=== PATIENT | female | born 2000 | race Caucasian/White ===

== ENCOUNTER 2020-08-25 12:50 | Outpatient (REF) | payer OTHER, SELFPAY ==
[2020-08-25 13:10] LABS: COVID-19 Test Negative (Negative); IDNOW Serial# 55D5AD1C
== END 2020-08-25 12:51 | disposition home or self-care (01) ==
LOC: HO.LAB 12:50
PROVIDERS: Visit Provider Internal Medicine
DX: Z20.822 Contact with and (suspected) exposure to COVID-19 (principal)
CPT/HCPCS: 36415; 87635; C9803

== ENCOUNTER → 2021-05-19 11:06 | Outpatient (BNVA) | payer OTHER, SELFPAY | PROVIDERS: PCP Student in an Organized Health Care Education/Training Program; Visit Provider Internal Medicine | DX: S80.02XA Contusion of left knee, initial encounter (principal); S90.112A Contusion of left great toe without damage to nail, initial encounter; W18.09XA Striking against other object with subsequent fall, initial encounter; Z23 Encounter for immunization | CPT/HCPCS: 73564; 90715; 99203 ==

== ENCOUNTER 2021-12-09 10:24 | Emergency (ER) | payer OTHER, SELFPAY ==
[2021-12-09 10:28] VITALS: BP 153/74; PULSE 100; RESP 18; TEMP 36.9; O2SAT 100; BMI 61.6
--- NOTE | 2021-12-09 10:30 | ECG_ITS ---
Test Reason : htn Blood Pressure : / mmHG Vent. Rate : 098 BPM Atrial Rate : 098 BPM P-R Int : 176 ms QRS Dur : 106 ms QT Int : 372 ms P-R-T Axes : 019 012 002 degrees QTc Int : 474 ms Normal sinus rhythm Normal ECG No previous ECGs available Referred By: Generic ED Physician Electronically Signed By:
[2021-12-09 10:52] LABS: Basophils Absolute Auto 0.1 X10*3/uL (0.0-0.2); Basophils Percent Auto 0.5 % (0-2); Eosinophils Absolute Auto 0.1 X10*3/uL (0.0-0.4); Eosinophils Percent Auto 0.6 % (0-4); Hematocrit 37.6 % (37.0-47.0); Hemoglobin 12.2 g/dl (12.0-16.0); Imm Gran Abs Auto 0.04 X10*3/uL (0.00-0.03); Imm Gran Pct Auto 0.4 % (0.0-0.4); Lymphocytes Absolute Auto 1.3 X10*3/uL (1.2-4.9); MANUAL DIFF FLAG NO; Mean Corpuscular HGB Conc 32.4 g/dl (31.0-35.0); Mean Corpuscular Hemoglobin 24.2 pg (27.0-33.0); Mean Corpuscular Volume 74.6 fL (80.0-98.0); Mean Platelet Volume 9.5 fL (9.4-12.3); Monocytes Absolute Auto 0.7 X10*3/uL (0.1-1.2); Monocytes Percent Auto 6.4 % (2-11); Neutrophils Absolute Auto 8.1 x10*3/uL (2.0-8.3); Neutrophils Percent Auto 79.1 % (45-73); Platelet Count 339 X10*3/uL (160-400); Red Blood Count 5.04 X10*6/uL (4.20-5.50); Red Cell Distribution Width 14.6 % (11.0-16.0); White Blood Count 10.2 X10*3/uL (4.8-10.8)
[2021-12-09 11:10] LABS: Anion Gap 12 (12-20); Blood Urea Nitrogen 9 mg/dL (9-16); Calcium 8.5 mg/dL (8.4-10.2); Carbon Dioxide 24 mmol/L (22-29); Chloride 104 mmol/L (96-108); Creatinine Clr Calc Pharmacy 220.3; Estimated Glomerular Filt Rate > 60; Glucose Random 94 mg/dL (60-115); Sodium 136 mmol/L (135-145)
[2021-12-09 11:17] LABS: Troponin-I High Sensitivity < 3.5 ng/L (<3.5-17.0)
--- NOTE | 2021-12-09 11:20 | ED.GENADULT ---
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 She presents with intermittent elevated blood pressure and then today states that it was associated with some nausea, vomiting, dizziness and she reports sharp left-sided chest pain since last night does not associated with any sweating or shortness of breath and she denies any fevers or chills or urinary symptoms. She denies any diarrhea and denies the possibility of . She does report positive travel history to [place] in October as well as a positive family history of cardiac disease. Related Data Allergies Allergy/AdvReac Type Severity Reaction Status Date / Time No Known Allergies Allergy Verified 12/09/21 10:30 Review of Systems Review of Systems: Pertinent positives and negatives as stated in HPI 10 point review of systems is otherwise negative. PMFSH Past Medical History Source: nursing notes reviewed Social History Social History Patient Tobacco Use Status: Never used Tobacco Use of substances other than those prescribed or required for medical reasons: No Any prior treatment program specific to substance use: No Advance Directives: No Advance Directives Information Provided: No Patient : No Physical Exam ED Vital Signs: Vital Signs - 24 hr 12/09/21 10:28 12/09/21 12:09 Temperature 98.4 F 98.2 F Pulse Rate 100 88 Respiratory Rate 18 18 Blood Pressure 153/74 H 118/62 Pulse Oximetry 100 98 Oxygen Delivery Method Room Air Room Air BMI result Body Mass Index 61.6 VITAL SIGNS: Reviewed. GENERAL: Elevated BMI, Well developed, well nourished, in no acute distress. HEAD: Normocephalic/atraumatic EYES: PERRLA, EOMI EARS: Ext canals without abnormality OROPHARYNX: no oral lesions noted, posterior pharynx clear NECK: Supple, no adenopathy LUNGS: Normal breath sounds. No adventitious sounds or accessory muscle use. SpO2<100> CARDIOVASCULAR: Regular rate and rhythm without noted murmurs ABDOMEN: Soft, non-tender, non-distended with bowel sounds. MUSCULOSKELETAL: No tenderness, deformities, or effusions noted on gross inspection. EXTREMITIES: No cyanosis, clubbing or edema. SKIN: Inspection of the skin reveals no rashes NEUROLOGIC: Alert and oriented x 4. Strength and sensation to light touch were grossly intact x 4. Course Course Course Narrative: 21-year-old female with history and clinical presentation suggestive of possible acid reflux, costochondritis and lower clinical suspicion for cardiopulmonary or PE etiologies. Will also evaluate for possible UTI//thyroid. On review of all investigations are no acute findings to better explain patient's presentation. Suspect that this is acid reflux as the troponin/TSH/D-dimer do not explain patient's current presentation. She does have mild leukocyte esterase in her urine and she is encouraged to follow-up with her primary care provider/tennis desk team member as well as pursue the referral for Cardiology for improved blood pressure control. In the meantime lifestyle changes were discussed with the patient. Medical Decision Making Lab Data Result diagrams: 12/09/21 10:47 12/09/21 10:47 Labs: Lab Results 12/09/21 12/09/21 12/09/21 Range/Units 10:47 10:47 10:47 WBC 10.2 (4.8-10.8) X10*3/uL RBC 5.04 (4.20-5.50) X10*6/uL Hgb 12.2 (12.0-16.0) g/dl Hct 37.6 (37.0-47.0) % MCV 74.6 L (80.0-98.0) fL MCH 24.2 L (27.0-33.0) pg MCHC 32.4 (31.0-35.0) g/dl RDW 14.6 (11.0-16.0) % Plt Count 339 (160-400) X10*3/uL MPV 9.5 (9.4-12.3) fL Immature Gran % (Auto) 0.4 (0.0-0.4) % Neut % (Auto) 79.1 H (45-73) % Lymph % (Auto) 13.0 L (20-40) % Preston % (Auto) 6.4 (2-11) % Eos % (Auto) 0.6 (0-4) % Baso % (Auto) 0.5 (0-2) % Lymph # (Auto) 1.3 (1.2-4.9) X10*3/uL Preston # (Auto) 0.7 (0.1-1.2) X10*3/uL Eos # (Auto) 0.1 (0.0-0.4) X10*3/uL Baso # (Auto) 0.1 (0.0-0.2) X10*3/uL Abs Immat Gran (auto) 0.04 H (0.00-0.03) X10*3/uL Absolute Neuts (auto) 8.1 (2.0-8.3) x10*3/uL Absolute Nucleated RBC 0.000 (0.0-0.012) X10*3/uL Nucleated RBC % (auto) 0.0 (0.0-0.2) /100WBC D-Dimer High Sensitivty NG/ML Sodium 136 (135-145) mmol/L Potassium 4.0 (3.3-5.1) mmol/L Chloride 104 (96-108) mmol/L Carbon Dioxide 24 (22-29) mmol/L Anion Gap 12 (12-20) BUN 9 (9-16) mg/dL Creatinine 0.56 (0.5-1.4) mg/dL Estim Creat Clear Calc 220.3 Estimated GFR > 60 Random Glucose 94 (60-115) mg/dL Calcium 8.5 (8.4-10.2) mg/dL Troponin I High Sens < 3.5 (<3.5-17.0) ng/L TSH 1.46 (0.32-4.0) uIU/mL Beta HCG, Quant < 2 mIU/mL Urine Color Urine Appearance Urine pH (5.0-9.0) Ur Specific [place] (1.005-1.025) Urine Protein (Neg-Trace) mg/dL Urine Glucose (UA) (Negative) mg/dL Urine Ketones (Negative) mg/dL Urine Blood (Negative) Urine Nitrite (Negative) Ur Leukocyte Esterase (Negative) COVID-19 ([facility]ACLYN) (Negative) COVID-19 Clin Com 12/09/21 12/09/21 12/09/21 Range/Units 11:36 11:37 11:44 WBC (4.8-10.8) X10*3/uL RBC (4.20-5.50) X10*6/uL Hgb (12.0-16.0) g/dl Hct (37.0-47.0) % MCV (80.0-98.0) fL MCH (27.0-33.0) pg MCHC (31.0-35.0) g/dl RDW (11.0-16.0) % Plt Count (160-400) X10*3/uL MPV (9.4-12.3) fL Immature Gran % (Auto) (0.0-0.4) % Neut % (Auto) (45-73) % Lymph % (Auto) (20-40) % Preston % (Auto) (2-11) % Eos % (Auto) (0-4) % Baso % (Auto) (0-2) % Lymph # (Auto) (1.2-4.9) X10*3/uL Preston # (Auto) (0.1-1.2) X10*3/uL Eos # (Auto) (0.0-0.4) X10*3/uL Baso # (Auto) (0.0-0.2) X10*3/uL Abs Immat Gran (auto) (0.00-0.03) X10*3/uL Absolute Neuts (auto) (2.0-8.3) x10*3/uL Absolute Nucleated RBC (0.0-0.012) X10*3/uL Nucleated RBC % (auto) (0.0-0.2) /100WBC D-Dimer High Sensitivty 218 NG/ML Sodium (135-145) mmol/L Potassium (3.3-5.1) mmol/L Chloride (96-108) mmol/L Carbon Dioxide (22-29) mmol/L Anion Gap (12-20) BUN (9-16) mg/dL Creatinine (0.5-1.4) mg/dL Estim Creat Clear Calc Estimated GFR Random Glucose (60-115) mg/dL Calcium (8.4-10.2) mg/dL Troponin I High Sens (<3.5-17.0) ng/L TSH (0.32-4.0) uIU/mL Beta HCG, Quant mIU/mL Urine Color Yellow Urine Appearance Clear Urine pH 8.5 (5.0-9.0) Ur Specific [place] 1.015 (1.005-1.025) Urine Protein Negative (Neg-Trace) mg/dL Urine Glucose (UA) Negative (Negative) mg/dL Urine Ketones Negative (Negative) mg/dL Urine Blood Negative (Negative) Urine Nitrite Negative (Negative) Ur Leukocyte Esterase Small (1+) H (Negative) COVID-19 (JACLYN) Negative (Negative) COVID-19 Clin Com See Note ECG Data Attestation: I personally reviewed and interpreted this ECG as follows: Prior ECG tracings: not available for review Interpretation: NSR, HR-98, no STEMI, MN/QTC are within normal limits. Discharge Plan Discharge Clinical Impression: Acid reflux, Hypertension Patient Disposition: Home, Self-Care Instructions: Diet for Stomach Ulcers and Gastritis (ED), Weight Management (ED), Gastroesophageal Reflux Disease (ED), Indigestion (ED), DASH Eating Plan (ED), Hypertension (ED) Additional Instructions: 1. You must follow-up with your tennis desk team member by calling the office today and setting up an appointment for re-evaluation and discussion regarding further workup for your blood pressure and possible initiation of medications. You can start the process by managing your salt intake as well as weight. Also, recommend the use of Tums or Rolaids, in addition waiting at least 2 hours after eating in the evening may help with possible acid reflux symptoms. Do not hesitate to return to the emergency room for worsening symptoms. Referrals: Brooke Conklin MD [Primary Care Provider] - Slim Francisco MD [Physician] - (21F, elevated BMI, sharp chest pain > 12hrs, hsTrop undetectable, HTN not on meds, d-dimer neg, Lead III showing T wave inversion w/o comparison. Gave recs for lifestyle changes and instructed to f/u with her peds doc as well)
[2021-12-09 11:52] LABS: HCG Quantitative < 2 mIU/mL; Thyroid Stimulating Hormone 1.46 uIU/mL (0.32-4.0)
[2021-12-09 11:58] LABS: D Dimer High Sensitivity 218 NG/ML
[2021-12-09 12:00] LABS: Appearance Urine Clear; Color Urine Yellow; Glucose Urine UA Negative (Negative); Leukocyte Esterase Urine Small (1+) (Negative); Nitrite Urine Negative (Negative); PH 8.5 (5.0-9.0); Specific Gravity - Urine 1.015 (1.005-1.025); Urine Blood Negative (Negative); Urine Ketones Negative (Negative); Urine Protein Negative (Neg-Trace)
[2021-12-09 12:09] VITALS: BP 118/62; PULSE 88; RESP 18; TEMP 36.8; O2SAT 98
[2021-12-09 12:10] LABS: COVID-19 Test Negative (Negative); IDNOW Serial# 16C4AD1C
[2021-12-09] MEDS: Lidocaine HCl Viscous 2 % 15 ML SOLUTION 10 ML MUCOUS MEM (12:31)
[2021-12-09] MEDS: Magnesium Hydrox/Alum Hydrox 30 ML ORAL.SUSP PO (12:32)
[2021-12-09 13:14] LABS: Bacteria Urine 1+ (None Seen); Hyaline Casts Urine 0-2 /LPF (0-2); RBC Urine 0-2 /HPF (0-2); UACC Culture Trigger YES; WBC Urine 0-5 /HPF (0-5)
--- NOTE | 2021-12-09 13:21 | PC.NURSE ---
DR CHICAS SPOKE WITH PATIENT AND UPDATED HER REGARDING RESULTS AND DISPOSITION PLAN. DR CHICAS SPENT A LARGE AMOUNT OF TIME EXPLAINING CARE PLAN TO PATIENT. SHE ANSWERED MULTIPLE QUESTIONS AND OFFERED REASSURANCE TO PATIENT'S CONCERNS. PT AWAKE, ALERT AND ORIENTED X 3. SKIN WARM AND DRY. RESP UNLABORED. SPEAKING IN FULL CLEAR SENTENCES. NO S/S OF DISTRESS NOTED. NO COMPLAINTS OFFERED. PT AMBULATORY IN ER, GAIT STEADY
== END 2021-12-09 13:27 | disposition home or self-care (01) ==
PROVIDERS: Emergency Provider Student in an Organized Health Care Education/Training Program; PCP Student in an Organized Health Care Education/Training Program
DX: K21.9 Gastro-esophageal reflux disease without esophagitis (principal); I10 Essential (primary) hypertension; Z20.822 Contact with and (suspected) exposure to COVID-19; Z79.899 Other long term (current) drug therapy
CPT/HCPCS: 36415; 80048; 81001; 81003; 84443; 84484; 84702; 85025; 85379; 87086; 87635; 93005; 99283; 99284

== ENCOUNTER 2022-05-29 13:47 | Emergency (ER) | payer OTHER, SELFPAY ==
--- NOTE | 2022-05-29 14:06 | ED_ITS ---
HPI - Nausea/Vomiting/Diarrhea General Chief complaint: Abdominal Pain <Judy Fan NP - Last Filed: 05/29/22 16:35> Stated complaint: vomiting <Judy Fan NP - Last Filed: 05/29/22 16:35> Time Seen by Provider: 05/29/22 14:11 <Judy Fan NP - Last Filed: 05/29/22 16:35> Source: patient <Judy Fan NP - Last Filed: 05/29/22 16:35> Mode of arrival: ambulatory <Judy Fan NP - Last Filed: 05/29/22 16:35> Limitations: no limitations <Judy Fan NP - Last Filed: 05/29/22 16:35> History of Present Illness HPI Narrative: 21-year-old female with a history of asthma, hypertension presents with complaints of multiple episodes of vomiting, diarrhea, upper abdominal pain since 02:00. No fevers, chills, urinary symptoms. No sick contact or recent travel <Judy Fan NP - Last Filed: 05/29/22 16:35> MD elicited complaint: nausea, vomiting, diarrhea and abdominal pain <Judy Fan NP - Last Filed: 05/29/22 16:35> Pertinent past history: other (high BMI) <Gio Carey MD - Last Filed: 05/29/22 14:25> Onset (ago): hour(s) (10 h) <Gio Carey MD - Last Filed: 05/29/22 14:25> Description of vomiting: watery <Gio Carey MD - Last Filed: 05/29/22 14:25> Associated nausea: Yes <Judy Fan NP - Last Filed: 05/29/22 16:35> Location of pain: epigastric <Gio Carey MD - Last Filed: 05/29/22 14:25> Pain consistency: constant <Gio Carey MD - Last Filed: 05/29/22 14:25> Quality: cramping <Gio Carey MD - Last Filed: 05/29/22 14:25> Exacerbating factors: none <Gio Carey MD - Last Filed: 05/29/22 14:25> Relieving factors: none <Gio Carey MD - Last Filed: 05/29/22 14:25> Related Data Home medications: Previous Rx's Medication Instructions Recorded ondansetron 4 mg disintegrating 4 mg PO Q6H PRN nausea and 05/29/22 tablet vomiting #10 tabs <Judy Fan NP - Last Filed: 05/29/22 16:35> Allergies/Adverse reactions: Allergies Allergy/AdvReac Type Severity Reaction Status Date / Time No Known Allergies Allergy Verified 12/09/21 10:30 <Judy Fan NP - Last Filed: 05/29/22 16:35> Review of Systems Review of Systems: Yes all other systems are reviewed and are negative <Judy Fan NP - Last Filed: 05/29/22 16:35> Constitutional: Constitutional: Reports no additional constitutional complaints, Denies body ache(s), Denies chills, Denies fever(s), Denies headache(s) and Denies weakness <Judy Fan NP - Last Filed: 05/29/22 16:35> Eyes: Eyes: Reports no additional eye complaints and Denies change in vision <Judy Fan NP - Last Filed: 05/29/22 16:35> ENT: Reports system reviewed and no additional complaints, except as documented, Denies dizziness, Denies headache(s), Denies nasal congestion, Denies nasal discharge and Denies neck pain <Judy Fan NP - Last Filed: 05/29/22 16:35> Cardiovascular: Cardiovascular: Reports no additional cardiovascular complaints, Denies chest pain, Denies leg edema and Denies dyspnea <Judy Fan NP - Last Filed: 05/29/22 16:35> Respiratory: Respiratory: Reports no additional respiratory complaints, Denies cough and Denies dyspnea <Judy Fan NP - Last Filed: 05/29/22 16:35> Gastrointestinal: Gastrointestinal: Reports no additional gastrointestinal complaints, Reports abdominal pain, Reports diarrhea, Reports nausea and Reports vomiting <Judy Fan NP - Last Filed: 05/29/22 16:35> Genitourinary: Genitourinary: Reports no additional female genitourinary complaints and Denies urinary incontinence <Judy Fan NP - Last Filed: 05/29/22 16:35> Musculoskeletal: Musculoskeletal: Reports no additional musculoskeletal complaints, Denies back pain, Denies arthralgias, Denies joint swelling, Denies neck pain, Denies numbness and Denies tingling <Judy Fan NP - Last Filed: 05/29/22 16:35> Integumentary/Breasts: Skin/Breast: Reports system reviewed and no additional complaints, except as docu and Denies rash <Judy Fan NP - Last Filed: 05/29/22 16:35> Neurologic: Reports system reviewed and no additional complaints, except as documented, Denies Abnormal speech present, Denies dizziness, Denies headache(s), Denies numbness, Denies tingling and Denies weakness <Judy Fan NP - Last Filed: 05/29/22 16:35> FOR[facility]LY [facility], [facility] Past Medical History Attestation statement: The following information was validated with the patient. <Judy Fan NP - Last Filed: 05/29/22 16:35> Source: old records reviewed and nursing notes reviewed <Judy Fan NP - Last Filed: 05/29/22 16:35> Social History Social History: Social History Patient Tobacco Use Status: Never used Tobacco Advance Directives: No Advance Directives Information Provided: No <Judy Fan NP - Last Filed: 05/29/22 16:35> Physical Exam Vital Signs: Vital Signs: Last Vital Signs Temp 98.4 F 05/29/22 14:07 Pulse 90 05/29/22 14:07 Resp 20 05/29/22 14:07 BP 153/96 H 05/29/22 14:07 Pulse Ox 99 05/29/22 14:07 O2 Del Method 05/29/22 14:07 BMI result Body Mass Index 60.4 <Judy Fan NP - Last Filed: 05/29/22 16:35> Vital Signs: Last Vital Signs Temp 98.4 F 05/29/22 14:07 Pulse 90 05/29/22 14:07 Resp 20 05/29/22 14:07 BP 153/96 H 05/29/22 14:07 Pulse Ox 99 05/29/22 14:07 O2 Del Method 05/29/22 14:07 BMI result Body Mass Index 60.4 <Gio Carey MD - Last Filed: 05/29/22 14:25> Const: General: cooperative, healthy appearing, comfortable and no acute distress <Judy Fan NP - Last Filed: 05/29/22 16:35> Orientation/consciousness: patient oriented x3 <Judy Fan NP - Last Filed: 05/29/22 16:35> Limitations: no limitations <Judy Fan NP - Last Filed: 05/29/22 16:35> HEENT: Head: Yes normal to inspection <Judy Fan [employer] - Last Filed: 05/29/22 16:35> Ears: hearing grossly normal bilaterally <Judy Fan NP - Last Filed: 05/29/22 16:35> General nose exam: Normal external nose present <Judy Fan [employer] - Last Filed: 05/29/22 16:35> Face and sinus: Yes normal facial exam <Judy Fan [employer] - Last Filed: 05/29/22 16:35> Mouth: Normal oral and palatal mucosa present <Judy Fan [employer] - Last Filed: 05/29/22 16:35> Throat: Yes posterior oropharynx normal <Judy Fan NP - Last Filed: 05/29/22 16:35> Eyes: General: appearance normal, both eyes and all related structures <Judy Fan [employer] - Last Filed: 05/29/22 16:35> Pupils: Equal, round and reactive pupils present <Judy Fan [employer] - Last Filed: 05/29/22 16:35> Neck: Neck: Yes normal visual inspection <Judy Fan [employer] - Last Filed: 05/29/22 16:35> Chest: Chest palpation & inspection: normal inspection of the chest <Judy Fan [employer] - Last Filed: 05/29/22 16:35> Resp: Effort & Inspection: normal respiratory effort <Judy Fan [employer] - Last Filed: 05/29/22 16:35> Auscultation: clear to auscultation bilaterally <Judy Fan [employer] - Last Filed: 05/29/22 16:35> Cardio: Rate: regular rate <Judy Fan, [employer] - Last Filed: 05/29/22 16:35> Rhythm: regular rhythm <Judy Fan [employer] - Last Filed: 05/29/22 16:35> Peripheral pulses: Peripheral pulses 2+ throughout <Judy Fan [employer] - Last Filed: 05/29/22 16:35> GI: Inspection: Yes normal to inspection <Judy Fan [employer] - Last Filed: 05/29/22 16:35> Palpation (GI): Soft to palpation and nontender <Judy Fan [employer] - Last Filed: 05/29/22 16:35> Auscultation: normal bowel sounds <Judy Fan [employer] - Last Filed: 05/29/22 16:35> Back/Spine/Pelvis: Thoracic/Lumbar Spine: thoracic and lumbar spine normal to inspection <Judy Fan [employer] - Last Filed: 05/29/22 16:35> Skin: General skin exam: no rashes or lesions noted <Judy Fan [employer] - Last Filed: 05/29/22 16:35> Neuro: General: patient oriented x3, no focal motor deficits and normal sensation to monofilament <Judy Fan [employer] - Last Filed: 05/29/22 16:35> Cranial nerves: Yes Equal, round and reactive pupils present <Judy stevenson, [employer] - Last Filed: 05/29/22 16:35> Cognition (Neuro): normal cognition <Judy Fan [employer] - Last Filed: 05/29/22 16:35> Speech: No Abnormal speech present <Judy Fan NP - Last Filed: 05/29/22 16:35> Gait exam (Neuro): Normal gait present <Judy Fan NP - Last Filed: 05/29/22 16:35> Motor exam (neuro): 5/5 motor strength present throughout <Judy Fan NP - Last Filed: 05/29/22 16:35> Extrem: General: Yes normal to inspection <Judy Fan NP - Last Filed: 05/29/22 16:35> Course Course Course Narrative: This is rapid medical exam. deferred additional HPI, ROS, PE to primary provider. 21 yo female with history of HTN, asthma here with vomiting, diarrhea, upper abdominal pain since 2am. Will obtain labs, UA, COVID/flu/rsv screen. Will give 4mg SL zofran. VSS <Judy Fan NP - Last Filed: 05/29/22 16:35> Reevaluation(s) Reevaluation #1: COVID screen positive. No hypoxia or tachypnea. Lungs are clear. Patient is now tolerating p.o.. Feels better. Labs are unremarkable. Plan for discharge home with Odt Zofran. Reviewed worrisome signs and symptoms of when to return to the emergency room. Comfortable plan for discharge home <Judy Fan NP - Last Filed: 05/29/22 16:35> Medications Administered Discontinued Medications Generic Name Dose Route Start Last Admin Trade Name Freq PRN Reason Stop Dose Admin Sodium Chloride 1,000 mls @ 999 mls/hr 05/29/22 14:11 05/29/22 15:14 Ns IV 05/29/22 15:11 999 mls/hr .Q1H1M STA Administration Ondansetron HCl 4 mg 05/29/22 14:06 05/29/22 14:11 Ondansetron Odt 4 Mg Tab.Rapdis TRANSLINGU 05/29/22 14:07 4 mg ONCE ONE Administration <Judy Fan NP - Last Filed: 05/29/22 16:35> Medications Administered Discontinued Medications Generic Name Dose Route Start Last Admin Trade Name Freq PRN Reason Stop Dose Admin Sodium Chloride 1,000 mls @ 999 mls/hr 05/29/22 14:11 05/29/22 15:14 Ns IV 05/29/22 15:11 999 mls/hr .Q1H1M STA Administration Ondansetron HCl 4 mg 05/29/22 14:06 05/29/22 14:11 Ondansetron Odt 4 Mg Tab.Rapdis TRANSLINGU 05/29/22 14:07 4 mg ONCE ONE Administration <Gio Carey MD - Last Filed: 05/29/22 14:25> Medical Decision Making Medical Decision Making [facility] Narrative: 21 yo female here with upper abdominal pain, vomiting/diarrhea since 2am. No focal abdominal pain on exam. Will obtain labs, UA, ur preg, viral testing. W ill give IVF, SL zofran <Judy Fan NP - Last Filed: 05/29/22 16:35> Differential Diagnosis Differential Diagnoses: The differential diagnosis associated with the presentation includes <Judy Fan NP - Last Filed: 05/29/22 16:35> Gastroenteritis, viral syndrome Low concern for intra-abdominal pathology including appendicitis <Judy Fan NP - Last Filed: 05/29/22 16:35> Lab Data [facility] Lab Attestation statement: I reviewed the patient's lab results. <Judy Fan NP - Last Filed: 05/29/22 16:35> Result Diagrams: 05/29/22 14:50 05/29/22 14:50 <Judy Fan NP - Last Filed: 05/29/22 16:35> Labs: Lab Results 05/29/22 05/29/22 05/29/22 Range/Units 14:20 14:50 14:50 WBC 11.5 H (4.8-10.8) X10*3/uL RBC 5.66 H (4.20-5.50) X10*6/uL Hgb 13.3 (12.0-16.0) g/dl Hct 42.5 (37.0-47.0) % MCV 75.1 L (80.0-98.0) fL MCH 23.5 L (27.0-33.0) pg MCHC 31.3 (31.0-35.0) g/dl RDW 14.5 (11.0-16.0) % Plt Count 400 (160-400) X10*3/uL MPV 9.0 L (9.4-12.3) fL Immature Gran % (Auto) 0.3 (0.0-0.4) % Neut % (Auto) 73.4 H (45-73) % Lymph % (Auto) 18.9 L (20-40) % [place] % (Auto) 5.6 (2-11) % Eos % (Auto) 1.5 (0-4) % Baso % (Auto) 0.3 (0-2) % Lymph # (Auto) 2.2 (1.2-4.9) X10*3/uL [place] # (Auto) 0.7 (0.1-1.2) X10*3/uL Eos # (Auto) 0.2 (0.0-0.4) X10*3/uL Baso # (Auto) 0.0 (0.0-0.2) X10*3/uL Abs Immat Gran (auto) 0.03 (0.00-0.03) X10*3/uL Absolute Neuts (auto) 8.5 H (2.0-8.3) x10*3/uL Absolute Nucleated RBC 0.000 (0.0-0.012) X10*3/uL Nucleated RBC % (auto) 0.0 (0.0-0.2) /100WBC Sodium 140 (135-145) mmol/L Potassium 4.0 (3.3-5.1) mmol/L Chloride 107 (96-108) mmol/L Carbon Dioxide 22 (22-29) mmol/L Anion Gap 15 (12-20) BUN 10 (9-16) mg/dL Creatinine 0.63 (0.5-1.4) mg/dL Estim Creat Clear Calc 193.4 Estimated GFR > 60 Random Glucose 83 (60-115) mg/dL Calcium 9.1 D (8.4-10.2) mg/dL Total Bilirubin 0.5 (0.0-1.0) mg/dL Direct Bilirubin 0.2 (0.0-0.5) mg/dL AST 12 (5-31) U/L ALT 14 (0-31) U/L Alkaline Phosphatase 91 (39-117) U/L Total Protein 7.1 (6.5-8.0) g/dL Albumin 4.0 (3.5-5.0) g/dL Lipase (8-78) U/L Influenza Type A (PCR) NEGATIVE (Negative) Influenza Type B (PCR) NEGATIVE (Negative) RSV RNA Qual (PCR) NEGATIVE (Negative) SARS-CoV-2 RNA (RT-PCR) POSITIVE A (Negative) 05/29/22 Range/Units 14:50 WBC (4.8-10.8) X10*3/uL RBC (4.20-5.50) X10*6/uL Hgb (12.0-16.0) g/dl Hct (37.0-47.0) % MCV (80.0-98.0) fL MCH (27.0-33.0) pg MCHC (31.0-35.0) g/dl RDW (11.0-16.0) % Plt Count (160-400) X10*3/uL MPV (9.4-12.3) fL Immature Gran % (Auto) (0.0-0.4) % Neut % (Auto) (45-73) % Lymph % (Auto) (20-40) % [place] % (Auto) (2-11) % Eos % (Auto) (0-4) % Baso % (Auto) (0-2) % Lymph # (Auto) (1.2-4.9) X10*3/uL [place] # (Auto) (0.1-1.2) X10*3/uL Eos # (Auto) (0.0-0.4) X10*3/uL Baso # (Auto) (0.0-0.2) X10*3/uL Abs Immat Gran (auto) (0.00-0.03) X10*3/uL Absolute Neuts (auto) (2.0-8.3) x10*3/uL Absolute Nucleated RBC (0.0-0.012) X10*3/uL Nucleated RBC % (auto) (0.0-0.2) /100WBC Sodium (135-145) mmol/L Potassium (3.3-5.1) mmol/L Chloride (96-108) mmol/L Carbon Dioxide (22-29) mmol/L Anion Gap (12-20) BUN (9-16) mg/dL Creatinine (0.5-1.4) mg/dL Estim Creat Clear Calc Estimated GFR Random Glucose (60-115) mg/dL Calcium (8.4-10.2) mg/dL Total Bilirubin (0.0-1.0) mg/dL Direct Bilirubin (0.0-0.5) mg/dL AST (5-31) U/L ALT (0-31) U/L Alkaline Phosphatase (39-117) U/L Total Protein (6.5-8.0) g/dL Albumin (3.5-5.0) g/dL Lipase 16 (8-78) U/L Influenza Type A (PCR) (Negative) Influenza Type B (PCR) (Negative) RSV RNA Qual (PCR) (Negative) SARS-CoV-2 RNA (RT-PCR) (Negative) <Judy Fan, [employer] - Last Filed: 05/29/22 16:35> Lab Results 05/29/22 05/29/22 05/29/22 Range/Units 14:20 14:50 14:50 WBC 11.5 H (4.8-10.8) X10*3/uL RBC 5.66 H (4.20-5.50) X10*6/uL Hgb 13.3 (12.0-16.0) g/dl Hct 42.5 (37.0-47.0) % MCV 75.1 L (80.0-98.0) fL MCH 23.5 L (27.0-33.0) pg MCHC 31.3 (31.0-35.0) g/dl RDW 14.5 (11.0-16.0) % Plt Count 400 (160-400) X10*3/uL MPV 9.0 L (9.4-12.3) fL Immature Gran % (Auto) 0.3 (0.0-0.4) % Neut % (Auto) 73.4 H (45-73) % Lymph % (Auto) 18.9 L (20-40) % [place] % (Auto) 5.6 (2-11) % Eos % (Auto) 1.5 (0-4) % Baso % (Auto) 0.3 (0-2) % Lymph # (Auto) 2.2 (1.2-4.9) X10*3/uL [place] # (Auto) 0.7 (0.1-1.2) X10*3/uL Eos # (Auto) 0.2 (0.0-0.4) X10*3/uL Baso # (Auto) 0.0 (0.0-0.2) X10*3/uL Abs Immat Gran (auto) 0.03 (0.00-0.03) X10*3/uL Absolute Neuts (auto) 8.5 H (2.0-8.3) x10*3/uL Absolute Nucleated RBC 0.000 (0.0-0.012) X10*3/uL Nucleated RBC % (auto) 0.0 (0.0-0.2) /100WBC Sodium 140 (135-145) mmol/L Potassium 4.0 (3.3-5.1) mmol/L Chloride 107 (96-108) mmol/L Carbon Dioxide 22 (22-29) mmol/L Anion Gap 15 (12-20) BUN 10 (9-16) mg/dL Creatinine 0.63 (0.5-1.4) mg/dL Estim Creat Clear Calc 193.4 Estimated GFR > 60 Random Glucose 83 (60-115) mg/dL Calcium 9.1 D (8.4-10.2) mg/dL Total Bilirubin 0.5 (0.0-1.0) mg/dL Direct Bilirubin 0.2 (0.0-0.5) mg/dL AST 12 (5-31) U/L ALT 14 (0-31) U/L Alkaline Phosphatase 91 (39-117) U/L Total Protein 7.1 (6.5-8.0) g/dL Albumin 4.0 (3.5-5.0) g/dL Lipase (8-78) U/L Influenza Type A (PCR) NEGATIVE (Negative) Influenza Type B (PCR) NEGATIVE (Negative) RSV RNA Qual (PCR) NEGATIVE (Negative) SARS-CoV-2 RNA (RT-PCR) POSITIVE A (Negative) 05/29/22 Range/Units 14:50 WBC (4.8-10.8) X10*3/uL RBC (4.20-5.50) X10*6/uL Hgb (12.0-16.0) g/dl Hct (37.0-47.0) % MCV (80.0-98.0) fL MCH (27.0-33.0) pg MCHC (31.0-35.0) g/dl RDW (11.0-16.0) % Plt Count (160-400) X10*3/uL MPV (9.4-12.3) fL Immature Gran % (Auto) (0.0-0.4) % Neut % (Auto) (45-73) % Lymph % (Auto) (20-40) % [place] % (Auto) (2-11) % Eos % (Auto) (0-4) % Baso % (Auto) (0-2) % Lymph # (Auto) (1.2-4.9) X10*3/uL [place] # (Auto) (0.1-1.2) X10*3/uL Eos # (Auto) (0.0-0.4) X10*3/uL Baso # (Auto) (0.0-0.2) X10*3/uL Abs Immat Gran (auto) (0.00-0.03) X10*3/uL Absolute Neuts (auto) (2.0-8.3) x10*3/uL Absolute Nucleated RBC (0.0-0.012) X10*3/uL Nucleated RBC % (auto) (0.0-0.2) /100WBC Sodium (135-145) mmol/L Potassium (3.3-5.1) mmol/L Chloride (96-108) mmol/L Carbon Dioxide (22-29) mmol/L Anion Gap (12-20) BUN (9-16) mg/dL Creatinine (0.5-1.4) mg/dL Estim Creat Clear Calc Estimated GFR Random Glucose (60-115) mg/dL Calcium (8.4-10.2) mg/dL Total Bilirubin (0.0-1.0) mg/dL Direct Bilirubin (0.0-0.5) mg/dL AST (5-31) U/L ALT (0-31) U/L Alkaline Phosphatase (39-117) U/L Total Protein (6.5-8.0) g/dL Albumin (3.5-5.0) g/dL Lipase 16 (8-78) U/L Influenza Type A (PCR) (Negative) Influenza Type B (PCR) (Negative) RSV RNA Qual (PCR) (Negative) SARS-CoV-2 RNA (RT-PCR) (Negative) <Gio Carey MD - Last Filed: 05/29/22 14:25> Discharge Plan Discharge Clinical Impression: COVID-19 <Judy Fan NP - Last Filed: 05/29/22 16:35> Patient Disposition: Home, Self-Care <Judy Fan NP - Last Filed: 05/29/22 16:35> Instructions: COVID-19 (Coronavirus Disease 2019) (ED) <Judy Fan NP - Last Filed: 05/29/22 16:35> Additional Instructions: Per the CDC you must quarantine for 5 days then mask up for additional 5 days Alternate Motrin and Tylenol for pain or fever Increase fluids, rest Return for any chest pain, shortness of breath <Judy Fan NP - Last Filed: 05/29/22 16:35> Prescriptions: New ondansetron 4 mg tablet,disintegrating 4 mg PO Q6H PRN (Reason: nausea and vomiting) Qty: 10 0RF <Judy Fan NP - Last Filed: 05/29/22 16:35> Referrals: Angelica Heaton MD [Primary Care Provider] - 1 week <Judy Fan NP - Last Filed: 05/29/22 16:35> Stand Alone Forms: Work/School Release <Judy Fan NP - Last Filed: 05/29/22 16:35>
[2022-05-29 14:07] VITALS: BP 153/96; PULSE 90; RESP 20; TEMP 36.9; O2SAT 99; BMI 60.4
[2022-05-29] MEDS: Ondansetron ODT 4 MG TAB.RAPDIS TRANSLINGU (14:11)
[2022-05-29 14:54] LABS: MANUAL DIFF FLAG NO
[2022-05-29 14:58] LABS: Basophils Percent Auto 0.3 % (0-2); Eosinophils Absolute Auto 0.2 X10*3/uL (0.0-0.4); Eosinophils Percent Auto 1.5 % (0-4); Hematocrit 42.5 % (37.0-47.0); Hemoglobin 13.3 g/dl (12.0-16.0); Imm Gran Abs Auto 0.03 X10*3/uL (0.00-0.03); Imm Gran Pct Auto 0.3 % (0.0-0.4); Lymphocytes Absolute Auto 2.2 X10*3/uL (1.2-4.9); Lymphocytes Percent Auto 18.9 % (20-40); Mean Corpuscular HGB Conc 31.3 g/dl (31.0-35.0); Mean Corpuscular Hemoglobin 23.5 pg (27.0-33.0); Mean Corpuscular Volume 75.1 fL (80.0-98.0); Monocytes Absolute Auto 0.7 X10*3/uL (0.1-1.2); Monocytes Percent Auto 5.6 % (2-11); Neutrophils Absolute Auto 8.5 x10*3/uL (2.0-8.3); Neutrophils Percent Auto 73.4 % (45-73); Platelet Count 400 X10*3/uL (160-400); Red Blood Count 5.66 X10*6/uL (4.20-5.50); Red Cell Distribution Width 14.5 % (11.0-16.0); White Blood Count 11.5 X10*3/uL (4.8-10.8)
[2022-05-29 15:04] LABS: Influenza A PCR NEGATIVE (Negative); Influenza B PCR NEGATIVE (Negative); Resp Syncy Virus RNA Qual PCR NEGATIVE (Negative); SARS COV2 PCR INHOUSE POSITIVE (Negative)
[2022-05-29 15:07] LABS: Lipase 16 U/L (8-78)
[2022-05-29 15:13] LABS: Alanine Aminotransferase 14 U/L (0-31); Alkaline Phosphatase 91 U/L (39-117); Anion Gap 15 (12-20); Aspartate Amino Transferase 12 U/L (5-31); Bilirubin Direct 0.2 mg/dL (0.0-0.5); Bilirubin Total 0.5 mg/dL (0.0-1.0); Blood Urea Nitrogen 10 mg/dL (9-16); Calcium 9.1 mg/dL (8.4-10.2); Carbon Dioxide 22 mmol/L (22-29); Chloride 107 mmol/L (96-108); Creatinine Clr Calc Pharmacy 193.4; Estimated Glomerular Filt Rate > 60; Glucose Random 83 mg/dL (60-115); Sodium 140 mmol/L (135-145); Total Protein 7.1 g/dL (6.5-8.0)
[2022-05-29] MEDS: 0.9 % Sodium Chloride 1,000 ML 999 ML IV (15:14)
[2022-05-29 19:20] LABS: HCG Quantitative < 2 mIU/mL
== END 2022-05-29 16:51 | disposition home or self-care (01) ==
PROVIDERS: Nurse Practitioner Family; Emergency Provider Emergency Medicine; PCP Pediatrics
DX: U07.1 COVID-19 (principal); R11.2 Nausea with vomiting, unspecified; I10 Essential (primary) hypertension
CPT/HCPCS: 0241U; 36415; 80048; 80076; 83690; 84702; 85025; 99283; 99284

== ENCOUNTER 2022-06-19 18:45 | Emergency (ER) | payer OTHER, SELFPAY ==
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
[2022-06-19 19:01] VITALS: BP 137/85; PULSE 103; RESP 18; TEMP 36.8; O2SAT 97; BMI 60.4
[2022-06-19] MEDS: Cyclobenzaprine HCl 5 MG TABLET PO (20:21)
== END 2022-06-19 21:32 | disposition home or self-care (01) ==
PROVIDERS: Emergency Provider Student in an Organized Health Care Education/Training Program; PCP Pediatrics
DX: Z04.1 Encounter for examination and observation following transport accident (principal); M54.9 Dorsalgia, unspecified; R07.89 Other chest pain
CPT/HCPCS: 71046; 72040; 72070; 72100; 99283; 99284

== ENCOUNTER 2022-07-04 10:45 | Emergency (ER) | payer OTHER, SELFPAY ==
[2022-07-04 10:51] VITALS: BP 155/99; PULSE 107; RESP 20; TEMP 36.2; O2SAT 97; BMI 64.2
--- NOTE | 2022-07-04 12:42 | PC.NURSE ---
pt swabbed for covid/flu/rsv and strep a Pt resting comfortably at this time, water pitcher at bedside with crackers per pt request
[2022-07-04 12:48] LABS: IDNOW Serial# 6674DD1D; Strep A Nucleic Acid Positive (Negative)
[2022-07-04 13:23] LABS: Influenza A PCR NEGATIVE (Negative); Influenza B PCR NEGATIVE (Negative); Resp Syncy Virus RNA Qual PCR NEGATIVE (Negative); SARS COV2 PCR INHOUSE NEGATIVE (Negative)
--- NOTE | 2022-07-04 13:35 | ED_ITS ---
HPI - URI/Sore Throat General Chief Complaint: Back Pain/Injury Stated Complaint: Back pain/Neck pain/Headache Time Seen by Provider: 07/04/22 12:11 Source: patient Mode of arrival: ambulatory Limitations: no limitations History of Present Illness HPI Narrative: 21-year-old female presenting to the ER with complaints of body aches, chills, fatigue, malaise, sore throat that started on Tuesday worse today. 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 She denies any measured fevers, trouble swallowing or breathing, neck stiffness, nausea/vomiting/diarrhea, abdominal pain, rashes, recent travel or any other symptoms complaints or concerns at this time. MD elicited complaint: sore throat Onset (ago): day(s) (2) Consistency: constant Severity: mild Able to tolerate fluids by mouth: Yes Exacerbating factors: swallowing Relieving factors: nothing Context: sick contacts Associated symptoms: chills, myalgias, headache, rhinorrhea and nasal congestion Treatments prior to arrival: none Related Data Previous Rx's Medication Instructions Recorded ondansetron 4 mg disintegrating 4 mg PO Q6H PRN nausea and 05/29/22 tablet vomiting #10 tabs cyclobenzaprine 5 mg tablet 5 mg PO TID PRN muscle spasm 7 06/19/22 days #21 tabs naproxen 500 mg tablet 500 mg PO BID 7 days #14 tabs 06/19/22 amoxicillin 875 mg-potassium 1 tab PO BID 7 days #14 tabs 07/04/22 clavulanate 125 mg tablet Allergies Allergy/AdvReac Type Severity Reaction Status Date / Time apple Allergy Itching Verified 07/04/22 10:55 cantaloupe Allergy Itching Verified 07/04/22 10:55 kiwi Allergy Itching Verified 07/04/22 10:55 shellfish derived Allergy Facial Verified 07/04/22 10:55 Swelling strawberry Allergy Itching Verified 07/04/22 10:55 Review of Systems Review of Systems: Constitutional : + chills/fatigue/malaise, No Weight loss, No Night Sweats ENT/Mouth : + sore throat, No Hearing loss, No Ear Pain, No Nasal Congestion, No Sinus Pain, No Hoarseness, No Rhinorrhea, No Swallowing Difficulty Eyes: No Eye Pain, No Swelling, No Redness, No Foreign Body, No Discharge, No Vision Changes Cardiovascular : No Chest Pain, No SOB, No Dyspnea on Exertion, No Orthopnea, No Edema, No Palpitations Respiratory : No Cough, No Sputum, No Wheezing, No Smoke Exposure, No Dyspnea Gastrointestinal : No Nausea, No Vomiting, No Diarrhea, No Constipation, No abdominal Pain, No Hematochezia, No Melena Genitourinary : no irregular bleeding, No Dysuria, No Urinary Frequency, No Hem aturia, No Urinary Incontinence, No Urgency, No Flank Pain, No Urinary Flow Changes, No Hesitancy Musculoskeletal : No joint pain, + Myalgias, No Joint Swelling Skin : No Skin Lesions, No rash Neuro : No Weakness, No Numbness, No Paresthesias, No Loss of Consciousness, No Dizziness, No Headache Psych : No Anxiety/Panic, No Depression, No SI/HI/AH/VH, No Social Issues, Heme/Lymph: No Bruising, No Bleeding,No Lymphadenopathy Endocrine : No Polyuria, No Polydipsia, No Temperature Intolerance Yes all other systems are reviewed and are negative [facility] Past Medical History Attestation statement: The following information was validated with the patient. Source: old records reviewed and nursing notes reviewed Social History Social History Patient Tobacco Use Status: Never used Tobacco Advance Directives: No Advance Directives Information Provided: No Physical Exam Vital Signs: Vital Signs: Last Vital Signs Temp 97.2 F 07/04/22 10:51 Pulse 107 H 07/04/22 10:51 Resp 20 07/04/22 10:51 BP 155/99 H 07/04/22 10:51 Pulse Ox 97 07/04/22 10:51 O2 Del Method Room Air 07/04/22 10:51 BMI result Body Mass Index 64.2 Vital signs reviewed. Blood pressure normal. Pulse normal. Respiration normal. Oxygen normal. Temperature normal. Appearance: Alert. Oriented X3. No acute distress. Head: Normal external exam. Normocephalic. Atraumatic. Eyes: PERRLA. EOMI. Conjunctiva and sclera normal. Eyelids normal. ENT: EAC normal. TM's Normal. Posterior Pharynx erythematous with exudate noted. Uvula midline. Moist mucous membranes. No lesions/ulcerations or masses noted on the tongue. Normal voice. No trismus noted. No drooling noted. No muffled voice noted. Neck: Normal inspection. Neck supple. FROM. No adenopathy. Thyroid Normal. No meningeal signs. CVS: Normal heart rate and rhythm. Heart sound normal. Pulses normal throughout. No murmurs/rales/gallops. Respiratory: No respiratory distress. Painless inspiration. Breath sounds normal. No wheezes/rales/rhonchi noted. Chest nontender. No accessory muscle usage noted or decreased air movement noted. Abdomen: Soft and nontender. Back: Full range of motion noted. Nontender. Skin: Skin warm and dry. Normal skin color. Normal skin turgor. No rashes/lesions/lacerations noted. Extremities: Extremities exhibit normal range of motion and nontender. Neuro: Oriented X 3. No motor deficit. No sensory deficit. Reflexes normal. Normal steady gait. No focal neuro deficits noted. CN's II-XII intact bilaterally? Vascular: + radial pulses. Normal cap refill. No cyanosis noted to upper extremity nails Course Course Course Narrative: This patient presents with acute cough, most consistent with bacterial pharyngitis versus viral syndrome. Presentation not consistent with acute bacterial pneumonia, influenza, asthma, transient airway hyperresponsiveness. Presentation not consistent with chronic causes of cough (including GERD, asthma, postnasal discharge, medication side effect, CHF, lung cancer or mass). Patient negative for COVID/flu and positive for bacterial pharyngitis therefore at this time will DC home with antibiotics and symptomatic treatment instructions return if any new or worsening symptoms follow up with primary care provider. Patient understands agrees with this plan. Medical Decision Making Lab Data MDM Lab Attestation statement: I reviewed the patient's lab results. Labs: Lab Results 07/04/22 07/04/22 Range/Units 12:39 12:39 Influenza Type A (PCR) NEGATIVE (Negative) Influenza Type B (PCR) NEGATIVE (Negative) RSV RNA Qual (PCR) NEGATIVE (Negative) SARS-CoV-2 RNA (RT-PCR) NEGATIVE (Negative) S. pyogenes GrpA THONG Positive A (Negative) Discharge Plan Discharge Clinical Impression: Acute bacterial pharyngitis Patient Disposition: Home, Self-Care Instructions: Pharyngitis (ED) Prescriptions: New amoxicillin-pot clavulanate 875-125 mg tablet 1 tab PO BID 7 Days Qty: 14 0RF No Action ondansetron 4 mg tablet,disintegrating 4 mg PO Q6H PRN (Reason: nausea and vomiting) Qty: 10 0RF cyclobenzaprine 5 mg tablet 5 mg PO TID PRN (Reason: muscle spasm) 7 Days Qty: 21 0RF naproxen 500 mg tablet 500 mg PO BID 7 Days Qty: 14 0RF Referrals: Physician,Unknown J [Primary Care Provider] - 2 days (your pcp as needed) Stand Alone Forms: Work/School Release
== END 2022-07-04 13:51 | disposition home or self-care (01) ==
PROVIDERS: Physician Assistant Medical; Emergency Provider Emergency Medicine
DX: J02.9 Acute pharyngitis, unspecified (principal); M54.50 Low back pain, unspecified; R51.9 Headache, unspecified; M54.2 Cervicalgia; M79.10 Myalgia, unspecified site; Z20.822 Contact with and (suspected) exposure to COVID-19; Z20.828 Contact with and (suspected) exposure to other viral communicable diseases; Z79.899 Other long term (current) drug therapy
CPT/HCPCS: 0241U; 87651; 99282

== ENCOUNTER 2022-09-01 12:46 | Emergency (ER) | payer OTHER, SELFPAY ==
--- NOTE | ~2022-09-01 | XR_ITS ---
EXAMINATION: XR RIBS, RIGHT CLINICAL INFORMATION: Rib pain, status post slip. COMPARISON: Rib pain and sternal pain status post fall TECHNIQUE: 3 views of the right ribs were obtained. Chest one view. FINDINGS: Chest: The lungs are well-expanded and clear of acute process. The heart size and pulmonary vascularity is normal. No pulmonary nodule, consolidation. No pneumothorax or pleural effusion. The heart size and pulmonary vascularity is normal. Multiple views of right ribs reveal no visible fracture or bony abnormality. No visible fracture. XR/XR ribs RT min 3V w CXR1V IMPRESSION: 1. Unremarkable chest exam. 2. Unremarkable right rib exam.
--- NOTE | 2022-09-01 13:06 | ED.SOB ---
HPI - SOB/Dyspnea General Chief Complaint: Fall Stated Complaint: Diff Breathing Time Seen by Provider: 09/01/22 15:10 Source: patient Mode of arrival: ambulatory Limitations: no limitations History of Present Illness HPI Narrative: 21 yo female with hx of asthma and allergies reports yesterday she tripped and fell landing her sternum into the corner of the table since then her chest wall hurts and it hurts to take a deep breath. no other injuries. she has no fevers. she has not taken any OTC medications. MD elicited complaint: pain with inspiration and chest pain Pertinent past history: other (started after chest trauma) Onset (ago): day(s) (5) Context: other (slipped and fell into corner table while leaning on table) Timing: constant Severity: moderate Exacerbating factors: movement and other (palpation of area, deep breaths) Relieving factors: rest Known history of: asthma Associated symptoms: denies other symptoms Treatment prior to arrival: none Related Data Previous Rx's Medication Instructions Recorded ondansetron 4 mg disintegrating 4 mg PO Q6H PRN nausea and 05/29/22 tablet vomiting #10 tabs cyclobenzaprine 5 mg tablet 5 mg PO TID PRN muscle spasm 7 06/19/22 days #21 tabs naproxen 500 mg tablet 500 mg PO BID 7 days #14 tabs 06/19/22 amoxicillin 875 mg-potassium 1 tab PO BID 7 days #14 tabs 07/04/22 clavulanate 125 mg tablet cyclobenzaprine 10 mg tablet 10 mg PO TID PRN muscle spasm #14 09/01/22 tabs lidocaine 5 % topical patch 1 patch topical DAILY #30 ea 09/01/22 Allergies Allergy/AdvReac Type Severity Reaction Status Date / Time apple Allergy Itching Verified 07/04/22 10:55 cantaloupe Allergy Itching Verified 07/04/22 10:55 kiwi Allergy Itching Verified 07/04/22 10:55 shellfish derived Allergy Facial Verified 07/04/22 10:55 Swelling strawberry Allergy Itching Verified 07/04/22 10:55 Review of Systems Review of Systems: Constitutional : No Weight loss, No Fever, No Chills Cardiovascular : pos Chest Pain, no SOB, no Dyspnea on Exertion, No Orthopnea, No Edema, No Palpitations Respiratory : No Cough, No Sputum Gastrointestinal : no Nausea, No Vomiting, No Diarrhea, No abdominal Pain, No Hematochezia, No Melena Genitourinary : No Dysuria, No Urinary Frequency Musculoskeletal : No joint pain, No Myalgias, No Joint Swelling Skin : No Skin Lesions, No rash Neuro : No Weakness, No Numbness, No Dizziness, No Headache Psych : No Anxiety/Panic, No Depression All other systems reviewed and are negative [facility] Past Medical History Attestation statement: The following information was validated with the patient. Medical History Asthma Social History Social History Patient Tobacco Use Status: Never used Tobacco Physical Exam Vital Signs: Vital Signs: Last Vital Signs Temp 98.3 F 09/01/22 13:07 Pulse 82 09/01/22 13:07 Resp 16 09/01/22 13:07 BP 140/93 H 09/01/22 13:07 Pulse Ox 96 09/01/22 13:07 O2 Del Method Room Air 09/01/22 13:07 BMI result Body Mass Index 61.0 Appearance: Alert. Oriented X3. No acute distress. Eyes: Pupils equal, round and reactive to light. ENT: Pharynx normal. Neck: Normal inspection. Neck supple. CVS: Normal heart rate and rhythm. Pulses normal. Chest: ttp along sternum - no crepitus, no contusion, no eccymosis no signs of external trauma Respiratory: No respiratory distress. Breath sounds normal. Abdomen: Soft and non-tender. Skin: Skin warm and dry. Normal skin color. Normal skin turgor. Extremities: No lower extremity edema. Neuro: Oriented X 3. No motor deficit. No sensory deficit. Course Course Course Narrative: RME: 21yo F w/PMHx obesity c/o substernal and R rib pain s/p slip into table at work yesterday. admits was leaning on table and slipped forward. pain worse w/breathing and movement + stubsternal tenderness reproducing subjective complaint. No ecchymosis, or crepitus. abdomen soft/nontender Rib series ordered Full HPI, ROS and PE to be performed by primary ED provider. Medical Decision Making Medical Decision Making MDM Narrative: 21 yo female here with c/o chest wall pain after a fall. I see no external signs of trauma, clear lungs, 96% on RA. abdomen is benign. she has a normal CXR. She will be started on flexeril, NSAIDs and lidocaine patches with precautions to return. Differential Diagnosis Differential Diagnoses: The differential diagnosis associated with the presentation includes rib fracture, chest contusion, strain Independent Interpretation I performed an independent interpretation of an: Plain X-Ray Interpretation: no pneumothorax no fracture seen Radiology Impression Discussion of test interpretation with radiology: I have reviewed the radiologist's reading. Prescription Management I considered prescription management with: Other (flexeril and lidocaine patches) Discharge Plan Discharge Clinical Impression: Chest wall contusion Qualifiers: Encounter type: initial encounter Laterality: unspecified laterality Qualified Code(s): S20.219A - Contusion of unspecified front wall of thorax, initial encounter Patient Disposition: Home, Self-Care Instructions: Rib Contusion (ED) Additional Instructions: you must take 10 deep breaths while awake for the next 3 to 5 days. this will prevent pneumonia. return for worsening pain, difficulty breathing, fevers, or no improvement in 5 days. do not lift more than 10lbs in 2 weeks. take over the counter motrin and tylenol for pain. motrin is every 6 hours and tylenol is every 4 hours. Prescriptions: New cyclobenzaprine 10 mg tablet 10 mg PO TID PRN (Reason: muscle spasm) Qty: 14 0RF lidocaine 5 % adhesive patch,medicated 1 patch topical DAILY Qty: 30 0RF Rx Instructions: leave on most painful area for up to 12 hrs No Action ondansetron 4 mg tablet,disintegrating 4 mg PO Q6H PRN (Reason: nausea and vomiting) Qty: 10 0RF cyclobenzaprine 5 mg tablet 5 mg PO TID PRN (Reason: muscle spasm) 7 Days Qty: 21 0RF naproxen 500 mg tablet 500 mg PO BID 7 Days Qty: 14 0RF amoxicillin-pot clavulanate 875-125 mg tablet 1 tab PO BID 7 Days Qty: 14 0RF Stand Alone Forms: Work/School Release
[2022-09-01 13:07] VITALS: BP 140/93; PULSE 82; RESP 16; TEMP 36.8; O2SAT 96; BMI 61.0
== END 2022-09-01 15:26 | disposition home or self-care (01) ==
LOC: HO.ED 15:23
PROVIDERS: Emergency Provider Emergency Medicine
DX: S20.219A Contusion of unspecified front wall of thorax, initial encounter (principal); W22.03XA Walked into furniture, initial encounter; Y93.89 Activity, other specified; Y92.219 Unspecified school as the place of occurrence of the external cause; Y99.0 Civilian activity done for income or pay
CPT/HCPCS: 71101; 99282; 99283

== ENCOUNTER → 2022-09-02 09:46 | Outpatient (BNVA) | payer OTHER, SELFPAY | PROVIDERS: Visit Provider Physician Assistant Medical | DX: S20.219A Contusion of unspecified front wall of thorax, initial encounter (principal); W01.190A Fall on same level from slipping, tripping and stumbling with subsequent striking against furniture, initial encounter | CPT/HCPCS: 99203 ==

== ENCOUNTER 2022-10-25 09:52 | Outpatient (AMB) | payer OTHER, SELFPAY ==
--- NOTE | 2022-10-25 11:09 | AM.OFFWIN_ITS ---
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 [phone] Intake Note: pt is here for c/o sinus and allergy issues Patient Tobacco Use Status: Never used Tobacco Allergies apple Allergy (Verified 10/25/22 11:39) Itching cantaloupe Allergy (Verified 10/25/22 11:39) Itching kiwi Allergy (Verified 10/25/22 11:39) Itching shellfish derived Allergy (Verified 10/25/22 11:39) Facial Swelling strawberry Allergy (Verified 10/25/22 11:39) Itching Medication List - Last Reconciled 10/25/22 by Gerber Dyer MD albuterol sulfate 2.5 mg inhalation Q6H amlodipine 5 mg PO DAILY budesonide-formoterol 160-4.5 mcg/actuation (Symbicort) inhalation desogestrel-ethinyl estradiol 0.15-0.03 mg (Isibloom) 1 tab PO DAILY fexofenadine (Allergy Relief (fexofenadine)) 0 mg PO inhalat.spacing dev,large mask ([facility] with Large Mask) As directed lidocaine 5% 1 patch topical DAILY losartan 25 mg PO DAILY montelukast 10 mg PO DAILY naproxen 500 mg PO BID 7 days Do you need a note to return to daycare/school/sports/work: Yes 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 Patient has run out of her allergy medications 2 weeks ago. Reporting symptoms of congestion and headaches. No fevers or chills. PFSH Medical History Asthma Social History Patient Tobacco Use Status: Never used Tobacco Physical Exam Vital Signs: Last Vital Signs Temp 98.5 F 10/25/22 11:15 Pulse 89 10/25/22 11:15 BP 138/86 10/25/22 11:15 Pulse Ox 98 10/25/22 11:15 Const General: cooperative and healthy appearing Nutritional Appearance: well nourished Orientation/consciousness: patient oriented x3 Limitations: no limitations HEENT Head: Yes normal to inspection Eyes General: appearance normal, both eyes and all related structures Neck Neck: Yes normal visual inspection Chest Chest palpation & inspection: normal palpation of entire chest wall Resp Effort & Inspection: normal respiratory effort Neuro General: patient oriented x3 Assessment & Plan Assessment & Plan (1) Allergic rhinitis: Code(s): J30.9 - Allergic rhinitis, unspecified Plan: Martita and Flonase called in. Patient was advised to make a follow-up appointment with her PCP. Coding Level of Care Code New Pt Level 3 (39353) Diagnoses Allergic rhinitis J30.9
[2022-10-25 11:15] VITALS: BP 138/86; PULSE 89; TEMP 36.9; O2SAT 98
== END 2022-10-25 11:46 | disposition home or self-care (01) ==
PROVIDERS: Visit Provider Internal Medicine
DX: J30.9 Allergic rhinitis, unspecified (principal)
CPT/HCPCS: 99203

== ENCOUNTER 2023-07-21 08:07 | Outpatient (AMB) | payer OTHER, SELFPAY ==
--- NOTE | 2023-07-21 08:29 | AM.OFFWIN_ITS ---
Intake Vital Signs 07/21/23 08:34 Height 5 ft 1 in Weight 359 lb BMI 67.8 BP 146/90 H Blood Pressure Location Lt brachial Position Sitting Pulse 86 Pulse Source Pulse Oximeter Temp 98.4 F Temp Source Oral Pulse Oximetry (%) 98 Oxygen Delivery Method Room Air Intake Visit Reasons: EP Sinus/throat pain (lobby) Intake Note: pt is here for c/o sore throat since tuesday Patient Tobacco Use Status: Never used Tobacco Allergies apple Allergy (Verified 07/21/23 08:35) Itching cantaloupe Allergy (Verified 07/21/23 08:35) Itching kiwi Allergy (Verified 07/21/23 08:35) Itching shellfish derived Allergy (Verified 07/21/23 08:35) Facial Swelling strawberry Allergy (Verified 07/21/23 08:35) Itching Do you need a note to return to daycare/school/sports/work: Yes HPI HPI Comments History of Present Illness Details 22 y/o female patient who presents to [facility] in clinic with c/o Sore- throat and sinus pressure since Tuesday. [facility] Medical History (Updated 07/21/23 @ 09:18 by Cara Whitney NP) Acute rhinosinusitis Asthma Social History Patient Tobacco Use Status: Never used Tobacco Review of Systems Const All systems reviewed & are unremarkable except as noted in HPI and below Physical Exam Vital Signs: Last Vital Signs Temp 98.4 F 07/21/23 08:34 Pulse 86 07/21/23 08:34 BP 146/90 H 07/21/23 08:34 Pulse Ox 98 07/21/23 08:34 Oxygen Delivery Method Room Air 07/21/23 08:34 BMI result Body Mass Index 67.8 Const General: comfortable and no acute distress Nutritional Appearance: obese morbidly obese Orientation/consciousness: patient oriented x3 HEENT Head: Yes normocephalic Ears: external ears normal and TM abnormal bulging bilateral and with fluid behind the TM bilateral General nose exam: Abnormal mucous membranes and turbinates present boggy and erythematous Face and sinus: Yes sinus tenderness Mouth: moist mucous membranes Throat: Yes posterior oropharynx normal Resp Effort & Inspection: normal respiratory effort and able to speak in complete sentences Auscultation: clear to auscultation bilaterally, no crackles, no rales, no rhonchi and no wheezes Cardio Rate: regular rate Rhythm: regular rhythm Neuro General: patient oriented x3 Results AMB Rapid Strep AMB Rapid Strep Negative Last Edit by Perry Lanier CMA on 07/21/23 08 :56 Results Reviewed Results Reviewed: Laboratory Last Values Strep Scn Rapid Clinic Negative 07/21/23 08:56 Assessment & Plan Assessment & Plan (1) Acute rhinosinusitis: Code(s): J01.90 - Acute sinusitis, unspecified Plan: - OTC cold remedies - Pt new and need medication refills. - Take medication as directed. Orders: Orders AMB Rapid Strep Screen Today Z13.9 - Encounter for screening, unspecified SARS-CoV2/FLU/RSV Today J01.90 - Acute sinusitis, unspecified Medications: New albuterol sulfate 2.5 mg (3 mL) inhalation Q6H 90 mL 1RF J45.909 - Unspecified asthma, uncomplicated desogestrel-ethinyl estradiol 0.15-0.03 mg (Isibloom) 1 tab PO DAILY 84 tabs 1RF Z30.011 - Encounter for initial prescription of contraceptive pills montelukast 10 mg PO DAILY 90 tabs 1RF J45.909 - Unspecified asthma, uncomplicated amlodipine 5 mg PO DAILY 90 tabs 1RF I10 - Essential (primary) hypertension losartan 25 mg PO DAILY 90 tabs 1RF I10 - Essential (primary) hypertension amoxicillin 500 mg PO BID 20 caps 0RF 10 days J01.90 - Acute sinusitis, unspecified Changed From budesonide-formoterol 160-4.5 mcg/actuation (Symbicort) inhalation J45.909 - Unspecified asthma, uncomplicated To budesonide-formoterol 160-4.5 mcg/actuation (Symbicort) 2 puffs inhalation BID 10.2 grams 1RF J45.909 - Unspecified asthma, uncomplicated Refilled fexofenadine (Allergy Relief (fexofenadine)) 180 mg PO DAILY 90 tabs 1RF J30.9 - Allergic rhinitis, unspecified fluticasone propionate 50 mcg/actuation (Flonase Allergy Relief) administer into each nostril 1 spray intranasal DAILY 9.9 mL 1RF J30.9 - Allergic rhinitis, unspecified Coding Level of Care Code New Pt Level 4 (72445) Diagnoses Acute rhinosinusitis J01.90 Time Spent (min) 15
[2023-07-21 08:34] VITALS: BP 146/90; PULSE 86; TEMP 36.9; O2SAT 98; BMI 67.8
== END 2023-07-21 09:08 | disposition home or self-care (01) ==
PROVIDERS: PCP Internal Medicine; Visit Provider Nurse Practitioner Family
DX: J01.90 Acute sinusitis, unspecified (principal); J02.9 Acute pharyngitis, unspecified
CPT/HCPCS: 87880; 99204

== ENCOUNTER 2023-07-21 09:18 | Outpatient (REF) | payer OTHER, SELFPAY ==
[2023-07-21 11:40] LABS: Influenza A PCR NEGATIVE (Negative); Influenza B PCR NEGATIVE (Negative); Resp Syncy Virus RNA Qual PCR NEGATIVE (Negative); SARS COV2 PCR INHOUSE NEGATIVE (Negative)
== END 2023-07-21 09:19 | disposition home or self-care (01) ==
LOC: HO.LAB 09:18
PROVIDERS: Visit Provider Nurse Practitioner Family
DX: Z11.52 Encounter for screening for COVID-19 (principal); J01.90 Acute sinusitis, unspecified
CPT/HCPCS: 0241U

== ENCOUNTER 2023-08-11 08:06 | Outpatient (AMB) | payer OTHER, SELFPAY ==
--- NOTE | 2023-08-11 08:16 | AM.OFFWIN_ITS ---
Intake Vital Signs 08/11/23 08:32 Height 5 ft 1 in BP 130/90 H Blood Pressure Location Lt brachial Position Sitting Pulse 89 Pulse Source Pulse Oximeter Temp 97.5 F Temp Source Temporal Artery Scan Pulse Oximetry (%) 97 Oxygen Delivery Method Room Air Intake Visit Reasons: EP sinus congestion cough asthma Intake Note: pt is here today for sinus congestion cough asthma started tuesday Patient Tobacco Use Status: Never used Tobacco Allergies apple Allergy (Verified 08/11/23 08:33) Itching cantaloupe Allergy (Verified 08/11/23 08:33) Itching kiwi Allergy (Verified 08/11/23 08:33) Itching shellfish derived Allergy (Verified 08/11/23 08:33) Facial Swelling strawberry Allergy (Verified 08/11/23 08:33) Itching Do you need a note to return to daycare/school/sports/work: Yes HPI HPI Comments History of Present Illness Details 22 y/o female patient who presents to [facility] in clinic with c/o Sinus pressure/congestion, and cough since Tuesday. Pt was seen by me 07/21/23 for similar symptoms and was treated with Amoxicillin. Pt reports that symptoms went away and felt better for few days. But now has runny nose, sinus pressure, itchy nose and some wheezing at night time. Pt is Asthmatic and has Seasonal rhinitis. She is currently taking Asthma and allergy medications. REPLACED BY [facility] Medical History (Updated 07/21/23 @ 09:18 by Cara Whitney NP) Acute rhinosinusitis Asthma Social History Patient Tobacco Use Status: Never used Tobacco Review of Systems Const All systems reviewed & are unremarkable except as noted in HPI and below Physical Exam Vital Signs: Last Vital Signs Temp 97.5 F 08/11/23 08:32 Pulse 89 08/11/23 08:32 BP 130/90 H 08/11/23 08:32 Pulse Ox 97 08/11/23 08:32 Oxygen Delivery Method Room Air 08/11/23 08:32 Const General: comfortable and no acute distress Nutritional Appearance: obese Orientation/consciousness: patient oriented x3 HEENT Ears: external ears normal and TM abnormal bulging and with fluid behind the TM bilateral General nose exam: Abnormal mucous membranes and turbinates present boggy and erythematous and Nasal discharge present Face and sinus: Yes sinuses nontender Mouth: moist mucous membranes Throat: Yes posterior oropharynx normal Resp Effort & Inspection: normal respiratory effort and able to speak in complete sentences Auscultation: clear to auscultation bilaterally, no crackles, no rales, no rhonchi and no wheezes Cardio Rhythm: regular rhythm Neuro General: patient oriented x3 Assessment & Plan Assessment & Plan (1) Acute rhinosinusitis: Code(s): J01.90 - Acute sinusitis, unspecified Plan: - Continue using Asthma and allergy medications as prescribed. - Might benefit seeing ENT - Rhinitis vs Viral. no need for Abx Orders: Orders SARS-CoV2/FLU/RSV Today J01.90 - Acute sinusitis, unspecified Coding Level of Care Code Est Pt Level 3 (47628) Diagnoses Acute rhinosinusitis J01.90 Time Spent (min) 15
[2023-08-11 08:32] VITALS: BP 130/90; PULSE 89; TEMP 36.4; O2SAT 97
== END 2023-08-11 09:30 | disposition home or self-care (01) ==
PROVIDERS: PCP Internal Medicine; Visit Provider Nurse Practitioner Family
DX: J01.90 Acute sinusitis, unspecified (principal)
CPT/HCPCS: 99213

== ENCOUNTER 2023-08-11 08:52 | Outpatient (REF) | payer OTHER, SELFPAY ==
[2023-08-11 11:29] LABS: Influenza A PCR NEGATIVE (Negative); Influenza B PCR NEGATIVE (Negative); Resp Syncy Virus RNA Qual PCR NEGATIVE (Negative); SARS COV2 PCR INHOUSE NEGATIVE (Negative)
== END 2023-08-11 08:53 | disposition home or self-care (01) ==
LOC: HO.LAB 08:52
PROVIDERS: Visit Provider Nurse Practitioner Family
DX: Z11.52 Encounter for screening for COVID-19 (principal); J01.90 Acute sinusitis, unspecified
CPT/HCPCS: 0241U

== ENCOUNTER 2024-02-08 16:39 | Emergency (ER) | payer OTHER, SELFPAY ==
[2024-02-08 17:44] VITALS: BP 140/103; PULSE 101; RESP 16; TEMP 36.7; O2SAT 97; BMI 58.6
--- NOTE | 2024-02-08 17:49 | ED.GENADULT ---
HPI - General Adult General Chief complaint: Wound/Laceration Stated complaint: r finger lac Time Seen by Provider: 02/08/24 17:49 Source: patient Mode of arrival: ambulatory Limitations: no limitations History of Present Illness ED Provider: Danielito BRAY narrative: 23 yold female with pmh of rhinosinusitis, allergic rhinitits presents to the ED for right index finger laceration caused by a paper slicer. patient states complete range of motion of finger and no numbness. Patient uptodate with tetanus. Patient states no other complaints. Related Data Previous Rx's ?Medication ?Instructions ?Recorded albuterol sulfate 2.5 mg/3 mL 2.5 mg (3 mL) inhalation Q6H #90 mL 07/21/23 (0.083 %) solution for nebulization amlodipine 5 mg tablet 5 mg PO DAILY #90 tabs 07/21/23 budesonide-formoterol HFA 160 2 puff inhalation BID #10.2 grams 07/21/23 mcg-4.5 mcg/actuation aerosol inhaler (Symbicort) desogestrel 0.15 mg-ethinyl 1 tab PO DAILY #84 tabs 07/21/23 estradiol 0.03 mg tablet (Isibloom) fexofenadine 180 mg tablet 180 mg PO DAILY #90 tabs 07/21/23 (Allergy Relief (fexofenadine)) fluticasone propionate 50 1 spray intranasal DAILY #9.9 mL 07/21/23 mcg/actuation nasal spray,suspension (Flonase Allergy Relief) losartan 25 mg tablet 25 mg PO DAILY #90 tabs 07/21/23 montelukast 10 mg tablet 10 mg PO DAILY #90 tabs 07/21/23 Allergies Allergy/AdvReac Type Severity Reaction Status Date / Time apple Allergy Itching Verified 02/08/24 17:48 cantaloupe Allergy Itching Verified 02/08/24 17:48 kiwi Allergy Itching Verified 02/08/24 17:48 shellfish derived Allergy Facial Verified 02/08/24 17:48 Swelling strawberry Allergy Itching Verified 02/08/24 17:48 Review of Systems Review of Systems: right index finger laceration Yes all other systems are reviewed and are negative PMFSH Past Medical History Medical History (Updated 02/09/24 @ 00:00 by Verna Daemnico) Acute rhinosinusitis Asthma Social History Social History Patient Tobacco Use Status: Never used Tobacco Advance Directives: No Advance Directives Information Provided: No Physical Exam ED Vital Signs: Vital Signs - 24 hr 02/08/24 17:44 02/08/24 18:06 Temperature 98.1 F 98.1 F Pulse Rate 101 H 101 H Respiratory Rate 16 16 Blood Pressure 140/103 H 140/103 H Pulse Oximetry 97 97 Oxygen Delivery Method Room Air Room Air BMI result Body Mass Index 58.6 Const General: cooperative, healthy appearing, comfortable, no acute distress, well developed, alert, awake and Physically active Orientation/consciousness: patient oriented x3 HENMT Head: Yes normal to inspection, Yes No palpable skull fracture present, Yes normocephalic and Yes atraumatic Eyes General: appearance normal, both eyes and all related structures Neck Neck: Yes normal visual inspection, Yes full ROM, Yes no lymphadenopathy, Yes no meningeal signs, Yes trachea midline, Yes supple, No anterior neck swelling and No tender Chest Chest palpation & inspection: normal inspection of the chest and normal palpation of entire chest wall Resp Effort & Inspection: normal respiratory effort and able to speak in complete sentences Auscultation: clear to auscultation bilaterally Cardio Jugular venous distension: no JVD Heart sounds: S1 normal heart sound present and S2 normal heart sound present GI Inspection: Yes normal to inspection Palpation (GI): Soft to palpation, not firm, nontender, no guarding and not rigid General: Yes no CVA tenderness Back/Spine/Pelvis Back: no CVA tenderness and No back tenderness Skin General skin exam: no rashes or lesions noted, elasticity normal and turgor normal Neuro General: patient oriented x3, gait normal, tone normal, moves all extremities, Normal light touch and pain sensation, no meningeal signs, no focal motor deficits and CN's II-XI intact bilaterally Extrem General: Yes normal to inspection, Yes full ROM and Yes capillary refill normal Hand/finger images: 1. abrasions. bleeding resolved. no nailbed injury. capillary refill is intact.rest of extremity normal. motor, neuro, and vascular exam is intact. Psych Appearance: grossly normal, well kempt and not disheveled Course Course Course Narrative: RME: Done by Seda Esteves. 23 yold female presents to the ED for right index finger laceration caused by paper clip. Medical Decision Making Medical Decision Making [facility] Narrative: 23-year-old female presents to ED for right index finger laceration caused by paper clip at work. 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 Patient up-to-date with tetanus. Patient has complete range of motion of finger. On evaluation more abrasion that laceration. Bleeding resolved. Area cleaned. not suspecting fracture, tendon injury, nerve damage, cellulitits, artieral occlusion, or compartment syndrome. Patient explained worrisome sign and informed to return to the ED immediatley. Differential Diagnosis Differential Diagnoses: The differential diagnosis associated with the presentation includes (abrasions, laceration) Admission/Observation Consideration of admission/observation: Escalation of care including admission/observation considered Independent Historian Clinical information obtained from an independent historian. History obtained from or confirmed by: Other (patient) External Record Review External record reviewed: Other (prior visits) Discharge Plan Discharge Clinical Impression: Abrasion Patient Disposition: Home, Self-Care Instructions: Abrasion (ED) Additional Instructions: No indication for laceration repair. You having abrasion. Keep area clean. Return to the ED immediately for any redness, pus discharge, foul odor, bluish black discoloration, red streaks, severe pain, fever, chills, or any other concerning symptoms. Recommend follow up with PCP. Prescriptions: No Action albuterol sulfate 2.5 mg /3 mL (0.083 %) solution for nebulization 2.5 mg inhalation Q6H Qty: 90 1RF amlodipine 5 mg tablet 5 mg PO DAILY Qty: 90 1RF budesonide-formoterol [Symbicort] 160-4.5 mcg/actuation HFA aerosol inhaler 2 puff inhalation BID Qty: 10.2 1RF desogestrel-ethinyl estradiol [Isibloom] 0.15-0.03 mg tablet 1 tab PO DAILY Qty: 84 1RF fexofenadine [Allergy Relief (fexofenadine)] 180 mg tablet 180 mg PO DAILY Qty: 90 1RF fluticasone propionate [Flonase Allergy Relief] 50 mcg/actuation spray,suspension 1 spray intranasal DAILY Qty: 9.9 1RF Rx Instructions: administer into each nostril losartan 25 mg tablet 25 mg PO DAILY Qty: 90 1RF montelukast 10 mg tablet 10 mg PO DAILY Qty: 90 1RF Interventions: ED Discharge Assessment Last Done: 02/08/24 18:06 Discharge Date/Time: 02/08/24 18:06 Print Language: Sinhala
[2024-02-08 18:06] VITALS: BP 140/103; PULSE 101; RESP 16; TEMP 36.7; O2SAT 97
== END 2024-02-08 18:06 | disposition home or self-care (01) ==
PROVIDERS: Emergency Provider Emergency Medicine Emergency Medical Services
DX: S61.210A Laceration without foreign body of right index finger without damage to nail, initial encounter (principal); S60.410A Abrasion of right index finger, initial encounter; W45.8XXA Other foreign body or object entering through skin, initial encounter; Y93.9 Activity, unspecified; Y92.9 Unspecified place or not applicable; Y99.9 Unspecified external cause status
CPT/HCPCS: 99282

== ENCOUNTER 2024-07-20 04:00 | Emergency (ER) | payer OTHER, SELFPAY ==
--- NOTE | ~2024-07-20 | CT_ITS ---
EXAMINATION: CT ABDOMEN AND PELVIS WITH CONTRAST CLINICAL INFORMATION: Left upper quadrant pain, nausea and vomiting. COMPARISON: None available. TECHNIQUE: Multidetector volumetric images were obtained from the superior aspect of the liver through the pubic symphysis following administration 85 mL of Omnipaque 350 intravenous contrast. Sagittal and coronal reformatted images were obtained on the technologist's workstation. Oral contrast: No This CT examination was performed using dose optimization techniques as appropriate, variously including the following: *Automated exposure control *Adjustment of mA and/or kV according to patient size (this includes techniques or standardized protocols for targeted exams where dose is matched to indication/reason for exam; i.e. extremities or head) *Use of iterative reconstruction technique DLP: 1945 mGy/cm. FINDINGS: LUNG BASES: Heart size is normal. There are 2 mm nodules right lower lobe axial image 05/19 and 06/16. LIVER, GALLBLADDER, AND BILIARY TREE: The liver is normal in size, shape, and attenuation. No focal hepatic lesion or biliary ductal dilatation is present. The gallbladder is unremarkable with no evidence of radiopaque gallstones, gallbladder wall thickening, or obvious pericholecystic inflammatory changes. PANCREAS: Unremarkable. SPLEEN: Unremarkable. ADRENAL GLANDS: Unremarkable. KIDNEYS AND URETERS: The kidneys are normal in size, shape, and attenuation. No hydronephrosis, hydroureter, or calculi seen. No perinephric stranding. BLADDER: Unremarkable. GASTROINTESTINAL TRACT: There is scattered stool and gas seen in the right colon. The small bowel loops are nondistended. No free air or free fluid seen. ABDOMINAL WALL: A small umbilical hernia containing fat is noted. LYMPH NODES: Normal. VASCULAR: Unremarkable. PELVIC VISCERA: The uterus is anteverted and appears unremarkable. OSSEOUS STRUCTURES: No aggressive lytic or sclerotic process seen. CT/CT abdomen pelvis w IV con IMPRESSION: Small umbilical hernia containing fat. Otherwise no acute intra-abdominal process seen Fleischner guidelines were followed. Electronically signed by: Yonis Huang MD 07/20/2024 10:47 AM EDT
[2024-07-20 04:02] VITALS: BP 175/103; PULSE 78; RESP 18; TEMP 36.4; O2SAT 98; BMI 64.2
--- OUTSIDE RECORDS SUMMARY | 2024-07-20 07:18 | XMS_ITS | Encounter Summary ---
Author Organization [facility] Address [address] [place] [address] Phone Care Team Providers Care Automatic Edger Name Role Phone Angelica Heaton MD Primary Care Provider [phone] Encounter Details Date Type Department Care Team (Late st Contact Info) Description 07/12/2016 Documentation [facility] Family Medicine [address] [place] [address] Family Medicine, Physician [address] [place] [address] Social History Tobacco Use Types Packs/Day Years Used Date Smoking Tobacco: Never Assessed Comments Unknown Sex and Gender Information Value Date Recorded Sex Assigned at Not on file Legal Sex Female 5:20 PM EDT Gender Identity Not on file Sexual Orientation Straight 12/08/2021 11 :59 AM EDT documented as of this encounter Plan of Treatment Not on file documented as of this encounter Visit Diagnoses Not on filedocumented in this encounter Care Teams Automatic Edger Relationship Specialty Start Date End Date Angelica Heaton MD [address] [place] [address] PCP - General Pediatrics 11/16/18 07/22/22 documented as of this encounter
--- OUTSIDE RECORDS SUMMARY | 2024-07-20 07:18 | XMS_ITS | Encounter Summary ---
Author Organization [facility] Address [address] [place] [address] Phone Care Team Providers Care Seafood Processor Name Role Phone Angelica Heaton MD Primary Care Provider [phone] Reason for Visit * Reason Comments Med Refill Encounter Details Date Type Department Care Team ([facility] Contact Info) Description 05/02/2022 Refill [facility] [address] [place] [address] Angelica Heaton MD [address] [place] [address] Menorrhagia with regular cycle Social History Tobacco Use Types Packs/Day Years Used Date Smoking Tobacco: Never Smokeless Tobacco: Never Comments:Never smoker Alcohol Use Standard Drinks/Week Comments No 0 (1 standard drink = 0.6 oz pur e alcohol) Hunger/Food Answer Date Recorded In the last 12 months, did y ou or your family ever eat less than you felt you should because there wasn't enough money for food? No 07/15/2020 Stable Housing Answer Date Recorded Are you worried that in the next 2 months you may not have stable housing? No 07/15/2020 Transportation Concerns Answer Date Rec orded In the last 12 months, have you or your family ever had to go without healthcare because you didn't have a way to get there? No 07/15/2020 Hazards in Home Answer Date Recorded Think about the place you li ve. Do you have problems with any of the following? Pests (mice or roaches), mold, no/not working smoke detectors, water leaks, no window guards. No 2020 Financing Utilities Answer Date Recorde d In the last 12 months, has t he electric, gas, oil, or water company threatened to shut off your services in your home? No 07/15/2020 Safety at Home Answer Date Recorded Are you or your family worried about feeling saf e in your home? No 07/15/2020 Outside Support Answer Date Recorded Do you feel that you need mo re support from other people or programs to help you care for yourself or your family? No 07/15/2020 Understanding Health Concerns Answer Da te Recorded Do you need help understandi ng your or your child's healthcare needs (diagnosis, medications, plan, etc.)? No 07/15/2020 Financing Health Concerns Answer Date R ecorded In the last 12 months, was t here a time when your child needed to see a doctor or get medications or supplies but could not because of cost? No 07/15/2020 Missing School or Work Answer Date Lew rded Did you or your child miss s chool or work because of a health problem that could have been avoided? No 07/15/2020 Comments No Sex and Gender Information Value Date Recorded Sex Assigned at Not on file Legal Sex Female 5:20 PM EDT Gender Identity Not on file Sexual Orientation Straight 12/08/2021 11 :59 AM EDT documented as of this encounter Miscellaneous Notes * Telephone Encounter - Angelica Heaton MD - 05/03/2022 7:31 AM EST 05/03/2022 (age 21yr): Renea last well visit was actually 11/2021. Please contact and and let her know it is time for her to start seeing a provider for adults. I have called in her OCPs with 5 RF. She should get her next Rx from an OBGYN or a new primary care provider. I see that she did see cardiology in February and I encourage her to take her medications as prescribed and to follow up with them. She should be followed by cardiology, pulmonology, allergy, and should be working on getting a new psychiatrist. * Telephone Encounter - Nelida Fleming LPN - 05/02/2022 10:15 AM EST Refill request for Isibloom. Last PE 05/29/21/MEGAN documented in this encounter Plan of Treatment Not on file documented as of this encounter Visit Diagnoses Diagnosis Menorrhagia with regular cycle documented in this encounter Care Teams Seafood Processor Relationship Specialty Start Date End Date Angelica Heaton MD [address] [place] [address] PCP - General Pediatrics 11/16/18 07/22/22 documented as of this encounter
--- OUTSIDE RECORDS SUMMARY | 2024-07-20 07:18 | XMS_ITS | Encounter Summary ---
Author Organization [facility] Address [address] [place] [address] Phone Care Team Providers Care Hydrator Operator Name Role Phone Angelica Heaton MD Primary Care Provider [phone] Reason for Visit * Reason Comments Med Refill Encounter Details Date Type Department Care Team ([facility] Contact Info) Description 01/17/2018 Refill [facility] [address] [place] [address] Brooke Conklin MD [address] [place] [address] Menorrhagia with irregular cycle (Primary Dx) Social History Tobacco Use Types Packs/Day Years Used Date Smoking Tobacco: Never Smokeless Tobacco: Never Comments:Never smoker Alcohol Use Standard Drinks/Week Comments No 0 (1 standard drink = 0.6 oz pur e alcohol) Comments Unknown Sex and Gender Information Value Date Recorded Sex Assigned at Not on file Legal Sex Female 5:20 PM EDT Gender Identity Not on file Sexual Orientation Straight 12/08/2021 11 :59 AM EDT documented as of this encounter Miscellaneous Notes * Telephone Encounter - Nelida Fleming LPN - 01/18/2018 8:24 AM EDT Refill request for OCP's Last PE 10/14/17/MEGAN documented in this encounter Plan of Treatment Not on file documented as of this encounter Visit Diagnoses Diagnosis Menorrhagia with irregular cycle- Primary documented in this encounter Care Teams Hydrator Operator Relationship Specialty Start Date End Date Angelica Heaton MD [address] [place] [address] PCP - General Pediatrics 11/16/18 07/22/22 documented as of this encounter
--- OUTSIDE RECORDS SUMMARY | 2024-07-20 07:18 | XMS_ITS | Encounter Summary ---
Author Organization [facility] Address [address] [place] [address] Phone Care Team Providers Care Tire Stripper Name Role Phone Angelica Heaton MD Primary Care Provider [phone] Encounter Details Date Type Department Care Team ([facility] Contact Info) Description 11/25/2016 Conversion Encounter [facility] [address] [place] [address] Social History Tobacco Use Types Packs/Day Years Used Date Smoking Tobacco: Never Comments:Never smoker Comments Unknown Sex and Gender Information Value Date Recorded Sex Assigned at Not on file Legal Sex Female 5:20 PM EDT Gender Identity Not on file Sexual Orientation Straight 12/08/2021 11 :59 AM EDT documented as of this encounter Plan of Treatment Not on file documented as of this encounter Visit Diagnoses Not on filedocumented in this encounter Care Teams Tire Stripper Relationship Specialty Start Date End Date Angelica Heaton MD [address] [place] [address] PCP - General Pediatrics 11/16/18 07/22/22 documented as of this encounter
--- OUTSIDE RECORDS SUMMARY | 2024-07-20 07:18 | XMS_ITS | Encounter Summary ---
Author Organization [facility] Address [address] [place], [place] [id number] Phone Care Team Providers Care Curtain Worker Name Role Phone Angelica Heaton MD Primary Care Provider Reason for Visit * Reason Onset Date Comments Med Refill 02/15/2020 Encounter Details Date Type Department Care Team ([facility] st Contact Info) Description 02/15/2020 Refill [facility] [address] [place] [address] Angelica Heaton MD [address] [place] [address] Seasonal allergic rhinitis, unspecified trigger; Moderate persistent asthma without complication Social History Tobacco Use Types Packs/Day Years Used Date Smoking Tobacco: Never Smokeless Tobacco: Never Comments:Never smoker Alcohol Use Standard Drinks/Week Comments No 0 (1 standard drink = 0.6 oz pur e alcohol) Hunger/Food Answer Date Recorded No 01/05/2020 Stable Housing Answer Date Recorded No 01/05/2020 Transportation Concerns Answer Date Rec orded No 01/05/2020 Hazards in Home Answer Date Recorded No 12/15/2018 Financing Utilities Answer Date Recorde d No 12/15/2018 Safety at Home Answer Date Recorded No 12/15/2018 Outside Support Answer Date Recorded No 12/15/2018 Understanding Health Concerns Answer Da te Recorded No 12/15/2018 Financing Health Concerns Answer Date R ecorded No 12/15/2018 Missing School or Work Answer Date Lew rded No 12/15/2018 Comments No Sex and Gender Information Value Date Recorded Sex Assigned at Not on file Legal Sex Female 5:20 PM EDT Gender Identity Not on file Sexual Orientation Straight 12/08/2021 11 :59 AM EDT documented as of this encounter Plan of Treatment Not on file documented as of this encounter Visit Diagnoses Diagnosis Seasonal allergic rhinitis, unspecified trigger Moderate persistent asthma without complication documented in this encounter Care Teams Curtain Worker Relationship Specialty Start Date End Date Angelica Heaton MD [address] [place] [address] PCP - General Pediatrics 11/16/18 07/22/22 documented as of this encounter
--- OUTSIDE RECORDS SUMMARY | 2024-07-20 07:18 | XMS_ITS | Encounter Summary ---
Author Organization [facility] Address [address] [place] [address] Phone Care Team Providers Care Automatic Machines Supervisor Name Role Phone Angelica Heaton MD Primary Care Provider [phone] Reason for Visit * Reason Comments Med Refill Encounter Details Date Type Department Care Team ([facility] Contact Info) Description 11/22/2021 Refill [facility] [address] [place] [address] Angelica Heaton MD [address] [place] [address] Menorrhagia with regular cycle Social History Tobacco [...] encounter Miscellaneous Notes * Telephone Encounter - Josselin Brunson LPN - 11/23/2021 10:56 AM EDT Pharm requesting refill OCP. Pt last PE 07/24/20. Is scheduled on 12/08 for PE. EH documented in this encounter Plan of Treatment Not on file documented as of this encounter Visit Diagnoses Diagnosis Menorrhagia with regular cycle documented in this encounter Care Teams Automatic Machines Supervisor Relationship Specialty Start Date End Date Angelica Heaton MD [address] [place] [address] PCP - General Pediatrics 11/16/18 07/22/22 documented as of this encounter
--- OUTSIDE RECORDS SUMMARY | 2024-07-20 07:18 | XMS_ITS | Encounter Summary ---
Author Organization [facility] Address [address] [place], [place] [phone] Phone Care Team Providers Care Stenographer Secretary Name Role Phone Angeilca Heaton MD Primary Care Provider [phone] Reason for Visit * Reason Onset Date Comments Med Refill 11/16/2019 Encounter Details Date Type Department Care Team ([facility] st Contact Info) Description 11/16/2019 Refill [facility] [address] [place] [address] Angelica Heaton MD [address] [place] [address] Moderate persistent asthma without complication; Seasonal allergic rhinitis, unspecified trigger Social History Tobacco Use Types Packs/Day Years Used Date Smoking Tobacco: Never Smokeless Tobacco: Never Comments:Never smoker Alcohol Use Standard Drinks/Week Comments No 0 (1 standard drink = 0.6 oz pur e alcohol) Hunger/Food Answer Date Recorded No 12/15/2018 Stable Housing Answer Date Recorded No 04/12/2019 Transportation Concerns Answer Date Rec orded No 12/15/2018 Hazards in Home Answer Date Recorded No [...] Telephone Encounter - Nelida Fleming LPN - 11/16/2019 2:48 PM EDT Refill request for Fluticasone, Proair , too soon for Proair and other 2 has refills remaining/JODand fexofenidine refused documented in this encounter Plan of Treatment Not on file documented as of this encounter Visit Diagnoses Diagnosis Moderate persistent asthma without complication Seasonal allergic rhinitis, unspecified trigger documented in this encounter Care Teams Stenographer Secretary Relationship Specialty Start Date End Date Angelica Heaton MD [address] [place] [address] PCP - General Pediatrics 11/16/18 07/22/22 documented as of this encounter
--- OUTSIDE RECORDS SUMMARY | 2024-07-20 07:18 | XMS_ITS | Encounter Summary ---
Author Organization [facility] Address [address] [place] [address] Phone Care Team Providers Care Campus Monitor Name Role Phone Angelica Heaton MD Primary Care Provider [phone] Reason for Visit * Reason Comments Med Refill Encounter Details Date Type Department Care Team ([facility] Contact Info) Description 07/25/2021 Refill [facility] [address] [place] [address] Angelica Heaton MD [address] [place] [address] Menorrhagia with regular cycle (Primary Dx) Social History Tobacco Use [...] Telephone Encounter - Angelica Heaton MD - 07/27/2021 6:48 AM EDT 07/27/2021 (age 20yr): .Renea has hypertension and headaches. I wonder if a different progesteroneonly option would be a better choice for Renea. I will refill x 1 month and discuss this with herat her next well visit. Since she is 20, this will be her last well visit at [facility]. * Telephone Encounter - Josselin Brunson LPN - 07/26/2021 12:56 PM EDT Pharm requesting refill OCP. EH documented in this encounter Plan of Treatment Not on file documented as of this encounter Visit Diagnoses Diagnosis Menorrhagia with regular cycle- Primary documented in this encounter Care Teams Campus Monitor Relationship Specialty Start Date End Date Angelica Heaton MD [address] [place] [address] PCP - General Pediatrics 11/16/18 07/22/22 documented as of this encounter
--- OUTSIDE RECORDS SUMMARY | 2024-07-20 07:18 | XMS_ITS | Encounter Summary ---
Author Organization [facility] Address [address] [place] [address] Phone Care Team Providers Care Manager Sap Name Role Phone Angelica Heaton MD Primary Care Provider [phone] Encounter Details Date Type Department Care Team (Late st Contact Info) Description 09/04/2009 Documentation [facility] Family Medicine [address] [place] [address] Family Medicine, Physician [address] [place] [address] Social History Tobacco Use Types Packs/Day Years [...] on filedocumented in this encounter Care Teams Manager Sap Relationship Specialty Start Date End Date Angelica Heaton MD [address] [place] [address] PCP - General Pediatrics 11/16/18 07/22/22 documented as of this encounter
--- OUTSIDE RECORDS SUMMARY | 2024-07-20 07:18 | XMS_ITS | Encounter Summary ---
Author Organization [facility] Address [address] [place], [place] [address] Phone Care Team Providers Care Director Of Home Economics Name Role Phone Angelica Heaton MD Primary Care Provider [phone] Reason for Visit * Reason Onset Date Comments Med Refill 05/09/2020 Encounter Details Date Type Department Care Team ([facility] Contact Info) Description 05/09/2020 Refill [facility] [address] [place] [address] Angelica Heaton MD [address] [place] [address] Seasonal allergic rhinitis, unspecified trigger; Menorrhagia with regular cycle Social History Tobacco Use Types Packs/Day Years Used Date Smoking Tobacco: Never Smokeless Tobacco: Never Comments:Never smoker Alcohol Use Standard Drinks/Week Comments No 0 (1 standard drink = 0.6 oz pur e alcohol) Hunger/Food Answer Date Recorded No 04/18/2020 Stable Housing Answer Date Recorded No 04/18/2020 Transportation Concerns Answer Date Rec orded No 04/18/2020 Hazards in Home Answer Date Recorded No 04/18/2020 Financing Utilities Answer Date Recorde d No 04/18/2020 Safety at Home Answer Date Recorded No 04/18/2020 Outside Support Answer Date Recorded No 04/18/2020 Understanding Health Concerns Answer Da te Recorded No 04/18/2020 Financing Health Concerns Answer Date R ecorded No 04/18/2020 Missing School or Work Answer Date Lew rded No 04/18/2020 Comments No Sex and Gender Information Value Date Recorded Sex Assigned at Not on file Legal Sex Female 5:20 PM EDT Gender Identity Not on file Sexual Orientation Straight 12/08/2021 11 :59 AM EDT documented as of this encounter Miscellaneous Notes * Telephone Encounter - Sharri Boyle MA - 05/10/2020 9:48 AM EST Portal refill request for BC and Fexofenadine Pt does have a well visit scheduled in June- last refill noted no refills without being seen. PCP is out. Will send to weekend provider as it is BC and can not wait until Tuesday. Will let pt know to check the pharmacy for the Fexofenadine as there should be refills. documented in this encounter Plan of Treatment Not on file documented as of this encounter Visit Diagnoses Diagnosis Seasonal allergic rhinitis, unspecified trigger Menorrhagia with regular cycle documented in this encounter Care Teams Director Of Home Economics Relationship Specialty Start Date End Date Angelica Heaton MD [address] [place] [address] PCP - General Pediatrics 11/16/18 07/22/22 documented as of this encounter
--- OUTSIDE RECORDS SUMMARY | 2024-07-20 07:18 | XMS_ITS | Clinical Summary ---
Author Organization [facility] Address [address] [place] [id number] Phone Care Team Providers Care Supervisor [employer] Name Role Phone Unavailable Primary Care Provider Unavailabl e Allergies Active Allergy Reactions Criticality Noted Date Comments Clam Shell 04/06/2017 Environmental 04/06/2017 Cat,dog, hamster Food 04/06/2017 [place], tomato,cantelope,apples, seafood Shellfish-Derived Products 7 Medications Spacer/Aero-Hold ing Chambers (Valved Holding Chamber) deviceIndication s:Moderate persistent asthma without complication Use as directed with inhalers 1 Device 1 Active hydrocortisone 2.5 % creamIndications :Dermatitis Apply topically 2 (two) times a day as needed for rash. 20 g 2 1 Active Additional Information Patient not taking.Reported on 02/02/2022 EPINEPHrine (EpiPen 2-Derek) 0.3 MG/0.3ML injection syringeIndicatio ns:Food allergy Inject 0.3 mL (0.3 mg total) into the muscle Once PRN for anaphylaxis for up to 1 dose. Can repeat in 15 min x 1 if needed, call 911 and/or go to ED If used. 2 Syringe 1 Active Additional Information Patient not taking.Reported on 04/10/2021 escitalopram 10 MG tablet TAKE 1/2 TABLET BY MOUTH FOR 1 WEEK THEN. INCREASE TO 1 FULL TABLET 1 Active ibuprofen 600 MG tabletIndication s:Pharyngitis, unspecified etiology TAKE 1 TABLET(600 MG) BY MOUTH EVERY 6 HOURS NEEDED FOR MILD PAIN OR FEVER OR HEADACHE OR PAIN 30 tablet 2 Active Additional Information Patient not taking.Reported on 02/02/2022 Allergy Relief 180 MG tabletIndication s:Seasonal allergic rhinitis, unspecified trigger TAKE 1 TABLET(180 MG) BY MOUTH DAILY 30 tablet 11 2 Active fluticasone HFA 220 MCG/ACT inhalerIndicatio ns:Mild intermittent asthma with acute exacerbation 1 puff every 3-4 hours after every albuterol treatment with the first sign of Viral URI or allergy induced asthma flares Rinse mouth with water after use, do not swallow. 1 Units 2 Active Additional Information Patient not taking.Reported on 02/02/2022 albuterol HFA (ProAir HFA) 108 (90 Base) MCG/ACT inhalerIndicatio ns:Mild intermittent asthma with acute exacerbation Inhale 2 puffs every 4 (four) hours as needed for wheezing. 1 Units 2 Active albuterol (2.5 MG/3ML) 0.083% nebulizer solutionIndicati ons:Mild intermittent asthma with acute exacerbation Take 3 mL (2.5 mg total) by nebulization every 4 (four) hours as needed for wheezing or shortness of breath (chest tightness or dry cough). 3 mL 2 Active traZODone 50 MG tablet TAKE 1 TABLET BY MOUTH DAILY AT BEDTIME NEEDED FOR SLEEP 2 Active montelukast (Singulair) 10 MG tabletIndication s:Moderate persistent asthma without complication Take 1 tablet (10 mg total) by mouth nightly. 30 tablet 11 2 Active desogestrel-ethi nyl estradiol (Isibloom) 0.15-30 MG-MCG per tabletIndication s:Menorrhagia with regular cycle Take 1 tablet by mouth once daily. 28 tablet 5 3 Active Active Problems Problem Noted Date Diagnosed Date Prediabetes 12/09/2021 Overview (02/02/2022): 12/09/2021 (age 21yr): Insulin elevated at 35, hgb a1c 5.7. Renea is working with a fire code inspector and is considering bariatric surgery. Continue to follow. Needs Adult MD. 02/02/2022 (age 21yr): Is continuing to work with fire code inspector. Assessment & Plan (02/02/2022 10:33 AM EDT): 02/02/2022 (age 21yr): Is continuing to work with fire code inspector. Lab test positive for detection of COVID-19 viru s 04/12/2021 Assessment & Plan (04/12/2021 11:37 AM EST): Pt positive for covid - testing done at 'Stop the spread . Other family members positive as well Pt with multiple significant risk factors Referred to [facility] - form for referral filled out and nurse faxed over. Pt aware and agrees to watch for calls and to get infusion if offered To follow up with us for any ongoing concerns, worsening symptoms. Chronic tension-type headache, intractable 10/28 Overview (12/08/2021): 12/08/2021 (age 21yr): Headaches have improved, on no medications. ---As of 10/29/2020 (age 20yr): Ongoing headaches since 09/2020 (about 1 month). She reports mild headache all day, every day. Feels fine only for a few hours 2 time per week. More severe headaches come and go. Feels like squeezing and pounding, she feels pressure in her ears, dizziness and loss of balance. Severe headache with dizziness usually lasts 5 minutes.. + phonophobia with episodes. +photophobia Nothing seems to help the headaches - ibuprofen, Excedrin, tylenol, increasing hydration. Sleep seems to help a little, but headache returns after she wakes up. MRI normal,still need optho scheduled. Started on Riboflavin 400 mg qd and magnesium 400 mg qd. Prefer to avoid other medications due to polypharmacy (already on meds for BP and psych meds). Encouraged to get eye exam. Referred to Dr. Curry for hypnotherapy. Referred for CPAP as BLAYNE newly diagnosed and could be contributing. History: 10/21/2020: MRI ordered, referred for optho exam 10/27/2020: MRI normal 10/29/2020 (age 20yr): still need optho scheduled. Started on Riboflavin 400 mg qd and magnesium 400 mg qd. Prefer to avoid other medications due to polypharmacy (already on meds for BP and psych meds). Encouraged to get eye exam. Referred to Dr. Curry for hypnotherapy. Referred for CPAP as BLAYNE newly diagnosed and could be contributing. Assessment & Plan (12/08/2021 1:09 PM EDT): 12/08/2021 (age 21yr): Headaches have improved, on no medications. Assessment & Plan (10/29/2020 6:10 AM EDT): 10/29/2020 (age 20yr): Ongoing headaches since 09/2020 (about 1 month). She reports mild headache all day, every day. Feels fine only for a few hours 2 time per week. More severe headaches come and go. Feels like squeezing and pounding, she feels pressure in her ears, dizziness and loss of balance. Severe headache with dizziness usually lasts 5 minutes.. + phonophobia with episodes. +photophobia Nothing seems to help the headaches - ibuprofen, Excedrin, tylenol, increasing hydration. Sleep seems to help a little, but headache returns after she wakes up. MRI normal,still need optho scheduled. Started on Riboflavin 400 mg qd and magnesium 400 mg qd. Prefer to avoid other medications due to polypharmacy (already on meds for BP and psych meds). Encouraged to get eye exam. Referred to Dr. Curry for hypnotherapy. Referred for CPAP as BLAYNE newly diagnosed and could be contributing. Follow up with me 3-4 weeks. Obstructive sleep apnea 10/21/2020 Essential hypertension 09/14/2018 Overview (05/03/2022): 12/08/2021 (age 21yr): BP high, ran out of meds 04/2020 and has not had refills. Diagnosed by cardiology 07/2018. Last visit with Dr. Hutchinson was 12/18/2019. Was on losartan 50 mg and amlodipine 5mg. (switched from hydrochlorothiazide to amlodipine on 12/18/2019). [facility] involved. Urgent cardiology visit scheduled for 03/[address] Hickey at [facility] cardio [facility]. Ran out of OCPS 4 days ago. - I contacted Dr. uHtchinson who felt that OCP were still reasonable in [place]. I will continue to prescribe as long as she see the cardiology in March. - Follow up with adult cardiology - Last Specialist Visit: [facility] cardiology 02/12/2022, started on amlodipine and losartan. OCP refilled with [address] [facility] to contact Renea to help her transition to adult medicine. 01/25/2022 Chart Review: [facility] - 03/22/2021 158/87 [facility] ED - 12/08/2021 162/92 in the office - 12/09/2021 153/74,then 118/62 at [facility] - 01/05/2022: BP-150/104 at [facility], sent to ED. No note in chart 02/02/2022 (age 21yr): 138/84 in the office Detailed History and Chronology of care: 12/08/2021 (age 21yr): BP high today, ran out of meds 04/2020 and has not had refills. Diagnosed by cardiology 07/2018. Last visit with Dr. Hutchinson was 12/18/2019. Was on losartan 50 mg and amlodipine 5mg. (switched from hydrochlorothiazide to amlodipine on 12/18/2019). [facility] involved as of 11/03/2021 Follow up with adult cardiology. 12/09/2021 (age 21yr): Sent to ED with elevated HR and chest pain. 12/29/2021 (age 21yr): Urgent cardiology visit scheduled for 03/17/[address] Hickey at [facility] Adult cardio [facility]. Assessment & Plan (12/08/2021 1:06 PM EDT): 12/08/2021 (age 21yr): BP high today, ran out of meds 04/2020 and has not had refills. Diagnosed by cardiology 07/2018. Last visit with Dr. Hutchinson was 12/18/2019. Now on losartan 50 mg and amlodipine 5mg. (switched from hydrochlorothiazide to amlodipine on 12/18/2019). [facility] involved as of 11/03/[address] [facility], Pt will call Dr. Hutchinson to see if he can follow up with her. Otherwise refer to adult cardiology at [facility]. Now, Joheliz state she would like to follow up with adult cardiology. - electronic referral to adult cardiology. Assessment & Plan (10/29/2020 6:03 AM EDT): 10/29/2020 (age 20yr): BP elevated at 140/87 today. Will recheck at follow up visit in November. Assessment & Plan (08/03/2020 10:03 PM EDT): I spoke with Dr. Hutchinson via cortext again today (07/24/2020) and he reports that pt has UTD Rx for medication since fall 2020 - I was able to confirm with the pharmacy that this was the case and they were to have the two Rx from Dr. Hutchinson ready for pt to berry picker machine operator from the pharmacy (amlodipine 5mg and losartan 50mg). Stressed with pt the need to be on these medications for better BP management and how very important this was for overall health and risk for having untreated high blood pressure. Dr. Hutchinson' office to follow up with pt as well. Assessment & Plan (07/23/2020 11:32 PM EDT): I followed up with Dr. Hutchinson re: pt today and he plans to reach out to pt/family to coordinate getting her back on her medications/refills and office follow up. Stressed importance of staying on medication for symptom management. Assessment & Plan (12/15/2018 12:30 PM EDT): Has apointmet with Dr. Hutchinson next week. On combined med losartan/hydrochlorthiazide as of 11/30/18. Also on OCP -I confirmed with Dr. Hutchinson this is OK on 12/15/18. Complex care coordination 05/08/2018 Overview (07/23/2020): Referred to [facility] for assistance with making multiple specialty appointments. Reintroduced to Davide Angeles our rn palliative care today for supports with prioritizing booking specialist visits as well as working on transition to adult medicine given complex adult care needs. Assessment & Plan (02/02/2022 10:41 AM EDT): 02/02/2022 (age 21yr): Mother concerned that Renea is having a hard to keeping track of her appointments and medical issues. [facility] involved to assist. Assessment & Plan (08/03/2020 9:58 PM EDT): Continue to work with our care coordinators for support as needed. Assessment & Plan (07/23/2020 11:31 PM EDT): Transitional care offered - pt will return next week for a full PE and then to transition to adult medicine. Assessment & Plan (05/08/2018 2:52 PM EST): Assistance given for pulmonology follow up appointment and to coordinate care for psychiatry. Bipolar 1 disorder 03/08/2018 Overview (02/02/2022): 12/08/2021 (age 21yr): 12/08/2021 (age 21yr): psychiatrist just left, on escilatopram and trazadone. No meds for bipolar reported by pt. Has not had a therapist for 1 year. [facility] to assist in finding new provider. 02/02/2022 (age 21yr): still doesn't have a provider. [facility] involved to assist. Also needs to move to adult medicine. Detailed History and Chronology of care: Dx [address] Virgil Jang MD via Tele[facility] from [facility] - He recommends a lithium trial. Then followed by Dr. Wilson (interim) - Mother is willing to travel to [place] for regular in person psychiatric evaluations and supports. Will refer to psych at [facility]. [facility] will not accept the patient and advised that she be evaluated by a psychiatrist in [place] ([facility]) 07/2020: visit with Dr. Newman at [facility] as a new consult/evaluation, previously seen by Dr. Wilson and struggled to get in elsewhere, so were happy to have this evaluation - he is writing for medication for pt. Still seeing Mckenzie Turner for therapy (custodial, for years) Assessment & Plan (02/02/2022 10:32 AM EDT): 02/02/2022 (age 21yr): still doesn't have a provider. [facility] involved to assist. Also needs to move to adult medicine. Assessment & Plan (12/08/2021 1:07 PM EDT): 12/08/2021 (age 21yr): 12/08/2021 (age 21yr): psychiatrist just left, on escilatopram and trazadone. No meds for bipolar reported by pt. Has not had a therapist for 1 year. [facility] to assist in finding new provider. Assessment & Plan (08/03/2020 9:57 PM EDT): Has ongoing psych providers, continue in care. Assessment & Plan (07/23/2020 11:51 PM EDT): Has new psychiatrist and long-standing therapist, continue in their care and follow therapy and medication plan for supports. Transition primary care to adult provider after last PE here in 1 week. Assessment & Plan (12/15/2018 9:38 AM EDT): Seeing Dr. Wilson at [facility]. Gets meds through him. On Quetieapine (and adderall). D/C'd lexapro several month ago. Assessment & Plan (05/08/2018 2:53 PM EST): [facility] will not accept the patient and advised that she be evaluated by a psychiatrist in [place] ( [facility]) Heavy periods 12/21/2017 Overview (05/03/2022): 02/02/2022 (age 21yr): Was on isibloom, ran out of last pack 4 days ago. Has HTN and needs cardiology follow up and medication. Started OCPS 12/2017 for Heavy and painful menses. as followed by Dr Hutchinson for HTN, but no longer is. I confirmed again today with Dr. Hutchinson that Renea may take OCPs. Sabinojackie also needs to see a UNDER CUTTER. - start isibloom with next menses - I can continue to prescribe as long as Renea keeps her cardiology appointment in March. - Renea needs to transition to an adult provider before she is due for her next well visit. - Last Specialist Visit: [facility] cardiology 02/12/2022, started on amlodipine and losartan. OCP refilled with [address] [facility] to contact Renea to help her transition to adult medicine. Detailed History and Chronology of care: 07/2020: pt taking the same OCPs with better menses management - refilled at 07/2020, discussed transition to adult provider/UNDER CUTTER provider for ongoing care. 07/27/2021 (age 20yr): Will HTN and headaches, I wonder if progesterone only BC would be safer for Renea. OCP refilled for the Next month, will discuss this at well visit in August. Will suggest UNDER CUTTER for BC care. 08/02/2021 (age 20yr): Started OCPS 12/2017 for Heavy and painful menses Started on Apri. Good result for pain conctrol. Followed by Dr Hutchinson for HTN, on 07/15/[address] Htuchinson that OCPs are not contra indicated in Renea 12/08/2021 (age 21yr): Still on isibloom, no refills until she has an appointment at least scheduled with cardiology. Not on meds for HTN. Renea also needs to see a UNDER CUTTER. 12/29/2021 (age 21yr): Urgent cardiology visit scheduled for 03/17/2022. BP was 118/62 in ED on 12/09/2021. Assessment & Plan (02/02/2022 10:38 AM EDT): 02/02/2022 (age 21yr): Was on isibloom, ran out of last pack 4 days ago. Has HTN and needs cardiology follow up and medication. Started OCPS 12/2017 for Heavy and painful menses. as followed by Dr Hutchinson for HTN, but no longer is. I confirmed again today with Dr. Hutchinson that Renea may take OCPs. Renae also needs to see a UNDER CUTTER. - start isibloom with next menses - I can continue to prescribe as long as Renea keeps her cardiology appointment in March. - Renea needs to transition to an adult provider before she is due for her next well visit. Assessment & Plan (12/08/2021 1:11 PM EDT): 12/08/2021 (age 21yr): Still on isibloom, no refills until she has an appointment at least scheduled with cardiology. Started OCPS 12/2017 for Heavy and painful menses Started on Apri. Good result for pain conctrol. Was followed by Dr Hutchinson for HTN, but no longer is. I had confirmed with Dr. Hutchinson that OCPs are not contra indicated in Renea 07/2018, but I would like her to have a current restaurant host/hostess to confirm this. Renea also needs to see a UNDER CUTTER. Assessment & Plan (08/03/2020 9:57 PM EDT): OCPs refilled at - work on transitioning to adult PCP and UNDER CUTTER provider if needed - information had previously been given to make these appts/transition Assessment & Plan (12/15/2018 12:31 PM EDT): Will Refill OCPs. I confirmed with Dr. Hutchinson this is OK on 12/15/18. (HTN) Obstructive sleep apnea 05/17/2017 Overview (06/26/2022): 12/08/2021 (age 21yr): Pt reports she was using CPAP but that she stopped it because her sleep was improving on her. Reports she was discharged from sleep medicine. BLAYNE Identified on sleep study 10/06/2020 at [facility]. . - Last Specialist Visit: : [facility] notes reviewed. Appt with sleep medicine. 'BLAYNE, at least mild: Due to financial reasons, the patient will decline CPAP use at this time. Alternative management strategies were discussed. Weight loss is encouraged, as this can lead to decrease severity of BLAYNE. Furthermore, activities such as exercise and change in diet can also improve her sleep quality, and help with control of her hypertension. The [employer] company was contacted, they confirmed a bill >$100 for CPAP supplies, while CPAP machine is covered by insurance, supplies (mask, hose, etc) is not. Discontinue CPAP as per patient's request. Follow up PRN 06/23/2022 S puldougie Loera: Obestiry negatively impacting her health in many ways. Plan: Start symbicort, referred to for pulmonary rehab to do asth;theodore teaching, home polysomnogram, PFTs History: Was on clonidine for sleep, but noted was on seroquel at [facility] 10/201707/17/2020: Pt has had sleep study completed previously that was normal (2011) and now mom and pt are still questioning snoring and sleep concerns - will refer for sleep study and referral to ENT for further evaluation. Would hope that managing weight would also help with this. 10/06/2020: BLAYNE Identified on sleep study at [facility] 10/29/2020 (age 20yr): . Referred to sleep medicine at [facility] for CPAP. Renea is having headaches that may be exacerbated by poor sleep. : [facility] notes reviewed. Appt with sleep medicine. 'BLAYNE, at least mild: Due to financial reasons, the patient will decline CPAP use at this time. Alternative management strategies were discussed. Weight loss is encouraged, as this can lead to decrease severity of BLAYNE. Furthermore, activities such as exercise and change in diet can also improve her sleep quality, and help with control of her hypertension. The [employer] company was contacted, they confirmed a bill >$100 for CPAP supplies, while CPAP machine is covered by insurance, supplies (mask, hose, etc) is not. Discontinue CPAP as per patient's request. Follow up PRN. Assessment & Plan (12/08/2021 1:07 PM EDT): 12/08/2021 (age 21yr): Pt reports she was using CPAP but that she stopped it because her sleep was improving on her. Reports she was discharged from sleep medicine. BLAYNE Identified on sleep study 10/06/2020 at [facility]. Assessment & Plan (10/29/2020 6:12 AM EDT): 10/29/2020 (age 20yr): BLAYNE Identified on sleep study 10/06/2020 at [facility]. Referred to sleep medicine at [facility] for CPAP. Renea is having headaches that may be exacerbated by poor sleep. Can also consider ENT referral. Assessment & Plan (10/23/2020 8:27 AM EDT): 10/23/2020 (age 20yr): phone call to pt to discuss referral to sleep medicine for CPAP after positive sleep study on 10/06/2020. Renea is unsure if she wants a referral to sleep medicine. Can also consider ENT referral. Of note, she has been recently having headaches and I would wonder if her headaches would improve if she got better sleep. Assessment & Plan (08/03/2020 9:53 PM EDT): Previously referred for sleep study/ENT evaluation re: this at last PE. Assessment & Plan (07/23/2020 11:43 PM EDT): Sleep study referral made and refer to ENT for evaluation after sleep study completed. Assessment & Plan (12/15/2018 9:39 AM EDT): Sleeping well now Food allergy 08/19/2016 Overview (02/05/2022): 12/08/2021 (age 21yr): Allergic to tomatoes, seafood, canteloupe, strawberries; has Epi-Pens. Never made follow up appt. 02/05/2022 (age 21yr): Referral to allergy closed after several attempts to contact family Detailed History and Chronology of care: 07/2020: 19 year old, Still with these allergies, mom would like to see stem teacher for further testing and plans to schedule her own appointment. Already has UTD epipen (12/2019) 11/03/2021 (age 21yr): Per [facility], referral re requested. Referral placed and pt to make her own appt. Assessment & Plan (08/03/2020 9:52 PM EDT): Pt already has UTD epipen, aware of when to use this, and stem teacher at [facility] requested for follow up, information was previously given, pt/mom to book. Assessment & Plan (07/23/2020 11:41 PM EDT): Referral to stem teacher and pt/family to book appointment with adult stem teacher for further evaluation and follow up. Epipen is already UTD from 12/2019 visit so did not refill today. Assessment & Plan (12/15/2018 10:33 AM EDT): Needs to go back to stem teacher. Assessment & Plan (01/02/2018 12:29 PM EDT): School med auth formed filled out. Seasonal allergic rhinitis 08/05/2016 Overview (12/08/2021): 12/08/2021 (age 21yr): Uses On martita 180 daily and singulair 10 mg as needed. Will be seeing stem teacher. . Detailed History and Chronology of care: 07/20/2019 No current symptoms, will refill martita today ahead of allergy season. 07/2020: refill on singulair requested and has used martita in the past, requesting refills. Referred to stem teacher for allergies and snoring 10/30/2020 (age 20yr): did not follow through on allergy referral. Assessment & Plan (12/08/2021 11:56 AM EDT): 12/08/2021 (age 21yr): Uses On martita 180 daily and singulair 10 mg as needed. Will be seeing stem teacher. . Assessment & Plan (08/03/2020 9:51 PM EDT): Refilled singulair and martita at last visit. Daily use for allergy sx for best sx relief reviewed. Assessment & Plan (07/23/2020 11:40 PM EDT): Medications refilled as noted above (martita and Singulair) as he has used these in the past with good sx control. Assessment & Plan (11/15/2019 3:52 PM EDT): Not taking Martita. Doesn't know anything about this. Off montelukast because she ran out. Will refill montelukast. Discussed nasal steroid but she declines this. Assessment & Plan (07/20/2019 2:46 PM EDT): 07/20/2019 No current symptoms, will refill martita today ahead of allergy season. Assessment & Plan (12/15/2018 9:39 AM EDT): Still on singulair and martita. Doing well. Moderate persistent asthma without complication 07/29/2016 Overview (06/26/2022): 12/08/2021 (age 21yr): Not on any controllers as of last wcv 10/2017 and doing well. :Followed in the past by Pulm at [facility]. Last visit 01/2018. Seems to be overdue for 4 month follow up, in the past has requested med refills and referral to pulm. Has appt with adult pulm 01/2022. (missed appt ) - Last Specialist Visit: 06/23/[address] [facility] [address] Loera: Obestiry negatively impacting her health in many ways. Plan: Start symbicort, referred to for pulmonary rehab to do asth;ma teaching, home polysomnogram, PFTs Detailed History and Chronology of care: Was on singulair 10 mg and QVAR or flovent 110. Had bad asthma with GERD as young child, followed by [facility].( mother mentions that there might have been some aspiration). Seemed to resolve as she hit puberty she was off all control meds. Had exacerbation in 07/2016 and back on Qvar. History of poor compliance. 01/04/2018 ACT score 7 02/06/2018: saw Pulm at [facility], recommend flovent 110 2 P BID and f/u 4 months. 04/2018 ACT score 8 12/2018: Doing well, has all meds. 07/20/2019 act score 22, no current meds. She will plan to refill flovent 220 and restart ahead of allergy season and with covid 19 pandemic underway. Assessment & Plan (12/08/2021 1:05 PM EDT): 12/08/2021 (age 21yr): Not on any controllers as of last wcv 10/2017 and doing well. :Followed in the past by Pulm at [facility]. Last visit 01/2018. Seems to be overdue for 4 month follow up, in the past has requested med refills and referral to pulm. Has appt with adult pulm 01/2022. (missed appt ) Assessment & Plan (08/03/2020 9:38 PM EDT): Plans to return to [facility] as already planned, family has information and will call to schedule. Assessment & Plan (07/23/2020 11:39 PM EDT): Refilled medications (singulair and albuterol) but did not refill flovent as she has been off this and there is no reported issue with breathing, we discussed more worrisome s/sx to watch for which pt does not report having in months, and reviewed asthma sx to watch for - will complete ACT at in 1 week. Rule of 2s reviewed. Assessment & Plan (07/20/2019 2:45 PM EDT): 07/20/2019 act score 22, no current meds. Last flovent use was in May. She will plan to refill flovent 220 and restart ahead of allergy season and with covid 19 pandemic underway. Assessment & Plan (12/15/2018 10:31 AM EDT): Has all meds now. Plans to go back for follow up. Advised her to call today.Currently doing well on Singulair 10 mg and albuterol prn. Started play soccer. Assessment & Plan (05/08/2018 1:42 PM EST): Follow up for an acute asthma exacerbation. Feeling somewhat better. Still has shortness of breath. Overall poor control of asthma though there is some suspicion that dyspnea is related to underlying anxiety. Lung exam with crackles today, suggestive of atypical pneumonia. Followed by Pulm at [facility]. Has follow up in May 2108. Assessment & Plan (01/06/2018 12:48 PM EDT): Patient in no obvious distress during this encounter and lung exam clear. Has subjective chest tightness. S/P treatment with 7 days of steroids. Low suspicion for pneumonia based on currently exam (including vitals). Patient has Pulm evaluation at [facility] next month. 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 Advised to follow up for worsening symptoms. Assessment & Plan (01/02/2018 12:41 PM EDT): Current exacerbation- only slightly improved per patient. Reassuring O2sat and exam (good aeration without wheezing). Will do two more days of prednisone and f/u for re-check in 2 days. Continue albuterol 4-6 puffs with spacer every 4 hours. Mom requesting referral to pulm at [facility] (mom says she was seen there when she was young, though I only see notes from [facility] pulm), so I will put referral in now. Mom wants us to make the appt for her. Class 3 severe obesity due t o excess calories with serious comorbidity in adult 03/25/2011 Overview (12/09/2021): 12/08/2021 (age 21yr): Working with fire code inspector to lose weight ahead of bariatric surgery. Working with Dr. Gandara. 12/09/2021 (age 21yr): Hyperinsulinemia note, Hgb A1C 5.7 unchanged since last year. Cholesterol normal. Detailed History and Chronology of care: Went to [facility] in 2008 but no success. Sleep study in 2008 was normal. 02/05/2021:Visit with general surgery (Dr Gandara), planning for bariatric surgery (sleeve)) Assessment & Plan (12/08/2021 11:55 AM EDT): 12/08/2021 (age 21yr): Working with fire code inspector to lose weight ahead of bariatric surgery. Working with Dr. Gandara. Assessment & Plan (12/15/2018 9:50 AM EDT): BMI 52 but weight down 5 lbs since last year. Starting to play soccer! Assessment & Plan (01/02/2018 12:34 PM EDT): Discussed how her weight is negatively affecting her health and mom said she is going to the weight management clinic. I encouraged daily exercise during this visit. GERD (gastroesophageal reflux disease) 0 Overview (05/19/2017): Has been on prilosec in the past and has been followed by Dr Rene in the Past Was on Prevacid and even had hospital bed as young child. Off meds as of 2011. Seen occ for GERD and uses omeprazole Assessment & Plan (12/15/2018 9:39 AM EDT): Doing well now. Not on prilosec. Assessment & Plan (05/17/2017 12:44 PM EST): You have a history of similar abdominal pain in the past and your mom remembers being told you had a twisted intestine when you were seen in the ER last June. You were prescribed prilosec for a month and your abd pain got better. I did reviewed the ER note and the follow up visit here with you. Take frequent small amounts of fluids and follow up in 2-[address] Bateman. To ER sooner if your symptoms are worsening. Anxiety 06/24/2009 Overview (02/02/2022): 12/08/2021 (age 21yr): psychiatrist just left, on escilatopram and trazadone. Has not had a therapist for 1 year. [facility] to assist in finding new provider. 02/02/2022 (age 21yr): still doesn't have a provider. [facility] involved to assist. Also needs to move to adult medicine. Detailed History and Chronology of care: 2016. Partial hosp 02/[address] [facility] 02/2018 Telepsych evaluation completed- dx with Bipolar 1 Disorder 12/15/2018: Seeing Dr. Wilson at [facility]. Gets meds through him. On Quetieapine (and adderall). D/C'd lexapro several month ago. Seeing Mckenzie Turner (therapist) for years. 07/2020: Continues with ongoing therapist (Mckenzie Turner) - has been seeing her for about 10 years, had a followup recently due to insurance issues and the soonest available was 07/2020 to recheck. Seen 07/[address] Newman at [facility] as a new consult/evaluation, Currently taking quetiapine and has hydroxyzine Assessment & Plan (02/02/2022 10:32 AM EDT): 02/02/2022 (age 21yr): still doesn't have a provider. [facility] involved to assist. Also needs to move to adult medicine. Assessment & Plan (12/08/2021 1:07 PM EDT): 12/08/2021 (age 21yr): psychiatrist just left, on escilatopram and trazadone. Has not had a therapist for 1 year. [facility] to assist in finding new provider Assessment & Plan (08/03/2020 9:50 PM EDT): Continue in therapy and work with med prescribers to get reestablished as transitions to adult provider Assessment & Plan (12/15/2018 10:31 AM EDT): Seeing Dr. Wilson at [facility]. Gets meds through him. On Quetieapine (and adderall). D/C'd lexapro several month ago. Doing well. Assessment & Plan (03/08/2018 3:59 PM EST): Advised to continue on this treatment regimen until in-person consult/follow up with psychiatrist at [facility]. Assessment & Plan (01/29/2018 4:40 PM EDT): Lexapro does not seem like it's helping according to mother and patient. Followed by Dr. Wilson at [facility] (interim), since previous psych provider no longer available. They would like to get a second opinion. Moods continue to be labile. She has auditory hallucinations 1x per week a least, most recently had thoughts of self harm last week. She has a lot of somatic complaints. Will refer to telepsych for second opinion - evaluation and treatment recommendations. Assessment & Plan (05/17/2017 12:45 PM EST): You are followed by Dr Montoya and are on Lexapro. You have been feeling very anxious about a class that you are taking with a teacher you do not like. You and your mother wonder if your pain is in part from anxiety. Attention deficit hyperactiv ity disorder (ADHD), combined type 04/16/2005 Overview (02/02/2022): 12/08/2021 (age 21yr): psychiatrist just left, no longer on ADHD meds. ADHD symptoms are bothering her. Has not had a therapist for 1 year. [facility] to assist in finding new provider. 02/02/2022 (age 21yr): still doesn't have a provider. [facility] involved to assist. Also needs to move to adult medicine. Detailed History and Chronology of care: 12/15/2018: At [facility]. On Adderall xr [address] Wilson at [facility]. Gets meds through him. 07/2020: visit with Dr. Newman at [facility] as a new consult/evaluation, previously seen by Dr. Wilson and struggled to get in elsewhere, so were happy to have this evaluation - he is writing for medication for pt. Still seeing Mckenzie Turner for therapy (bed bug exterminator, for years) Assessment & Plan (02/02/2022 10:31 AM EDT): 02/02/2022 (age 21yr): still doesn't have a provider. [facility] involved to assist. Also needs to move to adult medicine. Assessment & Plan (12/08/2021 1:06 PM EDT): 12/08/2021 (age 21yr): psychiatrist just left, no longer on ADHD meds. ADHD symptoms are bothering her. Has not had a therapist for 1 year. [facility] to assist in finding new provider. Assessment & Plan (12/15/2018 10:33 AM EDT): Classes just started. Seeing Dr. Wilson at [facility]. Gets meds through him. On adderall xr 10 mg. Immunizations Immunization Administration Dates Next Due COVID-19 Moderna, monovalent , 12+ years 08/20/2020,07/23/2020 COVID-19 Pfizer, caridad-sucros e, 12+ years 12/08/2021 DTaP 5 11/23/2004, 2,04/17/2001,01/27,2000 H1N1 02/11/2009 HPV Vaccine 9 Valent 07/10/2015 HPV, Quadrivalent 12/06/2013,04/14/2012 Hep A, ped/adol 07/10/2015,12/06/2013 Hep B, ped/adol 06/28/2001,2000,2000 Hib (PRP-T) 03/16/2002, 2,04/17/2001,01/27,2000 IPV 11/23/2004, 2,01/27/2001,11/25 Influenza Split 04/14/2012,03/25/2011,02/17/2010 Influenza, injectable, quadrivalent 02/14/2014 Influenza, injectable, quadr ivalent, preservative free 12/08/2021,03/17/2021,12/15/2018,04/06 Influenza, injectable, trivalent 008,12/27/2006,02/24/2006,02/25,02/05/2003 MMR 11/23/2004,10/06/2001 Meningococcal B Trumenba 06/19/2019,12/15/2018 Meningococcal Conj (Menactra) MCV4P 10/14/2017,0 04/14/2012 PPD Test 07/13/2021,04/06/2017 Pneumococcal Conjugate 03/29/2001,01/27/2001, Tdap 05/19/2021,04/14/2012 Varicella 04/14/2012,12/08/2001 Family History Medical History Relation Name Comments ADD / ADHD Father caleb Asthma Father caleb Migraines Father caleb Obesity Father caleb Diabetes Maternal Grandfather Heart disease (Premature) Maternal Grandfather Diabetes Maternal Grandmother Stroke Maternal Grandmother Stroke Maternal Great-Grandmother Asthma Mother ne anand Alcoholism Paternal Grandfather Heart disease (Premature) Paternal Grandmother Hyperlipidemia Paternal Grandmother No Known Problems Sister 1 jenelismar No Known Problems Sister 2 delfino Relation Name Status Comments Father caleb Alive Father: ADD/ADH D, Obesity, Asthma, Migraines, Alive and well Maternal Grandfather Materna l grandfather: HEART PROBLEMS, Diabetes mellitus Maternal Grandmother Materna l grandmother: Diabetes mellitus Maternal Great-Grandmother Mother ne anand Alive Mother: Asthm a, Obesity, Migraines Other grandmother: Wiley dden /[place] under 55 Paternal Grandfather Paterna l grandfather: E[employer] Paternal Grandmother Paterna l grandmother: HEART PROBLEMS, Hyperlipidemia Sister 1 jenelismar Alive Sister: Alive a nd well Sister 2 jenrodneyis Alive Social History Tobacco Use Types Packs/Day Years [...] Orientation Straight 12/08/2021 11 :59 AM EDT Last Filed Vital Signs Vital Sign Reading Time Taken Comments Blood Pressure 138/84 02/02/2022 8:42 AM EDT Pulse 90 02/02/2022 8:42 AM EDT Temperature 36.6 ??C (97.9 ??F) 02/02/2022 8:42 AM ED T Respiratory Rate 24 04/26/2018 1:53 PM EST Oxygen Saturation 98% 10/07/2021 3:40 PM EDT Inhaled Oxygen Concentration - - Weight 152 kg (334 lb 12.8 oz) 02/02/2022 8:42 A M EDT Height 154.6 cm (5' 0.87 ) 12/08/2021 11:14 AM E DT Body Mass Index 63.54 12/08/2021 11:14 AM EDT Plan of Treatment Health Maintenance Due Date Last Done Comments Influenza Vaccines (#1) 2023 12/09/19, 03/17/2021, 12/15/2018, Additional history exists COVID-19 Vaccine ( season) 2023 12/08/2021, 08/20/2020, 07/23/2020 DTaP,Tdap,and Td Vaccines (8 - Td or Tdap) 05/19/2031 05/19/2021, 04/14/2012, 11/23/2004, Additional history exists Pneumococcal Vaccine Aged Out 03/29/2001, 01/27/2001, 2000 No longer eligible based on patient's age to complete this topic Hepatitis B Vaccines Completed 06/28/2001, 2000, 2000 HIB Vaccines Completed 03/16/2002, 12/11, 04/17/2001, Additional history exists IPV Vaccines Completed 11/23/2004, 10/2001, 01/27/2001, Additional history exists MMR Vaccines Completed 11/23/2004, 10/06/2001 Varicella Vaccines Completed 04/14/2012, 12/08/2001 HPV Vaccines Completed 07/10/2015, 11/10, 04/14/2012 Hepatitis A Vaccines Completed 07/10/2015, 12/07/19 14 Meningococcal Vaccine Completed 10/14/2017, 013 Men B Vaccine Completed 06/19/2019, 12/15/2018 Procedures * Due to [place] [employer] law, this organization might not be sharing sensitive test results. Procedure Name Priority Date/Time Associated Diagnosis Comments CHLAMYDIA AND GONORRHEA, AMPLIFIED Routine 12/08/2021 12:15 PM EDT Screening for chlamydial disease from Last 3 Months or Most Recently Relevant to Health Maintenance Results * Due to [place] [employer] law, this organization might not be sharing sensitive test results. * Chlamydia and Gonorrhoea, Amplified (12/08/2021 12:15 PM EDT) Chlamydia Trachomatis, DNA Probe NEGATIVE (NEG) [facility] Comment: No Chlamydia Trachomatis RNA detected in this patient's sample ? (REFERENCE RANGE/NORMAL VALUE: NOT DETECTED) ? Note: This test uses electrophysiology nurse practitioner- mediated amplification method to detect rRNA from C. Trachomatis URINE GC AMP PROBE NEGATIVE (NEG) [facility] Comment: No Neisseria Gonorrhoeae RNA detected in this patient's sample ? (REFERENCE RANGE/NORMAL VALUE: NOT DETECTED) ? NOTE: This test uses electrophysiology nurse practitioner-mediated amplification method to detect rRNA from N.Gonorrhoeae. A negative result does not preclude infection. In the case of a negative urine result, testing of an endocervical(female) or urethral (male) specimen is recommended if there is high clinical suspicion of infection. Due to very high sensitivity of Nucleic Acid Amplification Test, false positive results may occur. Therefore, specimen handling is extremely important. In patients in whom the disease is unlikely, additional sample for testing should be considered after an initial positive result. The performance characteristics of this test have not been evaluated in children. The Aptima Combo2 assay is not intended for the evaluation of suspected sexual abuse or for other medico-legal indications. The ordering provider should assess if the patient had consensual sex without risk of sexual abuse. Consult the [facility] if needed. Contact phone number . Therapeutic failure or success cannot be determined with the Aptima Combo2 assay since nucleic acid may persist following appropriate antimicrobial therapy. The Centers for Disease Control and Prevention (CDC) recommends confirmatory retesting using culture or a different nucleic acid amplification test when positive results occur, if indicated. Testing performed or reported by [facility], a Service of [facility], [facility] [place] [address] Dylan Pratt MD, [employer] [facility]# [id number] Urine (Urine) 12/08/2021 12: 15 PM EDT 12/09/2021 1:10 AM EDT Angelica Heaton MD LAB MICROBIOLOGY - GENERAL OR DERABLES Final Result [facility] from Last 3 Months or Most Recently Relevant to Health Maintenance
--- OUTSIDE RECORDS SUMMARY | 2024-07-20 07:18 | XMS_ITS | Encounter Summary ---
Author Organization [facility] Address [address] [place] [phone] Phone Care Team Providers Care [employer] Name Role Phone Angelica Heaton MD Primary Care Provider [phone] Reason for Visit * Reason Comments Med Refill Encounter Details Date Type Department Care Team ([facility] Contact Info) Description 01/29/2022 Refill [facility] [address] [place] [address] Angelica Heaton MD [address] [place] [address] Menorrhagia with regular cycle Social History Tobacco [...] Telephone Encounter - Angelica Heaton MD - 02/02/2022 10:42 AM EDT 02/02/2022 (age 21yr): I will prescribe within today's encounter * Telephone Encounter - Casey Dietrich LPN - 02/01/2022 3:12 PM EDT [facility] is requesting a refill on control. Last PE was 12/08/21 Pt has an apt tomorrowwith Dr Heaton. documented in this encounter Plan of Treatment Not on file documented as of this encounter Visit Diagnoses Diagnosis Menorrhagia with regular cycle documented in this encounter Care Teams [employer] Relationship Specialty Start Date End Date Angelica Heaton MD [address] [place] [id number] PCP - General Pediatrics 11/16/18 07/22/22 documented as of this encounter
--- OUTSIDE RECORDS SUMMARY | 2024-07-20 07:18 | XMS_ITS | Clinical Summary ---
Author Organization [facility] [address] it Address [address] [place] [address] Care Team Providers Care [employer] Name Role Phone Unavailable Primary Care Provider Unavailabl e Social History Tobacco Use Types Packs/Day Years Used Date Smoking Tobacco: Never Assessed Comments Unknown Sex and Gender Information Value Date Recorded Sex Assigned at Not on file Legal Sex Female 5:00 AM EST Gender Identity Not on file Sexual Orientation Not on file Last Filed Vital Signs Vital Sign Reading Time Taken Comments Blood Pressure - - Pulse - - Temperature - - Respiratory Rate - - Oxygen Saturation - - Inhaled Oxygen Concentration - - Weight 148 kg (326 lb) 10/28/2021 9:54 AM EDT Height - - Body Mass Index - - Plan of Treatment Health Maintenance Due Date Last Done Comments Gonorrhea/Chlamydia Screening 2000 HPV Vaccines (1 - 3-dose series) 09/24/2015 Meningococcal B Vaccine (1 o f 2 - Standard) 2016 DTaP,Tdap,and Td Vaccines (1 - Tdap) 09/24/2019 Hepatitis B Vaccines (1 of 3 - 19+ 3-dose series) 09/24/2019 Cervical Cancer Screening: P ap Smear 2021 Depression Screening 03/14/2022 HIV Screening 03/14/2022 Hepatitis C Screening 03/14/2022 Social Influencers of Health Screening 03/14/2022 COVID-19 Vaccine ( - 2023-2 5 season) 2023 Influenza Vaccine (Season Ended) 2024 HIB Vaccines Aged Out No longer eligi ble based on patient's age to complete this topic Hepatitis A Vaccines Aged Out No long er eligible based on patient's age to complete this topic IPV Vaccines Aged Out No longer eligi ble based on patient's age to complete this topic MMR Vaccines Aged Out No longer eligi ble based on patient's age to complete this topic Meningococcal ACWY Vaccine Aged Out N o longer eligible based on patient's age to complete this topic Pneumococcal Vaccine: Pediat rics (0 to 5 Years) and At-Risk Patients (6 to 64 Years) Aged Out No longer eligible b ased on patient's age to complete this topic RSV Immunization Patients Un akilah 20 months Aged Out No longer eligible b ased on patient's age to complete this topic Varicella Vaccines Aged Out No longer eligible based on patient's age to complete this topic
[2024-07-20 07:33] LABS: MANUAL DIFF FLAG NO
[2024-07-20 07:37] LABS: Basophils Percent Auto 0.3 % (0-2); Eosinophils Percent Auto 0.4 % (0-4); Hematocrit 38.3 % (37.0-47.0); Hemoglobin 12.2 g/dl (12.0-16.0); Imm Gran Abs Auto 0.05 X10*3/uL (0.00-0.03); Imm Gran Pct Auto 0.5 % (0.0-0.4); Lymphocytes Absolute Auto 1.9 X10*3/uL (1.2-4.9); Lymphocytes Percent Auto 18.5 % (20-40); Mean Corpuscular HGB Conc 31.9 g/dl (31.0-35.0); Mean Corpuscular Hemoglobin 24.4 pg (27.0-33.0); Mean Corpuscular Volume 76.4 fL (80.0-98.0); Mean Platelet Volume 9.5 fL (9.4-12.3); Monocytes Absolute Auto 0.6 X10*3/uL (0.1-1.2); Monocytes Percent Auto 5.5 % (2-11); Neutrophils Absolute Auto 7.6 x10*3/uL (2.0-8.3); Neutrophils Percent Auto 74.8 % (45-73); Platelet Count 330 X10*3/uL (160-400); Red Blood Count 5.01 X10*6/uL (4.20-5.50); Red Cell Distribution Width 15.3 % (11.0-16.0); White Blood Count 10.2 X10*3/uL (4.8-10.8)
[2024-07-20 07:39] VITALS: BP 170/111; PULSE 84; RESP 20; TEMP 36.4; O2SAT 97
--- NOTE | 2024-07-20 07:41 | PC.NURSE ---
pt is alert and oriented, skin approprate for ethnicity, respirations even and unlabored, pt reports upper abd pain n/v/d that started about 2 hours ago, pt vomited x4, bowel sounds in all 4 quadrants, abd soft but slightly tender in the mid upper/epigastric area, pt's bp is high pt has hx of HTN reports being off her meds for the last 6 months, used to take Amlodipine and Lossartan, pt had no PCP waiting for an gary in September
[2024-07-20 07:54] LABS: Alanine Aminotransferase 19 U/L (0-31); Albumin Level 3.9 g/dL (3.5-5.0); Alkaline Phosphatase 80 U/L (39-117); Anion Gap 10 (12-20); Aspartate Amino Transferase 15 U/L (5-31); Bilirubin Total 0.3 mg/dL (0.0-1.0); Blood Urea Nitrogen 13 mg/dL (9-16); Calcium 9.2 mg/dL (8.4-10.2); Carbon Dioxide 25 mmol/L (22-29); Chloride 109 mmol/L (96-108); Creatinine Clr Calc Pharmacy 231.1; Estimated Glomerular Filt Rate > 60; Glucose Random 112 mg/dL (60-115); Potassium 4.3 mmol/L (3.3-5.1); Sodium 140 mmol/L (135-145); Total Protein 6.7 g/dL (6.5-8.0)
[2024-07-20 08:15] VITALS: BP 173/110; PULSE 77; RESP 18; TEMP 37; O2SAT 100
--- NOTE | 2024-07-20 09:00 | ED.ABDPAIN ---
HPI - Abdominal Pain General Chief Complaint: Nausea/Vomiting/Diarrhea Stated Complaint: n/v/d, abd pain Time Seen by Provider: 07/20/24 08:04 Source: patient, RN notes reviewed and old records reviewed Mode of arrival: ambulatory History of Present Illness ED Provider: Aline Dc PA-C HPI narrative: 23 year old female with PMHx asthma, HTN, anxiety, depression presenting to ED today c/o diffuse/LUQ abdominal pain with associated N/V/D since 0130 this morning. Reports inability to tolerate PO. Denies HERNANDEZ, fever, CP, SOB, hematuria, blood in stool, sick contacts, previous abd surgeries. Reports difficulty finding PCP so has been out of hypertensive meds x 6mmos+ and anxiety/depression meds x 2y+, however does have upcoming appointment in September 2024. MD elicited complaint: abdominal pain Related Data Previous Rx's ?Medication ?Instructions ?Recorded albuterol sulfate 2.5 mg/3 mL 2.5 mg (3 mL) inhalation Q6H #90 mL 07/21/23 (0.083 %) solution for nebulization amlodipine 5 mg tablet 5 mg PO DAILY #90 tabs 07/21/23 budesonide-formoterol HFA 160 2 puff inhalation BID #10.2 grams 07/21/23 mcg-4.5 mcg/actuation aerosol inhaler (Symbicort) desogestrel 0.15 mg-ethinyl 1 tab PO DAILY #84 tabs 07/21/23 estradiol 0.03 mg tablet (Isibloom) fexofenadine 180 mg tablet 180 mg PO DAILY #90 tabs 07/21/23 (Allergy Relief (fexofenadine)) fluticasone propionate 50 1 spray intranasal DAILY #9.9 mL 07/21/23 mcg/actuation nasal spray,suspension (Flonase Allergy Relief) losartan 25 mg tablet 25 mg PO DAILY #90 tabs 07/21/23 montelukast 10 mg tablet 10 mg PO DAILY #90 tabs 07/21/23 aluminum-mag hydroxide-simethicone 5 ml PO 5XD PRN dyspepsia #30 mL 07/20/24 200 mg-200 mg-20 mg/5 mL oral susp (Maalox Advanced) amlodipine 5 mg tablet 5 mg PO DAILY 3 months #90 tabs 07/20/24 famotidine 20 mg tablet (Pepcid) 20 mg PO DAILY #14 tabs 07/20/24 losartan 25 mg tablet 25 mg PO DAILY 3 months #90 tabs 07/20/24 Allergies Allergy/AdvReac Type Severity Reaction Status Date / Time apple Allergy Itching Verified 07/20/24 04:03 cantaloupe Allergy Itching Verified 07/20/24 04:03 kiwi Allergy Itching Verified 07/20/24 04:03 shellfish derived Allergy Facial Verified 07/20/24 04:03 Swelling strawberry Allergy Itching Verified 07/20/24 04:03 Review of Systems Review of Systems Yes all other systems are reviewed and are negative Constitutional: Reports as per [facility] Past Medical History Attestation statement: The following information was validated with the patient. Source: old records reviewed Medical History Acute rhinosinusitis Asthma Social History Social History Patient Tobacco Use Status: Never used Tobacco Physical Exam ED Vital Signs: Vital Signs - 24 hr 07/20/24 04:02 07/20/24 07:39 07/20/24 08:15 Temperature 97.5 F 97.6 F 98.6 F Pulse Rate 78 84 77 Respiratory Rate 18 20 18 Blood Pressure 175/103 H 170/111 H 173/110 H Pulse Oximetry 98 97 100 Oxygen Delivery Method Room Air Room Air Room Air 07/20/24 10:18 07/20/24 11:47 07/20/24 12:02 Temperature 98.7 F 0 F L Pulse Rate 78 74 74 Respiratory Rate 18 18 18 Blood Pressure 188/108 H 140/78 H 140/78 H Pulse Oximetry 96 95 95 Oxygen Delivery Method Room Air Room Air Room Air BMI result Body Mass Index 64.2 Const General: cooperative, healthy appearing and no acute distress Orientation/consciousness: patient oriented x3 Limitations: no limitations HENMT Head: Yes normal to inspection and Yes atraumatic Ears: hearing grossly normal bilaterally General nose exam: Normal external nose present Face and sinus: Yes normal facial exam Eyes General: appearance normal, both eyes and all related structures EOM: EOMs intact bilaterally Neck Neck: Yes normal visual inspection and Yes no meningeal signs Resp Effort & Inspection: normal respiratory effort, able to speak in complete sentences and no respiratory distress GI Inspection: No abdominal wall ecchymosis and Yes obesity Palpation (GI): Soft to palpation, Tenderness to palpation present (GI) in the LUQ; with no rebound tenderness, no guarding and not rigid General: Yes no CVA tenderness Back/Spine/Pelvis Back: no CVA tenderness Skin Other: + hyperpigmentation rash noted on L back/flank. No lesions, non-tender. No crusting/oozing/erythema Lesions: no lesions Rashes: rashes noted Wounds: no wounds Neuro General: patient oriented x3, tone normal and no meningeal signs Cranial nerves: Yes CN's II-XII intact bilaterally Gait exam (Neuro): Normal gait present Extrem General: Yes normal to inspection Course Course Course Narrative: -950-- no leukocytosis. Labs otherwise reassuring - hCG = 4 >> patient denies possibility of , states has not had sexual encounter for over 2 years. Suspect level slightly elevated secondary to obesity. this was discussed with patient, she will sign for CT consent. Discussed she needs repeat /serial labs to monitor hCG -UA negative CT abdomen pelvis w IV con IMPRESSION: Small umbilical hernia containing fat. Otherwise no acute intra-abdominal process seen Fleischner guidelines were followed > patient tolerating p.o. in the ED without difficulty. Recommended close GI/PCP follow-up. Results discussed with patient including worrisome signs and symptoms and strict return precautions, and when to return to the emergency department. They verbalized understanding and feel safe for discharge at this time. [id number]--patient called the ED as her insurance will not cover BP medication refills unless they are prescribed for 3 months. Prescriptions changed to 3 month supply Medical Decision Making Medical Decision Making MDM Narrative: 23 year old female with PMHx asthma, HTN, anxiety, depression presenting to ED today c/o diffuse/LUQ abdominal pain with associated N/V/D since 0130 this morning. on exam hypertensive, NAD, nontoxic appearing, abdomen is soft with LUQ tenderness, no rebound or guarding, no CVAT. Concern for PUD vs gastritis vs pancreatitis vs Gastroenteritis vs ? renal stone vs diverticulitis. Lower suspicion for acute cholecystitis/ lithiasis, appendicitis or ovarian pathology Plan: Labs, UA, CT AP, IVF, symptomatic treatment, re-evaluate Please refer to course for remaining clinical decision making, interpretation of labs/imaging results, and discussions with consultants and/or family members. Differential Diagnosis Differential Diagnoses: The differential diagnosis associated with the presentation includes As above Admission/Observation Consideration of admission/observation: Escalation of care including admission/observation considered Lab Data MDM Lab Attestation statement: I reviewed the patient's lab results. 07/20/24 07:28 07/20/24 07:28 Labs: Lab Results 07/20/24 07/20/24 Range/Units 07:28 09:10 WBC 10.2 (4.8-10.8) X10*3/uL RBC 5.01 (4.20-5.50) X10*6/uL Hgb 12.2 (12.0-16.0) g/dl Hct 38.3 (37.0-47.0) % MCV 76.4 L (80.0-98.0) fL MCH 24.4 L (27.0-33.0) pg MCHC 31.9 (31.0-35.0) g/dl RDW 15.3 (11.0-16.0) % Plt Count 330 (160-400) X10*3/uL MPV 9.5 (9.4-12.3) fL Immature Gran % (Auto) 0.5 H (0.0-0.4) % Neut % (Auto) 74.8 H (45-73) % Lymph % (Auto) 18.5 L (20-40) % [place] % (Auto) 5.5 (2-11) % Eos % (Auto) 0.4 (0-4) % Baso % (Auto) 0.3 (0-2) % Lymph # (Auto) 1.9 (1.2-4.9) X10*3/uL [place] # (Auto) 0.6 (0.1-1.2) X10*3/uL Eos # (Auto) 0.0 (0.0-0.4) X10*3/uL Baso # (Auto) 0.0 (0.0-0.2) X10*3/uL Abs Immat Gran (auto) 0.05 H (0.00-0.03) X10*3/uL Absolute Neuts (auto) 7.6 (2.0-8.3) x10*3/uL Absolute Nucleated RBC 0.000 (0.0-0.012) X10*3/uL Nucleated RBC % (auto) 0.0 (0.0-0.2) /100WBC Sodium 140 (135-145) mmol/L Potassium 4.3 (3.3-5.1) mmol/L Chloride 109 H (96-108) mmol/L Carbon Dioxide 25 (22-29) mmol/L Anion Gap 10 L (12-20) BUN 13 (9-16) mg/dL Creatinine 0.54 (0.5-1.4) mg/dL Estim Creat Clear Calc 231.1 Estimated GFR > 60 Random Glucose 112 (60-115) mg/dL Calcium 9.2 (8.4-10.2) mg/dL Magnesium 1.8 (1.6-2.6) mg/dL Total Bilirubin 0.3 (0.0-1.0) mg/dL AST 15 (5-31) U/L ALT 19 (0-31) U/L Alkaline Phosphatase 80 (39-117) U/L Total Protein 6.7 (6.5-8.0) g/dL Albumin 3.9 (3.5-5.0) g/dL Lipase 15 (8-78) U/L Beta HCG, Quant 4 mIU/mL Urine Color Yellow Urine Appearance Clear Urine pH 8.0 (5.0-9.0) Ur Specific Lee 1.025 (1.005-1.025) Urine Protein Negative (Neg-Trace) mg/dL Urine Glucose (UA) Negative (Negative) mg/dL Urine Ketones Negative (Negative) mg/dL Urine Blood Negative (Negative) Urine Nitrite Negative (Negative) Ur Leukocyte Esterase Negative (Negative) Influenza Type A (PCR) NEGATIVE (Negative) Influenza Type B (PCR) NEGATIVE (Negative) RSV RNA Qual (PCR) NEGATIVE (Negative) SARS-CoV-2 RNA (RT-PCR) NEGATIVE (Negative) Independent Interpretation I performed an independent interpretation of an: CT Scan Radiology Impression Discussion of test interpretation with radiology: I have reviewed the radiologist's reading. External Record Review External record reviewed: Inpatient record, Office record, Outpatient record, Prior outpatient labs, Prior outpatient radiology, Primary care record and Outside ED record Tests considered The following testing was considered but not selected: As above Prescription Management I considered prescription management with: Pain Medication Chronic Conditions Patient?s care impacted by: Other Social Determinants Patient?s care significantly limited by Social Determinants of Health including: Other Social Determinant of Health Medications Administered Discontinued Medications Generic Name Dose Route Start Last Admin Trade Name Brennen PRN Reason Stop Dose Admin Amlodipine Besylate 5 mg 07/20/24 09:07 07/20/24 09:46 Amlodipine Besylate 5 Mg Tablet PO 07/20/24 09:08 5 mg ONCE ONE Administration Protocol Famotidine 20 mg 07/20/24 08:56 07/20/24 09:46 Famotidine/Pf 20 Mg/2 Ml Vial IVPUSH 07/20/24 08:57 20 mg ONCE ONE Administration Sodium Chloride 1,000 mls @ 999 mls/hr 07/20/24 09:00 07/20/24 09:45 Ns IV 07/20/24 10:00 999 mls/hr .Q1H1M AUTUMN Administration Iohexol 100 ml 07/20/24 10:37 07/20/24 10:37 Iohexol 350 Mg/Ml 100 Ml Infus..Btl IV 07/20/24 10:38 100 ml ONCE ONE Administration Ketorolac Tromethamine 15 mg 07/20/24 08:55 07/20/24 09:45 Ketorolac Tromethamine 15 Mg/Ml Vial IVPUSH 07/20/24 08:56 15 mg ONCE ONE Administration Losartan Potassium 25 mg 07/20/24 09:07 07/20/24 09:46 Losartan Potassium 25 Mg Tablet PO 07/20/24 09:08 25 mg ONCE ONE Administration Protocol Ondansetron HCl 4 mg 07/20/24 08:56 07/20/24 09:45 Ondansetron Hcl 4 Mg/2 Ml Vial IVPUSH 07/20/24 08:57 4 mg ONCE ONE Administration Discharge Plan Discharge Clinical Impression: Gastroenteritis, Abdominal pain, Hypertension, Elevated serum hCG Patient Disposition: Home, Self-Care Instructions: Gastroenteritis (DC), Abdominal Pain (ED), Hypertension (ED) Additional Instructions: your blood work, urine, and CAT scan are reassuring your HCG was slightly elevated to a level of 4, this needs to be monitored and repeated by your PCP or OBGYN You need to follow-up with gastroenterology for further workup Pepcid and Maalox will help with abdominal discomfort It is important that you take your blood pressure medications, we sent a 30 day prescription to the pharmacy of the medications you are supposed to be taking. Monitor your blood pressure closely at home If you develop constant worsening symptoms, persistent nausea / vomiting /pain, headaches or chest pain return to the ED Prescriptions: New alum-mag hydroxide-simeth [Maalox Advanced] 200-200-20 mg/5 mL suspension 5 ml PO 5XD PRN (Reason: dyspepsia) Qty: 30 0RF Rx Instructions: administer between meals and at bedtime famotidine [Pepcid] 20 mg tablet 20 mg PO DAILY Qty: 14 0RF amlodipine 5 mg tablet 5 mg PO DAILY 90 Days Qty: 90 0RF losartan 25 mg tablet 25 mg PO DAILY 90 Days Qty: 90 0RF No Action albuterol sulfate 2.5 mg /3 mL (0.083 %) solution for nebulization 2.5 mg inhalation Q6H Qty: 90 1RF amlodipine 5 mg tablet 5 mg PO DAILY Qty: 90 1RF budesonide-formoterol [Symbicort] 160-4.5 mcg/actuation HFA aerosol inhaler 2 puff inhalation BID Qty: 10.2 1RF desogestrel-ethinyl estradiol [Isibloom] 0.15-0.03 mg tablet 1 tab PO DAILY Qty: 84 1RF fexofenadine [Allergy Relief (fexofenadine)] 180 mg tablet 180 mg PO DAILY Qty: 90 1RF fluticasone propionate [Flonase Allergy Relief] 50 mcg/actuation spray,suspension 1 spray intranasal DAILY Qty: 9.9 1RF Rx Instructions: administer into each nostril losartan 25 mg tablet 25 mg PO DAILY Qty: 90 1RF montelukast 10 mg tablet 10 mg PO DAILY Qty: 90 1RF [place]: [facility] [place] [facility] [place] - [place] [facility] [place] [facility] [place] [facility] [place] [facility] [place]] - 3 days Physician,None [Primary Care Provider] - Stand Alone Forms: Work/School Release Interventions: ED Discharge Assessment Last Done: 07/20/24 12:02 Discharge Date/Time: 07/20/24 12:03 Print Language: Ecuadorean
[2024-07-20 09:18] LABS: Appearance Urine Clear; Color Urine Yellow; Glucose Urine UA Negative (Negative); Leukocyte Esterase Urine Negative (Negative); Nitrite Urine Negative (Negative); Specific Gravity - Urine 1.025 (1.005-1.025); Urine Blood Negative (Negative); Urine Ketones Negative (Negative); Urine Protein Negative (Neg-Trace)
[2024-07-20 09:23] LABS: HCG Quantitative 4 mIU/mL; Lipase 15 U/L (8-78); Magnesium 1.8 mg/dL (1.6-2.6)
[2024-07-20] MEDS: 0.9 % Sodium Chloride 1,000 ML 999 ML IV (09:45)
[2024-07-20] MEDS: ondansetron HCL 4 MG/2 ML VIAL IVPUSH (09:45)
[2024-07-20] MEDS: Ketorolac Tromethamine 15 MG/ML VIAL IVPUSH (09:45)
[2024-07-20] MEDS: Famotidine/PF 20 MG/2 ML VIAL IVPUSH (09:46)
[2024-07-20] MEDS: Losartan Potassium 25 MG TABLET PO (09:46)
[2024-07-20] MEDS: amLODIPine Besylate 5 MG TABLET PO (09:46)
[2024-07-20 09:56] LABS: Influenza A PCR NEGATIVE (Negative); Influenza B PCR NEGATIVE (Negative); Resp Syncy Virus RNA Qual PCR NEGATIVE (Negative); SARS COV2 PCR INHOUSE NEGATIVE (Negative)
[2024-07-20 10:18] VITALS: BP 188/108; PULSE 78; RESP 18; TEMP 37.1; O2SAT 96
[2024-07-20] MEDS: iohexoL 350 MG/ML 100 ML INFUS..BTL IV (10:37)
--- NOTE | 2024-07-20 11:00 | PC.NURSE ---
pt reports that her nausea is improved and tolerating liquids but states that her pain comes back when eating crackers and drinking water
[2024-07-20 11:47] VITALS: BP 140/78; PULSE 74; RESP 18; O2SAT 95
[2024-07-20 12:02] VITALS: BP 140/78; PULSE 74; RESP 18; TEMP -17.7; TEMP 0; O2SAT 95
== END 2024-07-20 12:03 | disposition home or self-care (01) ==
PROVIDERS: Physician Assistant; Emergency Provider Emergency Medicine Emergency Medical Services
DX: K52.9 Noninfective gastroenteritis and colitis, unspecified (principal); R11.2 Nausea with vomiting, unspecified; R10.12 Left upper quadrant pain; R10.2 Pelvic and perineal pain; Z03.818 Encounter for observation for suspected exposure to other biological agents ruled out; Z79.899 Other long term (current) drug therapy
CPT/HCPCS: 0241U; 74177; 80053; 81003; 83690; 83735; 84702; 85025; 96374; 96375; 99285; J1885; J2405; Q9967

== ENCOUNTER → 2024-07-20 08:55 | Outpatient (BNV) | payer OTHER, SELFPAY | PROVIDERS: Emergency Provider Emergency Medicine Emergency Medical Services; Visit Provider Radiology Diagnostic Radiology | DX: K42.9 Umbilical hernia without obstruction or gangrene (principal) | CPT/HCPCS: 74177 ==

== ENCOUNTER 2024-08-15 10:02 | Outpatient (AMB) | payer OTHER, SELFPAY ==
--- NOTE | 2024-08-15 10:35 | A.OFFPC_ITS ---
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 Intake Note: Pt is here today as a New Patient to [facility] care/ requesting a GI and psych referral Allergies apple Allergy (Verified 08/15/24 11:16) Itching cantaloupe Allergy (Verified 08/15/24 11:16) Itching kiwi Allergy (Verified 08/15/24 11:16) Itching shellfish derived Allergy (Verified 08/15/24 11:16) Facial Swelling strawberry Allergy (Verified 08/15/24 11:16) Itching Medication List - Last Reconciled 08/15/24 by Cheryl Hutchison MD albuterol sulfate 2.5 mg (3 mL) inhalation Q6H alum-mag hydroxide-simeth 200-200-20 mg/5 mL (Maalox Advanced) 5 mL PO 5XD PRN amlodipine 5 mg PO DAILY 3 months famotidine (Pepcid) 20 mg PO DAILY fexofenadine (Allergy Relief (fexofenadine)) 180 mg PO DAILY fluticasone propionate 50 mcg/actuation (Flonase Allergy Relief) 1 spray intranasal DAILY losartan 25 mg PO DAILY 3 months montelukast 10 mg PO DAILY Tobacco use date assessed: 08/15/24 Dental Screening Dental Screen Date: 08/15/24 Did you have a dental visit in the last 12 months?: No Did you have a dental problem in the last 6 months where you did not have access to dental care?: No Was dental information given to patient?: No 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 - As a child, has had severe acid reflux which required management with a nasogastric tube. - After apparent improvement in adolesce nce, severe reflux-like symptoms have reoccurred, notably in the evenings, affecting food tolerance. - An emergency visit in July resulted i n basic imaging and antiacid medication prescription, specifically famotidine (Pepcid). - Recently, she acknowledged a small umb ilical hernia and constipation through imaging, with her heartburn exacerbated by specific foods. - She has not engaged with structured ga stroenterological care or started omeprazole for symptom management, which may provide better relief than current medications. -she also has been frequent episodes of depressed mood, accompanied by anhedonia. -Patient also requesting help with weigh t loss. Has tried several diet plans, weight watchers, adherence to healthy eating habits and getting regular exercise, but none of them has been helping her lose weight. [facility] Medical History (Updated 08/15/24 @ 11:24 by Cheryl Hutchison MD) Essential hypertension Depression with anxiety Morbid obesity Heartburn Acute rhinosinusitis Asthma Surgical History No pertinent past surgical history Family History Father Substance use disorder Paternal Grandmother Mental health disorder Paternal Aunt Mental health disorder Maternal Grandmother Mental health disorder Mother Mental health disorder Sister Mental health disorder Social History Housing: House Patient Tobacco Use Status: Former Tobacco user e-Cigarette/Vaping Use: Never Used service: No Current occupational status: employed Cognitive needs: No Hearing needs: No Vision needs: Yes Questionnaire PHQ-9 Over the last 2 weeks, how often have you been bothered by any of the following problems? 1. Little interest or pleasure in doing things: nearly every day 2. Feeling down, depressed, or hopeless: more than half the days 3. Trouble falling or staying asleep, or sleeping too much: nearly every day 4. Feeling tired or having little energy: nearly every day 5. Poor appetite or overeating: more than half the days 6. Feeling bad about yourself - or that you are a failure or have let yourself or your family down: more than half the days 7. Trouble concentrating on things, such as reading the newspaper or watching television: nearly every day 8. Moving or speaking so slowly that other people could have noticed. Or the opposite - being so fidgety or restless that you have been moving around a lot more than usual: not at all 9. Thoughts that you would be better off or of hurting yourself in some way: more than half the days Total score: 20 Depression Screening Interpretation: Positive (Started on escitalopram clinical mg daily) Depression Screening Done: Yes 46996 - PHQ-9 Billing: Yes Source: Developed by Drs. Bart Bravo, Ya Momin, Natanael Verduzco and colleagues, with an educational cristi from [employer]. Thrive Questionnaire Date Thrive assessed: 08/15/24 I am a: Patient What is your living situation today?: I have a steady place to live Within the past 12 months, did the food you bought not last and you didn't have the money to get more?: Sometimes True Within the past 12 months, did you worry whether your food would run out before you got money to buy more?: Sometimes True Do you have trouble paying for medicines?: No Do you have trouble getting transportation to medical appointments?: No Do you have trouble paying your heating and electricity bill?: No Do you have trouble taking care of your child, family member or friend?: No Do you have trouble with day-to-day activities such as bathing, preparing meals, shopping, managing finances, etc.?: No Are you currently unemployed and looking for a job?: No Are you interested in more education?: Yes THRIVE Score: 2 KATHIE-7 AMB Questionnaire KATHIE-7 Date KATHIE - 7 assessed: 08/15/24 Feeling nervous, anxious, or on edge: 3 = Nearly every day Not being able to stop or control worryin = More than half the days Worrying too much about different things: 2 = More than half the days Trouble relaxin = Several days Being so restless that it is hard to sit still: 1 = Several days Becoming easily annoyed or irritable: 2 = More than half the days Feeling afraid as if something awful might happen: 2 = More than half the days Total KATHIE-7 score (0-4 normal; 5-9 mild; 10-14 moderate; 15-21 severe): 13 Source: Developed by Drs. Bart Bravo, Ya Momin, Natanael Verduzco and colleagues, with an educational cristi from [employer]. KATHIE-7 Assessment Billing KATHIE-7 Assessment Tool: KATHIE-7 Assessment 17164 Review of Systems Const Denies fatigue, Denies fever(s), Denies headache(s) and Denies weakness Eyes Denies change in vision, Denies eye discharge and Denies itchy eyes ENT Denies dizziness, Denies headache(s), Denies nasal congestion, Denies nasal discharge and Denies sore throat Card Denies chest pain, Denies lightheadedness, Denies palpitations and Denies dyspnea Resp Denies chest congestion, Denies cough, Denies dyspnea and Denies wheezing GI Denies abdominal pain, Denies change in bowel habits and Denies heartburn Denies hematuria, Denies urinary frequency, Denies dysuria and Denies urinary urgency Musc Reports stiffness Skin/Breast Denies breast pain, Denies breast mass, Denies lesions and Denies rash Neuro Denies dizziness, Denies headache(s) and Denies weakness Psych Reports as per HPI Endo Denies fatigue, Denies polydipsia, Denies polyuria and Denies palpitations Willian/Lymph Denies easy bruising Aller/Immun Denies itchy eyes, Denies seasonal rhinorrhea and Denies wheezing Physical exam (Primary Care) Vital Signs: Last Vital Signs Temp 97.7 F 08/15/24 10:43 Pulse 93 08/15/24 10:43 Resp 16 08/15/24 10:43 BP 122/88 08/15/24 10:43 Pulse Ox 98 08/15/24 10:43 Oxygen Delivery Method Room Air 08/15/24 10:43 BMI result Body Mass Index 70.7 Tobacco/Smoking Status: Tobacco use Status Tobacco use date assessed 08/15/24 08/15/24 10:38 Patient Tobacco Use Status Former Tobacco user 08/15/24 10:49 e-Cigarette/Vaping Use Never Used 08/15/24 10:49 PHQ-9: PHQ-9 Score PHQ-9: Total score 20 08/15/24 11:20 Depression Screening Interpretation: Positive (Started on escitalopram clinical mg daily) Thrive Assessment: Date of Thrive Assessment Date Thrive assessed 08/15/24 08/15/24 11:20 Const General: no acute distress and alert Nutritional Appearance: obese morbidly obese Orientation/consciousness: patient oriented x3 HENMT Ears: external ears normal General nose exam: Normal external nose present Mouth: Normal oral and palatal mucosa present, oropharynx normal and moist mucous membranes Eyes General: appearance normal, both eyes and all related structures Neck Neck: Yes full ROM, Yes no lymphadenopathy and Yes supple Resp Effort & Inspection: normal respiratory effort and able to speak in complete sentences Auscultation: clear to auscultation bilaterally Cardio Rate: regular rate Rhythm: regular rhythm Heart sounds: S1 normal heart sound present and S2 normal heart sound present GI Inspection: Yes obesity Palpation (GI): Soft to palpation, nontender and no masses Auscultation: normal bowel sounds Back/Spine/Pelvis Back: No back tenderness Skin General skin exam: no rashes or lesions noted Neuro General: patient oriented x3, gait normal, tone normal, moves all extremities, Normal light touch and pain sensation and no focal motor deficits Cranial nerves: Yes CN's II-XII intact bilaterally Cognition (Neuro): normal cognition Extrem General: Yes full ROM, Yes no joint enlargement, Yes no clubbing, cyanosis or edema and Yes no calf tenderness Psych Appearance: grossly normal and well kempt Mental Status: mental status grossly normal Speech and movement: Normal speech and movement present Affect: normal affect Attitude: cooperative Thought process: Normal thought process present Thought content: Normal thought content present Coding Level of Care Code New Pt Level 4 (86339) Diagnoses Heartburn R12 Depression with anxiety F41.8 Morbid obesity E66.01 Essential hypertension I10 Additional Codes PHQ-9 - 13651 - PHQ-9 Billing: Yes ([id number]) KATHIE-7 Assessment Billing - KATHIE-7 Assessment Tool: KATHIE-7 Assessment 79299 ([id number]) Assessment & Plan Assessment & Plan (1) Heartburn: Code(s): R12 - Heartburn Category: Medical Plan: Ordered an upper GI series, referred to GI Clinic for further evaluation management, empirically started on omeprazole 40 mg take 1 tablet at bedtime. Avoidance of foods that may trigger heartburn avoid overeating at night, eat a light meal at night, do not lie down right away after eating (2) Depression with anxiety: Code(s): F41.8 - Other specified anxiety disorders Category: Medical Plan: Started on escitalopram 20 mg taken once a day. Referred to Tonia , a mental health coordinator, for help with getting in person counseling. She has had a therapist in the past at [facility] in [place] but it abruptly stopped. (3) Morbid obesity: Code(s): E66.01 - Morbid (severe) obesity due to excess calories Category: Medical Plan: Referred to medical weight management for help with weight loss, referred to nurse dietitian for dietary guidance (4) Essential hypertension: Code(s): I10 - Essential (primary) hypertension Category: Medical Plan: Blood pressure better controlled on losartan 25 comes taken once a day reinforced importance of following a low-salt diet and getting regular exercise. Orders: Orders [place] upper GI series 08/15/24 R12 - Heartburn Referrals Gastroenterology Referral R12 - Heartburn Medical Weight Management Referral E66.01 - Morbid (severe) obesity due to excess calories Medications: New escitalopram oxalate 20 mg PO DAILY 30 tabs 4RF F41.8 - Other specified anxiety disorders omeprazole 40 mg PO BEDTIME 30 caps 4RF 1 month R12 - Heartburn
[2024-08-15 10:43] VITALS: BP 122/88; PULSE 93; RESP 16; TEMP 36.5; O2SAT 98; BMI 70.7
--- OUTSIDE RECORDS SUMMARY | 2024-08-15 11:11 | XMS_ITS | Encounter Summary ---
Author Organization [facility] Address [address] [place] [phone] Phone Care Team Providers Care Training Manager Name Role Phone Angelica Heaton MD Primary Care Provider [phone] Reason for Visit * Reason Comments Med Refill Encounter Details Date Type Department Care Team ([facility] Contact Info) Description 01/29/2022 Refill [facility] [address] [place] [address] Angelica Heaton MD [address] [place] [address] Menorrhagia with regular cycle Social History Tobacco [...] cycle documented in this encounter Care Teams Training Manager Relationship Specialty Start Date End Date Angelica Heaton MD [address] [place] [address] PCP - General Pediatrics 11/16/18 07/22/22 documented as of this encounter
--- OUTSIDE RECORDS SUMMARY | 2024-08-15 11:11 | XMS_ITS | Encounter Summary ---
Author Organization [facility] Address [address] [place], [place] [id number] Phone Care Team Providers Care Events Associate Name Role Phone Angelica Heaton MD Primary Care Provider [phone] Reason for Visit * Reason Onset Date Comments Med Refill 05/09/2020 Encounter Details Date Type Department Care Team ([facility] Contact Info) Description 05/09/2020 Refill [facility] [place] [address] [place] [address] Angelica Heaton MD [address] [place] [address] Seasonal allergic rhinitis, unspecified trigger; Menorrhagia with [...] cycle documented in this encounter Care Teams Events Associate Relationship Specialty Start Date End Date Angelica Heaton MD [address] [place] [id number] PCP - General Pediatrics 11/16/18 07/22/22 documented as of this encounter
--- OUTSIDE RECORDS SUMMARY | 2024-08-15 11:11 | XMS_ITS | Encounter Summary ---
Author Organization [facility] Address [address] [place], [place] [phone] Phone Care Team Providers Care Shutdown Planner Name Role Phone Angelica Heaton MD Primary Care Provider [phone] Reason for Visit * Reason Onset Date Comments Med Refill 02/15/2020 Encounter Details Date Type Department Care Team ([facility] st Contact Info) Description 02/15/2020 Refill [facility] [place] [address] [place] [address] Angelica Heaton MD [address] [place] [address] Seasonal allergic rhinitis, unspecified trigger; Moderate persistent [...] complication documented in this encounter Care Teams Shutdown Planner Relationship Specialty Start Date End Date Angelica Heaton MD [address] [place] [id number] PCP - General Pediatrics 11/16/18 07/22/22 documented as of this encounter
--- OUTSIDE RECORDS SUMMARY | 2024-08-15 11:11 | XMS_ITS | Encounter Summary ---
Author Organization [facility] Address [address] [place] [address] Phone Care Team Providers Care Manager Garage Name Role Phone Angelica Heaton MD Primary Care Provider [phone] Reason for Visit * Reason Comments Med Refill Encounter Details Date Type Department Care Team ([facility] Contact Info) Description 01/17/2018 Refill [facility] [place] [address] [place] [address] Brooke Conklin MD [address] [place] [address] Menorrhagia with irregular cycle (Primary Dx) Social [...] Primary documented in this encounter Care Teams Manager Garage Relationship Specialty Start Date End Date Angelica Heaton MD [address] [place] [address] PCP - General Pediatrics 11/16/18 07/22/22 documented as of this encounter
--- OUTSIDE RECORDS SUMMARY | 2024-08-15 11:11 | XMS_ITS | Clinical Summary ---
Author Organization [facility] it Address [address] [place] [address] Care Team Providers Care Auto Radio Mechanic Name Role Phone Unavailable Primary Care Provider [...]
--- OUTSIDE RECORDS SUMMARY | 2024-08-15 11:11 | XMS_ITS | Encounter Summary ---
Author Organization [facility] Address [address] [place] [address] Phone Care Team Providers Care County Bailiff Name Role Phone Angelica Heaton MD Primary Care Provider [phone] Reason for Visit * Reason Comments Med Refill Encounter Details Date Type Department Care Team ([facility] Contact Info) Description 11/22/2021 Refill [facility] [address] [place] [address] Angelica Heaton MD [address] [place] [address] Menorrhagia with regular cycle Social History Tobacco [...] cycle documented in this encounter Care Teams County Bailiff Relationship Specialty Start Date End Date Angelica Heaton MD [address] [place] [address] PCP - General Pediatrics 11/16/18 07/22/22 documented as of this encounter
--- OUTSIDE RECORDS SUMMARY | 2024-08-15 11:11 | XMS_ITS | Encounter Summary ---
Author Organization [facility] Address [address] [place] [address] Phone Care Team Providers Care Collections Technician Name Role Phone Angelica Heaton MD Primary Care Provider [phone] Encounter Details Date Type Department Care Team (Late st Contact Info) Description 07/12/2016 Documentation [facility] [facility] [address] [place] [address] Family Medicine, Physician [address] [place] [address] Social History Tobacco Use Types Packs/Day Years [...] on filedocumented in this encounter Care Teams Collections Technician Relationship Specialty Start Date End Date Angelica Heaton MD [address] [place] [address] PCP - General Pediatrics 11/16/18 07/22/22 documented as of this encounter
--- OUTSIDE RECORDS SUMMARY | 2024-08-15 11:11 | XMS_ITS | Encounter Summary ---
Author Organization [facility] Address [address] [place] [phone] Phone Care Team Providers Care Clinical Education Academic Coordinator Name Role Phone Angelica Heaton MD Primary Care Provider [phone] Encounter Details Date Type Department Care Team (Late st Contact Info) Description 09/04/2009 Documentation [facility] [place] Family Medicine [address] [place] [address] Family Medicine, Physician [address] [place] [address] Social History Tobacco Use Types Packs/Day Years [...] on filedocumented in this encounter Care Teams Clinical Education Academic Coordinator Relationship Specialty Start Date End Date Angelica Heaton MD [address] [place] [address] PCP - General Pediatrics 11/16/18 07/22/22 documented as of this encounter
--- OUTSIDE RECORDS SUMMARY | 2024-08-15 11:11 | XMS_ITS | Encounter Summary ---
Author Organization [facility] Address [address] [place], [place] [phone] Phone Care Team Providers Care Specification Consultant Name Role Phone Angelica Heaton MD Primary Care Provider [phone] Reason for Visit * Reason Onset Date Comments Med Refill 11/16/2019 Encounter Details Date Type Department Care Team ([facility] st Contact Info) Description 11/16/2019 Refill [facility] [place] [address] [place] [address] Angelica Heaton MD [address] [place] [address] Moderate persistent asthma without complication; Seasonal allergic [...] trigger documented in this encounter Care Teams Specification Consultant Relationship Specialty Start Date End Date Angelica Heaton MD [address] [place] [address] PCP - General Pediatrics 11/16/18 07/22/22 documented as of this encounter
--- OUTSIDE RECORDS SUMMARY | 2024-08-15 11:11 | XMS_ITS | Encounter Summary ---
Author Organization [facility] Address [address] [place] [address] Phone Care Team Providers Care Overhead Crane Inspector Name Role Phone Angelica Heaton MD Primary Care Provider [phone] Encounter Details Date Type Department Care Team ([facility] Contact Info) Description 11/25/2016 Conversion Encounter [facility] [address] [place] [address] Social History Tobacco Use Types Packs/Day Years [...] on filedocumented in this encounter Care Teams Overhead Crane Inspector Relationship Specialty Start Date End Date Angelica Heaton MD [address] [place] [address] PCP - General Pediatrics 11/16/18 07/22/22 documented as of this encounter
--- OUTSIDE RECORDS SUMMARY | 2024-08-15 11:11 | XMS_ITS | Encounter Summary ---
Author Organization [facility] Address [address] [place] [phone] Phone Care Team Providers Care Vessel Ordinary Seaman Name Role Phone Angelica Heaton MD Primary Care Provider [phone] Reason for Visit * Reason Comments Med Refill Encounter Details Date Type Department Care Team ([facility] Contact Info) Description 07/25/2021 Refill [facility] [address] [place] [address] Angelica Heaton MD [address] [place] [address] Menorrhagia with regular cycle (Primary Dx) Social [...] will be her last well visit at [facility]. * Telephone Encounter - Josselin Brunson LPN - 07/26/2021 12:56 PM EDT Pharm requesting refill OCP. EH documented in this encounter Plan of Treatment Not on file documented as of this encounter Visit Diagnoses Diagnosis Menorrhagia with regular cycle- Primary documented in this encounter Care Teams Vessel Ordinary Seaman Relationship Specialty Start Date End Date Angelica Heaton MD [address] [place] [address] PCP - General Pediatrics 11/16/18 07/22/22 documented as of this encounter
--- OUTSIDE RECORDS SUMMARY | 2024-08-15 11:11 | XMS_ITS | Clinical Summary ---
Author Organization [facility] Address [address] [place] [address] Phone Care Team Providers Care Warp Knitting Machine Operator Name Role Phone Unavailable Primary Care Provider Unavailabl e Allergies Active Allergy Reactions Criticality Noted Date Comments Clam Shell 04/06/2017 Environmental 04/06/2017 Cat,dog, hamster Food 04/06/2017 Early, tomato,cantelope,apples, seafood Shellfish-Derived Products 7 Medications Spacer/Aero-Hold [...] a1c 5.7. Renea is working with a surgical endoscopist and is considering bariatric surgery. Continue to follow. Needs Adult MD. 02/02/2022 (age 21yr): Is continuing to work with surgical endoscopist. Assessment & Plan (02/02/2022 10:33 AM EDT): 02/02/2022 (age 21yr): Is continuing to work with surgical endoscopist. Lab test positive for detection of COVID-19 viru s 04/12/2021 Assessment & Plan (04/12/2021 11:37 AM EST): Pt positive for covid - testing done at 'Stop the spread . Other family members positive as well Pt with multiple significant risk factors Referred to [place] infusion site - form for referral filled [...] (switched from hydrochlorothiazide to amlodipine on 12/18/2019). [facility] involved. Urgent cardiology visit scheduled for 03/[address] Hickey at [facility] cardio [facility]. Ran out of OCPS 4 days ago. - I contacted Dr. Hutchinson who felt that OCP were still reasonable in [place]. I will continue to prescribe as long as she see the cardiology in March. - Follow up with adult cardiology - Last Specialist Visit: [facility] cardiology 02/12/2022, started on amlodipine and losartan. OCP refilled with 3 RF and message to [facility] to contact Renea to help her transition to adult medicine. 01/25/2022 Chart Review: [facility] - 03/22/2021 158/87 Wing ED - 12/08/2021 162/92 in the office - 12/09/2021 153/74,then 118/62 at [facility] ED - 01/05/2022: BP-150/104 at [facility], sent to ED. No note [...] (switched from hydrochlorothiazide to amlodipine on 12/18/2019). [facility] involved as of 11/03/2021 Follow up with adult cardiology. 12/09/2021 (age 21yr): Sent to ED with elevated HR and chest pain. 12/29/2021 (age 21yr): Urgent cardiology visit scheduled for 03/17/[address] Hickey at [facility] Adult cardio [facility]. Assessment & Plan (12/08/2021 1:06 PM EDT): 12/08/2021 (age 21yr): BP high today, ran out of meds 04/2020 and has not had refills. Diagnosed by cardiology 07/2018. Last visit with Dr. Hutchinson was 12/18/2019. Now on losartan 50 mg and amlodipine 5mg. (switched from hydrochlorothiazide to amlodipine on 12/18/2019). [facility] involved as of 11/03/2021 Per [facility], Pt will call Dr. Hutchinson to see if he can follow up with her. Otherwise refer to adult cardiology at [facility]. Now, Joheliz state she would like [...] from Dr. Hutchinson ready for pt to last picker from the pharmacy (amlodipine 5mg and losartan [...] specialty appointments. Reintroduced to Davide Angeles our home care and home health aides teacher today for supports with prioritizing booking specialist visits as well as working on transition to adult medicine given complex adult care needs. Assessment & Plan (02/02/2022 10:41 AM EDT): 02/02/2022 (age 21yr): Mother concerned that Renea is having a hard to keeping track of her appointments and medical issues. [facility] involved to assist. Assessment & Plan (08/03/2020 [...] not had a therapist for 1 year. [facility] to assist in finding new provider. 02/02/2022 (age 21yr): still doesn't have a provider. [facility] involved to assist. Also needs to move to adult medicine. Detailed History and Chronology of care: Dx [address] Virgil Jang MD via Telepsych from [facility] - He recommends a lithium trial. Then followed by Dr. Wilson (interim) - Mother is willing to travel to [place] for regular in person psychiatric evaluations and supports. Will refer to psych at [facility]. [facility] will not accept the patient and advised that she be evaluated by a psychiatrist in [place] ([facility]) 07/2020: visit with Dr. Newman at [facility] as a new consult/evaluation, previously seen by Dr. Wilson and struggled to get in elsewhere, so were happy to have this evaluation - he is writing for medication for pt. Still seeing Mckenzie Turner for therapy (assisted, for years) Assessment & Plan (02/02/2022 10:32 AM EDT): 02/02/2022 (age 21yr): still doesn't have a provider. [facility] involved to assist. Also needs to move to adult medicine. Assessment & Plan (12/08/2021 1:07 PM EDT): 12/08/2021 (age 21yr): 12/08/2021 (age 21yr): psychiatrist just left, on escilatopram and trazadone. No meds for bipolar reported by pt. Has not had a therapist for 1 year. [facility] to assist in finding new provider. Assessment [...] 9:38 AM EDT): Seeing Dr. Wilson at [facility]. Gets meds through him. On Quetieapine (and adderall). D/C'd lexapro several month ago. Assessment & Plan (05/08/2018 2:53 PM EST): [facility] will not accept the patient and advised that she be evaluated by a psychiatrist in [place] ( [facility]) Heavy periods 12/21/2017 Overview (05/03/2022): 02/02/2022 (age [...] OCPs. Sabinojackie also needs to see a PBX WIRE CHIEF. - start isibloom with next menses - I can continue to prescribe as long as Renea keeps her cardiology appointment in March. - Renea needs to transition to an adult provider before she is due for her next well visit. - Last Specialist Visit: [facility] cardiology 02/12/2022, started on amlodipine and losartan. OCP refilled with 3 RF and message to [facility] to contact Renea to help her transition to adult medicine. Detailed History and Chronology of care: 07/2020: pt taking the same OCPs with better menses management - refilled at 07/2020, discussed transition to adult provider/PBX WIRE CHIEF provider for ongoing care. 07/27/2021 (age 20yr): Will HTN and headaches, I wonder if progesterone only BC would be safer for Renea. OCP refilled for the Next month, will discuss this at well visit in August. Will suggest PBX WIRE CHIEF for BC care. 08/02/2021 (age 20yr): Started OCPS 12/2017 for Heavy and painful menses Started on Apri. Good result for pain conctrol. Followed by Dr Hutchinson for HTN, on 07/15/[address] Hutchinson that OCPs are not contra indicated in Renea 12/08/2021 (age 21yr): Still on isibloom, no refills until she has an appointment at least scheduled with cardiology. Not on meds for HTN. Renea also needs to see a PBX WIRE CHIEF. 12/29/2021 (age 21yr): Urgent cardiology visit scheduled [...] Dr. Hutchinson that Renea may take OCPs. Renea also needs to see a PBX WIRE CHIEF. - start isibloom with next menses - [...] would like her to have a current metal cut off saw tender to confirm this. Renea also needs to see a PBX WIRE CHIEF. Assessment & Plan (08/03/2020 9:57 PM EDT): OCPs refilled at - work on transitioning to adult PCP and PBX WIRE CHIEF provider if needed - information had previously [...] BLAYNE Identified on sleep study 10/06/2020 at [facility]. . - Last Specialist Visit: : [...] help with control of her hypertension. The [employer] company was contacted, they confirmed a bill [...] 10/06/2020: BLAYNE Identified on sleep study at [facility] 10/29/2020 (age 20yr): . Referred to sleep medicine at [facility] for CPAP. Renea is having headaches that [...] help with control of her hypertension. The [employer] company was contacted, they confirmed a bill [...] BLAYNE Identified on sleep study 10/06/2020 at [facility]. Assessment & Plan (10/29/2020 6:12 AM EDT): 10/29/2020 (age 20yr): BLAYNE Identified on sleep study 10/06/2020 at [facility]. Referred to sleep medicine at [facility] for CPAP. Renea is having headaches that [...] these allergies, mom would like to see cnc mechanic for further testing and plans to schedule her own appointment. Already has UTD epipen (12/2019) 11/03/2021 (age 21yr): Per [facility], referral re requested. Referral placed and pt to make her own appt. Assessment & Plan (08/03/2020 9:52 PM EDT): Pt already has UTD epipen, aware of when to use this, and cnc mechanic at [facility] requested for follow up, information was previously given, pt/mom to book. Assessment & Plan (07/23/2020 11:41 PM EDT): Referral to cnc mechanic and pt/family to book appointment with adult cnc mechanic for further evaluation and follow up. Epipen is already UTD from 12/2019 visit so did not refill today. Assessment & Plan (12/15/2018 10:33 AM EDT): Needs to go back to cnc mechanic. Assessment & Plan (01/02/2018 12:29 PM EDT): School med auth formed filled out. Seasonal allergic rhinitis 08/05/2016 Overview (12/08/2021): 12/08/2021 (age 21yr): Uses On martita 180 daily and singulair 10 mg as needed. Will be seeing cnc mechanic. . Detailed History and Chronology of care: 07/20/2019 No current symptoms, will refill martita today ahead of allergy season. 07/2020: refill on singulair requested and has used martita in the past, requesting refills. Referred to cnc mechanic for allergies and snoring 10/30/2020 (age 20yr): did not follow through on allergy referral. Assessment & Plan (12/08/2021 11:56 AM EDT): 12/08/2021 (age 21yr): Uses On martita 180 daily and singulair 10 mg as needed. Will be seeing cnc mechanic. . Assessment & Plan (08/03/2020 9:51 PM [...] :Followed in the past by Pulm at [facility]. Last visit 01/2018. Seems to be overdue for 4 month follow up, in the past has requested med refills and referral to pulm. Has appt with adult pulm 01/2022. (missed appt ) - Last Specialist Visit: 06/23/2022 [facility] pulm Dr. Loera: Obestiry negatively impacting her health in many ways. Plan: Start symbicort, referred to for pulmonary rehab to do asth;ma teaching, home polysomnogram, PFTs Detailed History and Chronology of care: Was on singulair 10 mg and QVAR or flovent 110. Had bad asthma with GERD as young child, followed by [facility].( mother mentions that there might have been some aspiration). Seemed to resolve as she hit puberty she was off all control meds. Had exacerbation in 07/2016 and back on Qvar. History of poor compliance. 01/04/2018 ACT score 7 02/06/2018: saw Pulm at [facility], recommend flovent 110 2 P BID and [...] :Followed in the past by Pulm at [facility]. Last visit 01/2018. Seems to be overdue for 4 month follow up, in the past has requested med refills and referral to pulm. Has appt with adult pulm 01/2022. (missed appt ) Assessment & Plan (08/03/2020 9:38 PM EDT): Plans to return to [place] [facility] as already planned, family has information [...] of atypical pneumonia. Followed by Pulm at [facility]. Has follow up in May 2108. Assessment & Plan (01/06/2018 12:48 PM EDT): Patient in no obvious distress during this encounter and lung exam clear. Has subjective chest tightness. S/P treatment with 7 days of steroids. Low suspicion for pneumonia based on currently exam (including vitals). Patient has Pulm evaluation at [facility] next month. Note given for patient to [...] hours. Mom requesting referral to pulm at [facility] (mom says she was seen there when she was young, though I only see notes from [facility] pulm), so I will put referral in now. Mom wants us to make the appt for her. Class 3 severe obesity due t o excess calories with serious comorbidity in adult 03/25/2011 Overview (12/09/2021): 12/08/2021 (age 21yr): Working with surgical endoscopist to lose weight ahead of bariatric surgery. [...] AM EDT): 12/08/2021 (age 21yr): Working with surgical endoscopist to lose weight ahead of bariatric surgery. [...] not had a therapist for 1 year. [facility] to assist in finding new provider. 02/02/2022 (age 21yr): still doesn't have a provider. [facility] involved to assist. Also needs to move to adult medicine. Detailed History and Chronology of care: 2016. Partial hosp 02/2017 Inpatient hospitalization at [facility] 02/2018 Telepsych evaluation completed- dx with Bipolar 1 Disorder 12/15/2018: Seeing Dr. Wilson at [facility]. Gets meds through him. On Quetieapine (and adderall). D/C'd lexapro several month ago. Seeing Mckenzie Turner (therapist) for years. 07/2020: Continues with ongoing therapist (Mckenzie Turner) - has been seeing her for about 10 years, had a followup recently due to insurance issues and the soonest available was 07/2020 to recheck. Seen 07/[address] Newman at [facility] as a new consult/evaluation, Currently taking quetiapine and has hydroxyzine Assessment & Plan (02/02/2022 10:32 AM EDT): 02/02/2022 (age 21yr): still doesn't have a provider. [facility] involved to assist. Also needs to move to adult medicine. Assessment & Plan (12/08/2021 1:07 PM EDT): 12/08/2021 (age 21yr): psychiatrist just left, on escilatopram and trazadone. Has not had a therapist for 1 year. [facility] to assist in finding new provider Assessment & Plan (08/03/2020 9:50 PM EDT): Continue in therapy and work with med prescribers to get reestablished as transitions to adult provider Assessment & Plan (12/15/2018 10:31 AM EDT): Seeing Dr. Wilson at [facility]. Gets meds through him. On Quetieapine (and adderall). D/C'd lexapro several month ago. Doing well. Assessment & Plan (03/08/2018 3:59 PM EST): Advised to continue on this treatment regimen until in-person consult/follow up with psychiatrist at [facility]. Assessment & Plan (01/29/2018 4:40 PM EDT): Lexapro does not seem like it's helping according to mother and patient. Followed by Dr. Wilson at [facility] (interim), since previous psych provider no [...] not had a therapist for 1 year. [facility] to assist in finding new provider. 02/02/2022 (age 21yr): still doesn't have a provider. [facility] involved to assist. Also needs to move to adult medicine. Detailed History and Chronology of care: 12/15/2018: At [facility]. On Adderall xr [address] Wilson at [facility]. Gets meds through him. 07/2020: visit with Dr. Newman at [facility] as a new consult/evaluation, previously seen by Dr. Wilson and struggled to get in elsewhere, so were happy to have this evaluation - he is writing for medication for pt. Still seeing Mckenzie Turner for therapy (assisted, for years) Assessment & Plan (02/02/2022 10:31 AM EDT): 02/02/2022 (age 21yr): still doesn't have a provider. [facility] involved to assist. Also needs to move to adult medicine. Assessment & Plan (12/08/2021 1:06 PM EDT): 12/08/2021 (age 21yr): psychiatrist just left, no longer on ADHD meds. ADHD symptoms are bothering her. Has not had a therapist for 1 year. [facility] to assist in finding new provider. Assessment & Plan (12/15/2018 10:33 AM EDT): Classes just started. Seeing Dr. Wilson at [facility]. Gets meds through him. On adderall [...] a, Obesity, Migraines Other grandmother: Wiley dden /[place] under 55 Paternal Grandfather Paterna l grandfather: [...] Completed 06/19/2019, 12/15/2018 Procedures * Due to [place] [employer] law, this organization might not be sharing sensitive test results. Procedure Name Priority Date/Time Associated Diagnosis Comments CHLAMYDIA AND GONORRHEA, AMPLIFIED Routine 12/08/2021 12:15 PM EDT Screening for chlamydial disease from Last 3 Months or Most Recently Relevant to Health Maintenance Results * Due to [place] [employer] law, this organization might not be sharing sensitive test results. * Chlamydia and Gonorrhoea, Amplified (12/08/2021 12:15 PM EDT) Chlamydia Trachomatis, DNA Probe NEGATIVE (NEG) [facility] Comment: No Chlamydia Trachomatis RNA detected in this patient's sample ? (REFERENCE RANGE/NORMAL VALUE: NOT DETECTED) ? Note: This test uses retirement actuary- mediated amplification method to detect rRNA from C. Trachomatis URINE GC AMP PROBE NEGATIVE (NEG) [facility] Comment: No Neisseria Gonorrhoeae RNA detected in this patient's sample ? (REFERENCE RANGE/NORMAL VALUE: NOT DETECTED) ? NOTE: This test uses retirement actuary-mediated amplification method to detect rRNA from N.Gonorrhoeae. [...] without risk of sexual abuse. Consult the [facility] if needed. Contact phone number . Therapeutic failure or success cannot be determined with the Aptima Combo2 assay since nucleic acid may persist following appropriate antimicrobial therapy. The Centers for Disease Control and Prevention (CDC) recommends confirmatory retesting using culture or a different nucleic acid amplification test when positive results occur, if indicated. Testing performed or reported by [facility], a Service of [facility], [facility] [place] [address] Dylan Pratt MD, Multicut Line Operator [facility]# [id number] Urine (Urine) 12/08/2021 12: 15 PM EDT 12/09/2021 1:10 AM EDT Angelica Heaton MD LAB MICROBIOLOGY - GENERAL OR DERABLES Final Result [facility] from Last 3 Months or Most Recently Relevant to Health Maintenance
--- OUTSIDE RECORDS SUMMARY | 2024-08-15 11:11 | XMS_ITS | Encounter Summary ---
Author Organization [facility] Address [address] [place], [place] [id number] Phone Care Team Providers Care Video Engineer Name Role Phone Angelica Heaton MD Primary Care Provider [phone] Reason for Visit * Reason Onset Date Comments Med Refill 09/27/2019 Encounter Details Date Type Department Care Team ([facility] st Contact Info) Description 09/27/2019 Refill [facility] [address] [place] [address] Angelica Heaton MD [address] [place] [address] Moderate persistent asthma without complication; Seasonal allergic [...] trigger documented in this encounter Care Teams Video Engineer Relationship Specialty Start Date End Date Angelica Heaton MD [address] [place] [id number] PCP - General Pediatrics 11/16/18 07/22/22 documented as of this encounter
--- OUTSIDE RECORDS SUMMARY | 2024-08-15 11:11 | XMS_ITS | Encounter Summary ---
Author Organization [facility] Address [address] [place] [phone] Phone Care Team Providers Care Scrap Handler Name Role Phone Angelica Heaton MD Primary Care Provider [phone] Reason for Visit * Reason Comments Med Refill Encounter Details Date Type Department Care Team ([facility] Contact Info) Description 05/02/2022 Refill [facility] [address] [place] [address] Angelica Heaton MD [address] [place] [address] Menorrhagia with regular cycle Social History Tobacco [...] cycle documented in this encounter Care Teams Scrap Handler Relationship Specialty Start Date End Date Angelica Heaton MD [address] [place] [phone] PCP - General Pediatrics 11/16/18 07/22/22 documented as of this encounter
== END 2024-08-15 11:24 | disposition home or self-care (01) ==
LOC: HO.HMCC 10:02
PROVIDERS: Visit Provider Internal Medicine
DX: R12 Heartburn (principal); E66.01 Morbid (severe) obesity due to excess calories; Z68.45 Body mass index [BMI] 70 or greater, adult; F41.8 Other specified anxiety disorders; I10 Essential (primary) hypertension

== ENCOUNTER → 2024-08-15 10:02 | Outpatient (BNVA) | payer OTHER, SELFPAY | PROVIDERS: Visit Provider Internal Medicine | DX: R12 Heartburn (principal); F41.8 Other specified anxiety disorders; E66.01 Morbid (severe) obesity due to excess calories; Z68.45 Body mass index [BMI] 70 or greater, adult; I10 Essential (primary) hypertension | CPT/HCPCS: 96127; 99202 ==

== ENCOUNTER 2024-10-05 08:29 | Outpatient (AMB) | payer OTHER, SELFPAY ==
--- OUTSIDE RECORDS SUMMARY | 2024-10-05 08:38 | XMS_ITS | Encounter Summary ---
Author Organization [facility] Address [address] [place], [place] [phone] Phone Care Team Providers Care Nurse Reviewer Name Role Phone Angelica Heaton MD Primary Care Provider [phone] Reason for Visit * Reason Onset Date Comments Med Refill 09/27/2019 Encounter Details Date Type Department Care Team ([facility] st Contact Info) Description 09/27/2019 Refill [facility] [place] [address] [place] [address] Angelica Heaton MD [address] [place] [address] Moderate persistent asthma without complication; Seasonal allergic [...] trigger documented in this encounter Care Teams Nurse Reviewer Relationship Specialty Start Date End Date Angelica Heaton MD [address] [place] [phone] PCP - General Pediatrics 11/16/18 07/22/22 documented as of this encounter
--- NOTE | 2024-10-05 13:15 | MHC.OFFVISWM ---
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 [facility] BMI 70.7 Allergies apple Allergy (Verified 10/05/24 13:15) Itching cantaloupe Allergy (Verified 10/05/24 13:15) Itching kiwi Allergy (Verified 10/05/24 13:15) Itching shellfish derived Allergy (Verified 10/05/24 13:15) Facial Swelling strawberry Allergy (Verified 10/05/24 13:15) Itching Medication List - Last Reconciled 10/05/24 by Dimitrios Pulido MD albuterol sulfate 2.5 mg (3 mL) inhalation Q6H alum-mag hydroxide-simeth 200-200-20 mg/5 mL (Maalox Advanced) 5 mL PO 5XD PRN amlodipine 5 mg PO DAILY 3 months escitalopram oxalate 20 mg PO DAILY famotidine (Pepcid) 20 mg PO DAILY fexofenadine (Allergy Relief (fexofenadine)) 180 mg PO DAILY fluticasone propionate 50 mcg/actuation (Flonase Allergy Relief) 1 spray intranasal DAILY losartan 25 mg PO DAILY 3 months omeprazole 40 mg PO BEDTIME 1 month HPI 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 [facility] BMI 70.7: Details: Start time: 1pm, End time: 1.45pm ?I spent 40 minutes speaking with the patient on the phone plus an additional 5 minutes reviewing and updating records for a total of 45 minutes HPI Comments Details: Previous weight loss efforts: self diet and exercise Wakes up: 9am, Sleeps: 12am Breakfast: skips Lunch: 12pm-1pm (chicken and rice) Dinner: 8pm-9pm (chicken, rice and beans) Snacks: 10am (yogurt, candy), 3-4pm (chips), 11pm (candy) Exercise: has home treadmill Beverages: Coffee: occasionally, tea: rarely, soda: regular Sprite (daily), juice: frequently, ETOH: none PFSH Medical History (Updated 10/05/24 @ 13:20 by Dimitrios Pulido MD) Sleep apnea Essential hypertension Depression with anxiety Morbid obesity Heartburn Acute rhinosinusitis Asthma Surgical History No pertinent past surgical history Family History Father Substance use disorder Paternal Grandmother Mental health disorder Paternal Aunt Mental health disorder Maternal Grandmother Mental health disorder Mother Mental health disorder Sister Mental health disorder Social History Housing: House Patient Tobacco Use Status: Former Tobacco user e-Cigarette/Vaping Use: Never Used service: No Current occupational status: employed Cognitive needs: No Hearing needs: No Vision needs: Yes Telehealth Telehealth Telehealth Platform: Telephone Location of provider rendering services: practice address Location of patient: address on file Patient Identification confirmed using: Name, : Yes Telehealth method: voice only Patient verbally consented to treatment: Yes Patient verbally consented to billing insurance company: Yes Patient informed of any privacy concerns related to visit: Yes Minutes spent on Phone/Video with Pt.: 45 Assessment & Plan Assessment & Plan (1) Morbid obesity: Code(s): E66.01 - Morbid (severe) obesity due to excess calories Category: Medical Plan: 1.? Plan for lap sleeve gastrectomy. If diaphragmatic or ventral hernias are present at time of surgery, these will be repaired laparoscopically as well. I emphasized the importance of close follow-up, adherence to instructions and good communication. The surgery does not replace the need to change your lifestlyle which is the cause of the obesity problem. The surgery provides the motivation to try again to change your lifestyle, it reduces the appetite and make the transition to a better lifestyle easier and doubles the amount of weight you would lose compared to doing the lifestyle change without the surgery. You will need to be on a liquid diet with protein shakes for 2 weeks before surgery to maximize weight loss and boost your nutritional status to recover better from surgery and also for the first two weeks after surgery to let the stomach heal before we introduce other foods. After the first 2 weeks we will introduce protein bars and soft foods like scrambled eggs, cottage cheese and yogurt and after the 6th week will introduce meat, fish and cooked vegetables in small amounts. Over time you should be able to eat everything in small amounts. Side effects like nausea, vomiting, heartburn or abdominal pain are not common in the practice unless you are not following in the practice. This operation requires lifetime commitment to following in our practice and communication with me. You will much less weight and experience side effects if you don?t communicate or not following in the practice. Complications are rare and in our practice is about 1/10 of the national average. However, you can develop bleeding that may require transfusion (hasn?t happened for year in the practice), you may from complications (we did not have any deaths in the practice) and infections. Infections are usually a result of breakdown in communication or not understanding or following directions correctly. They are difficult to treat, they can happen during the first 6 weeks, they may require to be in the hospital for weeks or even months, not being able to eat by mouth and you may have drains and surgeries to try and correct the issue. Other risks and complications include possible conversion to an open procedure, leaks, small bowel obstruction, blood clots, cardiac, or pulmonary complications, as detention complications such as ulcers, insufficient weight loss and vitamin deficiencies. 2. You will receive a link of our software gary to generate an individualized nutritional and exercise plan specific for you. Please send me a screenshot of the plans you will generate Meal to include lean meat (beef, fish, pork, turkey, chicken), or belarusian yogurt, or egg whites, or beans with a salad with olive oil and fruits (berries, pears, apples, kiwi). Avoid salt, breads, potatoes, rice, pasta, desserts. ?3. If you choose shakes, each shake would be drunk slowly, like coffee in a period of 2 hours. ?4. If you choose bars, cut each bar in 4 pieces and eat each piece in 30min ?to make each bar last 2 hours. ?5. I emphasized the importance of measuring accurately the food portion and measure it when serving the food in plate ?6. The meal portions include a specific number of forks of meat and salad. You always eat the meat portion but you can replace up to half of salad/vegetables portion with rice, potatoes or pasta, or a fruit ?if you like. The less you do it the better weight loss will be. ?7. One full-size fork is what it can be scooped on the fork without falling aside and not what can be bit with the fork. Use regular forks like those you find in a typical restaurant. ?8.? Please buy the body composition scale we discussed and send me weight measurements as soon as possible and then once a week. Always include your diet and exercise plan. 9. The best choice would be to purchase a stationary bike, elliptical or treadmill at home that can track calories. Let me know if you do so I can give you an exercise plan. 9. The best exercise choice would be to use your treadmill at home that can track calories. You can create and exercise plan with the [employer] gary. ?10.?It is important of avoiding and for at least 18 months postoperatively and has been discussed at the infosession. ?11. Goal is to lose at least 1.5-2lbs per week ?12. Goal to lose at least 10% of your weight before surgery, which is about 44lbs. Ultimate weight goal: 330lbs before surgery 13. Please follow the diet plan exactly without any change. If you don't like something about the plan or you feel hungry you need to communicate with me so I can help you revise the plan. You should not change the plan yourself. 14. To be scheduled for EGD to assess the stomach?s anatomy. The possibility of biopsies was discussed. Patient needs to avoid use of NSAIDs and aspirin for 1 week prior to EGD. You must be on liquids only the day before your endoscopy. Risks of perforation and bleeding was discussed with the patient. This will be an outpatient procedure with IV sedation.
[2024-10-05 13:25] VITALS: BMI 70.7
== END 2024-10-05 13:45 | disposition home or self-care (01) ==
LOC: HO.HBS 08:29
PROVIDERS: Visit Provider Surgery
DX: E66.01 Morbid (severe) obesity due to excess calories (principal)
CPT/HCPCS: 99204

== ENCOUNTER 2024-11-06 10:21 | Outpatient (AMB) | payer OTHER, SELFPAY ==
--- NOTE | 2024-11-06 10:36 | MHC.PC.OV ---
Vital Signs 11/06/24 10:37 Height 5 ft 1 in Weight 376 lb 8 oz BMI 71.1 BP 140/80 H Blood Pressure Location Lt brachial Position Sitting Pulse 92 Pulse Source Pulse Oximeter Pulse Oximetry (%) 97 Intake Visit Reasons: follow up asthma, high BP, meds Allergies apple Allergy (Verified 11/13/24 01:08) Itching cantaloupe Allergy (Verified 11/13/24 01:08) Itching kiwi Allergy (Verified 11/13/24 01:08) Itching shellfish derived Allergy (Verified 11/13/24 01:08) Facial Swelling strawberry Allergy (Verified 11/13/24 01:08) Itching Medication List - Last Reconciled 11/06/24 by Cheryl Hutchison MD albuterol sulfate 2.5 mg (3 mL) inhalation Q6H alum-mag hydroxide-simeth 200-200-20 mg/5 mL (Maalox Advanced) 5 mL PO 5XD PRN amlodipine 5 mg PO DAILY 3 months escitalopram oxalate 20 mg PO DAILY famotidine (Pepcid) 20 mg PO DAILY fexofenadine (Allergy Relief (fexofenadine)) 180 mg PO DAILY fluticasone propionate 50 mcg/actuation (Flonase Allergy Relief) 1 spray intranasal DAILY losartan 25 mg PO DAILY 3 months omeprazole 40 mg PO BEDTIME 1 month Tobacco use date assessed: 08/15/24 Dental Screening Dental Screen Date: 08/15/24 HPI follow up asthma, high BP, meds HPI Details - The patient is a 24-year-old female morbid obesity and hypertension, here today for follow-up. - Obesity: The patient has been advised to lose 10% of her body weight before undergoing knee surgery, with a current weight of 376 pounds, down from 380 pounds in early October. - Hypertension: The patient is currently on amlodipine and losartan for blood pressure management, with a recent adjustment to increase losartan to 50 mg daily due to persistently elevated blood pressure. Denies any headache, no chest pain or lightheadedness or shortness of breath. - Anxiety: The patient experiences anxiety, which sometimes leads to insomnia and panic attacks, and is currently managed with escitalopram. - Sleep Apnea: The patient suspects sleep apnea may contribute to her insomnia, and she has a history of using trazodone and Seroquel for sleep disturbances. - ADHD: Diagnosed with ADHD in childhood, the patient was previously on Adderall but discontinued due to hypertension-related headaches. She is considering reevaluation for ADHD management. - Asthma: The patient's asthma is currently controlled with albuterol, and she does not require Symbicort at this time. - GERD: The patient has been using [id number] famotidine for GERD [facility] Medical History (Updated 11/06/24 @ 11:30 by Cheryl Hutchison MD) Mild intermittent asthma Impaired concentration Sleep apnea Essential hypertension Depression with anxiety Morbid obesity Heartburn Asthma Surgical History No pertinent past surgical history Family History Father Substance use disorder Paternal Grandmother Mental health disorder Paternal Aunt Mental health disorder Maternal Grandmother Mental health disorder Mother Mental health disorder Sister Mental health disorder Social History Housing: House Patient Tobacco Use Status: Former Tobacco user e-Cigarette/Vaping Use: Never Used service: No Current occupational status: employed Cognitive needs: No Hearing needs: No Vision needs: Yes Questionnaire PHQ-9 Over the last 2 weeks, how often have you been bothered by any of the following problems? 1. Little interest or pleasure in doing things: several days 2. Feeling down, depressed, or hopeless: several days 3. Trouble falling or staying asleep, or sleeping too much: more than half the days 4. Feeling tired or having little energy: several days 5. Poor appetite or overeating: more than half the days 6. Feeling bad about yourself - or that you are a failure or have let yourself or your family down: several days 7. Trouble concentrating on things, such as reading the newspaper or watching television: several days 8. Moving or speaking so slowly that other people could have noticed. Or the opposite - being so fidgety or restless that you have been moving around a lot more than usual: not at all 9. Thoughts that you would be better off or of hurting yourself in some way: several days Total score: 10 Depression Screening Interpretation: Positive (Currently on escitalopram, requesting to see a therapist and eventually a psychiatrist) Depression Screening Done: Yes [id number] - PHQ-9 Billing: Yes Source: Developed by Drs. Bart Bravo, Ya Momin, Natanael Verduzco and colleagues, with an educational cristi from [employer]. Thrive Questionnaire Date Thrive assessed: 11/06/24 I am a: Patient What is your living situation today?: I have a place to live, but I am worried about losing it in the future Within the past 12 months, did the food you bought not last and you didn't have the money to get more?: Often true Within the past 12 months, did you worry whether your food would run out before you got money to buy more?: Often true Do you have trouble paying for medicines?: No Do you have trouble getting transportation to medical appointments?: No Do you have trouble paying your heating and electricity bill?: Yes Do you have trouble taking care of your child, family member or friend?: No Do you have trouble with day-to-day activities such as bathing, preparing meals, shopping, managing finances, etc.?: Yes Are you currently unemployed and looking for a job?: No Are you interested in more education?: Yes Please select the resources that you would like help with: Housing/Custodial, Food, Utilities and Education Currently or been in a relationship where the following occur: No concerns reported THRIVE Score: 4 AUDIT C Alcohol Use Questionnaire (AUDIT-C) 1. How often do you have a drink containing alcohol?: Monthly or less 2. How many drinks containing alcohol do you have on a typical day when you are drinking?: 1 or 2 3. How often do you have six or more drinks on one occasion?: Never Total Score: 1 Score Reviewed/Action Taken: Yes KATHIE-7 AMB Questionnaire KATHIE-7 Date KATHIE - 7 assessed: 11/06/24 Feeling nervous, anxious, or on edge: 1 = Several days Not being able to stop or control worryin = Several days Worrying too much about different things: 1 = Several days Trouble relaxin = Several days Being so restless that it is hard to sit still: 1 = Several days Becoming easily annoyed or irritable: 1 = Several days Feeling afraid as if something awful might happen: 1 = Several days Total KATHIE-7 score (0-4 normal; 5-9 mild; 10-14 moderate; 15-21 severe): 7 Source: Developed by Drs. Bart Bravo, Ya Momin, Natanael Verduzco and colleagues, with an educational cristi from [employer]. KATHIE-7 Assessment Billing KATHIE-7 Assessment Tool: KATHIE-7 Assessment 12211 ACT Questionnaire In the past 4 weeks, how much of the time did your asthma keep you from getting as much done at work, school or at home?: None of the time During the past 4 weeks, how often have you had shortness of breath?: Not at all During the past 4 weeks, how often did your asthma symptoms wake you up at night or earlier than usual in the morning?: Not at all During the past 4 weeks, how often have you had to use your rescue inhaler or nebulizer medication?: Once a week or less How would you rate your asthma control during the past 4 weeks?: Well controlled ACT Interpretation: Negative Score: 23 Review of Systems Const Denies fatigue, Denies fever(s), Denies headache(s) and Denies weakness Eyes Denies change in vision ENT Denies dizziness, Denies headache(s) and Denies nasal congestion Card Denies chest pain, Denies lightheadedness, Denies palpitations and Denies dyspnea Resp Denies chest congestion, Denies cough, Denies dyspnea and Denies wheezing GI Denies abdominal pain and Denies change in bowel habits Denies hematuria, Denies urinary frequency, Denies dysuria and Denies urinary urgency Musc Reports stiffness Neuro Denies dizziness, Denies headache(s) and Denies weakness Psych Reports as per HPI Endo Denies fatigue, Denies polydipsia, Denies polyuria and Denies palpitations Willian/Lymph Denies easy bruising Aller/Immun Denies seasonal rhinorrhea and Denies wheezing Physical exam (Primary Care) Vital Signs: Last Vital Signs Pulse 92 11/06/24 10:37 BP 140/80 H 11/06/24 10:37 Pulse Ox 97 11/06/24 10:37 BMI result Body Mass Index 71.1 Tobacco/Smoking Status: Tobacco use Status Tobacco use date assessed 08/15/24 11/06/24 10:42 Patient Tobacco Use Status Former Tobacco user 11/06/24 10:42 e-Cigarette/Vaping Use Never Used 11/06/24 10:42 PHQ-9: PHQ-9 Score PHQ-9: Total score 10 11/06/24 11:08 Depression Screening Interpretation: Positive (Currently on escitalopram, requesting to see a therapist and eventually a psychiatrist) Thrive Assessment: Date of Thrive Assessment Date Thrive assessed 11/06/24 11/06/24 10:42 Currently or been in a relationship where the following occur: No concerns reported Const General: no acute distress and alert Nutritional Appearance: obese morbidly obese Orientation/consciousness: patient oriented x3 HENMT Ears: external ears normal General nose exam: Normal external nose present Mouth: Normal oral and palatal mucosa present, oropharynx normal and moist mucous membranes Eyes General: appearance normal, both eyes and all related structures Neck Neck: Yes full ROM, Yes no lymphadenopathy and Yes supple Resp Effort & Inspection: normal respiratory effort and able to speak in complete sentences Auscultation: clear to auscultation bilaterally Cardio Rate: regular rate Rhythm: regular rhythm Heart sounds: S1 normal heart sound present and S2 normal heart sound present GI Inspection: Yes obesity Palpation (GI): Soft to palpation, nontender and no masses Auscultation: normal bowel sounds Back/Spine/Pelvis Back: No back tenderness Skin General skin exam: no rashes or lesions noted Neuro General: patient oriented x3, gait normal, tone normal, moves all extremities, Normal light touch and pain sensation and no focal motor deficits Cranial nerves: Yes CN's II-XII intact bilaterally Cognition (Neuro): normal cognition Extrem General: Yes full ROM, Yes no joint enlargement, Yes no clubbing, cyanosis or edema and Yes no calf tenderness Psych Appearance: grossly normal and well kempt Mental Status: mental status grossly normal Speech and movement: Normal speech and movement present Affect: normal affect Attitude: cooperative Coding Level of Care Code Est Pt Level 4 (28965) Diagnoses Impaired concentration R41.840 Allergic rhinitis J30.9 Heartburn R12 Morbid obesity E66.01 Depression with anxiety F41.8 Essential hypertension I10 Mild intermittent asthma J45.20 Additional Codes Asthma Control Questionnaire - ACT Interpretation: Negative ([id number]) KATHIE-7 Assessment Billing - KATHIE-7 Assessment Tool: KATHIE-7 Assessment 68376 ([id number]) PHQ-9 - 24242 - PHQ-9 Billing: Yes ([id number]) Assessment & Plan Assessment & Plan (1) Impaired concentration: Code(s): R41.840 - Attention and concentration deficit Category: Medical (2) Allergic rhinitis: Code(s): J30.9 - Allergic rhinitis, unspecified Category: Medical (3) Heartburn: Code(s): R12 - Heartburn Category: Medical (4) Morbid obesity: Code(s): E66.01 - Morbid (severe) obesity due to excess calories Category: Medical (5) Depression with anxiety: Code(s): F41.8 - Other specified anxiety disorders Category: Medical (6) Essential hypertension: Code(s): I10 - Essential (primary) hypertension Category: Medical (7) Mild intermittent asthma: Code(s): J45.20 - Mild intermittent asthma, uncomplicated Category: Medical Plan The patient will continue with weight management efforts, aiming to lose 10% of her body weight to qualify for surgery. Her antihypertensive regimen has been adjusted to increase losartan to 50 mg daily, and she will monitor her blood pressure closely. For anxiety and insomnia, the patient will continue escitalopram and use trazodone as needed for sleep disturbances. A reevaluation for ADHD is planned, considering her history and current symptoms. Asthma management will continue with albuterol as needed, and GERD will be managed with prescription-strength famotidine to mitigate long-term risks. Follow-up appointments will be scheduled to monitor progress and adjust treatment as necessary. Patient was informed and verbally consented to the use of an ambient scribe for clinic note documentation during this visit. Orders: Orders Basic Metabolic Panel Fasting 11/10/24 E66.01 - Morbid (severe) obesity due to excess calories, F41.8 - Other specified anxiety disorders, I10 - Essential (primary) hypertension, J30.9 - Allergic rhinitis, unspecified, J45.20 - Mild intermittent asthma, uncomplicated, R12 - Heartburn, R41.840 - Attention and concentration deficit Lipid Panel 11/10/24 E66.01 - Morbid (severe) obesity due to excess calories, F41.8 - Other specified anxiety disorders, I10 - Essential (primary) hypertension, J30.9 - Allergic rhinitis, unspecified, J45.20 - Mild intermittent asthma, uncomplicated, R12 - Heartburn, R41.840 - Attention and concentration deficit Complete Blood Count Auto Diff 11/10/24 E66.01 - Morbid (severe) obesity due to excess calories, F41.8 - Other specified anxiety disorders, I10 - Essential (primary) hypertension, J30.9 - Allergic rhinitis, unspecified, J45.20 - Mild intermittent asthma, uncomplicated, R12 - Heartburn, R41.840 - Attention and concentration deficit Vitamin D 25-OH Total 11/10/24 E66.01 - Morbid (severe) obesity due to excess calories, F41.8 - Other specified anxiety disorders, I10 - Essential (primary) hypertension, J30.9 - Allergic rhinitis, unspecified, J45.20 - Mild intermittent asthma, uncomplicated, R12 - Heartburn, R41.840 - Attention and concentration deficit Alanine Aminotransferase 11/10/24 E66.01 - Morbid (severe) obesity due to excess calories, F41.8 - Other specified anxiety disorders, I10 - Essential (primary) hypertension, J30.9 - Allergic rhinitis, unspecified, J45.20 - Mild intermittent asthma, uncomplicated, R12 - Heartburn, R41.840 - Attention and concentration deficit Aspartate Amino Transferase 11/10/24 E66.01 - Morbid (severe) obesity due to excess calories, F41.8 - Other specified anxiety disorders, I10 - Essential (primary) hypertension, J30.9 - Allergic rhinitis, unspecified, J45.20 - Mild intermittent asthma, uncomplicated, R12 - Heartburn, R41.840 - Attention and concentration deficit Referrals Psychiatry Referral R41.840 - Attention and concentration deficit Medications: New trazodone 50 mg PO BEDTIME PRN 30 tabs 0RF sleep Changed From famotidine 20 mg PO DAILY 14 tabs 0RF To famotidine 40 mg PO DAILY 30 tabs 1RF From losartan 25 mg PO DAILY 3 months 90 tabs 0RF To losartan 50 mg PO DAILY 90 tabs 0RF 3 months Refilled fexofenadine (Allergy Relief (fexofenadine)) 180 mg PO DAILY 90 tabs 1RF J30.9 - Allergic rhinitis, unspecified escitalopram oxalate 20 mg PO DAILY 30 tabs 5RF F41.8 - Other specified anxiety disorders Discontinued omeprazole Discontinued Reason: Doctor's Order 40 mg PO BEDTIME 1 month 30 caps 4RF R12 - Heartburn
[2024-11-06 10:37] VITALS: BP 140/80; PULSE 92; O2SAT 97; BMI 71.1
--- OUTSIDE RECORDS SUMMARY | 2024-11-06 11:15 | XMS_ITS | Clinical Summary ---
Author Organization [facility] it Address [address] [place] [address] Care Team Providers Care Preforming Machine Operator Name Role Phone Unavailable Primary [...] HPV Vaccines (1 - 3-dose series) 09/24/2015 DTaP,Tdap,and Td Vaccines (1 - Tdap) 09/24/2019 Hepatitis B Vaccines (1 of 3 - 19+ 3-dose series) 09/24/2019 Cervical Cancer Screening: P ap Smear 2021 HIV Screening 03/14/2022 Hepatitis C Screening 03/14/2022 Social Influencers of Health Screening 03/14/2022 COVID-19 Vaccine ( - 2023-2 5 season) 2023 Depression Screening 04/11/2024 Influenza Vaccine (#1) 2024 HIB Vaccines Aged Out No longer [...] patient's age to complete this topic Meningococcal B Vaccine Aged Out No l onger eligible based on patient's age to complete this topic Pneumococcal Vaccine: Pediat rics (0 to 5 Years) and At-Risk Patients (6 to 49 Years) Aged Out No longer eligible b ased on patient's age to complete this topic RSV Immunization Patients Un akilah 20 months Aged Out No longer eligible b ased on patient's age to complete this topic Varicella Vaccines Aged Out No longer eligible based on patient's age to complete this topic
== END 2024-11-06 12:17 | disposition home or self-care (01) ==
LOC: HO.HMCC 10:22
PROVIDERS: PCP Internal Medicine; Visit Provider Internal Medicine
DX: R41.840 Attention and concentration deficit (principal); R12 Heartburn; E66.01 Morbid (severe) obesity due to excess calories; Z68.45 Body mass index [BMI] 70 or greater, adult; J30.9 Allergic rhinitis, unspecified; F41.8 Other specified anxiety disorders; I10 Essential (primary) hypertension; J45.20 Mild intermittent asthma, uncomplicated

== ENCOUNTER → 2024-11-06 10:21 | Outpatient (BNVA) | payer OTHER, SELFPAY | PROVIDERS: PCP Internal Medicine; Visit Provider Internal Medicine | DX: I10 Essential (primary) hypertension (principal); E66.01 Morbid (severe) obesity due to excess calories; Z68.45 Body mass index [BMI] 70 or greater, adult; R41.840 Attention and concentration deficit; J30.9 Allergic rhinitis, unspecified; R12 Heartburn; F41.8 Other specified anxiety disorders; J45.20 Mild intermittent asthma, uncomplicated; K21.9 Gastro-esophageal reflux disease without esophagitis | CPT/HCPCS: 96127; 96160; 99212 ==

== ENCOUNTER 2024-11-10 11:09 | Outpatient (REF) | payer OTHER, SELFPAY ==
[2024-11-10 14:12] LABS: MANUAL DIFF FLAG NO
[2024-11-10 14:19] LABS: Hematocrit 38.5 % (37.0-47.0); Hemoglobin 12.3 g/dl (12.0-16.0); Imm Gran Abs Auto 0.02 X10*3/uL (0.00-0.03); Imm Gran Pct Auto 0.2 % (0.0-0.4); Lymphocytes Absolute Auto 3.1 X10*3/uL (1.2-4.9); Mean Corpuscular HGB Conc 31.9 g/dl (31.0-35.0); Mean Corpuscular Hemoglobin 24.9 pg (27.0-33.0); Mean Corpuscular Volume 78.1 fL (80.0-98.0); NRBC Abs Auto 0.000 X10*3/uL (0.0-0.012); NRBC Pct Auto 0.0 /100WBC (0.0-0.2); Platelet Count 353 X10*3/uL (160-400); Red Blood Count 4.93 X10*6/uL (4.20-5.50); White Blood Count 8.4 X10*3/uL (4.8-10.8)
[2024-11-10 15:36] LABS: Alanine Aminotransferase 19 U/L (0-31); Anion Gap 9 (12-20); Aspartate Amino Transferase 20 U/L (5-31); Blood Urea Nitrogen 11 mg/dL (9-16); Calcium 8.9 mg/dL (8.4-10.2); Carbon Dioxide 27 mmol/L (22-29); Chloride 108 mmol/L (96-108); Cholesterol 144 mg/dL (<200); Estimated Glomerular Filt Rate > 60; HDL Cholesterol 47 mg/dL (>40); Potassium 4.4 mmol/L (3.3-5.1); Sodium 140 mmol/L (135-145); Triglycerides 83 mg/dL (<150)
== END 2024-11-10 11:10 | disposition home or self-care (01) ==
LOC: HO.HMGCLDS 11:09
PROVIDERS: PCP Internal Medicine; Visit Provider Internal Medicine
DX: E66.01 Morbid (severe) obesity due to excess calories (principal); J45.20 Mild intermittent asthma, uncomplicated; I10 Essential (primary) hypertension; J30.9 Allergic rhinitis, unspecified; R12 Heartburn; R41.840 Attention and concentration deficit; F41.8 Other specified anxiety disorders
CPT/HCPCS: 36415; 80048; 80061; 82306; 84450; 84460; 85025

== ENCOUNTER 2024-11-12 10:24 | Outpatient (AMB) | payer OTHER, SELFPAY ==
[2024-11-12 10:42] VITALS: BP 110/80; PULSE 80; RESP 16; TEMP 36.7; O2SAT 96; BMI 72.2
--- NOTE | 2024-11-12 10:42 | MHC.PC.OV ---
Vital Signs 11/12/24 10:42 Height 5 ft 1 in Weight 382 lb BMI 72.2 BP 110/80 Blood Pressure Location Lt brachial Position Sitting Respiration 16 Pulse 80 Pulse Source Pulse Oximeter Temp 98.1 F Temp Source Oral Pulse Oximetry (%) 96 Oxygen Delivery Method Room Air Intake Visit Reasons: Annual PE Intake Note: Pt is here today for her PE: Is last menstrual period known: Yes Last menstrual period: 10/17/24 Allergies apple Allergy (Verified 11/13/24 01:08) Itching cantaloupe Allergy (Verified 11/13/24 01:08) Itching kiwi Allergy (Verified 11/13/24 01:08) Itching shellfish derived Allergy (Verified 11/13/24 01:08) Facial Swelling strawberry Allergy (Verified 11/13/24 01:08) Itching Medication List - Last Reconciled 11/18/24 by Cheryl Hutchison MD alum-mag hydroxide-simeth 200-200-20 mg/5 mL (Maalox Advanced) 5 mL PO 5XD PRN amlodipine 5 mg PO DAILY 3 months cholecalciferol (vitamin D3) 1,250 mcg PO QWEEK 3 months clotrimazole-betamethasone 1-0.05 % 1 appl topical BID PRN 7 days escitalopram oxalate 20 mg PO DAILY famotidine 40 mg PO DAILY fexofenadine (Allergy Relief (fexofenadine)) 180 mg PO DAILY fluticasone propionate 50 mcg/actuation (Flonase Allergy Relief) 1 spray intranasal DAILY losartan 50 mg PO DAILY 3 months trazodone 50 mg PO BEDTIME PRN Tobacco use date assessed: 11/12/24 Dental Screening Dental Screen Date: 11/12/24 Did you have a dental visit in the last 12 months?: No Did you have a dental problem in the last 6 months where you did not have access to dental care?: No Was dental information given to patient?: Patient declined HPI Annual PE HPI Details - The patient is a 24-year-old female presenting today for her physical exam and follow-up of hypertension, vitamin D deficiency, and addressing social determinants such as food insecurity and housing instability. - Vitamin D deficiency has been persistent, with the patient not currently on supplements. A high-dose vitamin D regimen was recommended, followed by maintenance with [id number] vitamin D3. - Hypertension is currently managed with losartan and amlodipine, with blood pressure readings being stable, currently on losartan 50 mg daily and amlodipine 5 mg daily. - The patient reports obesity, with a current weight of 382 pounds. She is considering bariatric surgery and has been advised on dietary modifications, though financial constraints impact her ability to follow the diet plan. - The patient experiences food insecurity and housing instability, living intermittently with family members due to lack of stable housing. She has applied for federal assistance but has not received a response. 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 - Family: The patient lives with her mother and occasionally stays with her sisters or aunt due to housing constraints. - The patient has a history of depression with anxiety, currently on Lexapro , previously on Zoloft. She is awaiting a return call from a mental health provider for further management. -has history of mild intermittent asthma currently without symptoms, not using any inhaler -has seasonal allergies, uses biggest on nasal spray and fexofenadine as needed [facility] Medical History (Updated 11/18/24 @ 13:05 by Cheryl Hutchison MD) Mild intermittent asthma Impaired concentration Sleep apnea Essential hypertension Depression with anxiety Morbid obesity Heartburn Asthma Surgical History No pertinent past surgical history Family History Father Substance use disorder Paternal Grandmother Mental health disorder Paternal Aunt Mental health disorder Maternal Grandmother Mental health disorder Mother Mental health disorder Sister Mental health disorder Social History Housing: House Patient Tobacco Use Status: Former Tobacco user e-Cigarette/Vaping Use: Never Used service: No Current occupational status: employed Cognitive needs: No Hearing needs: No Vision needs: Yes Female Reproductive History Menstrual Date of last menstrual period: 10/17/24 Questionnaire PHQ-9 Over the last 2 weeks, how often have you been bothered by any of the following problems? Depression Screening Interpretation: Positive (Currently on escitalopram, requesting to see a therapist and eventually a psychiatrist) Depression Screening Done: Yes Source: Developed by Drs. Bart L. Ya Bravo Kurt Kroenke and colleagues, with an educational cristi from [employer]. Thrive Questionnaire Date Thrive assessed: 11/03/24 I am a: Patient What is your living situation today?: I have a place to live, but I am worried about losing it in the future Within the past 12 months, did the food you bought not last and you didn't have the money to get more?: Often true Within the past 12 months, did you worry whether your food would run out before you got money to buy more?: Often true Do you have trouble paying for medicines?: No Do you have trouble getting transportation to medical appointments?: No Do you have trouble paying your heating and electricity bill?: Yes Do you have trouble taking care of your child, family member or friend?: No Do you have trouble with day-to-day activities such as bathing, preparing meals, shopping, managing finances, etc.?: Yes Are you currently unemployed and looking for a job?: No Are you interested in more education?: Yes Currently or been in a relationship where the following occur: No concerns reported THRIVE Score: 4 KATHIE-7 AMB Questionnaire KATHIE-7 Date KATHIE - 7 assessed: 11/06/24 Source: Developed by Drs. Bart Bravo, Natanael Vasquez and colleagues, with an educational cristi from [employer]. ACT Questionnaire In the past 4 weeks, how much of the time did your asthma keep you from getting as much done at work, school or at home?: None of the time During the past 4 weeks, how often have you had shortness of breath?: Not at all During the past 4 weeks, how often did your asthma symptoms wake you up at night or earlier than usual in the morning?: Not at all During the past 4 weeks, how often have you had to use your rescue inhaler or nebulizer medication?: Not at all How would you rate your asthma control during the past 4 weeks?: Completely controlled ACT Interpretation: Negative Score: 25 Review of Systems Const Denies fatigue, Denies fever(s), Denies headache(s), Denies weakness and Denies weight loss Eyes Denies change in vision ENT Denies dizziness, Denies headache(s) and Denies nasal congestion Card Denies chest pain, Denies lightheadedness, Denies palpitations and Denies dyspnea Resp Denies chest congestion, Denies cough, Denies dyspnea and Denies wheezing GI Denies abdominal pain and Denies change in bowel habits Denies hematuria, Denies urinary frequency, Denies dysuria and Denies urinary urgency Musc Reports stiffness Skin/Breast Denies breast pain, Denies breast mass and Reports rash (Recurrent pruritic rash under breast and lower abdominal fold) Neuro Denies dizziness, Denies headache(s) and Denies weakness Psych Reports as per HPI Endo Denies fatigue, Denies polydipsia, Denies polyuria and Denies palpitations Willian/Lymph Reports no additional complaints Aller/Immun Reports as per HPI and Denies wheezing Physical exam (Primary Care) Vital Signs: Last Vital Signs Temp 98.1 F 11/12/24 10:42 Pulse 80 11/12/24 10:42 Resp 16 11/12/24 10:42 BP 110/80 11/12/24 10:42 Pulse Ox 96 11/12/24 10:42 Oxygen Delivery Method Room Air 11/12/24 10:42 BMI result Body Mass Index 72.2 Tobacco/Smoking Status: Tobacco use Status Tobacco use date assessed 11/12/24 11/12/24 10:44 Patient Tobacco Use Status Former Tobacco user 11/12/24 10:44 e-Cigarette/Vaping Use Never Used 11/12/24 10:44 Depression Screening Interpretation: Positive (Currently on escitalopram, requesting to see a therapist and eventually a psychiatrist) Thrive Assessment: Date of Thrive Assessment Date Thrive assessed 11/03/24 11/12/24 10:44 Currently or been in a relationship where the following occur: No concerns reported Advance Care Planning discussion: Completed/Scanned Date of discussion: 11/12/24 Who was present: Patient Forms completed: Health Care Proxy Time spent: 16-45 minutes Actual minutes spent: 2 Const General: no acute distress and alert Nutritional Appearance: obese morbidly obese Orientation/consciousness: patient oriented x3 HENMT Ears: external ears normal General nose exam: Normal external nose present Mouth: Normal oral and palatal mucosa present, oropharynx normal and moist mucous membranes Eyes General: appearance normal, both eyes and all related structures Neck Neck: Yes full ROM, Yes no lymphadenopathy and Yes supple Chest Breast/axilla inspection: normal inspection of the breasts Breast/axilla palpation: normal palpation of the breasts Resp Effort & Inspection: normal respiratory effort and able to speak in complete sentences Auscultation: clear to auscultation bilaterally Cardio Rate: regular rate Rhythm: regular rhythm Heart sounds: S1 normal heart sound present and S2 normal heart sound present GI Inspection: Yes obesity Palpation (GI): Soft to palpation, nontender and no masses Auscultation: normal bowel sounds General: Yes deferred (Patient declined) Back/Spine/Pelvis Back: No back tenderness Skin Other: Mild erythematous rash under bilateral and lower abdominal pannus Neuro General: patient oriented x3, gait normal, tone normal, moves all extremities, Normal light touch and pain sensation and no focal motor deficits Cranial nerves: Yes CN's II-XII intact bilaterally Cognition (Neuro): normal cognition Extrem General: Yes full ROM, Yes no joint enlargement, Yes no clubbing, cyanosis or edema and Yes no calf tenderness Psych Appearance: grossly normal and well kempt Mental Status: mental status grossly normal Speech and movement: Normal speech and movement present Affect: normal affect Results Reviewed Results Reviewed: Name: Renea Underwood Age/Sex: 24/F : 2000 Unit#: [id number] Attend Dr: Cheryl Hutchison MD Re11/10/24 Status: DEP REF Location: [facility] Disch: SPEC : [id number] JACINTO: 11/10/24 STATUS: COMP REQ : [id number] RECD: 11/10/[address]: Cheryl Hutchison MD COMP: 11/10/24 ENTERED: 11/10/24 [facility] DR: ORDERED: CBC Auto Diff Test Result Flag Reference WBC 8.4 4.8-10.8 X10*3/uL RBC 4.93 4.20-5.50 X10*6/uL HGB 12.3 12.0-16.0 g/dl HCT 38.5 37.0-47.0 % MCV 78.1 L 80.0-98.0 fL MCH 24.9 L 27.0-33.0 pg MCHC 31.9 31.0-35.0 g/dl RDW 15.1 11.0-16.0 % PLT 353 160-400 X10*3/uL MPV 10.0 9.4-12.3 fL Neut Pct Auto 53.8 45-73 % ImGran Pct Auto 0.2 0.0-0.4 % Lymp Pct Auto 37.0 20-40 % Sargent Pct Auto 6.3 2-11 % Eos Pct Auto 2.1 0-4 % Baso Pct Auto 0.6 0-2 % NRBC Pct Auto 0.0 0.0-0.2 /100WBC ANC Neut Abs # 4.5 2.0-8.3 x10*3/uL ImGran Abs Auto 0.02 0.00-0.03 X10*3/uL Lymph Abs Auto 3.1 1.2-4.9 X10*3/uL Sargent Abs Auto 0.5 0.1-1.2 X10*3/uL Eos Abs Auto 0.2 0.0-0.4 X10*3/uL Baso Abs Auto 0.1 0.0-0.2 X10*3/uL NRBC Abs Auto 0.000 0.0-0.012 X10*3/uL Name: Renea Underwood Age/Sex: 24/F : 2000 Unit#: [id number] Attend Dr: Cheryl Hutchison MD Re11/10/24 Status: DEP REF Location: [facility] Disch: SPEC : [id number] JACINTO: 11/10/24-2 STATUS: COMP REQ : [id number] RECD: 11/10/24-[address]: Cheryl Hutchison MD COMP: 11/10/24-1554 ENTERED: 11/10/24-1119 [facility] [address]: ORDERED: Met Prof Fast, AST, ALT, Lipid Panel, Vitamin D 25-OH Test Result Flag Reference Sodium 140 135-145 mmol/L Potassium 4.4 3.3-5.1 mmol/L CL 108 96-108 mmol/L CO2 27 22-29 mmol/L Gap 9 L 12-20 BUN 11 9-16 mg/dL Creat 0.57 0.5-1.4 mg/dL eGFR > 60 Chronic Kidney Disease: Estimated GFR < 60 mL/min/1.73m2 Severe Kidney Disease: Estimated GFR < 15 mL/min/1.73m2 FBS 95 60-99 mg/dL CA 8.9 8.4-10.2 mg/dL AST (GOT) 20 5-31 U/L ALT (GPT) 19 0-31 U/L Triglyceride 83 <150 mg/dL Desirable Triglyceride: less than 150 mg/dL Borderline High Triglyceride 150-199 mg/dL High Triglyceride: 200-499 mg/dL Very High Triglyceride: greater than or equal to 5OO mg/dL Cholesterol 144 <200 mg/dL Desirable Cholesterol: less than 200 mg/dL Borderline High Cholesterol: 200-239 mg/dL High Cholesterol: greater than 239 mg/dL LDL Calculated 81 <100 mg/dL Desirable LDL: less than 100 mg/dL Near Optimal/Above Optimal LDL: 110-129 mg/dL Borderline High LDL: 130-159 mg/dL High LDL: 160-189 mg/dL Very High LDL: greater than or equal to 190 mg/dL HDL 47 >40 mg/dL Desirable HDL: greater than 40 mg/dL Note: This HDL assay may give artificially low results in patients with liver disease. Vitamin D 25-OH 15.2 L >30 ng/mL Health Based Reference Values* < 20 ng/mL Deficient 20-30 ng/mL Insufficient > 30 ng/mL Sufficient Coding Level of Care Code Est Pt Prev Care 18-39y(22384) Diagnoses Annual visit for general adult medical examination with abnormal findings Z00. Essential hypertension I10 Depression with anxiety F41.8 Morbid obesity E66.01 Allergic rhinitis J30.9 Heartburn R12 Sleep apnea G47.30 Mild intermittent asthma J45.20 Advance directive declined by patient Z78.9 Additional Codes Asthma Control Questionnaire - ACT Interpretation: Negative ([id number]) Vital Signs *Quality* - Advance Care Planning discussion: Completed/Scanned ([id number]) Vital Signs *Quality* - Time spent: 16-45 minutes ([id number]) Assessment & Plan Assessment & Plan (1) Annual visit for general adult medical examination with abnormal findings: Code(s): Z00.01 - Encounter for general adult medical examination with abnormal findings (2) Essential hypertension: Code(s): I10 - Essential (primary) hypertension Category: Medical (3) Depression with anxiety: Code(s): F41.8 - Other specified anxiety disorders Category: Medical (4) Morbid obesity: Code(s): E66.01 - Morbid (severe) obesity due to excess calories Category: Medical (5) Allergic rhinitis: Code(s): J30.9 - Allergic rhinitis, unspecified Category: Medical (6) Heartburn: Code(s): R12 - Heartburn Category: Medical (7) Sleep apnea: Code(s): G47.30 - Sleep apnea, unspecified Category: Medical (8) Mild intermittent asthma: Code(s): J45.20 - Mild intermittent asthma, uncomplicated Category: Medical (9) Advance directive declined by patient: Code(s): Z78.9 - Other specified health status Plan The patient will begin a high-dose vitamin D regimen for three months, followed by maintenance with [id number] vitamin D3 to address the deficiency. Blood pressure management will continue with the current regimen of losartan and amlodipine, ensuring regular monitoring to maintain control. The patient is advised to consider bariatric surgery as a long-term solution for obesity, with dietary modifications recommended to support weight loss efforts. Due to financial constraints, assistance from [facility] will be sought to address food insecurity and housing instability.T Continued on escitalopram and trazodone bedtime, encouraged to follow up with mental health services for ongoing management of depression and anxiety. Prescription sent for tramadol-betamethasone cream 1-0.05% to apply topically to affected area twice a day for no more than 10 days at a time. Keep these areas clean and dry at all times. Up-to-date with her Tdap vaccination, reminded to get yearly flu shots Currently on famotidine 40 mg daily for heartburn symptoms, and reminded that she has a scheduled for an upper GI series later this month takes fluticasone nasal spray and Martita as needed for seasonal allergic symptoms. Recommended getting dental cleaning every 6 months and eye exams every 2 years. Declines getting cervical cancer screening pelvic exam at present time Patient was informed and verbally consented to the use of an ambient scribe for clinic note documentation during this visit. Medications: New cholecalciferol (vitamin D3) 1,250 mcg PO QWEEK 13 caps 0RF 3 months clotrimazole-betamethasone 1-0.05 % 1 appl topical BID PRN 15 grams 0RF Intertrigo 7 days
--- OUTSIDE RECORDS SUMMARY | 2024-11-12 11:06 | XMS_ITS | Clinical Summary ---
Author Organization [facility] it Address [address] [place] [address] Care Team Providers Care Metal Spraying Machine Operator Name Role Phone Unavailable Primary [...]
--- OUTSIDE RECORDS SUMMARY | 2024-11-12 11:06 | XMS_ITS | Encounter Summary ---
Author Organization [facility] Address [address] [place], [place] [id number] Phone Care Team Providers Care [employer] Department Head Name Role Phone Angelica Heaton MD Primary Care Provider [phone] Reason for Visit * Reason Onset Date Comments Med Refill 09/27/2019 Encounter Details Date Type Department Care Team ([facility] st Contact Info) Description 09/27/2019 Refill [facility] [address] [place] [address] Angelica Heaton MD [address] [place] [address] Moderate persistent asthma without complication; Seasonal allergic [...] trigger documented in this encounter Care Teams [employer] Department Head Relationship Specialty Start Date End Date Angelica Heaton MD [address] [place] [id number] PCP - General Pediatrics 11/16/18 07/22/22 documented as of this encounter
== END 2024-11-12 11:47 | disposition home or self-care (01) ==
LOC: HO.HMCC 10:25
PROVIDERS: Visit Provider Internal Medicine
DX: Z00.01 Encounter for general adult medical examination with abnormal findings (principal); I10 Essential (primary) hypertension; F41.8 Other specified anxiety disorders; E66.01 Morbid (severe) obesity due to excess calories; J30.9 Allergic rhinitis, unspecified; R12 Heartburn; G47.30 Sleep apnea, unspecified; J45.20 Mild intermittent asthma, uncomplicated; Z78.9 Other specified health status; Z68.45 Body mass index [BMI] 70 or greater, adult

== ENCOUNTER → 2024-11-12 10:24 | Outpatient (BNVA) | payer OTHER, SELFPAY | PROVIDERS: Visit Provider Internal Medicine | DX: Z00.01 Encounter for general adult medical examination with abnormal findings (principal); I10 Essential (primary) hypertension; E55.9 Vitamin D deficiency, unspecified; E66.9 Obesity, unspecified; F41.8 Other specified anxiety disorders; J30.9 Allergic rhinitis, unspecified; R12 Heartburn; G47.30 Sleep apnea, unspecified; J45.20 Mild intermittent asthma, uncomplicated; Z78.9 Other specified health status; Z59.41 Food insecurity; Z59.819 Housing instability, housed unspecified; Z68.45 Body mass index [BMI] 70 or greater, adult | CPT/HCPCS: 96160; 99395; 99497 ==

== ENCOUNTER 2025-01-04 13:29 | Outpatient (AMB) | payer OTHER, SELFPAY ==
--- NOTE | 2025-01-04 13:31 | MHC.OFFVIS ---
Vital Signs 01/04/25 13:45 Height 5 ft 1 in Weight 380 lb BMI 71.8 BP 118/58 L Blood Pressure Location Lt brachial Position Sitting Pulse 83 Pulse Oximetry (%) 96 Oxygen Delivery Method Room Air Intake Visit Reasons: Heartburn Intake Note: Renea presents in the office as a new patient for heartburn. Patient cc: abdominal pain with bloating, heartburn come and go, and swallowing diffisculties. Denies anyother GI issue for today Packaging Sales Consultant Required: No Accompanied by: Self / Same As Patient Allergies apple Allergy (Verified 01/04/25 13:43) Itching cantaloupe Allergy (Verified 01/04/25 13:43) Itching kiwi Allergy (Verified 01/04/25 13:43) Itching shellfish derived Allergy (Verified 01/04/25 13:43) Facial Swelling strawberry Allergy (Verified 01/04/25 13:43) Itching Medication List - Last Reconciled 01/04/25 by Lea Galeano CNP alum-mag hydroxide-simeth 200-200-20 mg/5 mL (Maalox Advanced) 5 mL PO 5XD PRN amlodipine 5 mg PO DAILY 3 months cholecalciferol (vitamin D3) 1,250 mcg PO QWEEK 3 months clotrimazole-betamethasone 1-0.05 % 1 appl topical BID PRN 7 days escitalopram oxalate 20 mg PO DAILY famotidine 40 mg PO DAILY fexofenadine (Allergy Relief (fexofenadine)) 180 mg PO DAILY fluticasone propionate 50 mcg/actuation (Flonase Allergy Relief) 1 spray intranasal DAILY PRN losartan 50 mg PO DAILY 3 months omeprazole 20 mg PO DAILY trazodone 50 mg PO BEDTIME PRN HPI HPI Heartburn: Details: Patient is a 27-year-old female with PMH of anxiety, depression, asthma, hypertension. Referred by PCP for further evaluation of GERD Patient reports longstanding reflux symptoms, initially noted in childhood when symptoms were severe enough to require reports of pulmonary lavage. Symptoms resolved during adolescence but recurred approximately one year ago. Currently reports burning pain in the esophageal and upper epigastric regions, often sharp enough to cause significant distress and interfere with sleep. Pain episodes can last up to an hour but are sometimes helped by famotidine, which patient has been taking daily for the past month with partial relief. Also endorses heartburn after eating, most notably following ingestion of tomato-based foods and red sauces, as well as episodic regurgitation and dysphagia with both solids and liquids. Bowel habits are regular with daily stools, without evidence of incomplete evacuation or rectal bleeding. Reports sensation of postprandial nausea on occasion. Also has a small umbilical hernia found incidentally on prior imaging. PMH notable for asthma (no recent flares, not on inhaler currently), hypertension, and depressive symptoms. Medications include anti-hypertensives, vitamin supplementation, and psychiatric meds. Lifestyle modifications and diet triggers have not yet been optimized. Patient enrolled in weight management program but lost insurance coverage over summer; intends to resume. Social factors may influence patient?s ability to access ongoing care. Patient denies: fever/chills, n/v, appetite changes, unintentional wt loss, ab pain or melena/hematochezia. Social hx: -ETOH use, 1-2x/year -marijuana gummies HS, denies other recreational drug use -non-smoker - family hx as below -denies personal hx of CA -tolerated anesthesia in the past without difficulty. [facility] Medical History (Updated 01/04/25 @ 14:52 by Lea Galeano CNP) Umbilical hernia Dysphagia Mild intermittent asthma Impaired concentration Sleep apnea Essential hypertension Depression with anxiety Morbid obesity Heartburn Asthma Surgical History No pertinent past surgical history Family History Father Substance use disorder Paternal Grandmother Mental health disorder Paternal Aunt Mental health disorder Maternal Grandmother Mental health disorder Mother Mental health disorder Sister Mental health disorder Social History Housing: House Patient Tobacco Use Status: Former Tobacco user e-Cigarette/Vaping Use: Never Used service: No Current occupational status: employed Cognitive needs: No Hearing needs: No Vision needs: Yes Review of Systems Const Reports as per HPI ENT Reports as per HPI Card Reports as per HPI Resp Reports as per HPI GI Reports as per HPI Reports as per HPI Physical Exam Vital Signs: Last Vital Signs Pulse 83 01/04/25 13:45 BP 118/58 L 01/04/25 13:45 Pulse Ox 96 01/04/25 13:45 Oxygen Delivery Method Room Air 01/04/25 13:45 BMI result Body Mass Index 71.8 Const General: healthy appearing, no acute distress and well developed Nutritional Appearance: obese Orientation/consciousness: patient oriented x3 HEENT Head: Yes normal to inspection, Yes normocephalic and Yes atraumatic Face and sinus: Yes normal facial exam Eyes General: appearance normal, both eyes and all related structures Neck Neck: Yes normal visual inspection Resp Effort & Inspection: normal respiratory effort, able to speak in complete sentences, no tracheal deviation and symmetric chest movement Cardio Jugular venous distension: no JVD GI Inspection: Yes normal to inspection, No distended and Yes obesity Palpation (GI): Soft to palpation, not firm, nontender and No hepatosplenomegaly present Auscultation: normal bowel sounds Neuro General: patient oriented x3 Gait exam (Neuro): Normal gait present Psych Appearance: grossly normal Mental Status: mental status grossly normal Speech and movement: Normal speech and movement present Affect: normal affect Attitude: cooperative Thought process: Normal thought process present Thought content: Normal thought content present Insight: Good insight present (Psych) Judgement: Good judgement present (Psych) Results Reviewed Results Reviewed: Date of Service: 07/20/24 Procedure(s): CT abdomen pelvis w IV con Accession Number(s): [id number] cc: Physician,None ; Aline Dc~ Report Number: [id number]: Total DLP = 1945.00 mGy-cm EXAMINATION: CT ABDOMEN AND PELVIS WITH CONTRAST CLINICAL INFORMATION: Left upper quadrant pain, nausea and vomiting. COMPARISON: None available. TECHNIQUE: Multidetector volumetric images were obtained from the superior aspect of the liver through the pubic symphysis following administration 85 mL of Omnipaque 350 intravenous contrast. Sagittal and coronal reformatted images were obtained on the technologist's workstation. Oral contrast: No This CT examination was performed using dose optimization techniques as appropriate, variously including the following: *Automated exposure control *Adjustment of mA and/or kV according to patient size (this includes techniques or standardized protocols for targeted exams where dose is matched to indication/reason for exam; i.e. extremities or head) *Use of iterative reconstruction technique DLP: 1945 mGy/cm. FINDINGS: LUNG BASES: Heart size is normal. There are 2 mm nodules right lower lobe axial image 05/19 and 06/16. LIVER, GALLBLADDER, AND BILIARY TREE: The liver is normal in size, shape, and attenuation. No focal hepatic lesion or biliary ductal dilatation is present. The gallbladder is unremarkable with no evidence of radiopaque gallstones, gallbladder wall thickening, or obvious pericholecystic inflammatory changes. PANCREAS: Unremarkable. SPLEEN: Unremarkable. ADRENAL GLANDS: Unremarkable. KIDNEYS AND URETERS: The kidneys are normal in size, shape, and attenuation. No hydronephrosis, hydroureter, or calculi seen. No perinephric stranding. BLADDER: Unremarkable. GASTROINTESTINAL TRACT: There is scattered stool and gas seen in the right colon. The small bowel loops are nondistended. No free air or free fluid seen. ABDOMINAL WALL: A small umbilical hernia containing fat is noted. LYMPH NODES: Normal. VASCULAR: Unremarkable. PELVIC VISCERA: The uterus is anteverted and appears unremarkable. OSSEOUS STRUCTURES: No aggressive lytic or sclerotic process seen. CT/CT abdomen pelvis w IV con IMPRESSION: Small umbilical hernia containing fat. Otherwise no acute intra-abdominal process seen Fleischner guidelines were followed. Assessment & Plan Assessment & Plan (1) Heartburn: Code(s): R12 - Heartburn Category: Medical Plan: Chronic and recurrent reflux symptoms, burning epigastric pain, postprandial exacerbation, known triggers, dysphagia, and regurgitation. Partial response to H2 li, Additional Testing: Upper GI series with barium swallow( existing order updated) to assess for structural abnormalities; to include assessment for stricture, hernia, and swallowing function. Medication Management: -Initiate omeprazole as daily PPI, to be taken before first meal, 30 min prior to food/drink except water. - continue famotidine Lifestyle Recommendations: Avoid established dietary triggers (tomato-based products, spicy/fried/fatty foods); eat smaller meals, avoid overeating, maintain upright posture postprandially. Promote weight loss?resume weight management program. Intermittent fasting info provided. Follow-Up: Schedule follow-up after completion of imaging to review results and assess response to PPI. Reinstate weight management program appointment. (2) Morbid obesity: Code(s): E66.01 - Morbid (severe) obesity due to excess calories Category: Medical Plan: BMI 71.8. Discussed in context of GERD management and weight management program; obesity is a known risk factor for refractory GERD. Additional Testing: None at this time; monitor weight and BMI at follow-up. Medication Management: None specific for obesity at this visit. Lifestyle Recommendations: Resume weight management program. Emphasize dietary modification, portion control, avoidance of high-calorie trigger foods, and consider intermittent fasting as discussed. Encourage regular physical activity as tolerated. Follow-Up: Coordinate with weight management program for re-enrollment; monitor progress at GI follow-up. (3) Umbilical hernia: Code(s): K42.9 - Umbilical hernia without obstruction or gangrene Category: Medical Qualifiers: Obstruction and gangrene presence: without obstruction or gangrene Qualified Code(s): K42.9 - Umbilical hernia without obstruction or gangrene Plan: Incidental finding on CT; no signs of obstruction, no localized symptoms. Additional Testing: None required at this time; monitor for symptoms. Medication Management: None Lifestyle Recommendations: Observe for change in size, pain, or new GI symptoms. Avoid heavy lifting as precaution. Follow-Up: Monitor in conjunction with routine visits. Plan Follow-up in 3 months or sooner as needed Time: I spent a total of 30 minutes on the date of encounter which includes: Preparing to see the patient (reviewed previous documentation, test results and medical history) Performing a medically appropriate exam and/or evaluation Ordering medications, tests, and procedures Documenting clinical information in the health record Orders: Orders [place] upper GI w air w Ba Swallow Today Lea Galeano CNP E66.01 - Morbid (severe) obesity due to excess calories, R12 - Heartburn, R13.10 - Dysphagia, unspecified Medications: New omeprazole Take one tablet daily. Best taken on an empty, 30 minutes before eating. 20 mg PO DAILY 90 caps 1RF Lea Galeano CNP Changed From fluticasone propionate 50 mcg/actuation (Flonase Allergy Relief) administer into each nostril 1 spray intranasal DAILY 9.9 mL 1RF J30.9 - Allergic rhinitis, unspecified To fluticasone propionate 50 mcg/actuation (Flonase Allergy Relief) administer into each nostril 1 spray intranasal DAILY PRN J30.9 - Allergic rhinitis, unspecified Cara Whitney NP Coding Level of Care Code New Pt New Pt Level 3 (15343) Patient Type New Diagnoses Heartburn R12 Morbid obesity E66.01 Umbilical hernia without obstruction and without gangrene K42.9 Obstruction and gangrene presence: without obstruction or gangrene
[2025-01-04 13:45] VITALS: BP 118/58; PULSE 83; O2SAT 96; BMI 71.8
--- OUTSIDE RECORDS SUMMARY | 2025-01-04 14:48 | XMS_ITS | Encounter Summary ---
Author Organization [facility] Address [address] [place], [place] [address] Phone Care Team Providers Care Nursing Associate Name Role Phone Angelica Heaton MD Primary Care Provider [phone] Reason for Visit * Reason Onset Date Comments Med Refill 11/16/2019 Encounter Details Date Type Department Care Team ([facility] st Contact Info) Description 11/16/2019 Refill [facility] [place] [address] [place] [address] Angelica Heaton MD [address] [place] [address] Moderate persistent asthma without complication; Seasonal allergic [...] trigger documented in this encounter Care Teams Nursing Associate Relationship Specialty Start Date End Date Angelica Heaton MD [address] [place] [address] PCP - General Pediatrics 11/16/18 07/22/22 documented as of this encounter
--- OUTSIDE RECORDS SUMMARY | 2025-01-04 14:48 | XMS_ITS | Encounter Summary ---
Author Organization [facility] Address [address] [place], [place] [phone] Phone Care Team Providers Care Manager Of Loss Prevention Operations Name Role Phone Angelica Heaton MD Primary Care Provider [phone] Reason for Visit * Reason Onset Date Comments Med Refill 09/27/2019 Encounter Details Date Type Department Care Team ([facility] st Contact Info) Description 09/27/2019 Refill [facility] [place] [address] [place] [address] Angelica Heaton MD [address] [place] [address] Moderate persistent asthma without complication; Seasonal allergic [...] trigger documented in this encounter Care Teams Manager Of Loss Prevention Operations Relationship Specialty Start Date End Date Angelica Heaton MD [address] [place] [address] PCP - General Pediatrics 11/16/18 07/22/22 documented as of this encounter
--- OUTSIDE RECORDS SUMMARY | 2025-01-04 14:49 | XMS_ITS | Clinical Summary ---
Author Organization [facility] it Address [address] [place] [address] Care Team Providers Care Paper Cutter Name Role Phone Unavailable Primary Care Provider [...] 03/14/2022 Social Influencers of Health Screening 03/14/2022 Depression Screening 04/11/2024 COVID-19 Vaccine ( - 2023-2 5 season) 2024 Influenza Vaccine (#1) 2024 HIB Vaccines Aged [...]
--- OUTSIDE RECORDS SUMMARY | 2025-01-04 14:49 | XMS_ITS | Encounter Summary ---
Author Organization [facility] Address [address] [place], [place] [phone] Phone Care Team Providers Care Video Editing Internship Name Role Phone Angelica Heaton MD Primary Care Provider [phone] Reason for Visit * Reason Onset Date Comments Med Refill 02/15/2020 Encounter Details Date Type Department Care Team ([facility] st Contact Info) Description 02/15/2020 Refill [facility] [place] [address] [place] [address] Angelica Heaton MD [address] [place] [address] Seasonal allergic rhinitis, unspecified trigger; Moderate persistent [...] complication documented in this encounter Care Teams Video Editing Internship Relationship Specialty Start Date End Date Angelica Heaton MD [address] [place] [address] PCP - General Pediatrics 11/16/18 07/22/22 documented as of this encounter
--- OUTSIDE RECORDS SUMMARY | 2025-01-04 14:49 | XMS_ITS | Encounter Summary ---
Author Organization [facility] Address [address] [place] [address] Phone Care Team Providers Care Wheel And Caster Repairer Name Role Phone Angelica Heaton MD Primary Care Provider [phone] Reason for Visit * Reason Comments Med Refill Encounter Details Date Type Department Care Team ([facility] Contact Info) Description 05/02/2022 Refill [facility] [address] [place] [address] Angelica Heaton MD [address] [place] [address] Menorrhagia with regular cycle Social History Tobacco [...] cycle documented in this encounter Care Teams Wheel And Caster Repairer Relationship Specialty Start Date End Date Angelica Heaton MD [address] [place] [address] PCP - General Pediatrics 11/16/18 07/22/22 documented as of this encounter
--- OUTSIDE RECORDS SUMMARY | 2025-01-04 14:49 | XMS_ITS | Encounter Summary ---
Author Organization [facility] Address [address] [place] [address] Phone Care Team Providers Care Flat Grinder Operator Name Role Phone Angelica Heaton MD Primary Care Provider [phone] Reason for Visit * Reason Comments Med Refill Encounter Details Date Type Department Care Team ([facility] Contact Info) Description 01/29/2022 Refill [facility] [address] [place] [address] Angelica Heaton MD [address] [place] [address] Menorrhagia with regular cycle Social History Tobacco [...] cycle documented in this encounter Care Teams Flat Grinder Operator Relationship Specialty Start Date End Date Angelica Heaton MD [address] [place] [address] PCP - General Pediatrics 11/16/18 07/22/22 documented as of this encounter
--- OUTSIDE RECORDS SUMMARY | 2025-01-04 14:49 | XMS_ITS | Encounter Summary ---
Author Organization [facility] Address [address] [place] [address] Phone Care Team Providers Care Oral Health Therapist Name Role Phone Angelica Heaton MD Primary Care Provider [phone] Reason for Visit * Reason Comments Med Refill Encounter Details Date Type Department Care Team ([facility] Contact Info) Description 07/25/2021 Refill [facility] [address] [place] [address] Angelica Heaton MD [address] [place] [address] Menorrhagia with regular cycle (Primary Dx) Social [...] will be her last well visit at [facility]. * Telephone Encounter - Josselin Brunson LPN - 07/26/2021 12:56 PM EDT Pharm requesting refill OCP. EH documented in this encounter Plan of Treatment Not on file documented as of this encounter Visit Diagnoses Diagnosis Menorrhagia with regular cycle- Primary documented in this encounter Care Teams Oral Health Therapist Relationship Specialty Start Date End Date Angelica Heaton MD [address] [place] [address] PCP - General Pediatrics 11/16/18 07/22/22 documented as of this encounter
--- OUTSIDE RECORDS SUMMARY | 2025-01-04 14:49 | XMS_ITS | Encounter Summary ---
Author Organization [facility] Address [address] [place] [address] Phone Care Team Providers Care Hand Shaker Name Role Phone Angelica Heaton MD Primary Care Provider [phone] Reason for Visit * Reason Comments Med Refill Encounter Details Date Type Department Care Team ([facility] Contact Info) Description 11/22/2021 Refill [facility] [address] [place] [address] Angelica Heaton MD [address] [place] [address] Menorrhagia with regular cycle Social History Tobacco [...] cycle documented in this encounter Care Teams Hand Shaker Relationship Specialty Start Date End Date Angelica Heaton MD [address] [place] [address] PCP - General Pediatrics 11/16/18 07/22/22 documented as of this encounter
--- OUTSIDE RECORDS SUMMARY | 2025-01-04 14:49 | XMS_ITS | Encounter Summary ---
Author Organization [facility] Address [address] [place] [address] Phone Care Team Providers Care Collection Coordinator Name Role Phone Angelica Heaton MD Primary Care Provider [phone] Reason for Visit * Reason Comments Med Refill Encounter Details Date Type Department Care Team ([facility] Contact Info) Description 01/17/2018 Refill [facility] [place] [address] [place] [address] Brooke Conklin MD [address] [place] [address] Menorrhagia with irregular cycle (Primary Dx) Social [...] Primary documented in this encounter Care Teams Collection Coordinator Relationship Specialty Start Date End Date Angelica Heaton MD [address] [place] [address] PCP - General Pediatrics 11/16/18 07/22/22 documented as of this encounter
--- OUTSIDE RECORDS SUMMARY | 2025-01-04 14:49 | XMS_ITS | Encounter Summary ---
Author Organization [facility] Address [address] [place] [address] Phone Care Team Providers Care Architectural Engineer Name Role Phone Angelica Heaton MD Primary Care Provider [phone] Encounter Details Date Type Department Care Team ([facility] st Contact Info) Description 07/12/2016 Documentation [facility] [place] Family Medicine [address] [place] [address] Family Medicine, Physician [address] [place] [address] Social History Tobacco Use Types Packs/Day Years [...] on filedocumented in this encounter Care Teams Architectural Engineer Relationship Specialty Start Date End Date Angelica Heaton MD [address] [place] [address] PCP - General Pediatrics 11/16/18 07/22/22 documented as of this encounter
--- OUTSIDE RECORDS SUMMARY | 2025-01-04 14:49 | XMS_ITS | Encounter Summary ---
Author Organization [facility] Address [address] [place], [place] [phone] Phone Care Team Providers Care Manager Wireless Name Role Phone Angelica Heaton MD Primary Care Provider [phone] Reason for Visit * Reason Onset Date Comments Med Refill 05/09/2020 Encounter Details Date Type Department Care Team ([facility] Contact Info) Description 05/09/2020 Refill [facility] [place] [address] [place] [address] Angelica Heaton MD [address] [place] [address] Seasonal allergic rhinitis, unspecified trigger; Menorrhagia with [...] cycle documented in this encounter Care Teams Manager Wireless Relationship Specialty Start Date End Date Angelica Heaton MD [address] [place] [phone] PCP - General Pediatrics 11/16/18 07/22/22 documented as of this encounter
--- OUTSIDE RECORDS SUMMARY | 2025-01-04 14:49 | XMS_ITS | Clinical Summary ---
Author Organization [facility] Address [address] [place] [id number] Phone Care Team Providers Care Supervisor Assembling Name Role Phone Unavailable Primary Care Provider Unavailabl e Allergies Active Allergy Reactions Criticality Noted Date Comments Clam Shell 04/06/2017 Environmental 04/06/2017 Cat,dog, hamster Food 04/06/2017 Golden, tomato,cantelope,apples, seafood Shellfish-Derived Products 7 Medications Spacer/Aero-Hold [...] a1c 5.7. Renea is working with a gallery host and is considering bariatric surgery. Continue to follow. Needs Adult MD. 02/02/2022 (age 21yr): Is continuing to work with gallery host. Assessment & Plan (02/02/2022 10:33 AM EDT): 02/02/2022 (age 21yr): Is continuing to work with gallery host. Lab test positive for detection of COVID-19 viru s 04/12/2021 Assessment & Plan (04/12/2021 11:37 AM EST): Pt positive for covid - testing done at 'Stop the spread . Other family members positive as well Pt with multiple significant risk factors Referred to [facility] - form for referral filled [...] (switched from hydrochlorothiazide to amlodipine on 12/18/2019). [facility] involved. Urgent cardiology visit scheduled for 03/[address] Hickey at [facility] cardio [facility]. Ran out of OCPS 4 days ago. - I contacted Dr. Hutchinson who felt that OCP were still reasonable in [place]. I will continue to prescribe as long as she see the cardiology in March. - Follow up with adult cardiology - Last Specialist Visit: [facility] cardiology 02/12/2022, started on amlodipine and losartan. OCP refilled with 3 RF and message to [facility] to contact Renea to help her transition to adult medicine. 01/25/2022 Chart Review: [facility] - 03/22/2021 158/87 Wing ED - 12/08/2021 162/92 in the office - 12/09/2021 153/74,then 118/62 at [facility] ED - 01/05/2022: BP-150/104 at [facility], sent to ED. No note in chart 02/02/2022 (age 21yr): 138/84 in the office Detailed History and Chronology of care: 12/08/2021 (age 21yr): BP high today, ran out of meds 04/2020 and has not had refills. Diagnosed by cardiology 07/2018. Last visit with Dr. Hutchinson was 12/18/2019. Was on losartan 50 mg and amlodipine 5mg. (switched from hydrochlorothiazide to amlodipine on 12/18/2019). [facility] involved as of 11/03/2021 Follow up with adult cardiology. 12/09/2021 (age 21yr): Sent to ED with elevated HR and chest pain. 12/29/2021 (age 21yr): Urgent cardiology visit scheduled for 03/17/[address] Hickey at [facility] Adult cardio [facility]. Assessment & Plan (12/08/2021 1:06 PM EDT): 12/08/2021 (age 21yr): BP high today, ran out of meds 04/2020 and has not had refills. Diagnosed by cardiology 07/2018. Last visit with Dr. Hutchinson was 12/18/2019. Now on losartan 50 mg and amlodipine 5mg. (switched from hydrochlorothiazide to amlodipine on 12/18/2019). [facility] involved as of 11/03/2021 Per [facility], Pt will call Dr. Hutchinson to see if he can follow up with her. Otherwise refer to adult cardiology at [facility]. Now, Joheliz state she would like [...] from Dr. Hutchinson ready for pt to draft roller picker from the pharmacy (amlodipine 5mg and [...] specialty appointments. Reintroduced to Davide Angeles our animal caretaker supervisor today for supports with prioritizing booking specialist visits as well as working on transition to adult medicine given complex adult care needs. Assessment & Plan (02/02/2022 10:41 AM EDT): 02/02/2022 (age 21yr): Mother concerned that Renea is having a hard to keeping track of her appointments and medical issues. [facility] involved to assist. Assessment & Plan (08/03/2020 [...] not had a therapist for 1 year. [facility] to assist in finding new provider. 02/02/2022 (age 21yr): still doesn't have a provider. [facility] involved to assist. Also needs to move to adult medicine. Detailed History and Chronology of care: Dx [address] Virgil Jang MD via Telepsych from [facility] - He recommends a lithium trial. Then followed by Dr. Wilson (interim) - Mother is willing to travel to [place] for regular in person psychiatric evaluations and supports. Will refer to psych at [facility]. [facility] will not accept the patient and advised that she be evaluated by a psychiatrist in [place] ([facility]) 07/2020: visit with Dr. Newman at [facility] as a new consult/evaluation, previously seen by Dr. Wilson and struggled to get in elsewhere, so were happy to have this evaluation - he is writing for medication for pt. Still seeing Mckenzie Turner for therapy (half-way, for years) Assessment & Plan (02/02/2022 10:32 AM EDT): 02/02/2022 (age 21yr): still doesn't have a provider. [facility] involved to assist. Also needs to move to adult medicine. Assessment & Plan (12/08/2021 1:07 PM EDT): 12/08/2021 (age 21yr): 12/08/2021 (age 21yr): psychiatrist just left, on escilatopram and trazadone. No meds for bipolar reported by pt. Has not had a therapist for 1 year. [facility] to assist in finding new provider. Assessment [...] 9:38 AM EDT): Seeing Dr. Wilson at [facility]. Gets meds through him. On Quetieapine (and adderall). D/C'd lexapro several month ago. Assessment & Plan (05/08/2018 2:53 PM EST): [facility] will not accept the patient and advised that she be evaluated by a psychiatrist in [place] ( [facility]) Heavy periods 12/21/2017 Overview (05/03/2022): 02/02/2022 [...] OCPs. Sabinojackie also needs to see a SALES OUTFITTER. - start isibloom with next menses - I can continue to prescribe as long as Renea keeps her cardiology appointment in March. - Renea needs to transition to an adult provider before she is due for her next well visit. - Last Specialist Visit: [facility] cardiology 02/12/2022, started on amlodipine and losartan. OCP refilled with 3 RF and message to [facility] to contact Renea to help her transition to adult medicine. Detailed History and Chronology of care: 07/2020: pt taking the same OCPs with better menses management - refilled at 07/2020, discussed transition to adult provider/SALES OUTFITTER provider for ongoing care. 07/27/2021 (age 20yr): Will HTN and headaches, I wonder if progesterone only BC would be safer for Renea. OCP refilled for the Next month, will discuss this at well visit in August. Will suggest SALES OUTFITTER for BC care. 08/02/2021 (age 20yr): Started [...] HTN. Renea also needs to see a SALES OUTFITTER. 12/29/2021 (age 21yr): Urgent cardiology visit scheduled [...] OCPs. Renea also needs to see a SALES OUTFITTER. - start isibloom with next menses - [...] would like her to have a current button station worker to confirm this. Renea also needs to see a SALES OUTFITTER. Assessment & Plan (08/03/2020 9:57 PM EDT): OCPs refilled at - work on transitioning to adult PCP and SALES OUTFITTER provider if needed - information had previously [...] BLAYNE Identified on sleep study 10/06/2020 at [facility]. . - Last Specialist Visit: : [...] help with control of her hypertension. [employer] was contacted, they confirmed a bill [...] 10/06/2020: BLAYNE Identified on sleep study at [facility] 10/29/2020 (age 20yr): . Referred to sleep medicine at [facility] for CPAP. Renea is having headaches [...] help with control of her hypertension. [employer] was contacted, they confirmed a bill [...] BLAYNE Identified on sleep study 10/06/2020 at [facility]. Assessment & Plan (10/29/2020 6:12 AM EDT): 10/29/2020 (age 20yr): BLAYNE Identified on sleep study 10/06/2020 at [facility]. Referred to sleep medicine at [facility] for CPAP. Renea is having headaches [...] these allergies, mom would like to see stable cleaner for further testing and plans to schedule her own appointment. Already has UTD epipen (12/2019) 11/03/2021 (age 21yr): Per [facility], referral re requested. Referral placed and pt to make her own appt. Assessment & Plan (08/03/2020 9:52 PM EDT): Pt already has UTD epipen, aware of when to use this, and stable cleaner at [facility] requested for follow up, information was previously given, pt/mom to book. Assessment & Plan (07/23/2020 11:41 PM EDT): Referral to stable cleaner and pt/family to book appointment with adult stable cleaner for further evaluation and follow up. Epipen is already UTD from 12/2019 visit so did not refill today. Assessment & Plan (12/15/2018 10:33 AM EDT): Needs to go back to stable cleaner. Assessment & Plan (01/02/2018 12:29 PM EDT): School med auth formed filled out. Seasonal allergic rhinitis 08/05/2016 Overview (12/08/2021): 12/08/2021 (age 21yr): Uses On martita 180 daily and singulair 10 mg as needed. Will be seeing stable cleaner. . Detailed History and Chronology of care: 07/20/2019 No current symptoms, will refill martita today ahead of allergy season. 07/2020: refill on singulair requested and has used martita in the past, requesting refills. Referred to stable cleaner for allergies and snoring 10/30/2020 (age 20yr): did not follow through on allergy referral. Assessment & Plan (12/08/2021 11:56 AM EDT): 12/08/2021 (age 21yr): Uses On martita 180 daily and singulair 10 mg as needed. Will be seeing stable cleaner. . Assessment & Plan (08/03/2020 9:51 PM [...] :Followed in the past by Pulm at [facility]. Last visit 01/2018. Seems to be overdue for 4 month follow up, in the past has requested med refills and referral to pulm. Has appt with adult pulm 01/2022. (missed appt ) - Last Specialist Visit: 06/23/2022 [facility] pulm Dr. Loera: Obestiry negatively impacting her health in many ways. Plan: Start symbicort, referred to for pulmonary rehab to do asth;ma teaching, home polysomnogram, PFTs Detailed History and Chronology of care: Was on singulair 10 mg and QVAR or flovent 110. Had bad asthma with GERD as young child, followed by [facility].( mother mentions that there might have been some aspiration). Seemed to resolve as she hit puberty she was off all control meds. Had exacerbation in 07/2016 and back on Qvar. History of poor compliance. 01/04/2018 ACT score 7 02/06/2018: saw Pulm at [facility], recommend flovent 110 2 P BID and [...] :Followed in the past by Pulm at [facility]. Last visit 01/2018. Seems to be overdue for 4 month follow up, in the past has requested med refills and referral to pulm. Has appt with adult pulm 01/2022. (missed appt ) Assessment & Plan (08/03/2020 9:38 PM EDT): Plans to return to [place] [facility] as already planned, family has information [...] of atypical pneumonia. Followed by Pulm at [facility]. Has follow up in May 2108. Assessment & Plan (01/06/2018 12:48 PM EDT): Patient in no obvious distress during this encounter and lung exam clear. Has subjective chest tightness. S/P treatment with 7 days of steroids. Low suspicion for pneumonia based on currently exam (including vitals). Patient has Pulm evaluation at [facility] next month. Note given for patient to [...] hours. Mom requesting referral to pulm at [facility] (mom says she was seen there when she was young, though I only see notes from [facility] pulm), so I will put referral in now. Mom wants us to make the appt for her. Class 3 severe obesity due t o excess calories with serious comorbidity in adult 03/25/2011 Overview (12/09/2021): 12/08/2021 (age 21yr): Working with gallery host to lose weight ahead of bariatric surgery. Working with Dr. aGndara. 12/09/2021 (age 21yr): Hyperinsulinemia note, Hgb A1C 5.7 unchanged since last year. Cholesterol normal. Detailed History and Chronology of care: Went to [facility] in 2008 but no success. Sleep study in 2008 was normal. 02/05/2021:Visit with general surgery (Dr Gandara), planning for bariatric surgery (sleeve)) Assessment & Plan (12/08/2021 11:55 AM EDT): 12/08/2021 (age 21yr): Working with gallery host to lose weight ahead of bariatric surgery. [...] not had a therapist for 1 year. [facility] to assist in finding new provider. 02/02/2022 (age 21yr): still doesn't have a provider. [facility] involved to assist. Also needs to move to adult medicine. Detailed History and Chronology of care: 2016. Partial hosp 02/2017 Inpatient hospitalization at [facility] 02/2018 Telepsych evaluation completed- dx with Bipolar 1 Disorder 12/15/2018: Seeing Dr. Wilson at [facility]. Gets meds through him. On Quetieapine (and adderall). D/C'd lexapro several month ago. Seeing Mckenzie Turner (therapist) for years. 07/2020: Continues with ongoing therapist (Mckenzie Turner) - has been seeing her for about 10 years, had a followup recently due to insurance issues and the soonest available was 07/2020 to recheck. Seen 07/[address] Newman at [facility] as a new consult/evaluation, Currently taking quetiapine and has hydroxyzine Assessment & Plan (02/02/2022 10:32 AM EDT): 02/02/2022 (age 21yr): still doesn't have a provider. [facility] involved to assist. Also needs to move to adult medicine. Assessment & Plan (12/08/2021 1:07 PM EDT): 12/08/2021 (age 21yr): psychiatrist just left, on escilatopram and trazadone. Has not had a therapist for 1 year. [facility] to assist in finding new provider Assessment & Plan (08/03/2020 9:50 PM EDT): Continue in therapy and work with med prescribers to get reestablished as transitions to adult provider Assessment & Plan (12/15/2018 10:31 AM EDT): Seeing Dr. Wilson at [facility]. Gets meds through him. On Quetieapine (and adderall). D/C'd lexapro several month ago. Doing well. Assessment & Plan (03/08/2018 3:59 PM EST): Advised to continue on this treatment regimen until in-person consult/follow up with psychiatrist at [facility]. Assessment & Plan (01/29/2018 4:40 PM EDT): Lexapro does not seem like it's helping according to mother and patient. Followed by Dr. Wilson at [facility] (interim), since previous psych provider no longer [...] not had a therapist for 1 year. [facility] to assist in finding new provider. 02/02/2022 (age 21yr): still doesn't have a provider. [facility] involved to assist. Also needs to move to adult medicine. Detailed History and Chronology of care: 12/15/2018: At [facility]. On Adderall xr [address] Wilson at [facility]. Gets meds through him. 07/2020: visit with Dr. Newman at [facility] as a new consult/evaluation, previously seen by Dr. Wilson and struggled to get in elsewhere, so were happy to have this evaluation - he is writing for medication for pt. 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 [facility] involved to assist. Also needs to move to adult medicine. Assessment & Plan (12/08/2021 1:06 PM EDT): 12/08/2021 (age 21yr): psychiatrist just left, no longer on ADHD meds. ADHD symptoms are bothering her. Has not had a therapist for 1 year. [facility] to assist in finding new provider. Assessment & Plan (12/15/2018 10:33 AM EDT): Classes just started. Seeing Dr. Wilson at [facility]. Gets meds through him. On adderall [...] a, Obesity, Migraines Other grandmother: Wiley dden /[place] under 55 Paternal Grandfather Paterna l grandfather: [...] 90 02/02/2022 8:42 AM EDT Temperature 36.6 C (97.9 F) 02/02/2022 8:42 AM EDT Respiratory Rate 24 04/26/2018 1:53 PM EST Oxygen Saturation 98% 10/07/2021 3:40 PM EDT Inhaled Oxygen Concentration - - Weight 152 kg (334 lb 12.8 oz) 02/02/2022 8:42 A M EDT Height 154.6 cm (5' 0.87 ) 12/08/2021 11:14 AM E DT Body Mass Index 63.54 12/08/2021 11:14 AM EDT Plan of Treatment Health Maintenance Due Date Last Done Comments Influenza Vaccines (#1) 2024 12/09/19, 03/17/2021, 12/15/2018, Additional history exists COVID-19 Vaccine ( season) 2024 12/08/2021, 08/20/2020, 07/23/2020 DTaP,Tdap,and Td Vaccines (8 [...] Completed 06/19/2019, 12/15/2018 Procedures * Due to [place] law, this organization might not be sharing sensitive test results. Procedure Name Priority Date/Time Associated Diagnosis Comments CHLAMYDIA AND GONORRHEA, AMPLIFIED Routine 12/08/2021 12:15 PM EDT Screening for chlamydial disease from Last 3 Months or Most Recently Relevant to Health Maintenance Results * Due to [place] law, this organization might not be sharing sensitive test results. * Chlamydia and Gonorrhoea, Amplified (12/08/2021 12:15 PM EDT) Chlamydia Trachomatis, DNA Probe NEGATIVE (NEG) [facility] Comment: No Chlamydia Trachomatis RNA detected in this patient's sample (REFERENCE RANGE/NORMAL VALUE: NOT DETECTED) Note: This test uses plate printer- mediated amplification method to detect rRNA from C. Trachomatis URINE GC AMP PROBE NEGATIVE (NEG) [facility] Comment: No Neisseria Gonorrhoeae RNA detected in this patient's sample (REFERENCE RANGE/NORMAL VALUE: NOT DETECTED) NOTE: This test uses plate printer-mediated amplification method to detect rRNA from N.Gonorrhoeae. [...] without risk of sexual abuse. Consult the [facility] if needed. Contact phone number . Therapeutic failure or success cannot be determined with the Aptima Combo2 assay since nucleic acid may persist following appropriate antimicrobial therapy. The Centers for Disease Control and Prevention (CDC) recommends confirmatory retesting using culture or a different nucleic acid amplification test when positive results occur, if indicated. Testing performed or reported by [facility], a Service of [facility], [address] [place] [address] Dylan Pratt MD, Armature Inspector [facility]# [id number] Urine (Urine) 12/08/2021 12: 15 PM EDT 12/09/2021 1:10 AM EDT Angelica Heaton MD LAB MICROBIOLOGY - GENERAL OR DERABLES Final Result [facility] from Last 3 Months or Most Recently Relevant to Health Maintenance
--- OUTSIDE RECORDS SUMMARY | 2025-01-04 14:49 | XMS_ITS | Encounter Summary ---
Author Organization [facility] Address [address] [place] [phone] Phone Care Team Providers Care Bank Courier Name Role Phone Angelica Heaton MD Primary Care Provider [phone] Encounter Details Date Type Department Care Team (Late st Contact Info) Description 09/04/2009 Documentation [facility] [address] [place] [address] Family Medicine, Physician [address] [place] [address] Social History Tobacco Use Types Packs/Day Years [...] on filedocumented in this encounter Care Teams Bank Courier Relationship Specialty Start Date End Date Angelica Heaton MD [address] [place] [address] PCP - General Pediatrics 11/16/18 07/22/22 documented as of this encounter
--- OUTSIDE RECORDS SUMMARY | 2025-01-04 14:49 | XMS_ITS | Encounter Summary ---
Author Organization [facility] Address [address] [place] [address] Phone Care Team Providers Care Passenger Car Cleaning Supervisor Name Role Phone Angelica Heaton MD Primary Care Provider [phone] Encounter Details Date Type Department Care Team ([facility] Contact Info) Description 11/25/2016 Conversion Encounter [facility] [address] [place] [address] Social History Tobacco Use Types Packs/Day Years [...] on filedocumented in this encounter Care Teams Passenger Car Cleaning Supervisor Relationship Specialty Start Date End Date Angelica Heaton MD [address] [place] [address] PCP - General Pediatrics 11/16/18 07/22/22 documented as of this encounter
== END 2025-01-04 14:22 | disposition home or self-care (01) ==
LOC: HO.HGI 13:30
PROVIDERS: Visit Provider Nurse Practitioner Family
DX: R12 Heartburn (principal); E66.01 Morbid (severe) obesity due to excess calories; K42.9 Umbilical hernia without obstruction or gangrene
CPT/HCPCS: 99203

== ENCOUNTER → 2025-01-04 13:29 | Outpatient (BNVA) | payer OTHER, SELFPAY | PROVIDERS: Visit Provider Nurse Practitioner Family | DX: K42.9 Umbilical hernia without obstruction or gangrene (principal); R12 Heartburn; E66.01 Morbid (severe) obesity due to excess calories; Z68.45 Body mass index [BMI] 70 or greater, adult | CPT/HCPCS: 99202 ==

== ENCOUNTER 2025-01-24 11:07 | Emergency (ER) | payer MEDICAID, SELFPAY ==
--- NOTE | ~2025-01-24 | US_ITS ---
EXAMINATION: US ABDOMEN LIMITED CLINICAL INFORMATION: Right upper quadrant pain. COMPARISON: Previous CT of the abdomen and pelvis most recently July 2024 TECHNIQUE: Real-time imaging of the gallbladder FINDINGS: GALLBLADDER: Normal size gallbladder. Multiple gallstones. No gallbladder wall thickening or edema. No pericholecystic fluid. The generation engineering technologist does not describe that the patient is tender over the gallbladder. COMMON BILE DUCT: Normal in caliber measuring 0.5 cm in diameter. No common bile duct stone appreciated. FREE FLUID: None. US/US abdomen limited IMPRESSION: Multiple gallstones. Gallbladder otherwise normal. No ultrasound evidence of cholecystitis. Electronically signed by: Nena Ortiz MD 01/24/2025 04:10 PM EDT
--- NOTE | 2025-01-24 11:10 | ED_ITS ---
HPI - General Adult General Chief complaint: Nausea/Vomiting/Diarrhea Stated complaint: abd pain, vomiting, diarrhea Time Seen by Provider: 01/24/25 13:56 History of Present Illness ED Provider: Angel Reyes MD HPI narrative: 24-year-old female with upper abdominal pain nausea and occasional intermittent vomiting. No fever described. Occasional similar episodes. No GI bleeding. History of hypertension she is overweight. Related Data Home Medications ?Medication ?Instructions ?Recorded ?Confirmed fluticasone propionate 50 1 spray intranasal DAILY PRN 01/04/25 01/04/25 mcg/actuation nasal spray,suspension (Flonase Allergy Relief) Previous Rx's ?Medication ?Instructions ?Recorded aluminum-mag hydroxide-simethicone 5 ml PO 5XD PRN dys pepsia #30 mL 07/20/24 200 mg-200 mg-20 mg/5 mL oral susp (Maalox Advanced) escitalopram oxalate 20 mg tablet 20 mg PO DAILY #30 t abs 11/06/24 fexofenadine 180 mg tablet 180 mg PO DAILY #90 tabs (Allergy Relief (fexofenadine)) losartan 50 mg tablet 50 mg PO DAILY 3 months #90 tabs 11/06/24 cholecalciferol (vitamin D3) 1,250 1,250 mcg PO QWEEK 3 months #13 11/12/24 mcg (50,000 unit) capsule caps clotrimazole-betamethasone 1 1 appl topical BID PRN In tertrigo 11/12/24 %-0.05 % topical cream 7 days #15 grams famotidine 40 mg tablet 40 mg PO DAILY #90 tabs 08/03 amlodipine 5 mg tablet 5 mg PO DAILY 3 months #90 t abs 11/13/24 omeprazole 20 mg capsule,delayed 20 mg PO DAILY #90 ca ps 01/04/25 release trazodone 50 mg tablet 50 mg PO BEDTIME PRN sleep # 30 tabs 01/11/25 ondansetron HCl 4 mg tablet 4 mg PO Q8H PRN nausea and 01/24/25 vomiting #7 tabs Allergies Allergy/AdvReac Type Severity Reaction Status Date / Time apple Allergy Itching Verified 01/25/25 09:29 cantaloupe Allergy Itching Verified 01/25/25 09:29 kiwi Allergy Itching Verified 01/25/25 09:29 shellfish derived Allergy Facial Verified 01/25/25 09:29 Swelling strawberry Allergy Itching Verified 01/25/25 09:29 [facility] Past Medical History Medical History Umbilical hernia Dysphagia Mild intermittent asthma Impaired concentration Sleep apnea Essential hypertension Depression with anxiety Morbid obesity Heartburn Asthma Surgical History No pertinent past surgical history Family History Family History Father Substance use disorder Paternal Grandmother Mental health disorder Paternal Aunt Mental health disorder Maternal Grandmother Mental health disorder Mother Mental health disorder Sister Mental health disorder Social History Social History Housing: House Patient Tobacco Use Status: Former Tobacco user Smoked in Last 30 Days: No e-Cigarette/Vaping Use: Never Used Use of substances other than those prescribed or required for medical reasons: Yes Substance Use Type: Marijuana Advance Directives: No Advance Directives Information Provided: Yes service: No Current occupational status: employed Cognitive needs: No Hearing needs: No Vision needs: Yes Physical Exam ED Exam Exam: EXAM: Gen: Alert, awake, well appearing, well hydrated. Overweight. Not distressed Head: Atraumatic Eyes: Anicteric, Normal conjunctiva. ENT: Moist mucosa, no pallor. ? Neck: Supple. Skin: ?No observable rash or bruising on exposed or examined skin Respiratory: Breathing comfortably, No distress.Clear to auscultation bilaterally, symmetric chest expansion, No wheeze, rales, ronchi. Cardiovascular: Regular rate and rhythm. No murmurs or rub. Well perfused periphery, warm extremities. No edema. ? Abdominal: Moderate upper abdominal tenderness worse in the right upper quadrant. Negative Perez's sign. Soft, no objective distension. No palpable masses or obvious organomegaly. ?No guarding, no rebound tenderness or other peritoneal findings. : No flank tenderness. Neuro: Alert. Gross movement of all extremities intact. ? Psych: Calm. Cooperative. MSK: No grossly visible deformity. Vital signs: See flowsheet Vital Signs: Vital Signs - 24 hr 01/24/25 11:31 01/24/25 14:34 01/24/25 16:49 Temperature 97.5 F 98.4 F Pulse Rate 81 80 87 Respiratory Rate 16 20 Blood Pressure 142/87 H 150/89 H 157/90 H Pulse Oximetry 97 96 96 Oxygen Delivery Method Room Air Room Air Room Air 01/24/25 17:00 Temperature 0 F L Pulse Rate 87 Respiratory Rate 20 Blood Pressure 157/90 H Pulse Oximetry 96 Oxygen Delivery Method Room Air BMI result Body Mass Index 69.3 Course Course Course Narrative: RME: 24-year-old female presents to ED for abdominal pain, vomiting, diarrhea after eating [employer]. no urinary symptoms. Labs ordered Medications Administered Discontinued Medications Generic Name Dose Route Start Last Admin Trade Name Freq PRN Reason Stop Dose Admin Lactated Ringer's 1,000 mls @ 999 mls/hr 01/24/25 14:15 01/24/25 16:21 Lr IV 01/24/25 15:15 Infused .Q1H1M AUTUMN Infusion Ondansetron HCl 4 mg 01/24/25 14:09 01/24/25 14:42 Ondansetron Hcl 4 Mg/2 Ml Vial IVPUSH 01/24/25 14:10 4 mg ONCE ONE Administration Medical Decision Making Medical Decision Making MDM Narrative: Medical Decision Makin-year-old female morbidly obese with upper abdominal discomfort and vomiting. Ultrasound shows multiple gallstones but no dilated CBD or signs of acute cholecystitis. White count 16. Not septic or toxic looking. No rigidity of the abdomen. Case discussed with general surgeon recommends outpatient follow up Preliminary Favored Differential Diagnosis: Symptomatic cholelithiasis, gastritis, PUD, electrolyte derangement, dehydration, food-borne illness, gastroenteritis among additional considered etiologies Testing Interpreted Independently: ?See below for details Radiology or Lab testing Results Reviewed: ?See below for details Consults: ?See below for details Independent Historians/External Chart Reviews: ?See below for details Social Determinants of Health Impacting MDM/Planning: ?See below for details Lab Data MDM Lab Attestation statement: I reviewed the patient's lab results. 01/24/25 12:11 01/24/25 12:11 Labs: Lab Results 01/24/25 Range/Units 12:11 WBC 16.0 H (4.8-10.8) X10*3/uL RBC 5.44 (4.20-5.50) X10*6/uL Hgb 13.3 (12.0-16.0) g/dl Hct 42.2 (37.0-47.0) % MCV 77.6 L (80.0-98.0) fL MCH 24.4 L (27.0-33.0) pg MCHC 31.5 (31.0-35.0) g/dl RDW 14.6 (11.0-16.0) % Plt Count 346 (160-400) X10*3/uL MPV 9.6 (9.4-12.3) fL Immature Gran % (Auto) 0.4 (0.0-0.4) % Neut % (Auto) 82.9 H (45-73) % Lymph % (Auto) 9.5 L (20-40) % [place] % (Auto) 6.5 (2-11) % Eos % (Auto) 0.4 (0-4) % Baso % (Auto) 0.3 (0-2) % Lymph # (Auto) 1.5 (1.2-4.9) X10*3/uL [place] # (Auto) 1.0 (0.1-1.2) X10*3/uL Eos # (Auto) 0.1 (0.0-0.4) X10*3/uL Baso # (Auto) 0.1 (0.0-0.2) X10*3/uL Abs Immat Gran (auto) 0.07 H (0.00-0.03) X10*3/uL Absolute Neuts (auto) 13.2 H (2.0-8.3) x10*3/uL Absolute Nucleated RBC 0.000 (0.0-0.012) X10*3/uL Nucleated RBC % (auto) 0.0 (0.0-0.2) /100WBC Sodium 140 (135-145) mmol/L Potassium 4.6 (3.3-5.1) mmol/L Chloride 109 H (96-108) mmol/L Carbon Dioxide 26 (22-29) mmol/L Anion Gap 10 L (12-20) BUN 11 (9-16) mg/dL Creatinine 0.59 (0.5-1.4) mg/dL Estim Creat Clear Calc 221.0 Estimated GFR > 60 Random Glucose 106 (60-115) mg/dL Calcium 9.5 D (8.4-10.2) mg/dL Total Bilirubin 0.3 (0.0-1.0) mg/dL AST 18 (5-31) U/L ALT 22 (0-31) U/L Alkaline Phosphatase 76 (39-117) U/L Total Protein 7.2 (6.5-8.0) g/dL Albumin 4.5 (3.5-5.0) g/dL Lipase 15 (8-78) U/L Beta HCG, Quant < 2 mIU/mL COVID-19 (JACLYN) Negative (Negative) COVID-19 Clin Com See Note Influenza Type A (THONG) Negative (Negative) Influenza Type B (THONG) Negative (Negative) Influenza A & B Note See Note Discharge Plan Discharge Clinical Impression: Cholelithiasis Patient Disposition: Home, Self-Care Instructions: Gallstones (ED), Laparoscopic Cholecystectomy (DC) Additional Instructions: In the emergency department today you were found to have multiple gallstones but no signs of acute infection or inflammation of your gallbladder. There was also no signs of gallbladder obstructing the rest of the structures of the liver or gallbladder. This is reassuring for now. You did have a elevated white blood cell count but no fever the elevated white blood cell count your blood work may be due to vomiting. We discussed the case with our surgeon who would like you to call the outpatient surgical office for close follow up with them. If you develop severe or worsening pain, high fevers shaking chills sweats at night inability to tolerate any food or drink return back to the emergency department We have prescribed nausea medicine but we also recommend you take ibuprofen 600 mg 3 times a day as needed for pain not to exceed 1 week of this. Tylenol can also be taken as needed or in a staggered dosing pattern. We also recommend getting [id number] omeprazole an antacid medication and starting to take this daily Prescriptions: New ondansetron HCl 4 mg tablet 4 mg PO Q8H PRN (Reason: nausea and vomiting) Qty: 7 0RF No Action famotidine 40 mg tablet 40 mg PO DAILY Qty: 90 1RF amlodipine 5 mg tablet 5 mg PO DAILY 90 Days Qty: 90 0RF trazodone 50 mg tablet 50 mg PO BEDTIME PRN (Reason: sleep) Qty: 30 0RF alum-mag hydroxide-simeth [Maalox Advanced] 200-200-20 mg/5 mL suspension 5 ml PO 5XD PRN (Reason: dyspepsia) Qty: 30 0RF Rx Instructions: administer between meals and at bedtime cholecalciferol (vitamin D3) 1,250 mcg (50,000 unit) capsule 1,250 mcg PO QWEEK 90 Days Qty: 13 0RF clotrimazole-betamethasone 1-0.05 % cream 1 appl topical BID PRN (Reason: Intertrigo) 7 Days Qty: 15 0RF losartan 50 mg tablet 50 mg PO DAILY 90 Days Qty: 90 0RF fexofenadine [Allergy Relief (fexofenadine)] 180 mg tablet 180 mg PO DAILY Qty: 90 1RF escitalopram oxalate 20 mg tablet 20 mg PO DAILY Qty: 30 5RF fluticasone propionate [Flonase Allergy Relief] 50 mcg/actuation spray,suspension 1 spray intranasal DAILY PRN Rx Instructions: administer into each nostril omeprazole 20 mg capsule,delayed release(DR/EC) 20 mg PO DAILY Qty: 90 1RF Rx Instructions: Take one tablet daily. Best taken on an empty, 30 minutes before eating. Interventions: ED Discharge Assessment Last Done: 01/24/25 17:00 Discharge Date/Time: 01/24/25 17:00 Print Language: Greenlandic
[2025-01-24 11:31] VITALS: BP 142/87; PULSE 81; RESP 16; TEMP 36.4; O2SAT 97; BMI 69.3
[2025-01-24 12:16] LABS: MANUAL DIFF FLAG NO
[2025-01-24 12:17] LABS: Hematocrit 42.2 % (37.0-47.0); Hemoglobin 13.3 g/dl (12.0-16.0); Imm Gran Abs Auto 0.07 X10*3/uL (0.00-0.03); Imm Gran Pct Auto 0.4 % (0.0-0.4); Lymphocytes Absolute Auto 1.5 X10*3/uL (1.2-4.9); Mean Corpuscular HGB Conc 31.5 g/dl (31.0-35.0); Mean Corpuscular Hemoglobin 24.4 pg (27.0-33.0); Mean Corpuscular Volume 77.6 fL (80.0-98.0); NRBC Abs Auto 0.000 X10*3/uL (0.0-0.012); NRBC Pct Auto 0.0 /100WBC (0.0-0.2); Platelet Count 346 X10*3/uL (160-400); Red Blood Count 5.44 X10*6/uL (4.20-5.50); White Blood Count 16.0 X10*3/uL (4.8-10.8)
[2025-01-24 12:33] LABS: IDNOW Serial# 55D5AD1C; Influenza B2 Negative (Negative)
[2025-01-24 12:34] LABS: COVID-19 Test Negative (Negative); IDNOW Serial# 58CA691E
[2025-01-24 12:41] LABS: Alanine Aminotransferase 22 U/L (0-31); Albumin Level 4.5 g/dL (3.5-5.0); Alkaline Phosphatase 76 U/L (39-117); Anion Gap 10 (12-20); Aspartate Amino Transferase 18 U/L (5-31); Blood Urea Nitrogen 11 mg/dL (9-16); Calcium 9.5 mg/dL (8.4-10.2); Carbon Dioxide 26 mmol/L (22-29); Chloride 109 mmol/L (96-108); Creatinine Clr Calc Pharmacy 221.0; Estimated Glomerular Filt Rate > 60; Lipase 15 U/L (8-78); Potassium 4.6 mmol/L (3.3-5.1); Sodium 140 mmol/L (135-145); Total Protein 7.2 g/dL (6.5-8.0)
[2025-01-24 14:34] VITALS: BP 150/89; PULSE 80; TEMP 36.9; O2SAT 96
[2025-01-24] MEDS: Lactated Ringers 1,000 ML 999 ML IV (14:35)
--- OUTSIDE RECORDS SUMMARY | 2025-01-24 15:26 | XMS_ITS | Clinical Summary ---
Author Organization [facility] it Address [address] [place] [address] Care Team Providers Care Computed Tomography Scanner Operator Name Role Phone Unavailable Primary Care [...] 5 season) 2024 Influenza Vaccine (#1) 2024 RSV Immunization Adult Patie nts (1 - 1-dose 75+ series) 09/24/2075 HIB Vaccines Aged Out No longer eligi [...]
[2025-01-24 16:49] VITALS: BP 157/90; PULSE 87; RESP 20; O2SAT 96
[2025-01-24 17:00] VITALS: BP 157/90; PULSE 87; RESP 20; TEMP -17.7; TEMP 0; O2SAT 96
== END 2025-01-24 17:00 | disposition home or self-care (01) ==
PROVIDERS: Physician Assistant; Emergency Provider Emergency Medicine; PCP Internal Medicine
DX: K80.20 Calculus of gallbladder without cholecystitis without obstruction (principal); I10 Essential (primary) hypertension; E66.01 Morbid (severe) obesity due to excess calories; Z68.44 Body mass index [BMI] 60.0-69.9, adult; Z79.899 Other long term (current) drug therapy; Z87.19 Personal history of other diseases of the digestive system
CPT/HCPCS: 36415; 76705; 80053; 83690; 84702; 85025; 87502; 87635; 96361; 96374; 99284; J2405; J7120

== ENCOUNTER → 2025-01-24 15:22 | Outpatient (BNV) | payer MEDICAID, SELFPAY | PROVIDERS: Emergency Provider Emergency Medicine; PCP Internal Medicine; Visit Provider Radiology Diagnostic Radiology | DX: K80.20 Calculus of gallbladder without cholecystitis without obstruction (principal) | CPT/HCPCS: 76705 ==

== ENCOUNTER 2025-01-25 09:22 | Inpatient (IN) | payer MEDICAID, SELFPAY ==
--- NOTE | ~2025-01-25 | US_ITS ---
EXAMINATION: US ABDOMEN LIMITED CLINICAL INFORMATION: Right upper quadrant abdominal pain.. COMPARISON: January 24, 2025. TECHNIQUE: Real-time ultrasound of the gallbladder using grayscale and color Doppler technique. FINDINGS: Multiple layering intraluminal hyperechoic lesions with posterior shadowing in the gallbladder. No pericholecystic fluid collection or gallbladder wall thickening. Common bile duct measures 5 mm. Positive sonographic Perez's sign elicited by the technologist. US/US abdomen limited IMPRESSION: Cholelithiasis without gross choledocholithiasis. Electronically signed by: Ric Downing MD 01/25/2025 11:29 AM EDT
[2025-01-25 09:26] VITALS: BP 134/62; PULSE 88; RESP 18; TEMP 36.7; O2SAT 98; BMI 69.2
[2025-01-25 10:13] LABS: MANUAL DIFF FLAG NO
[2025-01-25 10:19] LABS: Hematocrit 37.9 % (37.0-47.0); Hemoglobin 12.0 g/dl (12.0-16.0); Imm Gran Abs Auto 0.02 X10*3/uL (0.00-0.03); Imm Gran Pct Auto 0.2 % (0.0-0.4); Lymphocytes Absolute Auto 2.6 X10*3/uL (1.2-4.9); Mean Corpuscular HGB Conc 31.7 g/dl (31.0-35.0); Mean Corpuscular Hemoglobin 24.8 pg (27.0-33.0); Mean Corpuscular Volume 78.3 fL (80.0-98.0); NRBC Abs Auto 0.000 X10*3/uL (0.0-0.012); NRBC Pct Auto 0.0 /100WBC (0.0-0.2); Platelet Count 338 X10*3/uL (160-400); Red Blood Count 4.84 X10*6/uL (4.20-5.50); White Blood Count 8.7 X10*3/uL (4.8-10.8)
--- NOTE | 2025-01-25 10:21 | ED_ITS ---
HPI - Abdominal Pain General Chief Complaint: Abdominal Pain Stated Complaint: gallstones, Tylenol/ ibuprofen not helping Time Seen by Provider: 01/25/25 09:39 Source: patient and old records reviewed Mode of arrival: ambulatory Limitations: no limitations History of Present Illness ED Provider: JOHN BRAY narrative: 24 yo female with PMH of obesity and was just seen yesterday with biliary colic. She was sent home and ate chicken nuggets for dinner she now has worsening nausea and RUQ pain. She has no fevers. She notes she cannot eat this AM and has pain despite taking motrin at 8am. She wasn't aware she had to eat a low fat diet. MD elicited complaint: abdominal pain Pertinent past history: other (biliary colic) Onset (ago): day(s) (1) Pain Consistency: constant Location: RUQ Severity: severe Quality: stabbing Radiation: R flank Migration to: no migration Exacerbating factors: eating Relieving factors: nothing Context: history of similar episodes Associated symptoms: nausea Treatments prior to arrival: NSAIDs Related Data Home Medications ?Medication ?Instructions ?Recorded ?Confirmed fluticasone propionate 50 1 spray intranasal DAILY PRN 01/04/25 01/25/25 mcg/actuation nasal Allergy Symptoms spray,suspension (Flonase Allergy Relief) cholecalciferol (vitamin D3) 1,250 1,250 mcg PO TH 01/25/25 mcg (50,000 unit) capsule omeprazole 20 mg capsule,delayed 20 mg PO DAILY PRN Ac id Reflux 01/25/25 01/25/25 release Previous Rx's ?Medication ?Instructions ?Recorded escitalopram oxalate 20 mg tablet 20 mg PO DAILY #30 t abs 11/06/24 fexofenadine 180 mg tablet 180 mg PO DAILY #90 tabs (Allergy Relief (fexofenadine)) losartan 50 mg tablet 50 mg PO DAILY 3 months #90 tabs 11/06/24 famotidine 40 mg tablet 40 mg PO DAILY #90 tabs 08/03 amlodipine 5 mg tablet 5 mg PO DAILY 3 months #90 t abs 11/13/24 trazodone 50 mg tablet 50 mg PO BEDTIME PRN sleep # 30 tabs 01/11/25 Allergies Allergy/AdvReac Type Severity Reaction Status Date / Time apple Allergy Itching Verified 01/25/25 09:29 cantaloupe Allergy Itching Verified 01/25/25 09:29 kiwi Allergy Itching Verified 01/25/25 09:29 shellfish derived Allergy Facial Verified 01/25/25 09:29 Swelling strawberry Allergy Itching Verified 01/25/25 09:29 Review of Systems Review of Systems Constitutional : No Weight loss, No Fever, No Chills ENT/Mouth : No sore throat, No Rhinorrhea Eyes: No Swelling, No Redness Cardiovascular : No Chest Pain, No SOB, NoEdema Respiratory : No Cough, No Sputum, No Wheezing Gastrointestinal : Positive Nausea, Positive Vomiting, no Diarrhea, positive abdominal Pain, No Hematochezia, No Melena Genitourinary : No Dysuria, No Urinary Frequency, No Hematuria, No Urgency Musculoskeletal : No joint pain, No Myalgias, No Joint Swelling Skin : No Skin Lesions, No rash All other systems reviewed and are negative. Yes all other systems are reviewed and are negative PMFSH Past Medical History Attestation statement: The following information was validated with the patient. Source: old records reviewed Medical History Umbilical hernia Dysphagia Mild intermittent asthma Impaired concentration Sleep apnea Essential hypertension Depression with anxiety Morbid obesity Heartburn Asthma Surgical History No pertinent past surgical history Family History Family History Father Substance use disorder Paternal Grandmother Mental health disorder Paternal Aunt Mental health disorder Maternal Grandmother Mental health disorder Mother Mental health disorder Sister Mental health disorder Social History Social History Housing: House Patient Tobacco Use Status: Former Tobacco user Smoked in Last 30 Days: No e-Cigarette/Vaping Use: Never Used Use of substances other than those prescribed or required for medical reasons: Yes Substance Use Type: Marijuana Advance Directives: No Advance Directives Information Provided: Yes service: No Current occupational status: employed Cognitive needs: No Hearing needs: No Vision needs: Yes Physical Exam ED Vital Signs: Vital Signs - 24 hr 01/25/25 09:26 01/25/25 13:26 Temperature 98.1 F Pulse Rate 88 83 Respiratory Rate 18 18 Blood Pressure 134/62 154/85 H Pulse Oximetry 98 96 Oxygen Delivery Method Room Air Room Air BMI result Body Mass Index 69.2 Appearance: Alert. Oriented X3. No acute distress. Eyes: Pupils equal, round and reactive to light. ENT: Pharynx normal. Neck: Normal inspection. Neck supple. CVS: Normal heart rate and rhythm. Pulses normal. Respiratory: No respiratory distress. Breath sounds normal. Abdomen: Soft and moderate RUQ pain + sánchez's sign Skin: Skin warm and dry. Normal skin color. Normal skin turgor. Extremities: No lower extremity edema. Neuro: Oriented X 3. No motor deficit. No sensory deficit. CN2-12 intact Medical Decision Making Medical Decision Making [facility] Narrative: 24 yo female with PMH of obesity just seen here for biliary colic went home and had chicken nuggets now with worsening pain at this time will need basic labs, US to eval for GB inflammation, IV morphine for pain Differential Diagnosis Differential Diagnoses: The differential diagnosis associated with the presentation includes biliary colic, abdominal pain Admission/Observation Consideration of admission/observation: Escalation of care including admission/observation considered will repeat pain medications and if not better will refer to surgery will admit for further management Consult Healthcare Provider Management of the patient was discussed with: Associate Professor Of Archaeology Dr. Villatoro aware of patient in ED - will admit Lab Data [facility] Lab Attestation statement: I reviewed the patient's lab results. 01/25/25 10:09 01/25/25 10:09 Labs: Lab Results 01/25/25 01/25/25 Range/Units 10:09 12:42 WBC 8.7 (4.8-10.8) X10*3/uL RBC 4.84 (4.20-5.50) X10*6/uL Hgb 12.0 (12.0-16.0) g/dl Hct 37.9 (37.0-47.0) % MCV 78.3 L (80.0-98.0) fL MCH 24.8 L (27.0-33.0) pg MCHC 31.7 (31.0-35.0) g/dl RDW 14.9 (11.0-16.0) % Plt Count 338 (160-400) X10*3/uL MPV 9.6 (9.4-12.3) fL Immature Gran % (Auto) 0.2 (0.0-0.4) % Neut % (Auto) 61.6 (45-73) % Lymph % (Auto) 29.5 (20-40) % [place] % (Auto) 7.0 (2-11) % Eos % (Auto) 1.4 (0-4) % Baso % (Auto) 0.3 (0-2) % Lymph # (Auto) 2.6 (1.2-4.9) X10*3/uL [place] # (Auto) 0.6 (0.1-1.2) X10*3/uL Eos # (Auto) 0.1 (0.0-0.4) X10*3/uL Baso # (Auto) 0.0 (0.0-0.2) X10*3/uL Abs Immat Gran (auto) 0.02 (0.00-0.03) X10*3/uL Absolute Neuts (auto) 5.4 (2.0-8.3) x10*3/uL Absolute Nucleated RBC 0.000 (0.0-0.012) X10*3/uL Nucleated RBC % (auto) 0.0 (0.0-0.2) /100WBC Sodium 140 (135-145) mmol/L Potassium 4.1 (3.3-5.1) mmol/L Chloride 110 H (96-108) mmol/L Carbon Dioxide 23 (22-29) mmol/L Anion Gap 11 L (12-20) BUN 13 (9-16) mg/dL Creatinine 0.58 (0.5-1.4) mg/dL Estim Creat Clear Calc 224.7 Estimated GFR > 60 Random Glucose 92 (60-115) mg/dL Calcium 8.7 D (8.4-10.2) mg/dL Magnesium 1.9 (1.6-2.6) mg/dL Total Bilirubin 0.3 (0.0-1.0) mg/dL Direct Bilirubin 0.1 (0.0-0.5) mg/dL AST 15 (5-31) U/L ALT 18 (0-31) U/L Alkaline Phosphatase 71 (39-117) U/L Total Protein 6.6 (6.5-8.0) g/dL Albumin 4.1 (3.5-5.0) g/dL Lipase 15 (8-78) U/L Urine Color Yellow Urine Appearance Cloudy Urine pH 5.5 (5.0-9.0) Ur Specific [place] 1.020 (1.005-1.025) Urine Protein Negative (Neg-Trace) mg/dL Urine Glucose (UA) Negative (Negative) mg/dL Urine Ketones Negative (Negative) mg/dL Urine Blood Negative (Negative) Urine Nitrite Negative (Negative) Ur Leukocyte Esterase Small (1+) H (Negative) Urine RBC 0-2 (0-2) /HPF Urine WBC 11-20 H (0-5) /HPF Ur Squamous Epith Cells 11-20 (0-2) /HPF Urine Bacteria 1+ (None Seen) Hyaline Casts 0-2 (0-2) /LPF Urine Test NEGATIVE (NEGATIVE) Independent Interpretation I performed an independent interpretation of an: Ultrasound (biliary colic) Radiology Impression Discussion of test interpretation with radiology: I have reviewed the radiologist's reading. External Record Review External record reviewed: Outpatient record Prescription Management I considered prescription management with: Pain Medication and Other Medications Administered Discontinued Medications Generic Name Dose Route Start Last Admin Trade Name Freq PRN Reason Stop Dose Admin Lactated Ringer's 1,000 mls @ 999 mls/hr 01/25/25 13:25 01/25/25 13:42 Lr IV 01/25/25 14:25 999 mls/hr .Q1H1M ONE Administration Ketorolac Tromethamine 15 mg 01/25/25 13:13 01/25/25 13:24 Ketorolac Tromethamine 15 Mg/Ml Vial IVPUSH 01/25/25 13:14 15 mg ONCE ONE Administration Morphine Sulfate 4 mg 01/25/25 10:12 01/25/25 10:28 Morphine Sulfate 4 Mg/Ml Cartridge IVPUSH 01/25/25 10:13 4 mg ONCE ONE Administration Protocol Morphine Sulfate 4 mg 01/25/25 13:13 01/25/25 13:24 Morphine Sulfate 4 Mg/Ml Cartridge IVPUSH 01/25/25 13:14 4 mg ONCE ONE Administration Protocol Ondansetron HCl 4 mg 01/25/25 10:12 01/25/25 10:27 Ondansetron Hcl 4 Mg/2 Ml Vial IVPUSH 01/25/25 10:13 4 mg ONCE ONE Administration Discharge Plan Discharge Clinical Impression: Biliary colic, Abdominal pain Patient Disposition: Admitted As Inpatient
[2025-01-25 11:16] LABS: Alanine Aminotransferase 18 U/L (0-31); Albumin Level 4.1 g/dL (3.5-5.0); Alkaline Phosphatase 71 U/L (39-117); Anion Gap 11 (12-20); Aspartate Amino Transferase 15 U/L (5-31); Blood Urea Nitrogen 13 mg/dL (9-16); Calcium 8.7 mg/dL (8.4-10.2); Carbon Dioxide 23 mmol/L (22-29); Chloride 110 mmol/L (96-108); Creatinine Clr Calc Pharmacy 224.7; Estimated Glomerular Filt Rate > 60; Lipase 15 U/L (8-78); Magnesium 1.9 mg/dL (1.6-2.6); Potassium 4.1 mmol/L (3.3-5.1); Sodium 140 mmol/L (135-145); Total Protein 6.6 g/dL (6.5-8.0)
--- OUTSIDE RECORDS SUMMARY | 2025-01-25 12:36 | XMS_ITS | Encounter Summary ---
Author Organization [facility] Address [address] [place], [place] [id number] Phone Care Team Providers Care Insulation Board Head Saw Operator Name Role Phone Angelica Heaton MD Primary Care Provider [phone] Reason for Visit * Reason Onset Date Comments Med Refill 02/15/2020 Encounter Details Date Type Department Care Team ([facility] st Contact Info) Description 02/15/2020 Refill [facility] [address] [place] [address] Angelica Heaton MD [address] [place] [address] Seasonal allergic rhinitis, unspecified trigger; Moderate persistent [...] complication documented in this encounter Care Teams Insulation Board Head Saw Operator Relationship Specialty Start Date End Date Angelica Heaton MD [address] [place] [id number] PCP - General Pediatrics 11/16/18 07/22/22 documented as of this encounter
--- OUTSIDE RECORDS SUMMARY | 2025-01-25 12:36 | XMS_ITS | Encounter Summary ---
Author Organization [facility] Address [address] [place], [place] [phone] Phone Care Team Providers Care Remanufacturing Technician Name Role Phone Angelica Heaton MD Primary Care Provider [phone] Reason for Visit * Reason Onset Date Comments Med Refill 11/16/2019 Encounter Details Date Type Department Care Team ([facility] st Contact Info) Description 11/16/2019 Refill [facility] [place] [address] [place] [address] Angelica Heaton MD [address] [place] [address] Moderate persistent asthma without complication; Seasonal allergic [...] trigger documented in this encounter Care Teams Remanufacturing Technician Relationship Specialty Start Date End Date Angelica Heaton MD [address] [place] [id number] PCP - General Pediatrics 11/16/18 07/22/22 documented as of this encounter
--- OUTSIDE RECORDS SUMMARY | 2025-01-25 12:36 | XMS_ITS | Encounter Summary ---
Author Organization [facility] Address [address] [place], [place] [phone] Phone Care Team Providers Care Audio/Visual Manager Name Role Phone Angelica Heaton MD Primary Care Provider [phone] Reason for Visit * Reason Onset Date Comments Med Refill 05/09/2020 Encounter Details Date Type Department Care Team ([facility] Contact Info) Description 05/09/2020 Refill [facility] [place] [address] [place] [address] Angelica Heaton MD [address] [place] [address] Seasonal allergic rhinitis, unspecified trigger; Menorrhagia with [...] cycle documented in this encounter Care Teams Audio/Visual Manager Relationship Specialty Start Date End Date Angelica Heaton MD [address] [place] [id number] PCP - General Pediatrics 11/16/18 07/22/22 documented as of this encounter
--- OUTSIDE RECORDS SUMMARY | 2025-01-25 12:36 | XMS_ITS | Encounter Summary ---
Author Organization [facility] Address [address] [place] [address] Phone Care Team Providers Care Thread Marker Name Role Phone Angelica Heaton MD Primary Care Provider [phone] Reason for Visit * Reason Comments Med Refill Encounter Details Date Type Department Care Team ([facility] Contact Info) Description 01/29/2022 Refill [facility] [address] [place] [address] Angelica Heaton MD [address] [place] [address] Menorrhagia with regular cycle Social History Tobacco [...] cycle documented in this encounter Care Teams Thread Marker Relationship Specialty Start Date End Date Angelica Heaton MD [address] [place] [address] PCP - General Pediatrics 11/16/18 07/22/22 documented as of this encounter
--- OUTSIDE RECORDS SUMMARY | 2025-01-25 12:36 | XMS_ITS | Clinical Summary ---
Author Organization [facility] Address [address] [place] [address] Phone Care Team Providers Care Fiberglass Quality Technician Name Role Phone Unavailable Primary Care Provider Unavailabl e Allergies Active Allergy Reactions Criticality Noted Date Comments Clam Shell 04/06/2017 Environmental 04/06/2017 Cat,dog, hamster Food 04/06/2017 [place], tomato,cantelope,apples , seafood Shellfish Protein-Containing Drug Products 04/06/2017 Medications Spacer/Aero-Hold ing Chambers (Valved Holding Chamber) [...] a1c 5.7. Renea is working with a aviation maintenance instructor and is considering bariatric surgery. Continue to follow. Needs Adult MD. 02/02/2022 (age 21yr): Is continuing to work with aviation maintenance instructor. Assessment & Plan (02/02/2022 10:33 AM EDT): 02/02/2022 (age 21yr): Is continuing to work with aviation maintenance instructor. Lab test positive for detection of COVID-19 viru s 04/12/2021 Assessment & Plan (04/12/2021 11:37 AM EST): Pt positive for covid - testing done at 'Stop the spread . Other family members positive as well Pt with multiple significant risk factors Referred to [facility] infusion site - form for referral filled [...] (switched from hydrochlorothiazide to amlodipine on 12/18/2019). [facility] involved. Urgent cardiology visit scheduled for 03/[address] Hickey at [facility] cardio [facility]. Ran out of OCPS 4 days ago. - I contacted Dr. Hutchinson who felt that OCP were still reasonable in [place]. I will continue to prescribe as long as she see the cardiology in March. - Follow up with adult cardiology - Last Specialist Visit: [facility] cardiology 02/12/2022, started on amlodipine and losartan. OCP refilled with 3 RF and message to [facility] to contact Renea to help her transition to adult medicine. 01/25/2022 Chart Review: [facility] - 03/22/2021 158/87 Wing ED - 12/08/2021 162/92 in the office - 12/09/2021 153/74,then 118/62 at [facility] ED - 01/05/2022: BP-150/104 at [facility], sent to ED. No note in chart 02/02/2022 (age 21yr): 138/84 in the office Detailed History and Chronology of care: 12/08/2021 (age 21yr): BP high today, ran out of meds 04/2020 and has not had refills. Diagnosed by cardiology 07/2018. Last visit with Dr. Hutchinson was 12/18/2019. Was on losartan 50 mg and amlodipine 5mg. (switched from hydrochlorothiazide to amlodipine on 12/18/2019). [facility] involved as of 11/03/2021 Follow up with adult cardiology. 12/09/2021 (age 21yr): Sent to ED with elevated HR and chest pain. 12/29/2021 (age 21yr): Urgent cardiology visit scheduled for 03/17/[address] Hickey at [facility] Adult cardio [facility]. Assessment & Plan (12/08/2021 1:06 PM EDT): 12/08/2021 (age 21yr): BP high today, ran out of meds 04/2020 and has not had refills. Diagnosed by cardiology 07/2018. Last visit with Dr. Hutchinson was 12/18/2019. Now on losartan 50 mg and amlodipine 5mg. (switched from hydrochlorothiazide to amlodipine on 12/18/2019). [facility] involved as of 11/03/2021 Per [facility], Pt will call Dr. Hutchinson to see if he can follow up with her. Otherwise refer to adult cardiology at [facility]. Now, Renea state she would like to follow up [...] Hutchinson ready for pt to berry picker from the pharmacy (amlodipine 5mg and [...] specialty appointments. Reintroduced to Davide Angeles our foster care worker today for supports with prioritizing booking specialist visits as well as working on transition to adult medicine given complex adult care needs. Assessment & Plan (02/02/2022 10:41 AM EDT): 02/02/2022 (age 21yr): Mother concerned that Renea is having a hard to keeping track of her appointments and medical issues. [facility] involved to assist. Assessment & Plan (08/03/2020 [...] not had a therapist for 1 year. [facility] to assist in finding new provider. 02/02/2022 (age 21yr): still doesn't have a provider. [facility] involved to assist. Also needs to move to adult medicine. Detailed History and Chronology of care: Dx [address] Virgil Jang MD via Telepsych from [facility] - He recommends a lithium trial. Then followed by Dr. Wilson (interim) - Mother is willing to travel to [place] for regular in person psychiatric evaluations and supports. Will refer to psych at [facility]. [facility] will not accept the patient and advised that she be evaluated by a psychiatrist in [place] ([facility]) 07/2020: visit with Dr. Newman at [facility] as a new consult/evaluation, previously seen by Dr. Wilson and struggled to get in elsewhere, so were happy to have this evaluation - he is writing for medication for pt. Still seeing Mckenzie Turner for therapy (group home, for years) Assessment & Plan (02/02/2022 10:32 AM EDT): 02/02/2022 (age 21yr): still doesn't have a provider. [facility] involved to assist. Also needs to move to adult medicine. Assessment & Plan (12/08/2021 1:07 PM EDT): 12/08/2021 (age 21yr): 12/08/2021 (age 21yr): psychiatrist just left, on escilatopram and trazadone. No meds for bipolar reported by pt. Has not had a therapist for 1 year. [facility] to assist in finding new provider. [...] 9:38 AM EDT): Seeing Dr. Wilson at [facility]. Gets meds through him. On Quetieapine (and adderall). D/C'd lexapro several month ago. Assessment & Plan (05/08/2018 2:53 PM EST): [facility] will not accept the patient and advised that she be evaluated by a psychiatrist in [place] ( [facility]) Heavy periods 12/21/2017 Overview (05/03/2022): [...] OCPs. Renea also needs to see a SENIOR SOFTWARE TEST ENGINEER. - start isibloom with next menses - I can continue to prescribe as long as Renea keeps her cardiology appointment in March. - Renea needs to transition to an adult provider before she is due for her next well visit. - Last Specialist Visit: [facility] cardiology 02/12/2022, started on amlodipine and losartan. OCP refilled with 3 RF and message to [facility] to contact Renea to help her transition to adult medicine. Detailed History and Chronology of care: 07/2020: pt taking the same OCPs with better menses management - refilled at [facility] 07/2020, discussed transition to adult provider/SENIOR SOFTWARE TEST ENGINEER provider for ongoing care. 07/27/2021 (age 20yr): Will HTN and headaches, I wonder if progesterone only BC would be safer for Renea. OCP refilled for the Next month, will discuss this at well visit in August. Will suggest SENIOR SOFTWARE TEST ENGINEER for BC care. 08/02/2021 (age 20yr): Started [...] HTN. Renea also needs to see a SENIOR SOFTWARE TEST ENGINEER. 12/29/2021 (age 21yr): Urgent cardiology visit scheduled [...] OCPs. Renea also needs to see a SENIOR SOFTWARE TEST ENGINEER. - start isibloom with next menses - [...] would like her to have a current glass bulb silverer to confirm this. Renea also needs to see a SENIOR SOFTWARE TEST ENGINEER. Assessment & Plan (08/03/2020 9:57 PM EDT): OCPs refilled at - work on transitioning to adult PCP and SENIOR SOFTWARE TEST ENGINEER provider if needed - information had previously [...] BLAYNE Identified on sleep study 10/06/2020 at [facility]. . - Last Specialist Visit: : [...] help with control of her hypertension. The [employer] company was contacted, they confirmed a bill [...] 10/06/2020: BLAYNE Identified on sleep study at [facility] 10/29/2020 (age 20yr): . Referred to sleep medicine at [facility] for CPAP. Renea is having headaches that [...] help with control of her hypertension. The [employer] company was contacted, they confirmed a bill [...] BLAYNE Identified on sleep study 10/06/2020 at [facility]. Assessment & Plan (10/29/2020 6:12 AM EDT): 10/29/2020 (age 20yr): BLAYNE Identified on sleep study 10/06/2020 at [facility]. Referred to sleep medicine at [facility] for CPAP. Renea is having headaches that [...] these allergies, mom would like to see sand and gravel plant operator for further testing and plans to schedule her own appointment. Already has UTD epipen (12/2019) 11/03/2021 (age 21yr): Per [facility], referral re requested. Referral placed and pt to make her own appt. Assessment & Plan (08/03/2020 9:52 PM EDT): Pt already has UTD epipen, aware of when to use this, and sand and gravel plant operator at [facility] requested for follow up, information was previously given, pt/mom to book. Assessment & Plan (07/23/2020 11:41 PM EDT): Referral to sand and gravel plant operator and pt/family to book appointment with adult sand and gravel plant operator for further evaluation and follow up. Epipen is already UTD from 12/2019 visit so did not refill today. Assessment & Plan (12/15/2018 10:33 AM EDT): Needs to go back to sand and gravel plant operator. Assessment & Plan (01/02/2018 12:29 PM EDT): School med auth formed filled out. Seasonal allergic rhinitis 08/05/2016 Overview (12/08/2021): 12/08/2021 (age 21yr): Uses On martita 180 daily and singulair 10 mg as needed. Will be seeing sand and gravel plant operator. . Detailed History and Chronology of care: 07/20/2019 No current symptoms, will refill martita today ahead of allergy season. 07/2020: refill on singulair requested and has used martita in the past, requesting refills. Referred to sand and gravel plant operator for allergies and snoring 10/30/2020 (age 20yr): did not follow through on allergy referral. Assessment & Plan (12/08/2021 11:56 AM EDT): 12/08/2021 (age 21yr): Uses On martita 180 daily and singulair 10 mg as needed. Will be seeing sand and gravel plant operator. . Assessment & Plan (08/03/2020 9:51 PM [...] :Followed in the past by Pulm at [facility]. Last visit 01/2018. Seems to be overdue for 4 month follow up, in the past has requested med refills and referral to pulm. Has appt with adult pulm 01/2022. (missed appt ) - Last Specialist Visit: 06/23/2022 [facility] pulm Dr. Loera: Obestiry negatively impacting her health in many ways. Plan: Start symbicort, referred to for pulmonary rehab to do asth;ma teaching, home polysomnogram, PFTs Detailed History and Chronology of care: Was on singulair 10 mg and QVAR or flovent 110. Had bad asthma with GERD as young child, followed by [facility].( mother mentions that there might have been some aspiration). Seemed to resolve as she hit puberty she was off all control meds. Had exacerbation in 07/2016 and back on Qvar. History of poor compliance. 01/04/2018 ACT score 7 02/06/2018: saw Pulm at [facility], recommend flovent 110 2 P BID [...] :Followed in the past by Pulm at [facility]. Last visit 01/2018. Seems to be overdue for 4 month follow up, in the past has requested med refills and referral to pulm. Has appt with adult pulm 01/2022. (missed appt ) Assessment & Plan (08/03/2020 9:38 PM EDT): Plans to return to [place] [facility] as already planned, family has information [...] of atypical pneumonia. Followed by Pulm at [facility]. Has follow up in May 2108. Assessment & Plan (01/06/2018 12:48 PM EDT): Patient in no obvious distress during this encounter and lung exam clear. Has subjective chest tightness. S/P treatment with 7 days of steroids. Low suspicion for pneumonia based on currently exam (including vitals). Patient has Pulm evaluation at [facility] next month. Note given for patient [...] hours. Mom requesting referral to pulm at [facility] (mom says she was seen there when she was young, though I only see notes from [facility] pulm), so I will put referral in now. Mom wants us to make the appt for her. Class 3 severe obesity due t o excess calories with serious comorbidity in adult 03/25/2011 Overview (12/09/2021): 12/08/2021 (age 21yr): Working with aviation maintenance instructor to lose weight ahead of bariatric surgery. Working with Dr. Gandara. 12/09/2021 (age 21yr): Hyperinsulinemia note, Hgb A1C 5.7 unchanged since last year. Cholesterol normal. Detailed History and Chronology of care: Went to [facility] in 2008 but no success. Sleep study in 2008 was normal. 02/05/2021:Visit with general surgery (Dr Gandara), planning for bariatric surgery (sleeve)) Assessment & Plan (12/08/2021 11:55 AM EDT): 12/08/2021 (age 21yr): Working with aviation maintenance instructor to lose weight ahead of bariatric surgery. [...] not had a therapist for 1 year. [facility] to assist in finding new provider. 02/02/2022 (age 21yr): still doesn't have a provider. [facility] involved to assist. Also needs to move to adult medicine. Detailed History and Chronology of care: 2016. Partial hosp 02/2017 Inpatient hospitalization at [facility] 02/2018 Telepsych evaluation completed- dx with Bipolar 1 Disorder 12/15/2018: Seeing Dr. Wilson at [facility]. Gets meds through him. On Quetieapine (and adderall). D/C'd lexapro several month ago. Seeing Mckenzie Turner (therapist) for years. 07/2020: Continues with ongoing therapist (Mckenzie Turner) - has been seeing her for about 10 years, had a followup recently due to insurance issues and the soonest available was 07/2020 to recheck. Seen 07/[address] Newman at [facility] as a new consult/evaluation, Currently taking quetiapine and has hydroxyzine Assessment & Plan (02/02/2022 10:32 AM EDT): 02/02/2022 (age 21yr): still doesn't have a provider. [facility] involved to assist. Also needs to move to adult medicine. Assessment & Plan (12/08/2021 1:07 PM EDT): 12/08/2021 (age 21yr): psychiatrist just left, on escilatopram and trazadone. Has not had a therapist for 1 year. [facility] to assist in finding new provider Assessment & Plan (08/03/2020 9:50 PM EDT): Continue in therapy and work with med prescribers to get reestablished as transitions to adult provider Assessment & Plan (12/15/2018 10:31 AM EDT): Seeing Dr. Wilson at [facility]. Gets meds through him. On Quetieapine (and adderall). D/C'd lexapro several month ago. Doing well. Assessment & Plan (03/08/2018 3:59 PM EST): Advised to continue on this treatment regimen until in-person consult/follow up with psychiatrist at [facility]. Assessment & Plan (01/29/2018 4:40 PM EDT): Lexapro does not seem like it's helping according to mother and patient. Followed by Dr. Wilson at [facility] (interim), since previous psych provider no longer [...] not had a therapist for 1 year. [facility] to assist in finding new provider. 02/02/2022 (age 21yr): still doesn't have a provider. [facility] involved to assist. Also needs to move to adult medicine. Detailed History and Chronology of care: 12/15/2018: At [facility]. On Adderall xr [address] Wilson at [facility]. Gets meds through him. 07/2020: visit with Dr. Newman at [facility] as a new consult/evaluation, previously seen by Dr. Wilson and struggled to get in elsewhere, so were happy to have this evaluation - he is writing for medication for pt. Still seeing Mckenzie Turner for therapy (group home, for years) Assessment & Plan (02/02/2022 10:31 AM EDT): 02/02/2022 (age 21yr): still doesn't have a provider. [facility] involved to assist. Also needs to move to adult medicine. Assessment & Plan (12/08/2021 1:06 PM EDT): 12/08/2021 (age 21yr): psychiatrist just left, no longer on ADHD meds. ADHD symptoms are bothering her. Has not had a therapist for 1 year. [facility] to assist in finding new provider. Assessment & Plan (12/15/2018 10:33 AM EDT): Classes just started. Seeing Dr. Wilson at [facility]. Gets meds through him. On adderall [...] 1 jenelismar No Known Problems Sister 2 abenais Relation Name Status Comments Father caleb Alive Father: ADD/ADH D, Obesity, Asthma, Migraines, Alive and well Maternal Grandfather Materna l grandfather: HEART PROBLEMS, Diabetes mellitus Maternal Grandmother Materna l grandmother: Diabetes mellitus Maternal Great-Grandmother Mother ne anand Alive Mother: Asthm a, Obesity, Migraines Other grandmother: Wiley dden /ME under 55 Paternal Grandfather Paterna l grandfather: E.T.O.H. Paternal Grandmother Paterna l grandmother: HEART PROBLEMS, Hyperlipidemia Sister 1 jenelismar Alive Sister: Alive a nd well Sister 2 jenlilian Alive Social History Tobacco Use Types Packs/Day [...] Completed 06/19/2019, 12/15/2018 Procedures * Due to [place] [employer] law, this organization might not be sharing sensitive test results. Procedure Name Priority Date/Time Associated Diagnosis Comments CHLAMYDIA AND GONORRHEA, AMPLIFIED Routine 12/08/2021 12:15 PM EDT Screening for chlamydial disease from Last 3 Months or Most Recently Relevant to Health Maintenance Results * Due to [place] [employer] law, this organization might not be sharing sensitive test results. * Chlamydia and Gonorrhoea, Amplified (12/08/2021 12:15 PM EDT) Chlamydia Trachomatis, DNA Probe NEGATIVE (NEG) [facility] Comment: No Chlamydia Trachomatis RNA detected in this patient's sample (REFERENCE RANGE/NORMAL VALUE: NOT DETECTED) Note: This test uses applications specialist- mediated amplification method to detect rRNA from C. Trachomatis URINE GC AMP PROBE NEGATIVE (NEG) [facility] Comment: No Neisseria Gonorrhoeae RNA detected in this patient's sample (REFERENCE RANGE/NORMAL VALUE: NOT DETECTED) NOTE: This test uses applications specialist-mediated amplification method to detect rRNA from N.Gonorrhoeae. [...] without risk of sexual abuse. Consult the [facility] if needed. Contact phone number . Therapeutic failure or success cannot be determined with the Aptima Combo2 assay since nucleic acid may persist following appropriate antimicrobial therapy. The Centers for Disease Control and Prevention (CDC) recommends confirmatory retesting using culture or a different nucleic acid amplification test when positive results occur, if indicated. Testing performed or reported by [facility], a Service of [facility], [address] [place] [address] Dylan Pratt MD, Drop Hammer Set Up Operator [facility]# [id number] Urine (Urine) 12/08/2021 12: 15 PM EDT 12/09/2021 1:10 AM EDT Angelica Heaton MD LAB MICROBIOLOGY - GENERAL OR DERABLES Final Result [facility] from Last 3 Months or Most Recently Relevant to Health Maintenance
--- OUTSIDE RECORDS SUMMARY | 2025-01-25 12:36 | XMS_ITS | Encounter Summary ---
Author Organization [facility] Address [address] [place] [address] Phone Care Team Providers Care Guide Dog Trainer Name Role Phone Angelica Heaton MD Primary Care Provider [phone] Reason for Visit * Reason Comments Med Refill Encounter Details Date Type Department Care Team ([facility] Contact Info) Description 05/02/2022 Refill [facility] [address] [place] [address] Angelica Heatno MD [address] [place] [address] Menorrhagia with regular cycle Social History Tobacco [...] cycle documented in this encounter Care Teams Guide Dog Trainer Relationship Specialty Start Date End Date Angelica Heaton MD [address] [place] [address] PCP - General Pediatrics 11/16/18 07/22/22 documented as of this encounter
--- OUTSIDE RECORDS SUMMARY | 2025-01-25 12:36 | XMS_ITS | Encounter Summary ---
Author Organization [facility] Address [address] [place], [place] [id number] Phone Care Team Providers Care Lining Presser Name Role Phone Angelica Heaton MD Primary Care Provider [phone] Reason for Visit * Reason Onset Date Comments Med Refill 09/27/2019 Encounter Details Date Type Department Care Team ([facility] st Contact Info) Description 09/27/2019 Refill [facility] [address] [place] [address] Angelica Heaton MD [address] [place] [address] Moderate persistent asthma without complication; Seasonal allergic [...] trigger documented in this encounter Care Teams Lining Presser Relationship Specialty Start Date End Date Angelica Heaton MD [address] [place] [address] PCP - General Pediatrics 11/16/18 07/22/22 documented as of this encounter
--- OUTSIDE RECORDS SUMMARY | 2025-01-25 12:36 | XMS_ITS | Encounter Summary ---
Author Organization [facility] Address [address] [place] [address] Phone Care Team Providers Care Sugar Cane Planting Equipment Operator Name Role Phone Angelica Heaton MD Primary Care Provider [phone] Encounter Details Date Type Department Care Team ([facility] Contact Info) Description 11/25/2016 Conversion Encounter [facility] [address] [place] [address] Social History Tobacco Use Types Packs/Day Years [...] on filedocumented in this encounter Care Teams Sugar Cane Planting Equipment Operator Relationship Specialty Start Date End Date Angelica Heaton MD [address] [place] [address] PCP - General Pediatrics 11/16/18 07/22/22 documented as of this encounter
--- OUTSIDE RECORDS SUMMARY | 2025-01-25 12:36 | XMS_ITS | Encounter Summary ---
Author Organization [facility] Address [address] [place] [address] Phone Care Team Providers Care Cloth Hand Name Role Phone Angelica Heaton MD Primary Care Provider [phone] Encounter Details Date Type Department Care Team (Late st Contact Info) Description 09/04/2009 Documentation [facility] Family Medicine [address] [place] [address] Family Medicine, Physician [address] [place] [address] Social History Tobacco Use Types Packs/Day Years [...] on filedocumented in this encounter Care Teams Cloth Hand Relationship Specialty Start Date End Date Angelica Heaton MD [address] [place] [address] PCP - General Pediatrics 11/16/18 07/22/22 documented as of this encounter
--- OUTSIDE RECORDS SUMMARY | 2025-01-25 12:36 | XMS_ITS | Clinical Summary ---
Author Organization [facility] it Address [address] [place] [address] Care Team Providers Care Disposal Worker Name Role Phone Unavailable Primary Care Provider [...]
--- OUTSIDE RECORDS SUMMARY | 2025-01-25 12:37 | XMS_ITS | Encounter Summary ---
Author Organization [facility] Address [address] [place] [id number] Phone Care Team Providers Care Quality Manager Name Role Phone Angelica Heaton MD Primary Care Provider [phone] Reason for Visit * Reason Comments Med Refill Encounter Details Date Type Department Care Team ([facility] Contact Info) Description 11/22/2021 Refill [facility] [address] [place] [address] Angelica Heaton MD [address] [place] [address] Menorrhagia with regular cycle Social History Tobacco [...] cycle documented in this encounter Care Teams Quality Manager Relationship Specialty Start Date End Date Angelica Heaton MD [address] [place] [id number] PCP - General Pediatrics 11/16/18 07/22/22 documented as of this encounter
--- OUTSIDE RECORDS SUMMARY | 2025-01-25 12:37 | XMS_ITS | Encounter Summary ---
Author Organization [facility] Address [address] [place] [phone] Phone Care Team Providers Care Director Safety Name Role Phone Angelica Heaton MD Primary Care Provider [phone] Reason for Visit * Reason Comments Med Refill Encounter Details Date Type Department Care Team ([facility] Contact Info) Description 07/25/2021 Refill [facility] [address] [place] [address] Angelica Heaton MD [address] [place] [address] Menorrhagia with regular cycle (Primary Dx) Social [...] will be her last well visit at [facility]. * Telephone Encounter - Josselin Brunson LPN - 07/26/2021 12:56 PM EDT Pharm requesting refill OCP. EH documented in this encounter Plan of Treatment Not on file documented as of this encounter Visit Diagnoses Diagnosis Menorrhagia with regular cycle- Primary documented in this encounter Care Teams Director Safety Relationship Specialty Start Date End Date Angelica Heaton MD [address] [place] [phone] PCP - General Pediatrics 11/16/18 07/22/22 documented as of this encounter
--- OUTSIDE RECORDS SUMMARY | 2025-01-25 12:37 | XMS_ITS | Encounter Summary ---
Author Organization [facility] Address [address] [place] [phone] Phone Care Team Providers Care Supervisor Compounding And Finishing Name Role Phone Angelica Heaton MD Primary Care Provider [phone] Encounter Details Date Type Department Care Team (Late st Contact Info) Description 07/12/2016 Documentation [facility] Family Medicine [address] [place] [address] Family Medicine, Physician [address] [place] [address] Social History Tobacco Use Types Packs/Day Years [...] on filedocumented in this encounter Care Teams Supervisor Compounding And Finishing Relationship Specialty Start Date End Date Angelica Heaton MD [address] [place] [address] PCP - General Pediatrics 11/16/18 07/22/22 documented as of this encounter
--- OUTSIDE RECORDS SUMMARY | 2025-01-25 12:37 | XMS_ITS | Encounter Summary ---
Author Organization [facility] Address [address] [place] [phone] Phone Care Team Providers Care Outbound Sales Representative Name Role Phone Angelica Heaton MD Primary Care Provider [phone] Reason for Visit * Reason Comments Med Refill Encounter Details Date Type Department Care Team ([facility] Contact Info) Description 01/17/2018 Refill [facility] [address] [place] [address] Brooke Conklin MD [address] [place] [address] Menorrhagia with irregular cycle (Primary Dx) Social [...] Primary documented in this encounter Care Teams Outbound Sales Representative Relationship Specialty Start Date End Date Angelica Heaton MD [address] [place] [address] PCP - General Pediatrics 11/16/18 07/22/22 documented as of this encounter
[2025-01-25 12:53] LABS: Appearance Urine Cloudy; Glucose Urine UA Negative (Negative); PH 5.5 (5.0-9.0); Specific Gravity - Urine 1.020 (1.005-1.025); UMIC TRIGGER UACC YES
[2025-01-25 13:00] LABS: UACC Culture Trigger YES
[2025-01-25 13:08] LABS: UPreg QC Valid YES
[2025-01-25 13:26] VITALS: BP 154/85; PULSE 83; RESP 18; O2SAT 96
[2025-01-25] MEDS: Lactated Ringers 1,000 ML 999 ML IV (13:42)
--- NOTE | 2025-01-25 14:35 | PHA.MEDREC ---
Addendum entered by Abhilash Roca RPh 01/25/25 14:49: MED REC REVIEWED BY [facility] Original Note: Pharmacy Consult ? Medication Reconciliation Pharmacy has completed the medication reconciliation. Patient was able to name all of her medications. Patient states she is no longer taking Maalox, and Ondansetron 4 mg. Patient confirmed Vitamin D3 50,000 units every , last dose was yesterday.
--- NOTE | 2025-01-25 14:53 | P.HPGS_ITS ---
History of Present Illness History of Present Illness Date of Service: 01/25/25 <Dakota Riggs PA-C - Last Filed: 01/25/25 15:11> 01/25/25 <Peter Villatoro MD - Last Filed: 01/25/25 16:51> Chief complaint: Biliary colic <Dakota Riggs PA-C - Last Filed: 01/25/25 15:11> Narrative: Renea Underwood is a 24 year old female with a history of hypertension, anxiety and depression, asthma, sleep apnea, morbid obesity and gallstones presenting to the emergency department with a 2 day history of right upper quadrant pain. Patient was seen in the emergency department yesterday, was found to have gallstones, biliary colic. She was treated conservatively and recommended to follow up as an outpatient. She states that when she got home she began having increased pain in the right upper quadrant with associated nausea and vomiting. He has also had multiple episodes of diarrhea. Reports subjective fever and chills at home, no confirmed fever. She has been unable to eat at home. Workup in the ED included abdominal ultrasound showing multiple gallstones in the gallbladder, no wall thickening or pericholecystic fluid. Common bile duct was normal in caliber. On 01/24 she did have a white count of 16, today there was no white count. Liver enzymes and bilirubin within normal limits. Current medications include amlodipine, Lexapro, famotidine, losartan. She denies any surgical history. Denies smoking, reports infrequent alcohol use. Admits to occasional marijuana edible use. Denies any other drug use. <Dakota Riggs PA-C - Last Filed: 01/25/25 15:11> Review of Systems Review of Systems: Yes all other systems are reviewed and are negative <Dakota Riggs PA-C - Last Filed: 01/25/25 15:11> [facility] Past Medical History Medical History: Medical History Umbilical hernia Dysphagia Mild intermittent asthma Impaired concentration Sleep apnea Essential hypertension Depression with anxiety Morbid obesity Heartburn Asthma <Dakota Riggs PA-C - Last Filed: 01/25/25 15:11> Family History Family History: Family History Father Substance use disorder Paternal Grandmother Mental health disorder Paternal Aunt Mental health disorder Maternal Grandmother Mental health disorder Mother Mental health disorder Sister Mental health disorder <Dakota Riggs PA-C - Last Filed: 01/25/25 15:11> Surgical History Surgical History: Surgical History No pertinent past surgical history <Dakota Riggs PA-C - Last Filed: 01/25/25 15:11> Social History Social History: Social History Housing: House Patient Tobacco Use Status: Former Tobacco user Smoked in Last 30 Days: No e-Cigarette/Vaping Use: Never Used Use of substances other than those prescribed or required for medical reasons: Yes Substance Use Type: Marijuana Advance Directives: No Advance Directives Information Provided: Yes service: No Current occupational status: employed Cognitive needs: No Hearing needs: No Vision needs: Yes <Dakota Riggs PA-C - Last Filed: 01/25/25 15:11> Meds Allergies/Adverse reactions: Allergies Allergy/AdvReac Type Severity Reaction Status Date / Time apple Allergy Itching Verified 01/25/25 09:29 cantaloupe Allergy Itching Verified 01/25/25 09:29 kiwi Allergy Itching Verified 01/25/25 09:29 shellfish derived Allergy Facial Verified 01/25/25 09:29 Swelling strawberry Allergy Itching Verified 01/25/25 09:29 <Dakota Riggs PA-C - Last Filed: 01/25/25 15:11> Home medications: Home Medications ?Medication ?Instructions ?Recorded ?Confirmed ?Last Taken ?Type fluticasone propionate 50 1 spray intranasal DAILY PRN 01/04/25 01/25/25 01/24/25 History mcg/actuation nasal Allergy Symptoms spray,suspension (Flonase Allergy Relief) cholecalciferol (vitamin D3) 1,250 1,250 mcg PO TH 01/25/25 01/24/25 History mcg (50,000 unit) capsule omeprazole 20 mg capsule,delayed 20 mg PO DAILY PRN Ac id Reflux 01/25/25 01/25/25 01/24/25 History release <HANNAH Eller Last Filed: 01/25/25 15:11> Physical Exam Vital Signs: Vital Signs: Last Vital Signs Temp 98.1 F 01/25/25 09:26 Pulse 83 01/25/25 13:26 Resp 18 01/25/25 13:26 BP 154/85 H 01/25/25 13:26 Pulse Ox 96 01/25/25 13:26 O2 Del Method Room Air 01/25/25 13:26 BMI result Body Mass Index 69.2 <Dakota Riggs PA-C - Last Filed: 01/25/25 15:11> Const: General: comfortable and no acute distress <Dakota Riggs PA-C Manju Last Filed: 01/25/25 15:11> Nutritional Appearance: obese <Dakota Riggs PA-C - Last Filed: 01/25/25 15:11> Orientation/consciousness: patient oriented x3 <Dakota Riggs PA-C - Last Filed: 01/25/25 15:11> Resp: Effort & Inspection: normal respiratory effort and able to speak in complete sentences <Dakota Riggs PA-C - Last Filed: 01/25/25 15:11> GI: Inspection: No distended <Dakota Riggs PA-C - Last Filed: 01/25/25 15:11> Palpation (GI): Soft to palpation and Tenderness to palpation present (GI) in the RUQ and Perez's sign positive <Dakota Riggs PA-C - Last Filed: 01/25/25 15:11> Neuro: General: patient oriented x3 <Dakota Riggs PA-C Manju Last Filed: 01/25/25 15:11> Results Results Labs: Short CBC 01/25/25 Range/Units 10:09 WBC 8.7 (4.8-10.8) X10*3/uL Hgb 12.0 (12.0-16.0) g/dl Hct 37.9 (37.0-47.0) % Plt Count 338 (160-400) X10*3/uL BMP 01/25/25 10:09 Sodium 140 Potassium 4.1 Chloride 110 H Carbon Dioxide 23 BUN 13 Creatinine 0.58 Calcium 8.7 D Liver Function 01/25/25 Range/Units 10:09 Total Bilirubin 0.3 (0.0-1.0) mg/dL Direct Bilirubin 0.1 (0.0-0.5) mg/dL AST 15 (5-31) U/L ALT 18 (0-31) U/L Alkaline Phosphatase 71 (39-117) U/L Albumin 4.1 (3.5-5.0) g/dL Urine 01/25/25 Range/Units 12:42 Urine Color Yellow Urine Appearance Cloudy Urine pH 5.5 (5.0-9.0) Ur Specific [place] 1.020 (1.005-1.025) Urine Protein Negative (Neg-Trace) mg/dL Urine Glucose (UA) Negative (Negative) mg/dL Urine Test NEGATIVE (NEGATIVE) <Dakota Riggs PA-C - Last Filed: 01/25/25 15:11> Assessment and Plan (1) Biliary colic: Status: Acute <Dakota Rigsg PA-C - Last Filed: 01/25/25 15:11> 24 year old female with a history of hypertension, anxiety and depression, asthma, sleep apnea, morbid obesity and gallstones presenting to the emergency department with a 2 day history of right upper quadrant pain. Patient was seen in the emergency department yesterday, was found to have gallstones, biliary colic. She was treated conservatively and recommended to follow up as an outpatient. She states that when she got home she began having increased pain in the right upper quadrant with associated nausea and vomiting. Abdominal ultrasound showing multiple gallstones, no wall thickening or pericholecystic fluid, CBD normal in caliber. She has no leukocytosis, no elevated liver enzymes or bilirubin. To note she did have a white count of 16 yesterday when evaluated for biliary colic. On exam, patient is very tender in the right upper quadrant, positive Perez sign. Otherwise abdomen is soft. Given that patient is experiencing worsening pain, patient was given the option for discharge and follow up as outpatient versus laparoscopic cholecystectomy possible open. We discussed risks and benefits, alternatives including bleeding, infection, damage to surrounding organs. Patient elected to proceed with surgical intervention, she will be added on for the OR scheduled tomorrow morning. To note she has a small umbilical hernia seen on abdominal CT on 07/20/2024, I was unable to appreciate this on exam today We will admit to our service. She will be made NPO. NPO IV fluids Antiemetics as needed IV Zosyn Lap andre possible open tomorrow morning Hospitalist consult for medical management while inpatient <Dakota Riggs PA-C - Last Filed: 01/25/25 15:11> 24 year old female with a history of hypertension, anxiety and depression, asthma, sleep apnea, morbid obesity and gallstones presenting to the emergency department with a 2 day history of right upper quadrant pain. Patient was seen in the emergency department yesterday, was found to have gallstones, biliary colic. She was treated conservatively and recommended to follow up as an outpatient. She states that when she got home she began having increased pain in the right upper quadrant with associated nausea and vomiting. Abdominal ultrasound showing multiple gallstones, no wall thickening or pericholecystic fluid, CBD normal in caliber. She has no leukocytosis, no elevated liver enzymes or bilirubin. To note she did have a white count of 16 yesterday when evaluated for biliary colic. On exam, patient is very tender in the right upper quadrant, positive Perez sign. Otherwise abdomen is soft. Given that patient is experiencing worsening pain, patient was given the option for discharge and follow up as outpatient versus laparoscopic cholecystectomy possible open. We discussed risks and benefits, alternatives including bleeding, infection, damage to surrounding organs. Patient elected to proceed with surgical intervention, she will be added on for the OR scheduled tomorrow morning. To note she has a small umbilical hernia seen on abdominal CT on 07/20/2024, I was unable to appreciate this on exam today We will admit to our service. She will be made NPO. NPO IV fluids Antiemetics as needed IV Zosyn Lap andre possible open tomorrow morning Hospitalist consult for medical management while inpatient Patient seen and examined independently. Patient with recurrent epigastric and right upper quadrant abdominal pain with a previous workup confirming gallstones within the gallbladder. Patient's labs are otherwise normal. On examination she is tender in the right upper quadrant with a positive Perez sign. I agree with the above assessment and plan. I reviewed the procedure, risks, and alternatives in detail and she consents to a laparoscopic or possible open cholecystectomy. She has been added onto the operative schedule for tomorrow morning. <Peter Villatoro MD - Last Filed: 01/25/25 16:51> Quality Stroke Does the patient have a stroke diagnosis?: No <Dakota Riggs PA-C - Last Filed: 01/25/25 15:11> VTE Prior VTE?: No <Dakota Riggs PA-C - Last Filed: 01/25/25 15:11> VTE Risk Level:: Surgical - moderate <Dakota Riggs PA-C - Last Filed: 01/25/25 15:11> VTE Device Contraindication: N/A - Device Ordered <Dakota Riggs PA-C - Last Filed: 01/25/25 15:11> VTE Drug Contraindication: Treatment Not Indicated <Dakota Riggs PA-C - Last Filed: 01/25/25 15:11> Procedures Date of Service Date of Service: 01/25/25 <Dakota Riggs PA-C - Last Filed: 01/25/25 15:11> 01/25/25 <Peter Villatoro MD - Last Filed: 01/25/25 16:51>
--- NOTE | 2025-01-25 15:19 | P.CONHOSP_ITS ---
History of Present Illness Data of Consult Service Date: 01/25/25 Requesting physician: Dakota Riggs Primary Care Provider: Cheryl Hutchison MD [facility] Reason for consult: medical management This is a 24 year old female with HTN, morbid obesity, depression who returns to the ED with abdominal pain. Patient was evaluated in the emergency department on January 24 and was diagnosed with gallstones. She was discharged home with plan for outpatient follow-up with General surgery. She returns to the emergency department today with right upper quadrant abdominal pain. Repeat imaging essentially unchanged showing cholelithiasis without choledocholithiasis. Positive sonographic Perez's sign was noted. LFTs within normal limits. Patient was evaluated by General surgery and admitted to the Surgical Services plan for laparoscopic cholecystectomy in the morning. Review of Systems 2 Review of Systems: Yes all other systems are reviewed and are negative Constitutional: Constitutional: Denies chills and Denies fever(s) Cardiovascular: Cardiovascular: Denies chest pain and Denies palpitations Gastrointestinal: Gastrointestinal: Reports abdominal pain Endocrine: Endocrine: Denies palpitations [facility] Medical History Umbilical hernia Dysphagia Mild intermittent asthma Impaired concentration Sleep apnea Essential hypertension Depression with anxiety Morbid obesity Heartburn Asthma Family History Father Substance use disorder Paternal Grandmother Mental health disorder Paternal Aunt Mental health disorder Maternal Grandmother Mental health disorder Mother Mental health disorder Sister Mental health disorder Surgical History No pertinent past surgical history Social History Housing: House Patient Tobacco Use Status: Former Tobacco user Smoked in Last 30 Days: No e-Cigarette/Vaping Use: Never Used Use of substances other than those prescribed or required for medical reasons: Yes Substance Use Type: Marijuana Advance Directives: No Advance Directives Information Provided: Yes service: No Current occupational status: employed Cognitive needs: No Hearing needs: No Vision needs: Yes Meds Allergies Allergy/AdvReac Type Severity Reaction Status Date / Time apple Allergy Itching Verified 01/25/25 09:29 cantaloupe Allergy Itching Verified 01/25/25 09:29 kiwi Allergy Itching Verified 01/25/25 09:29 shellfish derived Allergy Facial Verified 01/25/25 09:29 Swelling strawberry Allergy Itching Verified 01/25/25 09:29 Active Medications: Current Medications Acetaminophen (Acetaminophen 325 Mg Tablet) 650 mg PO Q6H PRN PRN Reason: Pain, Mild 1-3,fever,headache Calcium Carbonate (Calcium Carbonate 750 Mg Tab.Chew) 750 mg PO Q4H PRN PRN Reason: Heartburn Lactated Ringer's (Lr) 1,000 mls @ 100 mls/hr IVCONT .Q10H AUTUMN Piperacillin Sod/Tazobactam (Sod 3.375 gm/ Sodium Chloride) 50 mls @ 100 mls/hr IV Q6H AUTUMN Magnesium Hydroxide (Milk Of Magnesia 30 Ml Oral.Susp) 30 ml PO DAILY PRN PRN Reason: Constipation Melatonin (Melatonin 3 Mg Tablet) 6 mg PO BEDTIME PRN PRN Reason: Insomnia Ondansetron HCl (Ondansetron Hcl 4 Mg/2 Ml Vial) 4 mg IVPUSH Q8H PRN PRN Reason: Nausea and Vomiting Oxycodone HCl (Oxycodone Hcl Immed Release 5 Mg Tablet) 5 mg PO Q6H PRN PRN Reason: Pain, Severe (Pain Scale 7-10) Sodium Chloride (0.9 % Sodium Chloride Flush 3 Ml Syringe) [address] [facility] Home Medications ?Medication ?Instructions ?Recorded ?Confirmed ?Last Taken ?Type fluticasone propionate 50 1 spray intranasal DAILY PRN 01/04/25 01/25/25 01/24/25 History mcg/actuation nasal Allergy Symptoms spray,suspension (Flonase Allergy Relief) cholecalciferol (vitamin D3) 1,250 1,250 mcg PO TH 01/25/25 01/24/25 History mcg (50,000 unit) capsule omeprazole 20 mg capsule,delayed 20 mg PO DAILY PRN Ac id Reflux 01/25/25 01/25/25 01/24/25 History release Physical Exam 2 Vital Signs and Narrative: Vital Signs: Last Vital Signs Temp 98.1 F 01/25/25 09:26 Pulse 83 01/25/25 13:26 Resp 18 01/25/25 13:26 BP 154/85 H 01/25/25 13:26 Pulse Ox 96 01/25/25 13:26 O2 Del Method Room Air 01/25/25 13:26 BMI result Body Mass Index 69.2 Const: General: cooperative, comfortable, no acute distress, alert and awake Nutritional Appearance: obese Orientation/consciousness: patient oriented x3 Resp: Effort & Inspection: normal respiratory effort, able to speak in complete sentences, no respiratory distress and no use of accessory muscles A uscultation: clear to auscultation bilaterally Cardio: Rate: regular rate GI: Other: RUQ TTP, no guarding no rigidity Inspection: No distended Palpation (GI): Soft to palpation Neuro: General: patient oriented x3, moves all extremities and CN's II-XI intact bilaterally Results Labs 01/25/25 10:09 01/25/25 10:09 Labs: Laboratory Results - last 24 hr 01/25/25 01/25/25 10:09 12:42 MCV 78.3 L MCH 24.8 L MCHC 31.7 RDW 14.9 Plt Count 338 MPV 9.6 Immature Gran % (Auto) 0.2 Neut % (Auto) 61.6 Lymph % (Auto) 29.5 [place] % (Auto) 7.0 Eos % (Auto) 1.4 Baso % (Auto) 0.3 Lymph # (Auto) 2.6 [place] # (Auto) 0.6 Eos # (Auto) 0.1 Baso # (Auto) 0.0 Abs Immat Gran (auto) 0.02 Absolute Neuts (auto) 5.4 Absolute Nucleated RBC 0.000 Nucleated RBC % (auto) 0.0 Anion Gap 11 L Estim Creat Clear Calc 224.7 Estimated GFR > 60 Random Glucose 92 Calcium 8.7 D Magnesium 1.9 Total Bilirubin 0.3 Direct Bilirubin 0.1 AST 15 ALT 18 Alkaline Phosphatase 71 Total Protein 6.6 Albumin 4.1 Lipase 15 Urine Color Yellow Urine Appearance Cloudy Urine pH 5.5 Ur Specific [place] 1.020 Urine Protein Negative Urine Glucose (UA) Negative Urine Ketones Negative Urine Blood Negative Urine Nitrite Negative Ur Leukocyte Esterase Small (1+) H Urine RBC 0-2 Urine WBC 11-20 H Ur Squamous Epith Cells 11-20 Urine Bacteria 1+ Hyaline Casts 0-2 Urine Test NEGATIVE Imaging Radiologist's Impressions: Impressions Abdomen Ultrasound 01/25/25 10:56 IMPRESSION: Cholelithiasis without gross choledocholithiasis. Electronically signed by: Ric Downing MD 01/25/2025 11:29 AM EDT RP Assessment and Plan (1) Morbid obesity: Status: Acute (2) Essential hypertension: Status: Acute Plan This is a 24 year old female with history of morbid obesity, depression, hypertension who presented with abdominal pain found to have cholelithiasis/biliary colic admitted to the surgical service Abdominal pain Due to cholelithiasis/biliary colic Management as per surgical team, plan for cholecystectomy in a.m. HTN continue baseline meds, losartan, amlodipine mild intermittent asthma does not appear to use any inhalers at this time no acute exacerbation prn albuterol for any sob or wheezing morbid obesity BMI 69.2 has been seen in weight management clinic weight loss encouraged Mood continue SSRI Vit D deficiency continue supplementation upon discharge Thank you for allowing us to participate in the care of this patient. We will follow along with you.
[2025-01-25] MEDS: 0.9 % Sodium Chloride Flush 3 ML SYRINGE IVFLUSH ×2 (16:33→21:40)
[2025-01-25 16:35] VITALS: BP 128/71; PULSE 74; RESP 16; TEMP 36.9; O2SAT 98
[2025-01-25] MEDS: oxyCODONE HCl Immed Release 5 MG TABLET PO (16:40)
[2025-01-25] MEDS: Lactated Ringers 1,000 ML 100 ML IVCONT (16:42)
--- NOTE | 2025-01-25 17:42 | MHC.EDTECH ---
I answered the patient call light and she need to use the bathroom but connected to the IV. Nurse aware
--- NOTE | 2025-01-25 19:32 | PC.NURSE ---
Report received and care assumed, pt awake and alert sitting upright in stretcher without distress noted. she reports worsening abdominal pain s/p eating her clear liquid diet dinner reporting nausea and 10/10 abdominal pain. Pt aware of bed assignment and will be medicated with PRN meds for nausea prior to transfer.
--- NOTE | 2025-01-25 20:04 | PC.NURSE ---
pt requesting additional pain medication at this time, however it is too early for additional PRN medication to be administered per MAR. Pt to be made aware
[2025-01-25 20:34] VITALS: BMI 70.6
[2025-01-25 22:00] VITALS: BP 139/79; PULSE 80; RESP 20; TEMP 36.6; O2SAT 95
[2025-01-26] VITALS (13 sets, daily range): BP systolic 106–147; BP diastolic 60–81; PULSE 66–84; RESP 13–20; TEMP 36.1–37; O2SAT 92–100
[2025-01-26] MEDS: Lactated Ringers 1,000 ML 100 ML IVCONT ×2 (01:27→14:43)
[2025-01-26 06:18] LABS: Anion Gap 11 (12-20); Blood Urea Nitrogen 11 mg/dL (9-16); Calcium 8.3 mg/dL (8.4-10.2); Carbon Dioxide 25 mmol/L (22-29); Chloride 108 mmol/L (96-108); Creatinine Clr Calc Pharmacy 235.9; Estimated Glomerular Filt Rate > 60; Potassium 3.9 mmol/L (3.3-5.1); Sodium 140 mmol/L (135-145)
--- NOTE | 2025-01-26 07:40 | P.CONAN_ITS ---
HPI - Anesthesia Eval Consult details Narrative: for lap. cholyecystectomy PMFSH Active Problems Active Problems: All Active Problems Abdominal pain (Acute) Biliary colic (Acute) Umbilical hernia (Acute) Dysphagia (Acute) Mild intermittent asthma (Acute) Impaired concentration (Acute) Sleep apnea (Acute) Asthma (Acute) Essential hypertension (Acute) Depression with anxiety (Acute) Morbid obesity (Acute) Heartburn (Acute) Allergic rhinitis (Acute) Past Medical History Medical History Umbilical hernia Dysphagia Mild intermittent asthma Impaired concentration Sleep apnea Essential hypertension Depression with anxiety Morbid obesity Heartburn Asthma Patient : No Family History Family History Father Substance use disorder Paternal Grandmother Mental health disorder Paternal Aunt Mental health disorder Maternal Grandmother Mental health disorder Mother Mental health disorder Sister Mental health disorder Family history of problems with anesthesia: No Surgical History Surgical History No pertinent past surgical history History of Problems with Anesthesia: No Social History Social History Housing: House Comment: post-op Patient Tobacco Use Status: Former Tobacco user e-Cigarette/Vaping Use: Never Used Substance Use Type: Marijuana service: No Current occupational status: employed Cognitive needs: No Hearing needs: No Vision needs: Yes Meds Allergies Allergy/AdvReac Type Severity Reaction Status Date / Time apple Allergy Itching Verified 01/25/25 09:29 cantaloupe Allergy Itching Verified 01/25/25 09:29 kiwi Allergy Itching Verified 01/25/25 09:29 shellfish derived Allergy Facial Verified 01/25/25 09:29 Swelling strawberry Allergy Itching Verified 01/25/25 09:29 Active Medications: Current Medications Acetaminophen (Acetaminophen 325 Mg Tablet) 650 mg PO Q6H PRN PRN Reason: Pain, Mild 1-3,fever,headache Albuterol Sulfate (Albuterol Sulfate (0.083%) 2.5 Mg/3 Ml Vial.Neb) 2.5 mg INHALE RQ4H PRN PRN Reason: Shortness of Breath/Wheezing Amlodipine Besylate (Amlodipine Besylate 5 Mg Tablet) 5 mg PO DAILY [facility]; Protocol Calcium Carbonate (Calcium Carbonate 750 Mg Tab.Chew) 750 mg PO Q4H PRN PRN Reason: Heartburn Escitalopram Oxalate (Escitalopram Oxalate 20 Mg Tablet) 20 mg PO DAILY [facility] Hydromorphone HCl (Hydromorphone Hcl 1 Mg/Ml Syringe) 1 mg IVPUSH Q3H PRN; Protocol PRN Reason: Pain, Severe (Pain Scale 7-10) Last Admin: 01/25/25 21:37 Dose: 1 mg Lactated Ringer's (Lr) 1,000 mls @ 100 mls/hr IVCONT .Q10H [facility] Last Admin: 01/26/25 01:27 Dose: 100 mls/hr Piperacillin Sod/Tazobactam (Sod 3.375 gm/ Sodium Chloride) 50 mls @ 100 mls/hr IV Q6H [facility] Last Infusion: 01/26/25 05:53 Dose: Infused Losartan Potassium (Losartan Potassium 50 Mg Tablet) 50 mg PO DAILY [facility]; Protocol Magnesium Hydroxide (Milk Of Magnesia 30 Ml Oral.Susp) 30 ml PO DAILY PRN PRN Reason: Constipation Melatonin (Melatonin 3 Mg Tablet) 6 mg PO BEDTIME PRN PRN Reason: Insomnia Ondansetron HCl (Ondansetron Hcl 4 Mg/2 Ml Vial) 4 mg IVPUSH Q8H PRN PRN Reason: Nausea and Vomiting Last Admin: 01/25/25 19:52 Dose: 4 mg Oxycodone HCl (Oxycodone Hcl Immed Release 5 Mg Tablet) 5 mg PO Q6H PRN PRN Reason: Pain, Severe (Pain Scale 7-10) Last Admin: 01/25/25 16:40 Dose: 5 mg Sodium Chloride (0.9 % Sodium Chloride Flush 3 Ml Syringe) 3 ml IVFLUSH QSHIFT [facility] Last Admin: 01/26/25 07:19 Dose: Not Given Trazodone HCl (Trazodone Hcl 50 Mg Tablet) 50 mg PO BEDTIME PRN PRN Reason: Sleep Last Admin: 01/25/25 21:39 Dose: 50 mg Home Medications ?Medication ?Instructions ?Recorded ?Confirmed ?Last Taken ?Type fluticasone propionate 50 1 spray intranasal DAILY PRN 01/04/25 01/25/25 01/24/25 History mcg/actuation nasal Allergy Symptoms spray,suspension (Flonase Allergy Relief) cholecalciferol (vitamin D3) 1,250 1,250 mcg PO TH 01/25/25 01/24/25 History mcg (50,000 unit) capsule omeprazole 20 mg capsule,delayed 20 mg PO DAILY PRN Ac id Reflux 01/25/25 01/25/25 01/24/25 History release Exam Height,Weight and Vital Signs: Height 5 ft 1 in Weight 169.5 kg Last Vital Signs Temp 97.5 F 01/26/25 07:15 Pulse 67 01/26/25 07:15 Resp 18 01/26/25 07:15 BP 143/72 H 01/26/25 07:15 Pulse Ox 94 01/26/25 07:15 O2 Del Method Room Air 01/26/25 07:15 Pertinent Lab Results Pertinent Lab Results: Laboratory Tests 01/25/25 01/25/25 01/26/25 10:09 12:42 05:21 WBC 8.7 RBC 4.84 Hgb 12.0 Hct 37.9 MCV 78.3 L MCH 24.8 L MCHC 31.7 RDW 14.9 Plt Count 338 MPV 9.6 Immature Gran % (Auto) 0.2 Neut % (Auto) 61.6 Lymph % (Auto) 29.5 [place] % (Auto) 7.0 Eos % (Auto) 1.4 Baso % (Auto) 0.3 Lymph # (Auto) 2.6 [place] # (Auto) 0.6 Eos # (Auto) 0.1 Baso # (Auto) 0.0 Abs Immat Gran (auto) 0.02 Absolute Neuts (auto) 5.4 Absolute Nucleated RBC 0.000 Nucleated RBC % (auto) 0.0 Hold Purple Top SEE NOTE Sodium 140 Potassium 4.1 Chloride 110 H Carbon Dioxide 23 Anion Gap 11 L BUN 13 Creatinine 0.58 Estim Creat Clear Calc 224.7 Estimated GFR > 60 Random Glucose 92 Calcium 8.7 D Magnesium 1.9 Total Bilirubin 0.3 Direct Bilirubin 0.1 AST 15 ALT 18 Alkaline Phosphatase 71 Total Protein 6.6 Albumin 4.1 Lipase 15 Urine Color Yellow Urine Appearance Cloudy Urine pH 5.5 Ur Specific [place] 1.020 Urine Protein Negative Urine Glucose (UA) Negative Urine Ketones Negative Urine Blood Negative Urine Nitrite Negative Ur Leukocyte Esterase Small (1+) H Urine RBC 0-2 Urine WBC 11-20 H Ur Squamous Epith Cells 11-20 Urine Bacteria 1+ Hyaline Casts 0-2 Urine Test NEGATIVE 01/26/25 05:23 WBC RBC Hgb Hct MCV MCH MCHC RDW Plt Count MPV Immature Gran % (Auto) Neut % (Auto) Lymph % (Auto) [place] % (Auto) Eos % (Auto) Baso % (Auto) Lymph # (Auto) [place] # (Auto) Eos # (Auto) Baso # (Auto) Abs Immat Gran (auto) Absolute Neuts (auto) Absolute Nucleated RBC Nucleated RBC % (auto) Hold Purple Top Sodium 140 Potassium 3.9 Chloride 108 Carbon Dioxide 25 Anion Gap 11 L BUN 11 Creatinine 0.56 Estim Creat Clear Calc 235.9 Estimated GFR > 60 Random Glucose 91 Calcium 8.3 L Magnesium Total Bilirubin Direct Bilirubin AST ALT Alkaline Phosphatase Total Protein Albumin Lipase Urine Color Urine Appearance Urine pH Ur Specific [place] Urine Protein Urine Glucose (UA) Urine Ketones Urine Blood Urine Nitrite Ur Leukocyte Esterase Urine RBC Urine WBC Ur Squamous Epith Cells Urine Bacteria Hyaline Casts Urine Test Airway Mallampati Class: I TM Dist: <=3cm Neck ROM: Full Loose/Missing/Broken Teeth: No Heart: ok Lungs: ok Assessment and Plan Assessment Anesthesia Assessment: Anesthesia Plan Discussed and Chart Reviewed Final Anesthetic Review Family History of Problems with Anesthesia: No History of Problems with Anesthesia: No NPO: Yes ASA Class: III Final Preanesthetic Review: No Changes in Pt Med Stat, Meds/Allgs Chart Reviewed, Consent Obtained/Reviewed and Anes Risks/Benef Reviewed Patient Risk: Intermediate Procedure Risk: Intermediate Anesthetic Plan Anesthetic Plan: GA and Agree w/ Assess. and Plan Disposition: Standard PACU
--- NOTE | 2025-01-26 08:06 | MHC.SHP ---
Pre-Procedural Eval Section A - 24 Hr Update-Section A only Date of Service: 01/26/25 The patient is an INPATIENT: Yes Changes since office visit: Yes Patient answered all questions; No Cold of Flu in the past 2 weeks, No New Medical Problems and No Changes in Medication The patient has been examined within 24 hours of the surgical procedure. The History & Physical has been completed within 30 days and I have reviewed it.: Yes Section B - Complete if H&P > 30 days Chief Complaint: Biliary colic Allergies: Allergies Allergy/AdvReac Type Severity Reaction Status Date / Time apple Allergy Itching Verified 01/25/25 09:29 cantaloupe Allergy Itching Verified 01/25/25 09:29 kiwi Allergy Itching Verified 01/25/25 09:29 shellfish derived Allergy Facial Verified 01/25/25 09:29 Swelling strawberry Allergy Itching Verified 01/25/25 09:29 Plan Diagnosis/Plan: Unchanged I have reviewed the history and physical and performed a pertinent physical examination on my patient. No changes have occurred unless specified. Time Spent With Patient Time: Total time managing care of this patient today ____ minutes.
--- NOTE | 2025-01-26 09:55 | P.OP_ITS ---
Operative Note Operative Note Date of Service: 01/26/25 Narrative: Preoperative diagnosis: Acute calculous cholecystitis Postoperative diagnosis: Same Procedure: Laparoscopic cholecystectomy Surgeon: Peter Villatoro MD Central Office Operator: Dakota Riggs PA-C Anesthesia: General endotracheal Indications for procedure: 24-year-old obese female presenting with complaints of right upper quadrant abdominal pain, nausea and vomiting found to have multiple gallstones within the gallbladder and a positive Perez sign. Pain seems to increase after eating. Operative findings: Markedly distended gallbladder with multiple gallstones within the gallbladder Specimen: gallbladder Estimated blood loss: 2 mL Complications: None Procedure details: Patient was brought to the OR and placed in a supine position. After administering general anesthesia the patient's abdomen was prepped with ChloraPrep and draped in a sterile fashion. A surgical time-out was called the consent confirmed. Patient received preoperative antibiotics and Venodyne boots were in place. Local anesthesia consisting of 0.5% Sensorcaine without epinephrine was infiltrated in a periumbilical region. A 10 mm incision was made above the umbilicus in a transverse fashion. The Veress needle was then inserted while elevating abdominal cavity with towel clips. Abdomen could not be entered due to the size of the pannus therefore an Opti port was used to insert a 5 mm port under direct vision into the peritoneum. The abdomen was then insufflated to a pressure 15 mmHg. A 12 mm port was then placed in the epigastrium under direct vision. The camera was then placed in the epigastrium and a 12 mm trocar replaced the 5 mm trocar at the umbilicus. The 10 mm 30 degree camera was then returned to the umbilical port. Two 5 mm trocars placed in the right upper quadrant by the contract administrative assistant. The patient was placed in reverse Trendelenburg positioning and rotated to the left. The gallbladder was grasped with the fundus and retracted cephalad by the contract administrative assistant. The infundibulum was then grasped and retracted away from the liver bed, also by the contract administrative assistant. The Dolphin dissected was then used by the surgeon to dissect the peritoneum off the infundibulum to reveal the junction with the cystic duct. Cystic artery was noted slightly medial and posterior to the cystic duct. After obtaining a critical view the cystic duct was doubly clipped and divided. The cystic artery was then doubly clipped and divided. The gallbladder was then dissected off the liver bed using electrocautery with an L hook. Hemostasis was assured all times using the electrocautery. When the gallbladder is completely dissected off the liver bed was placed in an Endo- Catch bag and brought out through the epigastric incision. The gallbladder was sent to pathology for further examination. The abdomen was then re-examined. The liver bed was irrigated and suctioned dry. No bleeding or bile leak could be identified. CO2 was then evacuated and all trocars removed. Fascia was closed at the epigastric incision using a [id number] 0 Polysorb suture. Skin was closed in all incisions using a subcuticular 4 0 Polysorb suture by both the surgeon and contract administrative assistant. Sterile dressings consisting of Steri-Strips, 2 x 2 gauze, and Tegaderm were then applied. The patient tolerated the procedure well. Sponge instrument and needle counts reported as correct. The patient was transferred to PACU in stable condition.
[2025-01-26] MEDS: Albuterol Sulfate (0.083%) 2.5 MG/3 ML VIAL.NEB INHALE (10:16)
--- NOTE | 2025-01-26 15:10 | MHC.CM.PN ---
PT LVES WITH FAMILY IS INDEPEDENT HAS NO SRVICES DC PLAN HOME N./S
[2025-01-26] MEDS: oxyCODONE HCl Immed Release 5 MG TABLET PO (15:42)
[2025-01-27] VITALS (7 sets, daily range): BP systolic 117–155; BP diastolic 53–85; PULSE 79–94; RESP 18–20; TEMP 36.2–37.3; O2SAT 93–96
[2025-01-27] MEDS: Lactated Ringers 1,000 ML 100 ML IVCONT ×2 (00:32→10:52)
--- NOTE | 2025-01-27 04:29 | PC.NURSE ---
Pt seen on bed alert and oriented, abd soft but tender , ice packs applied, prn Dilaudid given, with good effect, encouraged to ambulate, voiding in BR, slept fairly.
[2025-01-27] MEDS: oxyCODONE HCl Immed Release 5 MG TABLET PO ×2 (07:55→14:04)
--- NOTE | 2025-01-27 08:45 | PM.PNGS ---
Subjective Subjective Date of Service: 01/27/25 Interval history: POD 1 following laparoscopic cholecystectomy for acute cholecystitis due to cholelithiasis. She reports some nausea yesterday with minimal appetite. She apparently had a low-grade fever as well. This morning she is feeling somewhat improved. Physical Exam Vital Signs: Vital Signs: Last Vital Signs Temp 98.6 F 01/27/25 07:51 Pulse 90 01/27/25 07:51 Resp 18 01/27/25 07:51 BP 137/73 01/27/25 07:51 Pulse Ox 93 01/27/25 07:51 O2 Del Method Room Air 01/27/25 07:51 O2 Flow Rate 4 01/26/25 10:30 BMI result Body Mass Index 70.6 Const: General: no acute distress Nutritional Appearance: obese Orientation/consciousness: patient oriented x3 Resp: Effort & Inspection: normal respiratory effort, no audible wheezes, no cough and no respiratory distress GI: Other: Trocar incisions are clean and intact with some slight bloody discharge. Inspection: Yes normal to inspection Palpation (GI): Soft to palpation and Tenderness to palpation present (GI) (Right upper quadrant at incisions.) Neuro: General: patient oriented x3 Extrem: General: Yes normal to inspection Objective Data Active Medications Acetaminophen (Acetaminophen 325 Mg Tablet) 650 mg PO Q6H PRN PRN Reason: Pain, Mild 1-3,fever,headache Last Admin: 01/26/25 23:05 Dose: 650 mg Documented By: TEMO Albuterol Sulfate (Albuterol Sulfate (0.083%) 2.5 Mg/3 Ml Vial.Neb) 2.5 mg INHALE RQ4H PRN PRN Reason: Shortness of Breath/Wheezing Last Admin: 01/26/25 10:16 Dose: 2.5 mg Documented By: JAMES Amlodipine Besylate (Amlodipine Besylate 5 Mg Tablet) 5 mg PO DAILY [facility]; Protocol Last Admin: 01/27/25 07:55 Dose: 5 mg Documented By: APOLONIA Calcium Carbonate (Calcium Carbonate 750 Mg Tab.Chew) 750 mg PO Q4H PRN PRN Reason: Heartburn Escitalopram Oxalate (Escitalopram Oxalate 20 Mg Tablet) 20 mg PO DAILY [facility] Last Admin: 01/27/25 07:56 Dose: 20 mg Documented By: APOLONIA Hydromorphone HCl (Hydromorphone Hcl 1 Mg/Ml Syringe) 1 mg IVPUSH Q3H PRN; Protocol PRN Reason: Pain, Severe (Pain Scale 7-10) Last Admin: 01/27/25 02:54 Dose: 1 mg Documented By: TEMO Lactated Ringer's (Lr) 1,000 mls @ 100 mls/hr IVCONT .Q10H [facility] Last Admin: 01/27/25 00:32 Dose: 100 mls/hr Documented By: TEMO Losartan Potassium (Losartan Potassium 50 Mg Tablet) 50 mg PO DAILY [facility]; Protocol Last Admin: 01/27/25 07:55 Dose: 50 mg Documented By: APOLONIA Magnesium Hydroxide (Milk Of Magnesia 30 Ml Oral.Susp) 30 ml PO DAILY PRN PRN Reason: Constipation Melatonin (Melatonin 3 Mg Tablet) 6 mg PO BEDTIME PRN PRN Reason: Insomnia Ondansetron HCl (Ondansetron Hcl 4 Mg/2 Ml Vial) 4 mg IVPUSH Q8H PRN PRN Reason: Nausea and Vomiting Last Admin: 01/26/25 20:30 Dose: 4 mg Documented By: TEMO Oxycodone HCl (Oxycodone Hcl Immed Release 5 Mg Tablet) 5 mg PO Q6H PRN PRN Reason: Pain, Severe (Pain Scale 7-10) Last Admin: 01/27/25 07:55 Dose: 5 mg Documented By: APOLONIA Sodium Chloride (0.9 % Sodium Chloride Flush 3 Ml Syringe) 3 ml IVFLUSH [facility] Last Admin: 01/27/25 07:45 Dose: Not Given Documented By: APOLONIA Non-Admin Reason: IV Running Trazodone HCl (Trazodone Hcl 50 Mg Tablet) 50 mg PO BEDTIME PRN PRN Reason: Sleep Last Admin: 01/25/25 21:39 Dose: 50 mg Documented By: MARSHAV Labs 01/25/25 10:09 01/26/25 05:23 Microbiology Microbiology Results: Microbiology 01/25/25 Unknown Urine Culture - Preliminary Urine clean catch - Clean Catch Midstream Culture too young to evaluate. Procedures Date of Service Date of Service: 01/27/25 Progress Note: A&P Assessment and plan (1) Morbid obesity: Status: Acute (2) Acute cholecystitis due to biliary calculus: Status: Acute Plan POD 1 following laparoscopic cholecystectomy. Overall the patient is improving but has not tolerated p.o. just yet. Encouraged the patient to get out of bed and ambulate, use incentive spirometry. She will need continued hospitalization due to abdominal pain and nausea. Time Spent With Patient Time: Total time managing care of this patient today ____ minutes. Quality Stroke Does the patient have a stroke diagnosis?: No VTE Prior VTE?: No VTE Risk Level:: Surgical - moderate VTE Device Contraindication: N/A - Device Ordered VTE Drug Contraindication: Treatment Not Indicated
[2025-01-27] MEDS: Milk of Magnesia 30 ML ORAL.SUSP PO (16:25)
[2025-01-27] MEDS: 0.9 % Sodium Chloride Flush 3 ML SYRINGE IVFLUSH (20:28)
[2025-01-28 03:06] VITALS: BP 130/72; PULSE 83; RESP 18; TEMP 36.7; O2SAT 95
[2025-01-28 07:38] VITALS: BP 122/64; PULSE 80; RESP 18; TEMP 36.9; O2SAT 95
--- NOTE | 2025-01-28 08:04 | PM.PNGS ---
Subjective Subjective Date of Service: 01/28/25 Interval history: Doing well today. pain improving this morning. She is tolerating more diet now.. Denies nausea or vomiting. Has been up and ambulating. Physical Exam Vital Signs: Vital Signs: Last Vital Signs Temp 98.4 F 01/28/25 07:38 Pulse 80 01/28/25 07:38 Resp 18 01/28/25 07:38 BP 122/64 01/28/25 07:38 Pulse Ox 95 01/28/25 07:38 O2 Del Method Room Air 01/28/25 07:38 O2 Flow Rate 4 01/26/25 10:30 BMI result Body Mass Index 70.6 Const: General: comfortable and no acute distress Orientation/consciousness: patient oriented x3 GI: Other: incision sites clean, intact. scant bloody discharge from umbilicus Inspection: Yes obesity Palpation (GI): Soft to palpation and Tenderness to palpation present (GI) (incisional) Neuro: General: patient oriented x3 Objective Data Active Medications Acetaminophen (Acetaminophen 325 Mg Tablet) 650 mg PO Q6H PRN PRN Reason: Pain, Mild 1-3,fever,headache Last Admin: 01/26/25 23:05 Dose: 650 mg Documented By: CASTILAlana Albuterol Sulfate (Albuterol Sulfate (0.083%) 2.5 Mg/3 Ml Vial.Neb) 2.5 mg INHALE RQ4H PRN PRN Reason: Shortness of Breath/Wheezing Last Admin: 01/26/25 10:16 Dose: 2.5 mg Documented By: JAMES Amlodipine Besylate (Amlodipine Besylate 5 Mg Tablet) 5 mg PO DAILY [facility]; Protocol Last Admin: 01/27/25 07:55 Dose: 5 mg Documented By: APOLONIA Calcium Carbonate (Calcium Carbonate 750 Mg Tab.Chew) 750 mg PO Q4H PRN PRN Reason: Heartburn Escitalopram Oxalate (Escitalopram Oxalate 20 Mg Tablet) 20 mg PO DAILY [facility] Last Admin: 01/27/25 07:56 Dose: 20 mg Documented By: APOLONIA Hydromorphone HCl (Hydromorphone Hcl 1 Mg/Ml Syringe) 1 mg IVPUSH Q3H PRN; Protocol PRN Reason: Pain, Severe (Pain Scale 7-10) Last Admin: 01/28/25 04:01 Dose: 1 mg Documented By: HUSSEIN Losartan Potassium (Losartan Potassium 50 Mg Tablet) 50 mg PO DAILY [facility]; Protocol Last Admin: 01/27/25 07:55 Dose: 50 mg Documented By: APOLONIA Magnesium Hydroxide (Milk Of Magnesia 30 Ml Oral.Susp) 30 ml PO DAILY PRN PRN Reason: Constipation Last Admin: 01/27/25 16:25 Dose: 30 ml Documented By: APOLONIA Melatonin (Melatonin 3 Mg Tablet) 6 mg PO BEDTIME PRN PRN Reason: Insomnia Ondansetron HCl (Ondansetron Hcl 4 Mg/2 Ml Vial) 4 mg IVPUSH Q8H PRN PRN Reason: Nausea and Vomiting Last Admin: 01/26/25 20:30 Dose: 4 mg Documented By: CASTILAlana Oxycodone HCl (Oxycodone Hcl Immed Release 5 Mg Tablet) 5 mg PO Q6H PRN PRN Reason: Pain, Severe (Pain Scale 7-10) Last Admin: 01/27/25 14:04 Dose: 5 mg Documented By: APOLONIA Sodium Chloride (0.9 % Sodium Chloride Flush 3 Ml Syringe) 3 ml IVFLUSH QSHIFT [facility] Last Admin: 01/27/25 20:28 Dose: 3 ml Documented By: HUSSEIN Trazodone HCl (Trazodone Hcl 50 Mg Tablet) 50 mg PO BEDTIME PRN PRN Reason: Sleep Last Admin: 01/27/25 20:28 Dose: 50 mg Documented By: HUSSEIN Labs 01/25/25 10:09 01/26/25 05:23 Microbiology Microbiology Results: Microbiology 01/25/25 Unknown Urine Culture - Final Urine clean catch - Clean Catch Midstream Procedures Date of Service Date of Service: 01/28/25 Progress Note: A&P Assessment and plan (1) S/P laparoscopic cholecystectomy: Status: Acute Plan 24 year old POD 2 s/p laparascopic cholecystectomy, doing well today, pain improving. Now tolerating more diet without return of nausea or vomiting. she is ambualting without issues. On exam her abdomen is soft, appropriately tender in the RUQ localized around incisions. Incisions clean, dry. some scant blood from umbilicus. No active bleeding. No other discharge. At this point patient looks well, will discharge today. She will have oxycodone for pain control. Should continue wiht low fat diet at home, she will follow up in 1-2 weeks in the general surgery office Time Spent With Patient Time: Total time managing care of this patient today ____ minutes. Quality Stroke Does the patient have a stroke diagnosis?: No VTE Prior VTE?: No VTE Risk Level:: Surgical - moderate VTE Device Contraindication: N/A - Device Ordered VTE Drug Contraindication: Treatment Not Indicated
[2025-01-28 08:31] VITALS: BP 122/64
[2025-01-28] MEDS: oxyCODONE HCl Immed Release 5 MG TABLET PO (08:35)
--- NOTE | 2025-01-28 08:50 | MHC.CM.PN ---
PT CLEARED TO DC HOME TODAY WITH NO SERVICES PT TO ARRANGE TRANSPORT
--- NOTE | 2025-01-28 11:24 | P.DS_ITS ---
DS: Providers Provider Date of Service: 01/28/25 Date of admission: 01/25/25 14:50 Date of discharge: 01/28/25 Primary care physician: Cheryl Hutchison MD Admitting clinician: Peter Villatoro Attending physician on admission: Peter Villatoro Consults: 01/25/25 15:10 Consult to Hospitalist Routine Comment: [place]ing Provider[place] [facility] [place] Reason For Exam: Medical management while inpatient Attending physician on discharge: Peter Villatoro DS: Diagnosis Discharge Diagnosis (1) S/P laparoscopic cholecystectomy: Status: Acute DS: Summary Hospital Course Hospital Course: Admission HPI: 24 year old female with a history of hypertension, anxiety and depression, asthma, sleep apnea, morbid obesity and gallstones presenting to the emergency department with a 2 day history of right upper quadrant pain. Patient was seen in the emergency department yesterday, was found to have gallstones, biliary colic. She was treated conservatively and recommended to follow up as an outpatient. She states that when she got home she began having increased pain in the right upper quadrant with associated nausea and vomiting. He has also had multiple episodes of diarrhea. Reports subjective fever and chills at home, no confirmed fever. She has been unable to eat at home. Workup in the ED in cluded abdominal ultrasound showing multiple gallstones in the gallbladder, no wall thickening or pericholecystic fluid. Common bile duct was normal in caliber. On 01/24 she did have a white count of 16, today there was no white count. Liver enzymes and bilirubin within normal limits. Current medications include amlodipine, Lexapro, famotidine, losartan. She denies any surgical history. Denies smoking, reports infrequent alcohol use. Admits to occasional marijuana edible use. Denies any other drug use. Hospital course: Patient was admitted for management acute cholecystitis. On Tuesday, patient was brought to the operating room for laparoscopic cholecystectomy. Patient tolerated procedure well and there were no immediate complications. She was transferred back to the [facility] for further evaluation postoperatively. Her diet was advanced. Postop day 1, patient experiencing some nausea yesterday with appetite, low-grade fever this morning but now feels improved. We will remain admitted for abdominal pain and nausea. Postop day 2, patient doing well, pain improving, tolerating more diet, no nausea or vomiting. Abdominal exam soft appropriately tender around the incision sites. Incisions were clean dry and intact, no bleeding, surrounding erythema purulent discharge. The patient felt ready for discharge. At the time of discharge patient was in stable condition Status at Discharge Functional status at discharge: independent ambulation Overall status at discharge: patient is progressing back to baseline Time Attestation Discharge Coordination Time (in mins): 30 Quality: Safe Use of Opioids Does Pt have an Active Cancer Diagnosis on the Problem List?: No Quality: Stroke Does the patient have a stroke diagnosis?: No Physical Exam Vital Signs: Vital Signs: Last Vital Signs Temp 98.4 F 01/28/25 07:38 Pulse 80 01/28/25 07:38 Resp 18 01/28/25 07:38 BP 122/64 01/28/25 08:31 Pulse Ox 95 01/28/25 07:38 O2 Del Method Room Air 01/28/25 07:38 O2 Flow Rate 4 01/26/25 10:30 BMI result Body Mass Index 70.6 Const: General: comfortable and no acute distress Orientation/consciousness: patient oriented x3 GI: Other: incision sites clean, intact. scant bloody discharge from umbilicus Inspection: Yes obesity Palpation (GI): Soft to palpation and Tenderness to palpation present (GI) (incisional) Neuro: General: patient oriented x3 DS: Data Data Completed and Pending Pending studies at discharge: Pending at discharge 01/26/25 09:30 Surgical [PTH] Routine Discharge Plan Discharge Anticipated Discharge Date/Time: 01/28/25 07:54 Patient Disposition: Home, Self-Care Discharge Diagnosis: Acute cholecystitis, cholelithiasis Referrals: Cheryl Hutchison MD [Primary Care Provider, Internal Medicine] - 1 Week Peter Villatoro MD [Physician, General Surgery] - 1 Week Discharge Medications: New oxycodone 5 mg tablet 5 mg PO Q6H PRN (Reason: pain (scale score 7-10)) Qty: 15 0RF Rx Instructions: Partial Fill upon patient request. Continued amlodipine 5 mg tablet 5 mg PO DAILY 90 Days Qty: 90 0RF trazodone 50 mg tablet 50 mg PO BEDTIME PRN (Reason: sleep) Qty: 30 0RF losartan 50 mg tablet 50 mg PO DAILY 90 Days Qty: 90 0RF escitalopram oxalate 20 mg tablet 20 mg PO DAILY Qty: 30 5RF No Action famotidine 40 mg tablet 40 mg PO DAILY Qty: 90 1RF omeprazole 20 mg capsule,delayed release(DR/EC) 20 mg PO DAILY PRN (Reason: Acid Reflux) Rx Instructions: Take one tablet daily. Best taken on an empty, 30 minutes before eating. cholecalciferol (vitamin D3) 1,250 mcg (50,000 unit) capsule 1,250 mcg PO TH fexofenadine [Allergy Relief (fexofenadine)] 180 mg tablet 180 mg PO DAILY Qty: 90 1RF fluticasone propionate [Flonase Allergy Relief] 50 mcg/actuation spray,suspension 1 spray intranasal DAILY PRN (Reason: Allergy Symptoms) Rx Instructions: administer into each nostril Discharge Orders: Discharge Order (Routine); Ordered 01/28/25 Ordered By: Peter Villatoro Diet: Low fat, low cholesterol Activity on Discharge: No heavy lifting Stand Alone Forms: Patient Portal Discharge page Print Language: Djiboutian Activity Restrictions/Additional Instructions: No lifting > 10 pounds for 2 weeks Stay on low fat diet for 1 month No driving for one week Take Tylenol Extra-strength 1-2 tabs every 6 hours as needed Oxycodone every 6-8 hours as needed for pain Colace 100 mg every day as needed for constipation Remove dressing in 3 days Follow up in office in one week (call office at [phone] for appointment). Care Plan Goals: Returned to normal activity and diet Health Concerns: Abdominal pain, nausea and vomiting Plan of Treatment: Laparoscopic cholecystectomy on 01/26/2025 Assessment: Acute cholecystitis Discharge Date/Time: 01/28/25 09:11
== END 2025-01-28 09:11 | disposition home or self-care (01) | DRG 263 ==
LOC: HO.ED 14:45 → HO.EDOVER 15:00 → HO.S3 19:20
PROVIDERS: Surgery; Emergency Provider Emergency Medicine; PCP Internal Medicine
PROC: 0FT44ZZ Resection of Gallbladder, Percutaneous Endoscopic Approach (ICD-10-PCS; CPT 47562; principal; 2025-01-26 08:00)
DX: K80.00 Calculus of gallbladder with acute cholecystitis without obstruction (principal); Z68.45 Body mass index [BMI] 70 or greater, adult; E66.01 Morbid (severe) obesity due to excess calories; F32.A Depression, unspecified; F41.9 Anxiety disorder, unspecified; G47.30 Sleep apnea, unspecified; I10 Essential (primary) hypertension; Z71.3 Dietary counseling and surveillance; J45.20 Mild intermittent asthma, uncomplicated; E55.9 Vitamin D deficiency, unspecified; Z87.891 Personal history of nicotine dependence; Z79.899 Other long term (current) drug therapy
CPT/HCPCS: 47562; 36415; 76705; 80048; 80076; 81001; 81025; 83690; 83735; 85025; 87086; 88304; 99221; 99285; J0131; J1171; J1596; J1885; J2003; J2250; J2270; J2405; J2543; J2704; J3010; J7120

== ENCOUNTER → 2025-01-25 10:12 | Outpatient (BNV) | payer MEDICAID, SELFPAY | PROVIDERS: Emergency Provider Emergency Medicine; PCP Internal Medicine; Visit Provider Radiology Diagnostic Radiology | DX: K80.20 Calculus of gallbladder without cholecystitis without obstruction (principal) | CPT/HCPCS: 76705 ==

== ENCOUNTER → 2025-01-25 14:50 | Outpatient (BNV) | payer MEDICAID, SELFPAY | PROVIDERS: Emergency Provider Emergency Medicine; PCP Internal Medicine | DX: Z90.49 Acquired absence of other specified parts of digestive tract (principal) | CPT/HCPCS: 99238 ==

== ENCOUNTER → 2025-01-25 14:50 | Outpatient (BNV) | payer MEDICAID, SELFPAY | PROVIDERS: Emergency Provider Emergency Medicine; PCP Internal Medicine; Visit Provider Physician Assistant Medical | DX: E66.01 Morbid (severe) obesity due to excess calories (principal); I10 Essential (primary) hypertension | CPT/HCPCS: 99223 ==

== ENCOUNTER 2025-02-05 13:41 | Outpatient (AMB) | payer MEDICAID, SELFPAY ==
--- NOTE | 2025-02-05 13:43 | A.OFFVIS_ITS ---
Vital Signs 02/05/25 13:48 Weight 362 lb BP 170/97 H Blood Pressure Location Rt radial Position Sitting Pulse 76 Intake Visit Reasons: post op GB Intake Note: Patient here s/p Laparoscopic cholecystectomy. Patient c/o: tenderness along bottom umbilical incision. On and off diarrhea since surgery. No longer taking rx pain meds. 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 Reports minimal pain at rest, some pain at the epigastric and umbilical incisions with ambulation, bending over. Does endorse some occasional nausea after eating. Additionally she had an episode of diarrhea now bowel movements are more normal. She reports she has cut out soda and other sugary drinks. Denies drainage from incision sites. Denies fevers or chills. COUNTS INCLUDE 234 BEDS AT THE [facility] Medical History (Updated 02/01/25 @ 00:01 by Verna Lopez) Acute cholecystitis due to biliary calculus Abdominal pain Biliary colic Umbilical hernia Dysphagia Mild intermittent asthma Impaired concentration Sleep apnea Essential hypertension Depression with anxiety Morbid obesity Heartburn Asthma Surgical History (Updated 02/05/25 @ 14:02 by Dakota Riggs PA-C) No pertinent past surgical history Family History Father Substance use disorder Paternal Grandmother Mental health disorder Paternal Aunt Mental health disorder Maternal Grandmother Mental health disorder Mother Mental health disorder Sister Mental health disorder Social History Household Members: Family Housing: House Do you presently have visiting nurse or other home services: No Comment: post-op Patient Tobacco Use Status: Former Tobacco user e-Cigarette/Vaping Use: Never Used Substance Use Type: Marijuana service: No Current occupational status: employed Cognitive needs: No Hearing needs: No Vision needs: Yes Physical Exam Vital Signs: Last Vital Signs Pulse 76 02/05/25 13:48 BP 170/97 H 02/05/25 13:48 Const General: comfortable and no acute distress Orientation/consciousness: patient oriented x3 GI Other: Incision sites healing well, nontender, no surrounding erythema, no fluctuance, no discharge. Some mild scabbing on the umbilical incision site Inspection: No distended and Yes obesity Palpation (GI): Soft to palpation and nontender Neuro General: patient oriented x3 Assessment & Plan Assessment & Plan (1) S/P laparoscopic cholecystectomy: Comment: 01/26/2025, Dr. Villatoro Code(s): Z90.49 - Acquired absence of other specified parts of digestive tract Category: Medical Plan 24-year-old female s/p laparoscopic cholecystectomy on 01/26/[address] Villatoro returning the office for routine follow-up. Patient overall doing very well, minimal pain at rest some pain with ambulation. Reassured her that this is normal likely muscular in nature as she describes this as pain when bending over or ambulating through the larger trocar sites. She is making some changes to her diet, reports somewhat decreased appetite. She is cutting out sugary drinks. She did have 1 episode of diarrhea, reassured that this is not uncommon after gallbladder surgery as her body opiates regularly. Expect this to normalize over the next month. On exam her abdomen is soft and benign, incision sites appear to be healing well, no concern for infection at this time. She wants to return to work next week, see to book bag is pretty heavy but does not exceed 20 lb. At this point I think this is okay for her to return to work, we will continue with activity restrictions no heavy lifting greater than 20 lb for the next 3 weeks. She will return the office in 3 weeks for follow-up, if doing well will likely discharge. She can call to be seen earlier with any concerns or questions Coding Level of Care Code Global (88630) Diagnoses S/P laparoscopic cholecystectomy Z90.49
[2025-02-05 13:48] VITALS: BP 170/97; PULSE 76
== END 2025-02-05 13:56 | disposition home or self-care (01) ==
LOC: HO.HGS 13:42
PROVIDERS: PCP Internal Medicine
DX: Z90.49 Acquired absence of other specified parts of digestive tract (principal)
CPT/HCPCS: 99024

== ENCOUNTER → 2025-02-05 13:41 | Outpatient (BNVA) | payer OTHER, SELFPAY | PROVIDERS: PCP Internal Medicine | DX: Z48.815 Encounter for surgical aftercare following surgery on the digestive system (principal); Z90.49 Acquired absence of other specified parts of digestive tract; Z98.890 Other specified postprocedural states | CPT/HCPCS: 99212 ==

== ENCOUNTER 2025-02-06 13:55 | Outpatient (AMB) | payer OTHER, SELFPAY ==
--- NOTE | 2025-02-06 14:00 | A.OFFPC_ITS ---
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: No Allergies apple Allergy (Verified 02/06/25 14:08) Itching cantaloupe Allergy (Verified 02/06/25 14:08) Itching kiwi Allergy (Verified 02/06/25 14:08) Itching shellfish derived Allergy (Verified 02/06/25 14:08) Facial Swelling strawberry Allergy (Verified 02/06/25 14:08) Itching Medication List - Last Reconciled 02/06/25 by Cheryl Hutchison MD amlodipine 5 mg PO DAILY 3 months cholecalciferol (vitamin D3) 1,250 mcg PO TH escitalopram oxalate 20 mg PO DAILY famotidine 40 mg PO DAILY fexofenadine (Allergy Relief (fexofenadine)) 180 mg PO DAILY fluticasone propionate 50 mcg/actuation (Flonase Allergy Relief) 1 spray intranasal DAILY PRN losartan 50 mg PO DAILY 3 months omeprazole 20 mg PO DAILY PRN Tobacco use date assessed: 02/06/25 Dental Screening Dental Screen Date: 02/06/25 Did you have a dental visit in the last 12 months?: No Did you have a dental problem in the last 6 months where you did not have access to dental care?: No Was dental information given to patient?: Patient declined [facility] discharge follow up HPI Details 24-year-old lady with history of acute c holecystitis due to gallbladder stone, status post laparoscopic cholecystectomy on 01/26/2025, , has history of hypertension, mild intermittent asthma, morbid obesity, and depression with anxiety, here today for follow-up on her blood pressure. Blood pressure noted to be very high on appointment with her surgeon yesterday. Patient states that she was nervous during the visit and was in experiencing some pain over surgical site. Blood pressure today is within normal limits, denies any headache no chest pain, no shortness of breath and no pain over surgical site. She is currently taking amlodipine 5 mg once a day and losartan 50 mg daily for blood pressure control. She also states that she has not been eating any junk food, and has cut back on her portion size during meals since her surgery. [facility] Medical History (Updated 02/11/25 @ 01:02 by Cheryl Hutchison MD) Lesion of external ear Acute cholecystitis due to biliary calculus Abdominal pain Biliary colic Umbilical hernia Dysphagia Mild intermittent asthma Impaired concentration Sleep apnea Essential hypertension Depression with anxiety Morbid obesity Heartburn Asthma Surgical History No pertinent past surgical history Family History Father Substance use disorder Paternal Grandmother Mental health disorder Paternal Aunt Mental health disorder Maternal Grandmother Mental health disorder Mother Mental health disorder Sister Mental health disorder Social History Household Members: Family Housing: House Do you presently have visiting nurse or other home services: No Comment: post-op Patient Tobacco Use Status: Former Tobacco user e-Cigarette/Vaping Use: Never Used Substance Use Type: Marijuana service: No Current occupational status: employed Cognitive needs: No Hearing needs: No Vision needs: Yes Questionnaire PHQ-9 Over the last 2 weeks, how often have you been bothered by any of the following problems? Depression Screening Interpretation: Positive (Currently on escitalopram, requesting to see a therapist and eventually a psychiatrist) Depression Screening Done: Yes Source: Developed by Drs. Bart Bravo, Ya Momin, Natanael Verduzco and colleagues, with an educational cristi from [employer]. Thrive Questionnaire Date Thrive assessed: 11/03/24 I am a: Patient What is your living situation today?: I have a place to live, but I am worried about losing it in the future Within the past 12 months, did the food you bought not last and you didn't have the money to get more?: Often true Within the past 12 months, did you worry whether your food would run out before you got money to buy more?: Often true Do you have trouble paying for medicines?: No Do you have trouble getting transportation to medical appointments?: No Do you have trouble paying your heating and electricity bill?: Yes Do you have trouble taking care of your child, family member or friend?: No Do you have trouble with day-to-day activities such as bathing, preparing meals, shopping, managing finances, etc.?: Yes Are you currently unemployed and looking for a job?: No Are you interested in more education?: Yes Currently or been in a relationship where the following occur: No concerns reported THRIVE Score: 4 AUDIT C Alcohol Use Questionnaire (AUDIT-C) 1. How often do you have a drink containing alcohol?: Monthly or less 2. How many drinks containing alcohol do you have on a typical day when you are drinking?: 1 or 2 3. How often do you have six or more drinks on one occasion?: Never Total Score: 1 KATHIE-7 AMB Questionnaire KATHIE-7 Date KATHIE - 7 assessed: 11/02/24 Source: Developed by Drs. Bart Bravo, Ya Momin, Natanael Verduzco and colleagues, with an educational cristi from [employer]. Review of Systems Const Denies fever(s), Denies headache(s), Denies weakness and Denies weight loss ENT Denies dizziness, Denies headache(s) and Denies nasal congestion Card Denies chest pain, Denies lightheadedness and Denies dyspnea Resp Denies cough and Denies dyspnea GI Denies abdominal pain and Denies change in bowel habits Denies hematuria, Denies urinary frequency, Denies dysuria and Denies urinary urgency Musc Reports stiffness Neuro Denies dizziness, Denies headache(s) and Denies weakness Psych Reports no additional complaints Willian/Lymph Reports no additional complaints Aller/Immun Reports as per HPI Physical exam (Primary Care) Vital Signs: Last Vital Signs Temp 98.2 F 02/06/25 14:07 Pulse 84 02/06/25 14:07 BP 110/74 02/06/25 14:07 Pulse Ox 97 02/06/25 14:07 Oxygen Delivery Method Room Air 02/06/25 14:07 BMI result Body Mass Index 68.4 Tobacco/Smoking Status: Tobacco use Status Tobacco use date assessed 02/06/25 02/06/25 14:02 Patient Tobacco Use Status Former Tobacco user 02/06/25 14:02 e-Cigarette/Vaping Use Never Used 02/06/25 14:02 Depression Screening Interpretation: Positive (Currently on escitalopram, requesting to see a therapist and eventually a psychiatrist) Thrive Assessment: Date of Thrive Assessment Date Thrive assessed 11/03/24 02/06/25 14:02 Currently or been in a relationship where the following occur: No concerns reported Advance Care Planning discussion: Completed/Scanned Date of discussion: 11/12/24 Who was present: Patient Forms completed: Health Care Proxy Time spent: 16-45 minutes Actual minutes spent: 2 Const General: no acute distress and alert Nutritional Appearance: obese morbidly obese Orientation/consciousness: patient oriented x3 HENMT Ears: external ears normal General nose exam: Normal external nose present Mouth: Normal oral and palatal mucosa present, oropharynx normal and moist mucous membranes Eyes General: appearance normal, both eyes and all related structures Neck Neck: Yes full ROM, Yes no lymphadenopathy and Yes supple Resp Effort & Inspection: normal respiratory effort Auscultation: clear to auscultation bilaterally Cardio Rate: regular rate Rhythm: regular rhythm Heart sounds: S1 normal heart sound present and S2 normal heart sound present GI Other: dry healed surgical incision site, nontender to palpation Inspection: Yes Abdominal panniculus present and Yes obesity Palpation (GI): Soft to palpation, nontender and no masses Auscultation: normal bowel sounds Skin Lesions: lesion noted (Retroauricular area) macule right other Neuro General: patient oriented x3, gait normal, tone normal, moves all extremities and no focal motor deficits Cognition (Neuro): normal cognition Extrem General: Yes full ROM, Yes no joint enlargement, Yes no clubbing, cyanosis or edema and Yes no calf tenderness Psych Appearance: grossly normal and well kempt Mental Status: mental status grossly normal Speech and movement: Normal speech and movement present Affect: normal affect Coding Level of Care Code Est Pt Level 4 (17001) Diagnoses Essential hypertension I10 Lesion of external ear, unspecified laterality H61.90 Laterality: unspecified laterality Scalp lesion L98.9 Additional Codes Vital Signs *Quality* - Advance Care Planning discussion: Completed/Scanned ([id number]) Vital Signs *Quality* - Time spent: 16-45 minutes ([id number]) Assessment & Plan Assessment & Plan (1) Essential hypertension: Code(s): I10 - Essential (primary) hypertension Category: Medical Plan: Blood pressure today within normal limits, continued on current dose of losartan and amlodipine. Reinforced importance of adhering to healthy eating habits, cutting back on salt intake, processed food, start doing at least 15 minutes of daily moderate intensity exercise, once incision heals, (2) Lesion of external ear: Code(s): H61.90 - Disorder of external ear, unspecified, unspecified ear Category: Medical Qualifiers: Laterality: unspecified laterality Qualified Code(s): H61.90 - Disorder of external ear, unspecified, unspecified ear Plan: Dermatology consult ordered (3) Scalp lesion: Code(s): L98.9 - Disorder of the skin and subcutaneous tissue, unspecified Plan: Dermatology consult ordered Orders: Referrals Dermatology Referral H61.90 - Disorder of external ear, unspecified, unspecified ear, L98.9 - Disorder of the skin and subcutaneous tissue, unspecified
[2025-02-06 14:07] VITALS: BP 110/74; PULSE 84; TEMP 36.8; O2SAT 97; BMI 68.4
--- OUTSIDE RECORDS SUMMARY | 2025-02-06 17:52 | XMS_ITS | Encounter Summary ---
Author Organization [facility] Address [address] [place] [phone] Phone Care Team Providers Care Cold Working Supervisor Name Role Phone Angelica Heaton MD Primary Care Provider [phone] Reason for Visit * Reason Comments Med Refill Encounter Details Date Type Department Care Team ([facility] Contact Info) Description 07/25/2021 Refill [facility] [address] [place] [address] Angelica Heaton MD [address] [place] [address] Menorrhagia with regular cycle (Primary Dx) Social [...] will be her last well visit at [facility]. * Telephone Encounter - Josselin Brunson LPN - 07/26/2021 12:56 PM EDT Pharm requesting refill OCP. EH documented in this encounter Plan of Treatment Not on file documented as of this encounter Visit Diagnoses Diagnosis Menorrhagia with regular cycle- Primary documented in this encounter Care Teams Cold Working Supervisor Relationship Specialty Start Date End Date Angelica Heaton MD [address] [place] [id number] PCP - General Pediatrics 11/16/18 07/22/22 documented as of this encounter
--- OUTSIDE RECORDS SUMMARY | 2025-02-06 17:52 | XMS_ITS | Encounter Summary ---
Author Organization [facility] Address [address] [place], [place] [phone] Phone Care Team Providers Care Service Coordinator Name Role Phone Angelica Heaton MD Primary Care Provider [phone] Reason for Visit * Reason Onset Date Comments Med Refill 02/15/2020 Encounter Details Date Type Department Care Team ([facility] st Contact Info) Description 02/15/2020 Refill [facility] [address] [place] [address] Angelica Heaton MD [address] [place] [address] Seasonal allergic rhinitis, unspecified trigger; Moderate persistent [...] complication documented in this encounter Care Teams Service Coordinator Relationship Specialty Start Date End Date Angelica Heaton MD [address] [place] [id number] PCP - General Pediatrics 11/16/18 07/22/22 documented as of this encounter
--- OUTSIDE RECORDS SUMMARY | 2025-02-06 17:52 | XMS_ITS | Encounter Summary ---
Author Organization [facility] Address [address] [place] [phone] Phone Care Team Providers Care Fuel Conversion Technician Name Role Phone Angelica Heaton MD Primary Care Provider [phone] Reason for Visit * Reason Comments Med Refill Encounter Details Date Type Department Care Team ([facility] Contact Info) Description 01/29/2022 Refill [facility] [address] [place] [address] Angelica Heaton MD [address] [place] [address] Menorrhagia with regular cycle Social History Tobacco [...] cycle documented in this encounter Care Teams Fuel Conversion Technician Relationship Specialty Start Date End Date Angelica Heaton MD [address] [place] [phone] PCP - General Pediatrics 11/16/18 07/22/22 documented as of this encounter
--- OUTSIDE RECORDS SUMMARY | 2025-02-06 17:52 | XMS_ITS | Clinical Summary ---
Author Organization [facility] it Address [address] [place] [address] Care Team Providers Care Computer Programming Supervisor Name Role Phone Unavailable Primary Care Provider [...] Screening: P ap Smear 2021 Depression Screening 04/11/2024 COVID-19 Vaccine ( - [...]
--- OUTSIDE RECORDS SUMMARY | 2025-02-06 17:52 | XMS_ITS | Encounter Summary ---
Author Organization [facility] Address [address] [place] [address] Phone Care Team Providers Care Medical Assistant Secretary Name Role Phone Angelica Heaton MD Primary Care Provider [phone] Reason for Visit * Reason Comments Med Refill Encounter Details Date Type Department Care Team ([facility] Contact Info) Description 01/17/2018 Refill [facility] [address] [place] [address] Brooke Conklin MD [address] [place] [address] Menorrhagia with irregular cycle (Primary Dx) Social [...] Primary documented in this encounter Care Teams Medical Assistant Secretary Relationship Specialty Start Date End Date Angelica Heaton MD [address] [place] [address] PCP - General Pediatrics 11/16/18 07/22/22 documented as of this encounter
--- OUTSIDE RECORDS SUMMARY | 2025-02-06 17:52 | XMS_ITS | Encounter Summary ---
Author Organization [facility] Address [address] [place] [address] Phone Care Team Providers Care Assistant Store Leader Name Role Phone Angelica Heaton MD Primary Care Provider Reason for Visit * Reason Comments Med Refill Encounter Details Date Type Department Care Team ([facility] Contact Info) Description 11/22/2021 Refill [facility] [address] [place] [address] Angelica Heaton MD [address] [place] [address] Menorrhagia with regular cycle Social History Tobacco [...] cycle documented in this encounter Care Teams Assistant Store Leader Relationship Specialty Start Date End Date Angelica Heaton MD [address] [place] [address] PCP - General Pediatrics 11/16/18 07/22/22 documented as of this encounter
--- OUTSIDE RECORDS SUMMARY | 2025-02-06 17:52 | XMS_ITS | Encounter Summary ---
Author Organization [facility] Address [address] [place] [address] Phone Care Team Providers Care Evaporative Cooler Installer Name Role Phone Angelica Heaton MD Primary Care Provider [phone] Encounter Details Date Type Department Care Team (Late st Contact Info) Description 07/12/2016 Documentation [facility] Family Medicine [address] [place] [address] Family Medicine, Physician [address] [place] [address] Social History Tobacco Use Types Packs/Day Years [...] on filedocumented in this encounter Care Teams Evaporative Cooler Installer Relationship Specialty Start Date End Date Angelica Heaton MD [address] [place] [address] PCP - General Pediatrics 11/16/18 07/22/22 documented as of this encounter
--- OUTSIDE RECORDS SUMMARY | 2025-02-06 17:52 | XMS_ITS | Encounter Summary ---
Author Organization [facility] Address [address] [place], [place] [phone] Phone Care Team Providers Care Tear Down Matcher Name Role Phone Angelica Heaton MD Primary Care Provider [phone] Reason for Visit * Reason Onset Date Comments Med Refill 11/16/2019 Encounter Details Date Type Department Care Team ([facility] st Contact Info) Description 11/16/2019 Refill [facility] [place] [address] [place] [address] Angelica Heaton MD [address] [place] [address] Moderate persistent asthma without complication; Seasonal allergic [...] trigger documented in this encounter Care Teams Tear Down Matcher Relationship Specialty Start Date End Date Angelica Heaton MD [address] [place] [address] PCP - General Pediatrics 11/16/18 07/22/22 documented as of this encounter
--- OUTSIDE RECORDS SUMMARY | 2025-02-06 17:52 | XMS_ITS | Encounter Summary ---
Author Organization [facility] Address [address] [place] [address] Phone Care Team Providers Care Personal Secretary Name Role Phone Angelica Heaton MD Primary Care Provider [phone] Encounter Details Date Type Department Care Team (Late st Contact Info) Description 09/04/2009 Documentation [facility] [address] [place] [address] Family Medicine, Physician [address] [place] [address] Social History Tobacco Use Types Packs/Day Years [...] on filedocumented in this encounter Care Teams Personal Secretary Relationship Specialty Start Date End Date Angelica Heaton MD [address] [place] [address] PCP - General Pediatrics 11/16/18 07/22/22 documented as of this encounter
--- OUTSIDE RECORDS SUMMARY | 2025-02-06 17:52 | XMS_ITS | Clinical Summary ---
Author Organization [facility] Address [address] [place] [address] Phone Care Team Providers Care Rabbit Fancier Name Role Phone Unavailable Primary Care Provider Unavailabl e Allergies Active Allergy Reactions Criticality Noted Date Comments Clam Shell 04/06/2017 Environmental 04/06/2017 Cat,dog, hamster Food 04/06/2017 [place], tomato,cantelope,apples , seafood Shellfish Protein-Containing Drug Products [...] a1c 5.7. Renea is working with a crucible packer and is considering bariatric surgery. Continue to follow. Needs Adult MD. 02/02/2022 (age 21yr): Is continuing to work with crucible packer. Assessment & Plan (02/02/2022 10:33 AM EDT): 02/02/2022 (age 21yr): Is continuing to work with crucible packer. Lab test positive for detection of COVID-19 viru s 04/12/2021 Assessment & Plan (04/12/2021 11:37 AM EST): Pt positive for covid - testing done at 'Stop the spread . Other family members positive as well Pt with multiple significant risk factors Referred to [facility] infusion site - form for referral filled [...] from hydrochlorothiazide to amlodipine on 12/18/2019). [facility] involved. Urgent cardiology visit scheduled for 03/[address] Hickey at [facility] cardio [facility]. Ran out of OCPS 4 days ago. - I contacted Dr. Hutchinson who felt that OCP were still reasonable in [place]. I will continue to prescribe as long as she see the cardiology in March. - Follow up with adult cardiology - Last Specialist Visit: [facility] cardiology 02/12/2022, started on amlodipine and losartan. OCP refilled with 3 RF and message to [facility] to contact Renea to help her transition to adult medicine. 01/25/2022 Chart Review: [facility] - 03/22/2021 158/87 Wing ED - 12/08/2021 162/92 in the office - 12/09/2021 153/74,then 118/62 at [facility] ED - 01/05/2022: BP-150/104 at [facility], sent to ED. No note in [...] from hydrochlorothiazide to amlodipine on 12/18/2019). [facility] involved as of 11/03/2021 Follow up with adult cardiology. 12/09/2021 (age 21yr): Sent to ED with elevated HR and chest pain. 12/29/2021 (age 21yr): Urgent cardiology visit scheduled for 03/17/[address] Hickey at [facility] Adult cardio [facility]. Assessment & Plan (12/08/2021 1:06 PM EDT): 12/08/2021 (age 21yr): BP high today, ran out of meds 04/2020 and has not had refills. Diagnosed by cardiology 07/2018. Last visit with Dr. Hutchinson was 12/18/2019. Now on losartan 50 mg and amlodipine 5mg. (switched from hydrochlorothiazide to amlodipine on 12/18/2019). [facility] involved as of 11/03/2021 Per [facility], Pt will call Dr. Hutchinson to see if he can follow up with her. Otherwise refer to adult cardiology at [facility]. Now, Renea state she would like [...] from Dr. Hutchinson ready for pt to pickers material handlers from the pharmacy (amlodipine 5mg and losartan [...] specialty appointments. Reintroduced to Davide Angeles our wound care specialist today for supports with prioritizing booking specialist visits as well as working on transition to adult medicine given complex adult care needs. Assessment & Plan (02/02/2022 10:41 AM EDT): 02/02/2022 (age 21yr): Mother concerned that Renea is having a hard to keeping track of her appointments and medical issues. [facility] involved to assist. Assessment & Plan (08/03/2020 [...] not had a therapist for 1 year. [facility] to assist in finding new provider. 02/02/2022 (age 21yr): still doesn't have a provider. [facility] involved to assist. Also needs to move to adult medicine. Detailed History and Chronology of care: Dx [address] Virgil Jang MD via Telepsych from [facility] - He recommends a lithium trial. Then followed by Dr. Wilson (interim) - Mother is willing to travel to [place] for regular in person psychiatric evaluations and supports. Will refer to psych at [facility]. [facility] will not accept the patient and advised that she be evaluated by a psychiatrist in [place] ([facility]) 07/2020: visit with Dr. Newman at [facility] as a new consult/evaluation, previously seen by Dr. Wilson and struggled to get in elsewhere, so were happy to have this evaluation - he is writing for medication for pt. Still seeing Mckenzie Turner for therapy (longterm, for years) Assessment & Plan (02/02/2022 10:32 AM EDT): 02/02/2022 (age 21yr): still doesn't have a provider. [facility] involved to assist. Also needs to move to adult medicine. Assessment & Plan (12/08/2021 1:07 PM EDT): 12/08/2021 (age 21yr): 12/08/2021 (age 21yr): psychiatrist just left, on escilatopram and trazadone. No meds for bipolar reported by pt. Has not had a therapist for 1 year. [facility] to assist in finding new provider. [...] 9:38 AM EDT): Seeing Dr. Wilson at [facility]. Gets meds through him. On Quetieapine (and adderall). D/C'd lexapro several month ago. Assessment & Plan (05/08/2018 2:53 PM EST): [facility] will not accept the patient and advised that she be evaluated by a psychiatrist in [place] ( [facility]) Heavy periods [...] OCPs. Renea also needs to see a NURSE PARALEGAL. - start isibloom with next menses - I can continue to prescribe as long as Renea keeps her cardiology appointment in March. - Renea needs to transition to an adult provider before she is due for her next well visit. - Last Specialist Visit: [facility] cardiology 02/12/2022, started on amlodipine and losartan. OCP refilled with 3 RF and message to [facility] to contact Renea to help her transition to adult medicine. Detailed History and Chronology of care: 07/2020: pt taking the same OCPs with better menses management - refilled at [facility] 07/2020, discussed transition to adult provider/NURSE PARALEGAL provider for ongoing care. 07/27/2021 (age 20yr): Will HTN and headaches, I wonder if progesterone only BC would be safer for Renea. OCP refilled for the Next month, will discuss this at well visit in August. Will suggest NURSE PARALEGAL for BC care. 08/02/2021 (age 20yr): Started [...] HTN. Renea also needs to see a NURSE PARALEGAL. 12/29/2021 (age 21yr): Urgent cardiology visit scheduled [...] OCPs. Renea also needs to see a NURSE PARALEGAL. - start isibloom with next menses - [...] would like her to have a current tool builder to confirm this. Renea also needs to see a NURSE PARALEGAL. Assessment & Plan (08/03/2020 9:57 PM EDT): OCPs refilled at - work on transitioning to adult PCP and NURSE PARALEGAL provider if needed - information had previously [...] BLAYNE Identified on sleep study 10/06/2020 at [facility]. . - Last Specialist Visit: : [...] help with control of her hypertension. [employer] was contacted, they confirmed a bill [...] 10/06/2020: BLAYNE Identified on sleep study at [facility] 10/29/2020 (age 20yr): . Referred to sleep medicine at [facility] for CPAP. Renea is having headaches [...] help with control of her hypertension. The [employer] was contacted, they confirmed a bill [...] BLAYNE Identified on sleep study 10/06/2020 at [facility]. Assessment & Plan (10/29/2020 6:12 AM EDT): 10/29/2020 (age 20yr): BLAYNE Identified on sleep study 10/06/2020 at [facility]. Referred to sleep medicine at [facility] for CPAP. Renea is having headaches [...] these allergies, mom would like to see wiping rag washer for further testing and plans to schedule her own appointment. Already has UTD epipen (12/2019) 11/03/2021 (age 21yr): Per [facility], referral re requested. Referral placed and pt to make her own appt. Assessment & Plan (08/03/2020 9:52 PM EDT): Pt already has UTD epipen, aware of when to use this, and wiping rag washer at [facility] requested for follow up, information was previously given, pt/mom to book. Assessment & Plan (07/23/2020 11:41 PM EDT): Referral to wiping rag washer and pt/family to book appointment with adult wiping rag washer for further evaluation and follow up. Epipen is already UTD from 12/2019 visit so did not refill today. Assessment & Plan (12/15/2018 10:33 AM EDT): Needs to go back to wiping rag washer. Assessment & Plan (01/02/2018 12:29 PM EDT): School med auth formed filled out. Seasonal allergic rhinitis 08/05/2016 Overview (12/08/2021): 12/08/2021 (age 21yr): Uses On martita 180 daily and singulair 10 mg as needed. Will be seeing wiping rag washer. . Detailed History and Chronology of care: 07/20/2019 No current symptoms, will refill martita today ahead of allergy season. 07/2020: refill on singulair requested and has used martita in the past, requesting refills. Referred to wiping rag washer for allergies and snoring 10/30/2020 (age 20yr): did not follow through on allergy referral. Assessment & Plan (12/08/2021 11:56 AM EDT): 12/08/2021 (age 21yr): Uses On martita 180 daily and singulair 10 mg as needed. Will be seeing wiping rag washer. . Assessment & Plan (08/03/2020 9:51 PM [...] :Followed in the past by Pulm at [facility]. Last visit 01/2018. Seems to be overdue for 4 month follow up, in the past has requested med refills and referral to pulm. Has appt with adult pulm 01/2022. (missed appt ) - Last Specialist Visit: 06/23/2022 [facility] pulm Dr. Loera: Obestiry negatively impacting her health in many ways. Plan: Start symbicort, referred to for pulmonary rehab to do asth;ma teaching, home polysomnogram, PFTs Detailed History and Chronology of care: Was on singulair 10 mg and QVAR or flovent 110. Had bad asthma with GERD as young child, followed by [facility].( mother mentions that there might have been some aspiration). Seemed to resolve as she hit puberty she was off all control meds. Had exacerbation in 07/2016 and back on Qvar. History of poor compliance. 01/04/2018 ACT score 7 02/06/2018: saw Pulm at [facility], recommend flovent 110 2 P BID [...] :Followed in the past by Pulm at [facility]. Last visit 01/2018. Seems to be overdue for 4 month follow up, in the past has requested med refills and referral to pulm. Has appt with adult pulm 01/2022. (missed appt ) Assessment & Plan (08/03/2020 9:38 PM EDT): Plans to return to [place] [facility] as already planned, family has information [...] of atypical pneumonia. Followed by Pulm at [facility]. Has follow up in May 2108. Assessment & Plan (01/06/2018 12:48 PM EDT): Patient in no obvious distress during this encounter and lung exam clear. Has subjective chest tightness. S/P treatment with 7 days of steroids. Low suspicion for pneumonia based on currently exam (including vitals). Patient has Pulm evaluation at [facility] next month. Note given for patient [...] hours. Mom requesting referral to pulm at [facility] (mom says she was seen there when she was young, though I only see notes from [facility] pulm), so I will put referral in now. Mom wants us to make the appt for her. Class 3 severe obesity due t o excess calories with serious comorbidity in adult 03/25/2011 Overview (12/09/2021): 12/08/2021 (age 21yr): Working with crucible packer to lose weight ahead of bariatric surgery. Working with Dr. Gandara. 12/09/2021 (age 21yr): Hyperinsulinemia note, Hgb A1C 5.7 unchanged since last year. Cholesterol normal. Detailed History and Chronology of care: Went to [facility] in 2008 but no success. Sleep study in 2008 was normal. 02/05/2021:Visit with general surgery (Dr Gandara), planning for bariatric surgery (sleeve)) Assessment & Plan (12/08/2021 11:55 AM EDT): 12/08/2021 (age 21yr): Working with crucible packer to lose weight ahead of bariatric surgery. [...] not had a therapist for 1 year. [facility] to assist in finding new provider. 02/02/2022 (age 21yr): still doesn't have a provider. [facility] involved to assist. Also needs to move to adult medicine. Detailed History and Chronology of care: 2016. Partial hosp 02/2017 Inpatient hospitalization at [facility] 02/2018 Telepsych evaluation completed- dx with Bipolar 1 Disorder 12/15/2018: Seeing Dr. Wilson at [facility]. Gets meds through him. On Quetieapine (and adderall). D/C'd lexapro several month ago. Seeing Mckenzie Turner (therapist) for years. 07/2020: Continues with ongoing therapist (Mckenzie Turner) - has been seeing her for about 10 years, had a followup recently due to insurance issues and the soonest available was 07/2020 to recheck. Seen 07/[address] Newman at [facility] as a new consult/evaluation, Currently taking quetiapine and has hydroxyzine Assessment & Plan (02/02/2022 10:32 AM EDT): 02/02/2022 (age 21yr): still doesn't have a provider. [facility] involved to assist. Also needs to move to adult medicine. Assessment & Plan (12/08/2021 1:07 PM EDT): 12/08/2021 (age 21yr): psychiatrist just left, on escilatopram and trazadone. Has not had a therapist for 1 year. [facility] to assist in finding new provider Assessment & Plan (08/03/2020 9:50 PM EDT): Continue in therapy and work with med prescribers to get reestablished as transitions to adult provider Assessment & Plan (12/15/2018 10:31 AM EDT): Seeing Dr. Wilson at [facility]. Gets meds through him. On Quetieapine (and adderall). D/C'd lexapro several month ago. Doing well. Assessment & Plan (03/08/2018 3:59 PM EST): Advised to continue on this treatment regimen until in-person consult/follow up with psychiatrist at [facility]. Assessment & Plan (01/29/2018 4:40 PM EDT): Lexapro does not seem like it's helping according to mother and patient. Followed by Dr. Wilson at [facility] (interim), since previous psych provider no [...] not had a therapist for 1 year. [facility] to assist in finding new provider. 02/02/2022 (age 21yr): still doesn't have a provider. [facility] involved to assist. Also needs to move to adult medicine. Detailed History and Chronology of care: 12/15/2018: At [facility] [place]. On Adderall xr [address] Wilson at [facility]. Gets meds through him. 07/2020: visit with Dr. Newman at [facility] as a new consult/evaluation, previously seen by Dr. Wilson and struggled to get in elsewhere, so were happy to have this evaluation - he is writing for medication for pt. Still seeing Mckenzie Turner for therapy (longterm, for years) Assessment & Plan (02/02/2022 10:31 AM EDT): 02/02/2022 (age 21yr): still doesn't have a provider. [facility] involved to assist. Also needs to move to adult medicine. Assessment & Plan (12/08/2021 1:06 PM EDT): 12/08/2021 (age 21yr): psychiatrist just left, no longer on ADHD meds. ADHD symptoms are bothering her. Has not had a therapist for 1 year. [facility] to assist in finding new provider. Assessment & Plan (12/15/2018 10:33 AM EDT): Classes just started. Seeing Dr. Wilson at [facility]. Gets meds through him. On adderall [...] a, Obesity, Migraines Other grandmother: Wiley dden /[place] under 55 Paternal Grandfather Paterna l grandfather: [...] Completed 06/19/2019, 12/15/2018 Procedures * Due to [place] law, this organization might not be sharing sensitive test results. Procedure Name Priority Date/Time Associated Diagnosis Comments CHLAMYDIA AND GONORRHEA, AMPLIFIED Routine 12/08/2021 12:15 PM EDT Screening for chlamydial disease from Last 3 Months or Most Recently Relevant to Health Maintenance Results * Due to [place] law, this organization might not be sharing sensitive test results. * Chlamydia and Gonorrhoea, Amplified (12/08/2021 12:15 PM EDT) Chlamydia Trachomatis, DNA Probe NEGATIVE (NEG) [facility] Comment: No Chlamydia Trachomatis RNA detected in this patient's sample (REFERENCE RANGE/NORMAL VALUE: NOT DETECTED) Note: This test uses reconstructive dentist- mediated amplification method to detect rRNA from C. Trachomatis URINE GC AMP PROBE NEGATIVE (NEG) [facility] Comment: No Neisseria Gonorrhoeae RNA detected in this patient's sample (REFERENCE RANGE/NORMAL VALUE: NOT DETECTED) NOTE: This test uses reconstructive dentist-mediated amplification method to detect rRNA from N.Gonorrhoeae. [...] without risk of sexual abuse. Consult the [facility] if needed. Contact phone number . Therapeutic failure or success cannot be determined with the Aptima Combo2 assay since nucleic acid may persist following appropriate antimicrobial therapy. The Centers for Disease Control and Prevention (CDC) recommends confirmatory retesting using culture or a different nucleic acid amplification test when positive results occur, if indicated. Testing performed or reported by [facility], a Service of [facility], [address] [place] [address] Dylan Pratt MD, Shake Packer [facility]# [id number] Urine (Urine) 12/08/2021 12: 15 PM EDT 12/09/2021 1:10 AM EDT Angelica Heaton MD LAB MICROBIOLOGY - GENERAL OR DERABLES Final Result [facility] from Last 3 Months or Most Recently Relevant to Health Maintenance
--- OUTSIDE RECORDS SUMMARY | 2025-02-06 17:52 | XMS_ITS | Encounter Summary ---
Author Organization [facility] Address [address] [place], [place] [address] Phone Care Team Providers Care Or Manager Name Role Phone Angelica Heaton MD Primary Care Provider [phone] Reason for Visit * Reason Onset Date Comments Med Refill 05/09/2020 Encounter Details Date Type Department Care Team ([facility] Contact Info) Description 05/09/2020 Refill [facility] [address] [place] [address] Angelica Heaton MD [address] [place] [address] Seasonal allergic rhinitis, unspecified trigger; Menorrhagia with [...] cycle documented in this encounter Care Teams Or Manager Relationship Specialty Start Date End Date Angelica Heaton MD [address] [place] [id number] PCP - General Pediatrics 11/16/18 07/22/22 documented as of this encounter
--- OUTSIDE RECORDS SUMMARY | 2025-02-06 17:52 | XMS_ITS | Encounter Summary ---
Author Organization [facility] Address [address] [place] [address] Phone Care Team Providers Care Configuration Management Architect Name Role Phone Angelica Heaton MD Primary Care Provider [phone] Encounter Details Date Type Department Care Team ([facility] Contact Info) Description 11/25/2016 Conversion Encounter [facility] [address] [place] [address] Social History Tobacco Use Types Packs/Day Years [...] on filedocumented in this encounter Care Teams Configuration Management Architect Relationship Specialty Start Date End Date Angelica Heaton MD [address] [place] [address] PCP - General Pediatrics 11/16/18 07/22/22 documented as of this encounter
--- OUTSIDE RECORDS SUMMARY | 2025-02-06 17:52 | XMS_ITS | Encounter Summary ---
Author Organization [facility] Address [address] [place] [address] Phone Care Team Providers Care Field Return Repairer Name Role Phone Angelica Heaton MD Primary Care Provider [phone] Reason for Visit * Reason Comments Med Refill Encounter Details Date Type Department Care Team ([facility] Contact Info) Description 05/02/2022 Refill [facility] [address] [place] [address] Angelica Heaton MD [address] [place] [address] Menorrhagia with regular cycle Social History Tobacco [...] cycle documented in this encounter Care Teams Field Return Repairer Relationship Specialty Start Date End Date Angelica Heaton MD [address] [place] [phone] PCP - General Pediatrics 11/16/18 07/22/22 documented as of this encounter
--- OUTSIDE RECORDS SUMMARY | 2025-02-06 17:52 | XMS_ITS | Encounter Summary ---
Author Organization [facility] Address [address] [place], [place] [phone] Phone Care Team Providers Care Brake Shoe Rebuilder Name Role Phone Angelica Heaton MD Primary Care Provider [phone] Reason for Visit * Reason Onset Date Comments Med Refill 09/27/2019 Encounter Details Date Type Department Care Team ([facility] st Contact Info) Description 09/27/2019 Refill [facility] [address] [place] [address] Angelica Heaton MD [address] [place] [address] Moderate persistent asthma without complication; Seasonal allergic [...] trigger documented in this encounter Care Teams Brake Shoe Rebuilder Relationship Specialty Start Date End Date Angelica Heaton MD [address] [place] [id number] PCP - General Pediatrics 11/16/18 07/22/22 documented as of this encounter
== END 2025-02-06 14:51 | disposition home or self-care (01) ==
LOC: HO.HMCC 13:57
PROVIDERS: PCP Internal Medicine; Visit Provider Internal Medicine
DX: I10 Essential (primary) hypertension (principal); H61.90 Disorder of external ear, unspecified, unspecified ear; L98.9 Disorder of the skin and subcutaneous tissue, unspecified; Z00.00 Encounter for general adult medical examination without abnormal findings

== ENCOUNTER → 2025-02-06 13:55 | Outpatient (BNVA) | payer OTHER, SELFPAY | PROVIDERS: PCP Internal Medicine; Visit Provider Internal Medicine | DX: I10 Essential (primary) hypertension (principal); H61.90 Disorder of external ear, unspecified, unspecified ear; L98.9 Disorder of the skin and subcutaneous tissue, unspecified; Z79.899 Other long term (current) drug therapy | CPT/HCPCS: 99212; 99497 ==

== ENCOUNTER 2025-02-25 17:43 | Emergency (ER) | payer OTHER, SELFPAY ==
--- NOTE | ~2025-02-25 | CT_ITS ---
CLINICAL HISTORY: Fall; Abd pain tenderness; Recent Lap [facility] CT abdomen and pelvis with contrast Comparison: CT/IA/SR - CT ABDOMEN PELVIS W IV CON - 07/20/24 10:04 EDT Findings: The lung bases are clear. Hepatomegaly 21.6 cm. Similar to prior. Abdominal solid organs otherwise unremarkable. No urolithiasis. No bowel obstruction, pneumoperitoneum, or pneumatosis. Uterus and ovaries unremarkable. Normal appendix. No ascites or hernia. The bones are intact. IMPRESSION: 1. Cholecystectomy. Trace fluid without inflammatory change at the gallbladder fossa. 2. No acute injury of the abdomen or pelvis. This document has been electronically signed by: Timothy Thomas MD on 02/25/2025 23:38:28
[2025-02-25 18:00] VITALS: BP 191/89; PULSE 77; RESP 16; TEMP 36.6; O2SAT 98; BMI 64.2
--- NOTE | 2025-02-25 18:05 | ED_ITS ---
HPI - General Adult General Chief complaint: Abdominal Pain Stated complaint: Abdominal pain, post surgery Time Seen by Provider: 02/25/25 22:05 Source: patient Mode of arrival: ambulatory Limitations: no limitations History of Present Illness ED Provider: Ganesh PRIETO HPI narrative: The patient is a 24-year-old female presenting to the ED for evaluation of abdominal pain which has gradually increased over the past week. Patient reports 1 month ago she had a laparoscopic cholecystectomy due to calculous cholecystitis. Patient reports she was feeling well, has been having diarrhea as expected, but denies any associated fever/chills, nausea, vomiting, hematochezia or melena. The patient reports 6 days ago however she suffered a mechanical fall from standing height when she tripped over shoes walking onto her deck. The patient reports striking her abdomen on a nearby chair. Since that time patient has been experiencing nausea with the associated gradually worsening left upper quadrant abdominal pain located beneath her laparoscopic incision. The patient denies associated fever/chills, vomiting or other acute somatic complaint. The patient denies recurrent trauma since that incident 6 days ago. Related Data Home Medications ?Medication ?Instructions ?Recorded ?Confirmed fluticasone propionate 50 1 spray intranasal DAILY PRN 01/04/25 01/25/25 mcg/actuation nasal Allergy Symptoms spray,suspension (Flonase Allergy Relief) cholecalciferol (vitamin D3) 1,250 1,250 mcg PO TH 01/25/25 mcg (50,000 unit) capsule omeprazole 20 mg capsule,delayed 20 mg PO DAILY PRN Ac id Reflux 01/25/25 01/25/25 release Previous Rx's ?Medication ?Instructions ?Recorded escitalopram oxalate 20 mg tablet 20 mg PO DAILY #30 t abs 11/06/24 fexofenadine 180 mg tablet 180 mg PO DAILY #90 tabs (Allergy Relief (fexofenadine)) losartan 50 mg tablet 50 mg PO DAILY 3 months #90 tabs 11/06/24 famotidine 40 mg tablet 40 mg PO DAILY #90 tabs 08/03 amlodipine 5 mg tablet 5 mg PO DAILY 3 months #90 t abs 11/13/24 Allergies Allergy/AdvReac Type Severity Reaction Status Date / Time apple Allergy Itching Verified 02/25/25 18:03 cantaloupe Allergy Itching Verified 02/25/25 18:03 kiwi Allergy Itching Verified 02/25/25 18:03 shellfish derived Allergy Facial Verified 02/25/25 18:03 Swelling strawberry Allergy Itching Verified 02/25/25 18:03 Review of Systems 2 Review of Systems: Yes all other systems are reviewed and are negative PMFSH Past Medical History Medical History (Updated 02/25/25 @ 23:47 by Ganesh Dhillon PA-C) Lesion of external ear Acute cholecystitis due to biliary calculus Abdominal pain Biliary colic Umbilical hernia Dysphagia Mild intermittent asthma Impaired concentration Sleep apnea Essential hypertension Depression with anxiety Morbid obesity Heartburn Asthma Surgical History No pertinent past surgical history Family History Family History Father Substance use disorder Paternal Grandmother Mental health disorder Paternal Aunt Mental health disorder Maternal Grandmother Mental health disorder Mother Mental health disorder Sister Mental health disorder Social History Social History Household Members: Family Housing: House Do you presently have visiting nurse or other home services: No Comment: post-op Patient Tobacco Use Status: Former Tobacco user e-Cigarette/Vaping Use: Never Used Substance Use Type: Marijuana service: No Current occupational status: employed Cognitive needs: No Hearing needs: No Vision needs: Yes Physical Exam ED Vital Signs: Vital Signs - 24 hr 02/25/25 18:00 02/25/25 20:48 02/26/25 00:00 Temperature 98 F 98.3 F 98.1 F Pulse Rate 77 82 78 Respiratory Rate 16 16 18 Blood Pressure 191/89 H 146/79 H 138/78 Pulse Oximetry 98 98 98 Oxygen Delivery Method Room Air Room Air Room Air 02/26/25 00:12 Temperature 98.1 F Pulse Rate 78 Respiratory Rate 18 Blood Pressure 138/78 Pulse Oximetry 98 Oxygen Delivery Method Room Air BMI result Body Mass Index 64.2 CONSTITUTIONAL: The patient appears morbidly obese, otherwise non-toxic, well nourished and in no acute distress. Vital signs as documented. HEAD: Atraumatic, normocephalic. EYES: EOMs grossly intact, pupils equal, conjunctiva clear, no exudate. ENT: Nares patent, no discharge. Airway patent, no audible stridor, visible mucosa is pink and moist without noted lesions. NECK: Trachea is midline, no obvious masses or gross abnormalities. CHEST: Symmetric movement, normal appearance. LUNGS: LS present and CTAB, no w/r/r. Non-labored work of breathing. CARDIAC: Regular Rhythm, S1/S2 appreciated, no murmurs, rubs or gallops. ABDOMEN: Abdomen soft x4 quadrants, positive tenderness to palpation of the left upper quadrant overlying a well-appearing, non dehisced surgical incision, negative rebound, no appreciated induration, fluctuance, or contusion. no palpable masses or organomegaly. : Deferred. EXTREMITIES: Normal tone, moves all extremities spontaneously without reported pain. No obvious acute injury or deformity noted. NEURO: Alert and oriented x3, CN II-XII appear grossly intact. Cerebellar Functioning grossly intact. No obvious sensory or motor deficits. Speech clear and appropriate. PSYCH: normal affect, appropriate eye contact, fluid speech, with appropriate response to questioning. No reported suicidality or homicidality. SKIN: Warm, dry, color appropriate, normal turgor. No rashes noted. Course Course Course Narrative: RME: 24-year-old female presents to ED for abdominal pain for the past 6 days after falling onto area of surgery status post colectomy. Patient denies any vaginal bleeding blood in stool. Patient came to the ED to be evaluated. Labs ordered Medications Administered Discontinued Medications Generic Name Dose Route Start Last Admin Trade Name Freq PRN Reason Stop Dose Admin Iohexol 100 ml 02/25/25 22:42 02/25/25 22:42 Iohexol 350 Mg/Ml 100 Ml Infus..Btl IV 02/25/25 22:43 100 ml ONCE ONE Administration Medical Decision Making Medical Decision Making [facility] Narrative: 10:22 PM 02/25/2025 (Gamal PRIETO): The patient is a 24-year-old female presenting to the ED for evaluation of abdominal pain which has gradually increased over the past week. Patient reports 1 month ago she had a laparoscopic cholecystectomy due to calculous cholecystitis. Patient reports she was feeling well, has been having diarrhea as expected, but denies any associated fever/chills, nausea, vomiting, hematochezia or melena. The patient reports 6 days ago however she suffered a mechanical fall from standing height when she tripped over shoes walking onto her deck. The patient reports striking her abdomen on a nearby chair. Since that time patient has been experiencing nausea with the associated gradually worsening left upper quadrant abdominal pain located beneath her laparoscopic incision. The patient denies associated fever/chills, vomiting or other acute somatic complaint. The patient denies recurrent trauma since that incident 6 days ago. On exam the patient has tenderness overlying a well-healed surgical incision without evidence of dehiscence, contusion, or underlying induration or fluctuance. The patient's exam is otherwise benign. Patient's laboratory evaluation demonstrates no leukocytosis, anemia, electrolyte abnormality, or LEDY. The patient's LFTs are unremarkable. The patient's lipase is normal. The patient's urinalysis is negative for , however there is trace leukocyte esterase with 11-20 WBCs and 3+ bacteria. The patient denies any urinary symptoms, is afebrile, and urinalysis is also noted to have 11-20 squamous epithelial cells, likely representing contamination rather than true UTI. Due to reported tenderness with a recent trauma patient will be sent for CT abdomen and pelvis to rule out acute intra-abdominal pathology or injury. 11:43 PM 02/25/2025 (Gamal PRIETO): The patient's CT has resulted and shows findings consistent with cholecystectomy, no other acute abnormalities. The patient is likely suffering from a contusion of the abdominal wall. Patient will be discharged with supportive care. Admission/Observation Consideration of admission/observation: Escalation of care including admission/observation considered Lab Data MDM Lab Attestation statement: I reviewed the patient's lab results. 02/25/25 18:13 02/25/25 18:13 Labs: Lab Results 02/25/25 02/25/25 Range/Units 18:13 20:46 WBC 9.8 (4.8-10.8) X10*3/uL RBC 4.87 (4.20-5.50) X10*6/uL Hgb 12.0 (12.0-16.0) g/dl Hct 38.4 (37.0-47.0) % MCV 78.9 L (80.0-98.0) fL MCH 24.6 L (27.0-33.0) pg MCHC 31.3 (31.0-35.0) g/dl RDW 15.0 (11.0-16.0) % Plt Count 339 (160-400) X10*3/uL MPV 9.5 (9.4-12.3) fL Immature Gran % (Auto) 0.2 (0.0-0.4) % Neut % (Auto) 54.8 (45-73) % Lymph % (Auto) 35.5 (20-40) % Sequoyah % (Auto) 7.0 (2-11) % Eos % (Auto) 1.9 (0-4) % Baso % (Auto) 0.6 (0-2) % Lymph # (Auto) 3.5 (1.2-4.9) X10*3/uL Sequoyah # (Auto) 0.7 (0.1-1.2) X10*3/uL Eos # (Auto) 0.2 (0.0-0.4) X10*3/uL Baso # (Auto) 0.1 (0.0-0.2) X10*3/uL Abs Immat Gran (auto) 0.02 (0.00-0.03) X10*3/uL Absolute Neuts (auto) 5.4 (2.0-8.3) x10*3/uL Absolute Nucleated RBC 0.000 (0.0-0.012) X10*3/uL Nucleated RBC % (auto) 0.0 (0.0-0.2) /100WBC Sodium 142 (135-145) mmol/L Potassium 3.8 (3.3-5.1) mmol/L Chloride 109 H (96-108) mmol/L Carbon Dioxide 28 (22-29) mmol/L Anion Gap 9 L (12-20) BUN 13 (9-16) mg/dL Creatinine 0.70 (0.5-1.4) mg/dL Estim Creat Clear Calc 176.7 Estimated GFR > 60 Random Glucose 96 (60-115) mg/dL Calcium 8.9 D (8.4-10.2) mg/dL Total Bilirubin 0.2 (0.0-1.0) mg/dL AST 17 (5-31) U/L ALT 18 (0-31) U/L Alkaline Phosphatase 79 (39-117) U/L Total Protein 6.6 (6.5-8.0) g/dL Albumin 4.2 (3.5-5.0) g/dL Lipase 30 (8-78) U/L Beta HCG, Quant < 2 mIU/mL Urine Color Yellow Urine Appearance Clear Urine pH 7.0 (5.0-9.0) Ur Specific [place] >= 1.030 H (1.005-1.025) Urine Protein Trace (Neg-Trace) mg/dL Urine Glucose (UA) Negative (Negative) mg/dL Urine Ketones Trace (Negative) mg/dL Urine Blood Negative (Negative) Urine Nitrite Negative (Negative) Ur Leukocyte Esterase Trace H (Negative) Urine RBC 0-2 (0-2) /HPF Urine WBC 11-20 H (0-5) /HPF Ur Squamous Epith Cells 11-20 (0-2) /HPF Urine Bacteria 3+ (None Seen) Hyaline Casts 0-2 (0-2) /LPF Radiology Impression Discussion of test interpretation with radiology: I have reviewed the radiologist's reading. Radiologist Impression: CT abdomen and pelvis with contrast Comparison: CT/GA/SR - CT ABDOMEN PELVIS W IV CON - 07/20/24 10:04 EDT Findings: The lung bases are clear. Hepatomegaly 21.6 cm. Similar to prior. Abdominal solid organs otherwise unremarkable. No urolithiasis. No bowel obstruction, pneumoperitoneum, or pneumatosis. Uterus and ovaries unremarkable. Normal appendix. No ascites or hernia. The bones are intact. IMPRESSION: 1. Cholecystectomy. Trace fluid without inflammatory change at the gallbladder fossa. 2. No acute injury of the abdomen or pelvis. This document has been electronically signed by: Timothy Thomas MD on 02/25/2025 23:38:28 External Record Review External record reviewed: Outpatient record and Prior outpatient labs Prescription Management I considered prescription management with: Pain Medication Discharge Plan Discharge Clinical Impression: Contusion of abdominal wall Qualifiers: Encounter type: initial encounter Qualified Code(s): S30.11XA - Contusion of abdominal wall, initial encounter Patient Disposition: Home, Self-Care Instructions: Contusion in Adults (ED) Additional Instructions: Thank you for choosing [facility]'s Emergency Department for your care today. Thankfully your laboratory evaluation, CT, vital signs, and exam today are all reassuring. There was no evidence of an acute injury to your abdomen as a result of your fall 6 days ago. There was no evidence of injury to your recent surgical site. At this time there is no indication for admission to the hospital or continued ED observation, and it is safe to discharge you home. Your symptoms are likely due to a contusion of your abdominal wall muscle. You may take alternating (staggered) doses of ibuprofen 600mg and Tylenol 1000mg every 4 hours as needed for any additional pain. Please stay well hydrated and get plenty of rest. Please rest the injured area, and apply ice for 20 minutes every hour. Please follow up with your primary care physician and your surgeon for re- evaluation, additional management of your symptoms, and continued preventative care. If you do not have a primary care physician, please call the [facility] at [phone] to establish a new primary care physician. While waiting to establish your new primary care physician, you can call our Walk[facility]in [facility] at [phone] for non-emergency needs. Please return to the emergency department if you develop a severe or sudden change in your symptoms, a fever over 100.4 that does not improve with Tylenol or Ibuprofen, recurrent vomiting, or any other new or worsening symptoms or concerns. Prescriptions: No Action famotidine 40 mg tablet 40 mg PO DAILY Qty: 90 1RF amlodipine 5 mg tablet 5 mg PO DAILY 90 Days Qty: 90 0RF omeprazole 20 mg capsule,delayed release(DR/EC) 20 mg PO DAILY PRN (Reason: Acid Reflux) Rx Instructions: Take one tablet daily. Best taken on an empty, 30 minutes before eating. cholecalciferol (vitamin D3) 1,250 mcg (50,000 unit) capsule 1,250 mcg PO TH losartan 50 mg tablet 50 mg PO DAILY 90 Days Qty: 90 0RF fexofenadine [Allergy Relief (fexofenadine)] 180 mg tablet 180 mg PO DAILY Qty: 90 1RF escitalopram oxalate 20 mg tablet 20 mg PO DAILY Qty: 30 5RF fluticasone propionate [Flonase Allergy Relief] 50 mcg/actuation spray,suspension 1 spray intranasal DAILY PRN (Reason: Allergy Symptoms) Rx Instructions: administer into each nostril Referrals: Cheryl Hutchison MD [Primary Care Provider, Internal Medicine] Clinical Impression: Contusion of abdominal wall Peter Villatoro MD [Physician, General Surgery] Clinical Impression: Contusion of abdominal wall Stand Alone Forms: Work/School Release Interventions: ED Discharge Assessment Last Done: 02/26/25 00:12 Discharge Date/Time: 02/26/25 00:13 Print Language: Mohawk
[2025-02-25 18:17] LABS: MANUAL DIFF FLAG NO
[2025-02-25 18:18] LABS: Hematocrit 38.4 % (37.0-47.0); Hemoglobin 12.0 g/dl (12.0-16.0); Imm Gran Abs Auto 0.02 X10*3/uL (0.00-0.03); Imm Gran Pct Auto 0.2 % (0.0-0.4); Lymphocytes Absolute Auto 3.5 X10*3/uL (1.2-4.9); Mean Corpuscular HGB Conc 31.3 g/dl (31.0-35.0); Mean Corpuscular Hemoglobin 24.6 pg (27.0-33.0); Mean Corpuscular Volume 78.9 fL (80.0-98.0); NRBC Abs Auto 0.000 X10*3/uL (0.0-0.012); NRBC Pct Auto 0.0 /100WBC (0.0-0.2); Platelet Count 339 X10*3/uL (160-400); Red Blood Count 4.87 X10*6/uL (4.20-5.50); White Blood Count 9.8 X10*3/uL (4.8-10.8)
[2025-02-25 18:57] LABS: Alanine Aminotransferase 18 U/L (0-31); Albumin Level 4.2 g/dL (3.5-5.0); Alkaline Phosphatase 79 U/L (39-117); Anion Gap 9 (12-20); Aspartate Amino Transferase 17 U/L (5-31); Blood Urea Nitrogen 13 mg/dL (9-16); Calcium 8.9 mg/dL (8.4-10.2); Carbon Dioxide 28 mmol/L (22-29); Chloride 109 mmol/L (96-108); Creatinine Clr Calc Pharmacy 176.7; Estimated Glomerular Filt Rate > 60; Lipase 30 U/L (8-78); Potassium 3.8 mmol/L (3.3-5.1); Sodium 142 mmol/L (135-145); Total Protein 6.6 g/dL (6.5-8.0)
--- NOTE | 2025-02-25 20:40 | PC.NURSE ---
this RN assumed care of this pt approximately this time, pt ambulated to room w. steady gait. sitting upright, changed into hospital gown, appears to be in no respiratory or apparent ditress
[2025-02-25 20:48] VITALS: BP 146/79; PULSE 82; RESP 16; TEMP 36.8; O2SAT 98
[2025-02-25 20:52] LABS: Appearance Urine Clear; Glucose Urine UA Negative (Negative); PH 7.0 (5.0-9.0); Specific Gravity - Urine >= 1.030 (1.005-1.025); UMIC TRIGGER UACC YES
[2025-02-25 20:55] LABS: UACC Culture Trigger YES
[2025-02-25] MEDS: iohexoL 350 MG/ML 100 ML INFUS..BTL IV (22:42)
[2025-02-26] VITALS: BP 138/78; PULSE 78; RESP 18; TEMP 36.7; O2SAT 98
[2025-02-26 00:12] VITALS: BP 138/78; PULSE 78; RESP 18; TEMP 36.7; O2SAT 98
== END 2025-02-26 00:13 | disposition home or self-care (01) ==
PROVIDERS: Physician Assistant; Emergency Provider Emergency Medicine; PCP Internal Medicine
DX: S30.11XA Contusion of abdominal wall, initial encounter (principal); R10.20 Pelvic and perineal pain unspecified side; Y29.XXXA Contact with blunt object, undetermined intent, initial encounter; Y93.9 Activity, unspecified; Y92.9 Unspecified place or not applicable; Y99.8 Other external cause status; Z79.899 Other long term (current) drug therapy
CPT/HCPCS: 36415; 74177; 80053; 81001; 83690; 84702; 85025; 87086; 99284; Q9967

== ENCOUNTER → 2025-02-25 22:20 | Outpatient (BNV) | payer OTHER, SELFPAY | PROVIDERS: Emergency Provider Emergency Medicine; PCP Internal Medicine; Visit Provider Radiology Diagnostic Radiology | DX: R10.9 Unspecified abdominal pain (principal); Z90.49 Acquired absence of other specified parts of digestive tract | CPT/HCPCS: 74177 ==

== ENCOUNTER 2025-02-27 13:22 | Outpatient (AMB) | payer OTHER, SELFPAY ==
--- NOTE | 2025-02-27 13:24 | MHC.OFFVIS ---
Vital Signs 02/27/25 13:31 Height 5 ft 1 in Weight 376 lb 4 oz BMI 71.1 Respiration 18 Intake Visit Reasons: 3wk post op GB Intake Note: Patient is seen in office for 3 weeks follow up visit, post cholecystectomy. Pt c/o: admits to sore, bruise and tender, went to ED on Tuesday night due to a fall, was evaluated and send home (stable), admits to constipation, bm every 2 days post surgery Director Of Business Services Required: No Accompanied by: Self / Same As Patient Allergies apple Allergy (Verified 02/27/25 13:31) Itching cantaloupe Allergy (Verified 02/27/25 13:31) Itching kiwi Allergy (Verified 02/27/25 13:31) Itching shellfish derived Allergy (Verified 02/27/25 13:31) Facial Swelling strawberry Allergy (Verified 02/27/25 13:31) Itching HPI HPI 3wk post op GB: Details: Doing well from a surgical standpoint. Had a fall at home where she fell and hit her face. Had some pain around incision sites so was seen at the ED, repeat CT showing appropriate postsurgical changes, no acute process related to fall. Was discharged home. Otherwise doing well, slowly introducing new foods to diet. Struggling with some constipation, going about every 2 days. Has been avoiding heavy lifting [facility] Medical History Lesion of external ear Acute cholecystitis due to biliary calculus Abdominal pain Biliary colic Umbilical hernia Dysphagia Mild intermittent asthma Impaired concentration Sleep apnea Essential hypertension Depression with anxiety Morbid obesity Heartburn Asthma Surgical History No pertinent past surgical history Family History Father Substance use disorder Paternal Grandmother Mental health disorder Paternal Aunt Mental health disorder Maternal Grandmother Mental health disorder Mother Mental health disorder Sister Mental health disorder Social History Household Members: Family Housing: House Do you presently have visiting nurse or other home services: No Comment: post-op Patient Tobacco Use Status: Former Tobacco user e-Cigarette/Vaping Use: Never Used Substance Use Type: Marijuana service: No Current occupational status: employed Cognitive needs: No Hearing needs: No Vision needs: Yes Physical Exam Vital Signs: Last Vital Signs Resp 18 02/27/25 13:31 BMI result Body Mass Index 71.1 Const General: comfortable and no acute distress Nutritional Appearance: obese Orientation/consciousness: patient oriented x3 Resp Effort & Inspection: normal respiratory effort and able to speak in complete sentences GI Other: Incision sites well healed, no fluctuance, no erythema Inspection: No distended Palpation (GI): Soft to palpation, nontender and no guarding Neuro General: patient oriented x3 Assessment & Plan Assessment & Plan (1) S/P laparoscopic cholecystectomy: Comment: 01/26/2025, Dr. Villatoro Code(s): Z90.49 - Acquired absence of other specified parts of digestive tract Category: Surgical Plan 24-year-old female s/p laparoscopic cholecystectomy on 01/26/[address] Villatoro returning the office for routine follow-up. Patient overall doing well, despite recent fall resulting in ED visit due to concern for pain the incision sites, CT in ED unremarkable minimal pain at rest some pain with ambulation. Reassured her that this is normal likely muscular in nature as she describes this as pain when bending over or ambulating through the larger trocar sites. She is making some changes to her diet, which has been going well, introducing new foods. Dealing with some constipation, now going every other day. Recommended increasing dietary fiber, hydration. Can use [id number] Colace, MiraLax as needed. On exam her abdomen is soft and benign, incision sites appear to be well healed, no concern for infection at this time. At this point no further activity restrictions . She is no longer requiring follow-up, she can call for any concerns in the future. Coding Level of Care Code Global (79278) Diagnoses S/P laparoscopic cholecystectomy Z90.49
[2025-02-27 13:31] VITALS: RESP 18; BMI 71.1
--- OUTSIDE RECORDS SUMMARY | 2025-02-28 01:21 | XMS_ITS | Encounter Summary ---
Author Organization [facility] Address [address] [place], [place] [id number] Phone Care Team Providers Care Quarantine Officer Name Role Phone Angelica Heaton MD Primary Care Provider [phone] Reason for Visit * Reason Onset Date Comments Med Refill 02/15/2020 Encounter Details Date Type Department Care Team ([facility] st Contact Info) Description 02/15/2020 Refill [facility] [address] [place] [address] Angelica Heaton MD [address] [place] [address] Seasonal allergic rhinitis, unspecified trigger; Moderate persistent [...] complication documented in this encounter Care Teams Quarantine Officer Relationship Specialty Start Date End Date Angelica Heaton MD [address] [place] [phone] PCP - General Pediatrics 11/16/18 07/22/22 documented as of this encounter
--- OUTSIDE RECORDS SUMMARY | 2025-02-28 01:21 | XMS_ITS | Encounter Summary ---
Author Organization [facility] Address [address] [place] [phone] Phone Care Team Providers Care Beef Pusher Name Role Phone Angelica Heaton MD Primary Care Provider [phone] Reason for Visit * Reason Comments Med Refill Encounter Details Date Type Department Care Team ([facility] Contact Info) Description 01/17/2018 Refill [facility] [address] [place] [address] Brooke Conklin MD [address] [place] [address] Menorrhagia with irregular cycle (Primary Dx) Social [...] Primary documented in this encounter Care Teams Beef Pusher Relationship Specialty Start Date End Date Angelica Heaton MD [address] [place] [address] PCP - General Pediatrics 11/16/18 07/22/22 documented as of this encounter
--- OUTSIDE RECORDS SUMMARY | 2025-02-28 01:21 | XMS_ITS | Encounter Summary ---
Author Organization [facility] Address [address] [place], [place] [id number] Phone Care Team Providers Care Food Service Assistant Name Role Phone Angelica Heaton MD Primary Care Provider [phone] Reason for Visit * Reason Onset Date Comments Med Refill 09/27/2019 Encounter Details Date Type Department Care Team ([facility] st Contact Info) Description 09/27/2019 Refill [facility] [address] [place] [address] Angelica Heaton MD [address] [place] [address] Moderate persistent asthma without complication; Seasonal allergic [...] trigger documented in this encounter Care Teams Food Service Assistant Relationship Specialty Start Date End Date Angelica Heaton MD [address] [place] [phone] PCP - General Pediatrics 11/16/18 07/22/22 documented as of this encounter
--- OUTSIDE RECORDS SUMMARY | 2025-02-28 01:21 | XMS_ITS | Encounter Summary ---
Author Organization [facility] Address [address] [place] [address] Phone Care Team Providers Care Manager Latin Name Role Phone Angelica Heaton MD Primary Care Provider [phone] Encounter Details Date Type Department Care Team ([facility] Contact Info) Description 11/25/2016 Conversion Encounter [facility] [address] [place] [address] Social History Tobacco Use Types Packs/Day Years [...] filedocumented in this encounter Care Teams Manager Latin Relationship Specialty Start Date End Date Angelica Heaton MD [address] [place] [address] PCP - General Pediatrics 11/16/18 07/22/22 documented as of this encounter
--- OUTSIDE RECORDS SUMMARY | 2025-02-28 01:21 | XMS_ITS | Encounter Summary ---
Author Organization [facility] Address [address] [place] [address] Phone Care Team Providers Care Decision Science Analyst Name Role Phone Angelica Heaton MD Primary Care Provider Encounter Details Date Type Department Care Team (Late st Contact Info) Description 09/04/2009 Documentation [facility] Family Medicine [address] [place] [address] Family Medicine, Physician [address] [place], [place] [id number] Social History Tobacco Use Types Packs/Day Years [...] on filedocumented in this encounter Care Teams Decision Science Analyst Relationship Specialty Start Date End Date Angelica Heaton MD [address] [place] [address] PCP - General Pediatrics 11/16/18 07/22/22 documented as of this encounter
--- OUTSIDE RECORDS SUMMARY | 2025-02-28 01:21 | XMS_ITS | Encounter Summary ---
Author Organization [facility] Address [address] [place] [address] Phone Care Team Providers Care Volunteer Manager Name Role Phone Angelica Heaton MD Primary Care Provider [phone] Reason for Visit * Reason Comments Med Refill Encounter Details Date Type Department Care Team ([facility] Contact Info) Description 11/22/2021 Refill [facility] [address] [place] [address] Angelica Heaton MD [address] [place] [address] Menorrhagia with regular cycle Social History Tobacco [...] cycle documented in this encounter Care Teams Volunteer Manager Relationship Specialty Start Date End Date Angelica Heaton MD [address] [place] [address] PCP - General Pediatrics 11/16/18 07/22/22 documented as of this encounter
--- OUTSIDE RECORDS SUMMARY | 2025-02-28 01:21 | XMS_ITS | Encounter Summary ---
Author Organization [facility] Address [address] [place] [address] Phone Care Team Providers Care Ager Operator Name Role Phone Angelica Heaton MD Primary Care Provider [phone] Encounter Details Date Type Department Care Team (Late st Contact Info) Description 07/12/[address] [facility] Family Medicine [address] [place] [address] Family Medicine, Physician [address] [place] [address] Social History Tobacco Use Types Packs/Day Years [...] on filedocumented in this encounter Care Teams Ager Operator Relationship Specialty Start Date End Date Angelica Heaton MD [address] [place] [address] PCP - General Pediatrics 11/16/18 07/22/22 documented as of this encounter
--- OUTSIDE RECORDS SUMMARY | 2025-02-28 01:21 | XMS_ITS | Encounter Summary ---
Author Organization [facility] Address [address] [place], [place] [id number] Phone Care Team Providers Care Application Assistant Name Role Phone Angelica Heaton MD Primary Care Provider [phone] Reason for Visit * Reason Onset Date Comments Med Refill 11/16/2019 Encounter Details Date Type Department Care Team ([facility] st Contact Info) Description 11/16/2019 Refill [facility] [address] [place] [address] Angelica Heaton MD [address] [place] [address] Moderate persistent asthma without complication; Seasonal allergic [...] trigger documented in this encounter Care Teams Application Assistant Relationship Specialty Start Date End Date Angelica Heaton MD [address] [place] [address] PCP - General Pediatrics 11/16/18 07/22/22 documented as of this encounter
--- OUTSIDE RECORDS SUMMARY | 2025-02-28 01:21 | XMS_ITS | Encounter Summary ---
Author Organization [facility] Address [address] [place], [place] [id number] Phone Care Team Providers Care Permit Technician Name Role Phone Angelica Heaton MD Primary Care Provider [phone] Reason for Visit * Reason Onset Date Comments Med Refill 05/09/2020 Encounter Details Date Type Department Care Team ([facility] Contact Info) Description 05/09/2020 Refill [facility] [address] [place] [address] Angelica Heaton MD [address] [place] [address] Seasonal allergic rhinitis, unspecified trigger; Menorrhagia with [...] cycle documented in this encounter Care Teams Permit Technician Relationship Specialty Start Date End Date Angelica Heaton MD [address] [place] [address] PCP - General Pediatrics 11/16/18 07/22/22 documented as of this encounter
--- OUTSIDE RECORDS SUMMARY | 2025-02-28 01:21 | XMS_ITS | Encounter Summary ---
Author Organization [facility] Address [address] [place] [address] Phone Care Team Providers Care Cooler Room Worker Name Role Phone Angelica Heaton MD Primary Care Provider [phone] Reason for Visit * Reason Comments Med Refill Encounter Details Date Type Department Care Team ([facility] Contact Info) Description 05/02/2022 Refill [facility] [address] [place] [address] Angelica Heaton MD [address] [place] [address] Menorrhagia with regular cycle Social History Tobacco [...] cycle documented in this encounter Care Teams Cooler Room Worker Relationship Specialty Start Date End Date Angelica Heaton MD [address] [place] [address] PCP - General Pediatrics 11/16/18 07/22/22 documented as of this encounter
--- OUTSIDE RECORDS SUMMARY | 2025-02-28 01:21 | XMS_ITS | Encounter Summary ---
Author Organization [facility] Address [address] [place] [address] Phone Care Team Providers Care Platen Builder Up Name Role Phone Angelica Heaton MD Primary Care Provider [phone] Reason for Visit * Reason Comments Med Refill Encounter Details Date Type Department Care Team ([facility] Contact Info) Description 01/29/2022 Refill [facility] [address] [place] [address] Angelica Heaton MD [address] [place] [address] Menorrhagia with regular cycle Social History Tobacco [...] cycle documented in this encounter Care Teams Platen Builder Up Relationship Specialty Start Date End Date Angelica Heaton MD [address] [place] [address] PCP - General Pediatrics 11/16/18 07/22/22 documented as of this encounter
--- OUTSIDE RECORDS SUMMARY | 2025-02-28 01:21 | XMS_ITS | Clinical Summary ---
Author Organization [facility] Address [address] [place] [phone] Phone Care Team Providers Care Electromechanical Assembler Name Role Phone Unavailable Primary Care Provider Unavailabl e Allergies Active Allergy Reactions Criticality Noted Date Comments Clam Shell 04/06/2017 Environmental 04/06/2017 Cat,dog, hamster Food 04/06/2017 [place], tomato,cantelope,apples , seafood Shellfish Protein-Containing Drug Products [...] a1c 5.7. Renea is working with a body and fender worker and is considering bariatric surgery. Continue to follow. Needs Adult MD. 02/02/2022 (age 21yr): Is continuing to work with body and fender worker. Assessment & Plan (02/02/2022 10:33 AM EDT): 02/02/2022 (age 21yr): Is continuing to work with body and fender worker. Lab test positive for detection of COVID-19 viru s 04/12/2021 Assessment & Plan (04/12/2021 11:37 AM EST): Pt positive for covid - testing done at 'Stop the spread . Other family members positive as well Pt with multiple significant risk factors Referred to [facility] - form for referral filled [...] (switched from hydrochlorothiazide to amlodipine on 12/18/2019). [facility] involved. Urgent cardiology visit scheduled for 03/[address] Hickey at [facility] cardio [facility]. Ran out of OCPS 4 days ago. - I contacted Dr. Hutchinson who felt that OCP were still reasonable in [place]. I will continue to prescribe as long as she see the cardiology in March. - Follow up with adult cardiology - Last Specialist Visit: [facility] cardiology 02/12/2022, started on amlodipine and losartan. OCP refilled with 3 RF and message to [facility] to contact Renea to help her transition to adult medicine. 01/25/2022 Chart Review: [facility] - 03/22/2021 158/87 Wing ED - 12/08/2021 162/92 in the office - 12/09/2021 153/74,then 118/62 at [facility] - 01/05/2022: [facility], sent to ED. No note in chart 02/02/2022 (age 21yr): 138/84 in the office Detailed History and Chronology of care: 12/08/2021 (age 21yr): BP high today, ran out of meds 04/2020 and has not had refills. Diagnosed by cardiology 07/2018. Last visit with Dr. Hutchinson was 12/18/2019. Was on losartan 50 mg and amlodipine 5mg. (switched from hydrochlorothiazide to amlodipine on 12/18/2019). [facility] involved as of 11/03/2021 Follow up with adult cardiology. 12/09/2021 (age 21yr): Sent to ED with elevated HR and chest pain. 12/29/2021 (age 21yr): Urgent cardiology visit scheduled for 03/17/[address] Hickey at [facility] Adult cardio [facility]. Assessment & Plan (12/08/2021 1:06 PM EDT): 12/08/2021 (age 21yr): BP high today, ran out of meds 04/2020 and has not had refills. Diagnosed by cardiology 07/2018. Last visit with Dr. Hutchinson was 12/18/2019. Now on losartan 50 mg and amlodipine 5mg. (switched from hydrochlorothiazide to amlodipine on 12/18/2019). [facility] involved as of 11/03/2021 Per [facility], Pt will call Dr. Hutchinson to see if he can follow up with her. Otherwise refer to adult cardiology at [facility]. Now, Renea state she would like [...] from Dr. Hutchinson ready for pt to turkey picker from the pharmacy (amlodipine 5mg and [...] appointments. Reintroduced to Davide Angeles our animal care attendant today for supports with prioritizing booking specialist visits as well as working on transition to adult medicine given complex adult care needs. Assessment & Plan (02/02/2022 10:41 AM EDT): 02/02/2022 (age 21yr): Mother concerned that Renea is having a hard to keeping track of her appointments and medical issues. [facility] involved to assist. [...] not had a therapist for 1 year. [facility] to assist in finding new provider. 02/02/2022 (age 21yr): still doesn't have a provider. [facility] involved to assist. Also needs to move to adult medicine. Detailed History and Chronology of care: Dx [address] Virgil Jang MD via Telepsych from [facility] - He recommends a lithium trial. Then followed by Dr. Wilson (interim) - Mother is willing to travel to [place] for regular in person psychiatric evaluations and supports. Will refer to psych at [facility]. [facility] will not accept the patient and advised that she be evaluated by a psychiatrist in [place] ([facility]) 07/2020: visit with Dr. Newman at [facility] as a new consult/evaluation, previously seen by Dr. Wilson and struggled to get in elsewhere, so were happy to have this evaluation - he is writing for medication for pt. 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 [facility] involved to assist. Also needs to move to adult medicine. Assessment & Plan (12/08/2021 1:07 PM EDT): 12/08/2021 (age 21yr): 12/08/2021 (age 21yr): psychiatrist just left, on escilatopram and trazadone. No meds for bipolar reported by pt. Has not had a therapist for 1 year. [facility] to assist in finding new provider. Assessment [...] 9:38 AM EDT): Seeing Dr. Wilson at [facility]. Gets meds through him. On Quetieapine (and adderall). D/C'd lexapro several month ago. Assessment & Plan (05/08/2018 2:53 PM EST): [facility] will not accept the patient and advised that she be evaluated by a psychiatrist in [place] ( [facility]) Heavy periods 12/21/2017 Overview (05/03/2022): 02/02/2022 [...] OCPs. Renea also needs to see a LIBRARY TECHNICAL ASSISTANT. - start isibloom with next menses - I can continue to prescribe as long as Renea keeps her cardiology appointment in March. - Renea needs to transition to an adult provider before she is due for her next well visit. - Last Specialist Visit: [facility] cardiology 02/12/2022, started on amlodipine and losartan. OCP refilled with 3 RF and message to [facility] to contact Renea to help her transition to adult medicine. Detailed History and Chronology of care: 07/2020: pt taking the same OCPs with better menses management - refilled at [facility] 07/2020, discussed transition to adult provider/LIBRARY TECHNICAL ASSISTANT provider for ongoing care. 07/27/2021 (age 20yr): Will HTN and headaches, I wonder if progesterone only BC would be safer for Renea. OCP refilled for the Next month, will discuss this at well visit in August. Will suggest LIBRARY TECHNICAL ASSISTANT for BC care. 08/02/2021 (age 20yr): Started [...] HTN. Renea also needs to see a LIBRARY TECHNICAL ASSISTANT. 12/29/2021 (age 21yr): Urgent cardiology visit scheduled [...] OCPs. Renea also needs to see a LIBRARY TECHNICAL ASSISTANT. - start isibloom with next menses - [...] would like her to have a current head bucker to confirm this. Renea also needs to see a LIBRARY TECHNICAL ASSISTANT. Assessment & Plan (08/03/2020 9:57 PM EDT): OCPs refilled at - work on transitioning to adult PCP and LIBRARY TECHNICAL ASSISTANT provider if needed - information had previously [...] BLAYNE Identified on sleep study 10/06/2020 at [facility]. . - Last Specialist Visit: : [...] help with control of her hypertension. The [employer] company was contacted, they confirmed a bill [...] 10/06/2020: BLAYNE Identified on sleep study at [facility] 10/29/2020 (age 20yr): . Referred to sleep medicine at [facility] for CPAP. Renea is having headaches [...] help with control of her hypertension. The [employer] company was contacted, they confirmed a bill [...] BLAYNE Identified on sleep study 10/06/2020 at [facility]. Assessment & Plan (10/29/2020 6:12 AM EDT): 10/29/2020 (age 20yr): BLAYNE Identified on sleep study 10/06/2020 at [facility]. Referred to sleep medicine at [facility] for CPAP. Renea is having headaches [...] these allergies, mom would like to see insurance salesman for further testing and plans to schedule her own appointment. Already has UTD epipen (12/2019) 11/03/2021 (age 21yr): Per [facility], referral re requested. Referral placed and pt to make her own appt. Assessment & Plan (08/03/2020 9:52 PM EDT): Pt already has UTD epipen, aware of when to use this, and insurance salesman at [facility] requested for follow up, information was previously given, pt/mom to book. Assessment & Plan (07/23/2020 11:41 PM EDT): Referral to insurance salesman and pt/family to book appointment with adult insurance salesman for further evaluation and follow up. Epipen is already UTD from 12/2019 visit so did not refill today. Assessment & Plan (12/15/2018 10:33 AM EDT): Needs to go back to insurance salesman. Assessment & Plan (01/02/2018 12:29 PM EDT): School med auth formed filled out. Seasonal allergic rhinitis 08/05/2016 Overview (12/08/2021): 12/08/2021 (age 21yr): Uses On martita 180 daily and singulair 10 mg as needed. Will be seeing insurance salesman. . Detailed History and Chronology of care: 07/20/2019 No current symptoms, will refill martita today ahead of allergy season. 07/2020: refill on singulair requested and has used martita in the past, requesting refills. Referred to insurance salesman for allergies and snoring 10/30/2020 (age 20yr): did not follow through on allergy referral. Assessment & Plan (12/08/2021 11:56 AM EDT): 12/08/2021 (age 21yr): Uses On martita 180 daily and singulair 10 mg as needed. Will be seeing insurance salesman. . Assessment & Plan (08/03/2020 9:51 PM [...] :Followed in the past by Pulm at [facility]. Last visit 01/2018. Seems to be overdue for 4 month follow up, in the past has requested med refills and referral to pulm. Has appt with adult pulm 01/2022. (missed appt ) - Last Specialist Visit: 06/23/2022 [facility] pulm Dr. Loera: Obestiry negatively impacting her health in many ways. Plan: Start symbicort, referred to for pulmonary rehab to do asth;ma teaching, home polysomnogram, PFTs Detailed History and Chronology of care: Was on singulair 10 mg and QVAR or flovent 110. Had bad asthma with GERD as young child, followed by [facility].( mother mentions that there might have been some aspiration). Seemed to resolve as she hit puberty she was off all control meds. Had exacerbation in 07/2016 and back on Qvar. History of poor compliance. 01/04/2018 ACT score 7 02/06/2018: saw Pulm at [facility], recommend flovent 110 2 P BID [...] :Followed in the past by Pulm at [facility]. Last visit 01/2018. Seems to be overdue for 4 month follow up, in the past has requested med refills and referral to pulm. Has appt with adult pulm 01/2022. (missed appt ) Assessment & Plan (08/03/2020 9:38 PM EDT): Plans to return to [place] [facility] as already planned, family has information [...] (including vitals). Patient has Pulm evaluation at [facility] next month. Note given for patient [...] young, though I only see notes from [facility] pulm), so I will put referral in now. Mom wants us to make the appt for her. Class 3 severe obesity due t o excess calories with serious comorbidity in adult 03/25/2011 Overview (12/09/2021): 12/08/2021 (age 21yr): Working with body and fender worker to lose weight ahead of bariatric surgery. Working with Dr. Gandara. 12/09/2021 (age 21yr): Hyperinsulinemia note, Hgb A1C 5.7 unchanged since last year. Cholesterol normal. Detailed History and Chronology of care: Went to [facility] in 2008 but no success. Sleep study in 2008 was normal. 02/05/2021:Visit with general surgery (Dr Gandara), planning for bariatric surgery (sleeve)) Assessment & Plan (12/08/2021 11:55 AM EDT): 12/08/2021 (age 21yr): Working with body and fender worker to lose weight ahead of bariatric surgery. [...] not had a therapist for 1 year. [facility] to assist in finding new provider. 02/02/2022 (age 21yr): still doesn't have a provider. [facility] involved to assist. Also needs to move to adult medicine. Detailed History and Chronology of care: 2016. Partial hosp 02/2017 Inpatient hospitalization at [facility] 02/2018 Telepsych evaluation completed- dx with Bipolar 1 Disorder 12/15/2018: Seeing Dr. Wilson at [facility]. Gets meds through him. On Quetieapine (and adderall). D/C'd lexapro several month ago. Seeing Mckenzie Turner (therapist) for years. 07/2020: Continues with ongoing therapist (Mckenzie Turner) - has been seeing her for about 10 years, had a followup recently due to insurance issues and the soonest available was 07/2020 to recheck. Seen 07/[address] Newman at [facility] as a new consult/evaluation, Currently taking quetiapine and has hydroxyzine Assessment & Plan (02/02/2022 10:32 AM EDT): 02/02/2022 (age 21yr): still doesn't have a provider. [facility] involved to assist. Also needs to move to adult medicine. Assessment & Plan (12/08/2021 1:07 PM EDT): 12/08/2021 (age 21yr): psychiatrist just left, on escilatopram and trazadone. Has not had a therapist for 1 year. [facility] to assist in finding new provider Assessment & Plan (08/03/2020 9:50 PM EDT): Continue in therapy and work with med prescribers to get reestablished as transitions to adult provider Assessment & Plan (12/15/2018 10:31 AM EDT): Seeing Dr. Wilson at [facility]. Gets meds through him. On Quetieapine [...] and patient. Followed by Dr. Wilson at [facility] (interim), since previous psych provider [...] not had a therapist for 1 year. [facility] to assist in finding new provider. 02/02/2022 (age 21yr): still doesn't have a provider. [facility] involved to assist. Also needs to move to adult medicine. Detailed History and Chronology of care: 12/15/2018: At [facility]. On Adderall xr [address] Wilson at [facility]. Gets meds through him. 07/2020: visit with Dr. Newman at [facility] as a new consult/evaluation, previously seen by Dr. Wilson and struggled to get in elsewhere, so were happy to have this evaluation - he is writing for medication for pt. Still seeing Mckenzie Turner for therapy (usp, for years) Assessment & Plan (02/02/2022 10:31 AM EDT): 02/02/2022 (age 21yr): still doesn't have a provider. [facility] involved to assist. Also needs to move to adult medicine. Assessment & Plan (12/08/2021 1:06 PM EDT): 12/08/2021 (age 21yr): psychiatrist just left, no longer on ADHD meds. ADHD symptoms are bothering her. Has not had a therapist for 1 year. [facility] to assist in finding new provider. Assessment & Plan (12/15/2018 10:33 AM EDT): Classes just started. Seeing Dr. Wilson at [facility]. Gets meds through him. On adderall [...] a, Obesity, Migraines Other grandmother: Wiley dden /[place] under 55 Paternal Grandfather Paterna l grandfather: [...] Completed 06/19/2019, 12/15/2018 Procedures * Due to [place] [employer] law, this organization might not be sharing sensitive test results. Procedure Name Priority Date/Time Associated Diagnosis Comments CHLAMYDIA AND GONORRHEA, AMPLIFIED Routine 12/08/2021 12:15 PM EDT Screening for chlamydial disease from Last 3 Months or Most Recently Relevant to Health Maintenance Results * Due to [place] [employer] law, this organization might not be sharing sensitive test results. * Chlamydia and Gonorrhoea, Amplified (12/08/2021 12:15 PM EDT) Chlamydia Trachomatis, DNA Probe NEGATIVE (NEG) [facility] Comment: No Chlamydia Trachomatis RNA detected in this patient's sample (REFERENCE RANGE/NORMAL VALUE: NOT DETECTED) Note: This test uses change attendant- mediated amplification method to detect rRNA from C. Trachomatis URINE GC AMP PROBE NEGATIVE (NEG) [facility] Comment: No Neisseria Gonorrhoeae RNA detected in this patient's sample (REFERENCE RANGE/NORMAL VALUE: NOT DETECTED) NOTE: This test uses change attendant-mediated amplification method to detect rRNA from N.Gonorrhoeae. [...] without risk of sexual abuse. Consult the [facility] if needed. Contact phone number . Therapeutic failure or success cannot be determined with the Aptima Combo2 assay since nucleic acid may persist following appropriate antimicrobial therapy. The Centers for Disease Control and Prevention (CDC) recommends confirmatory retesting using culture or a different nucleic acid amplification test when positive results occur, if indicated. Testing performed or reported by [facility], a Service of [facility], [address] [place] [address] Dylan Pratt MD, Property Investor [facility]# [id number] Urine (Urine) 12/08/2021 12: 15 PM EDT 12/09/2021 1:10 AM EDT Angelica Heaton MD LAB MICROBIOLOGY - GENERAL OR DERABLES Final Result [facility] from Last 3 Months or Most Recently Relevant to Health Maintenance
--- OUTSIDE RECORDS SUMMARY | 2025-02-28 01:21 | XMS_ITS | Encounter Summary ---
Author Organization [facility] Address [address] [place] [address] Phone Care Team Providers Care Chucking Machine Set Up Operator Tool Name Role Phone Angelica Heaton MD Primary Care Provider [phone] Reason for Visit * Reason Comments Med Refill Encounter Details Date Type Department Care Team ([facility] Contact Info) Description 07/25/2021 Refill [facility] [address] [place] [address] Angelica Heaton MD [address] [place] [address] Menorrhagia with regular cycle (Primary Dx) Social [...] will be her last well visit at [facility]. * Telephone Encounter - Josselin Brunson LPN - 07/26/2021 12:56 PM EDT Pharm requesting refill OCP. EH documented in this encounter Plan of Treatment Not on file documented as of this encounter Visit Diagnoses Diagnosis Menorrhagia with regular cycle- Primary documented in this encounter Care Teams Chucking Machine Set Up Operator Tool Relationship Specialty Start Date End Date Angelica Heaton MD [address] [place] [id number] PCP - General Pediatrics 11/16/18 07/22/22 documented as of this encounter
== END 2025-02-27 13:49 | disposition home or self-care (01) ==
PROVIDERS: PCP Internal Medicine
DX: Z90.49 Acquired absence of other specified parts of digestive tract (principal)
CPT/HCPCS: 99024

== ENCOUNTER → 2025-02-27 13:22 | Outpatient (BNVA) | payer MEDICAID, SELFPAY | PROVIDERS: PCP Internal Medicine | DX: Z98.890 Other specified postprocedural states (principal); Z90.49 Acquired absence of other specified parts of digestive tract; K59.00 Constipation, unspecified | CPT/HCPCS: 99212 ==

== ENCOUNTER 2025-04-01 09:04 | Outpatient (REF) | payer OTHER, SELFPAY ==
--- NOTE | ~2025-04-01 | FL_ITS ---
EXAMINATION: XR UPPER GI SERIES WITH BARIUM SWALLOW. CLINICAL INFORMATION: Heartburn COMPARISON: None available. TECHNIQUE: Routine upper GI air contrast study with barium swallow was performed in upright and lying position. FINDINGS: Following oral administration of thick barium and effervescent granules there is normal propagation bolus from the oral cavity through the pharynx, esophagus into stomach without any evidence of obstruction, narrowing or stricture. The course, caliber and peristalsis of the stomach, duodenal bulb and the sweep is normal. The mucosal pattern of stomach, duodenal bulb is normal. FLUOROSCOPY TIME: 1 minute 57 seconds DOSE AREA PRODUCT: [id number] uGy-m2 (microgray-meter squared) FL/FL upper GI w air w Ba Swallow IMPRESSION: unremarkable upper GI contrast study. Electronically signed by: Yonis Huang MD 04/01/2025 12:58 PM CINDY
--- OUTSIDE RECORDS SUMMARY | 2025-04-01 09:55 | XMS_ITS | Encounter Summary ---
Author Organization [facility] Address [address] [place] [address] Phone Care Team Providers Care Door Paneler Name Role Phone Angelica Heaton MD Primary Care Provider [phone] Reason for Visit * Reason Comments Med Refill Encounter Details Date Type Department Care Team ([facility] Contact Info) Description 01/29/2022 Refill [facility] [address] [place] [address] Angelica Heaton MD [address] [place] [address] Menorrhagia with regular cycle Social History Tobacco [...] cycle documented in this encounter Care Teams Door Paneler Relationship Specialty Start Date End Date Angelica Heaton MD [address] [place] [address] PCP - General Pediatrics 11/16/18 07/22/22 documented as of this encounter
--- OUTSIDE RECORDS SUMMARY | 2025-04-01 09:55 | XMS_ITS | Encounter Summary ---
Author Organization [facility] Address [address] [place] [address] Phone Care Team Providers Care Wetland Scientist Name Role Phone Angelica Heaton MD Primary Care Provider [phone] Encounter Details Date Type Department Care Team (Late st Contact Info) Description 09/04/2009 Documentation [facility] Family Medicine [address] [place] [address] Family Medicine, Physician [address] [place] [address] Social History Tobacco Use Types Packs/Day Years [...] on filedocumented in this encounter Care Teams Wetland Scientist Relationship Specialty Start Date End Date Angelica Heaton MD [address] [place] [address] PCP - General Pediatrics 11/16/18 07/22/22 documented as of this encounter
--- OUTSIDE RECORDS SUMMARY | 2025-04-01 09:55 | XMS_ITS | Encounter Summary ---
Author Organization [facility] Address [address] [place] [place] [phone] Phone Care Team Providers Care Construction Scheduler Name Role Phone Angelica Heaton MD Primary Care Provider [phone] Reason for Visit * Reason Comments Med Refill Encounter Details Date Type Department Care Team ([facility] Contact Info) Description 05/02/2022 Refill [facility] [address] [place] [address] Angelica Heaton MD [address] [place] [address] Menorrhagia with regular cycle Social History Tobacco [...] cycle documented in this encounter Care Teams Construction Scheduler Relationship Specialty Start Date End Date Angelica Heaton MD [address] [place] [address] PCP - General Pediatrics 11/16/18 07/22/22 documented as of this encounter
--- OUTSIDE RECORDS SUMMARY | 2025-04-01 09:55 | XMS_ITS | Clinical Summary ---
Author Organization [facility] it Address [address] [place] [address] Care Team Providers Care Sonoscope Operator Name Role Phone Unavailable Primary Care [...] Depression Screening 04/11/2024 COVID-19 Vaccine ( - 2024-2 6 season) 2024 Influenza Vaccine (#1) 2024 RSV [...]
--- OUTSIDE RECORDS SUMMARY | 2025-04-01 09:55 | XMS_ITS | Encounter Summary ---
Author Organization [facility] Address [address] [place] [address] Phone Care Team Providers Care Lead Architect Name Role Phone Angelica Heaton MD Primary Care Provider [phone] Reason for Visit * Reason Comments Med Refill Encounter Details Date Type Department Care Team ([facility] Contact Info) Description 11/22/2021 Refill [facility] [address] [place] [address] Angelica Heaton MD [address] [place] [address] Menorrhagia with regular cycle Social History Tobacco [...] cycle documented in this encounter Care Teams Lead Architect Relationship Specialty Start Date End Date Angelica Heaton MD [address] [place] [address] PCP - General Pediatrics 11/16/18 07/22/22 documented as of this encounter
--- OUTSIDE RECORDS SUMMARY | 2025-04-01 09:55 | XMS_ITS | Encounter Summary ---
Author Organization [facility] Address [address] [place], [place] [id number] Phone Care Team Providers Care Farm Or Ranch Animal Caretaker Name Role Phone Angelica Heaton MD Primary Care Provider [phone] Reason for Visit * Reason Onset Date Comments Med Refill 09/27/2019 Encounter Details Date Type Department Care Team ([facility] st Contact Info) Description 09/27/2019 Refill [facility] [place] [address] [place] [address] Angelica Heaton MD [address] [place] [address] Moderate persistent asthma without complication; Seasonal allergic [...] trigger documented in this encounter Care Teams Farm Or Ranch Animal Caretaker Relationship Specialty Start Date End Date Angelica Heaton MD [address] [place] [address] PCP - General Pediatrics 11/16/18 07/22/22 documented as of this encounter
--- OUTSIDE RECORDS SUMMARY | 2025-04-01 09:55 | XMS_ITS | Encounter Summary ---
Author Organization [facility] Address [address] [place], [place] [id number] Phone Care Team Providers Care Ring Conductor Name Role Phone Angelica Heaton MD Primary Care Provider [phone] Reason for Visit * Reason Onset Date Comments Med Refill 02/15/2020 Encounter Details Date Type Department Care Team ([facility] st Contact Info) Description 02/15/2020 Refill [facility] [place] [address] [place] [address] Angelica Heaton MD [address] [place] [address] Seasonal allergic rhinitis, unspecified trigger; Moderate persistent [...] complication documented in this encounter Care Teams Ring Conductor Relationship Specialty Start Date End Date Angelica Heaton MD [address] [place] [address] PCP - General Pediatrics 11/16/18 07/22/22 documented as of this encounter
--- OUTSIDE RECORDS SUMMARY | 2025-04-01 09:55 | XMS_ITS | Encounter Summary ---
Author Organization [facility] Address [address] [place] [address] Phone Care Team Providers Care Bench Examiner Name Role Phone Angelica Heaton MD Primary Care Provider [phone] Encounter Details Date Type Department Care Team (Late st Contact Info) Description 07/12/2016 Documentation [facility] Family Medicine [address] [place] [address] Family Medicine, Physician [address] [place] [address] Social History Tobacco Use Types Packs/Day Years [...] on filedocumented in this encounter Care Teams Bench Examiner Relationship Specialty Start Date End Date Angelica Heaton MD [address] [place] [address] PCP - General Pediatrics 11/16/18 07/22/22 documented as of this encounter
--- OUTSIDE RECORDS SUMMARY | 2025-04-01 09:55 | XMS_ITS | Encounter Summary ---
Author Organization [facility] Address [address] [place] [address] Phone Care Team Providers Care Operator Automated Process Name Role Phone Angelica Heaton MD Primary Care Provider [phone] Encounter Details Date Type Department Care Team ([facility] Contact Info) Description 11/25/2016 Conversion Encounter [facility] [address] [place] [address] Social History Tobacco Use Types Packs/Day Years [...] on filedocumented in this encounter Care Teams Operator Automated Process Relationship Specialty Start Date End Date Angelica Heaton MD [address] [place] [address] PCP - General Pediatrics 11/16/18 07/22/22 documented as of this encounter
--- OUTSIDE RECORDS SUMMARY | 2025-04-01 09:55 | XMS_ITS | Clinical Summary ---
Author Organization [facility] Address [address] [place] [address] Phone Care Team Providers Care Upper Leather Sorter Name Role Phone Unavailable Primary Care Provider Unavailabl e Allergies Active Allergy Reactions Criticality Noted Date Comments Clam Shell 04/06/2017 Environmental 04/06/2017 Cat,dog, hamster Food 04/06/2017 [place], tomato,cantelope,apples , seafood Shellfish Protein-Containing Drug Products [...] a1c 5.7. Renea is working with a integrated program teacher and is considering bariatric surgery. Continue to follow. Needs Adult MD. 02/02/2022 (age 21yr): Is continuing to work with integrated program teacher. Assessment & Plan (02/02/2022 10:33 AM EDT): 02/02/2022 (age 21yr): Is continuing to work with integrated program teacher. Lab test positive for detection of COVID-19 viru s 04/12/2021 Assessment & Plan (04/12/2021 11:37 AM EST): Pt positive for covid - testing done at 'Stop the spread . Other family members positive as well Pt with multiple significant risk factors Referred to [facility] - form for referral filled [...] (switched from hydrochlorothiazide to amlodipine on 12/18/2019). [facility] involved. Urgent cardiology visit scheduled for 03/[address] Hickey at [facility] cardio [facility]. Ran out of OCPS 4 days ago. - I contacted Dr. Hutchinson who felt that OCP were still reasonable in [place]. I will continue to prescribe as long as she see the cardiology in March. - Follow up with adult cardiology - Last Specialist Visit: [facility] cardiology 02/12/2022, started on amlodipine and losartan. OCP refilled with 3 RF and message to [facility] to contact Renea to help her transition to adult medicine. 01/25/2022 Chart Review: [facility] - 03/22/2021 158/87 Wing ED - 12/08/2021 162/92 in the office - 12/09/2021 153/74,then 118/62 at [facility] ED - 01/05/2022: BP-150/104 [facility], sent to ED. No note in chart 02/02/2022 (age 21yr): 138/84 in the office Detailed History and Chronology of care: 12/08/2021 (age 21yr): BP high today, ran out of meds 04/2020 and has not had refills. Diagnosed by cardiology 07/2018. Last visit with Dr. Hutchinson was 12/18/2019. Was on losartan 50 mg and amlodipine 5mg. (switched from hydrochlorothiazide to amlodipine on 12/18/2019). [facility] involved as of 11/03/2021 Follow up with adult cardiology. 12/09/2021 (age 21yr): Sent to ED with elevated HR and chest pain. 12/29/2021 (age 21yr): Urgent cardiology visit scheduled for 03/17/[address] Hickey at [facility] Adult cardio [facility]. Assessment & Plan (12/08/2021 1:06 PM EDT): 12/08/2021 (age 21yr): BP high today, ran out of meds 04/2020 and has not had refills. Diagnosed by cardiology 07/2018. Last visit with Dr. Hutchinson was 12/18/2019. Now on losartan 50 mg and amlodipine 5mg. (switched from hydrochlorothiazide to amlodipine on 12/18/2019). [facility] involved as of 11/03/2021 Per [facility], Pt will call Dr. Hutchinson to see if he can follow up with her. Otherwise refer to adult cardiology at [facility]. Now, Renea state she would like to [...] from Dr. Hutchinson ready for pt to cotton picker operator from the pharmacy (amlodipine 5mg and [...] specialty appointments. Reintroduced to Davide Angeles our critical care rn today for supports with prioritizing booking specialist visits as well as working on transition to adult medicine given complex adult care needs. Assessment & Plan (02/02/2022 10:41 AM EDT): 02/02/2022 (age 21yr): Mother concerned that Renea is having a hard to keeping track of her appointments and medical issues. [facility] involved to assist. Assessment & Plan (08/03/2020 [...] not had a therapist for 1 year. [facility] to assist in finding new provider. 02/02/2022 (age 21yr): still doesn't have a provider. [facility] involved to assist. Also needs to move to adult medicine. Detailed History and Chronology of care: Dx [address] Virgil Jang MD via Telepsych from [facility] - He recommends a lithium trial. Then followed by Dr. Wilson (interim) - Mother is willing to travel to [place] for regular in person psychiatric evaluations and supports. Will refer to psych at [facility]. [facility] will not accept the patient and advised that she be evaluated by a psychiatrist in [place] ([facility]) 07/2020: visit with Dr. Newman at [facility] as a new consult/evaluation, previously seen by Dr. Wilson and struggled to get in elsewhere, so were happy to have this evaluation - he is writing for medication for pt. Still seeing Mckenzie Turner for therapy (bed bug exterminator, for years) Assessment & Plan (02/02/2022 10:32 AM EDT): 02/02/2022 (age 21yr): still doesn't have a provider. [facility] involved to assist. Also needs to move to adult medicine. Assessment & Plan (12/08/2021 1:07 PM EDT): 12/08/2021 (age 21yr): 12/08/2021 (age 21yr): psychiatrist just left, on escilatopram and trazadone. No meds for bipolar reported by pt. Has not had a therapist for 1 year. [facility] to assist in finding new provider. [...] 9:38 AM EDT): Seeing Dr. Wilson at [facility]. Gets meds through him. On Quetieapine (and adderall). D/C'd lexapro several month ago. Assessment & Plan (05/08/2018 2:53 PM EST): [facility] will not accept the patient and advised that she be evaluated by a psychiatrist in [place] ( [facility]) Heavy periods 12/21/2017 Overview (05/03/2022): 02/02/2022 (age [...] OCPs. Renea also needs to see a HVAC/R INSTRUCTOR. - start isibloom with next menses - I can continue to prescribe as long as Renea keeps her cardiology appointment in March. - Renea needs to transition to an adult provider before she is due for her next well visit. - Last Specialist Visit: [facility] cardiology 02/12/2022, started on amlodipine and losartan. OCP refilled with 3 RF and message to [facility] to contact Renea to help her transition to adult medicine. Detailed History and Chronology of care: 07/2020: pt taking the same OCPs with better menses management - refilled at [facility] 07/2020, discussed transition to adult provider/HVAC/R INSTRUCTOR provider for ongoing care. 07/27/2021 (age 20yr): Will HTN and headaches, I wonder if progesterone only BC would be safer for Renea. OCP refilled for the Next month, will discuss this at well visit in August. Will suggest HVAC/R INSTRUCTOR for BC care. 08/02/2021 (age 20yr): Started [...] HTN. Renea also needs to see a HVAC/R INSTRUCTOR. 12/29/2021 (age 21yr): Urgent cardiology visit scheduled [...] OCPs. Renea also needs to see a HVAC/R INSTRUCTOR. - start isibloom with next menses - [...] would like her to have a current efficiency analyst to confirm this. Renea also needs to see a HVAC/R INSTRUCTOR. Assessment & Plan (08/03/2020 9:57 PM EDT): OCPs refilled at - work on transitioning to adult PCP and HVAC/R INSTRUCTOR provider if needed - information had previously [...] BLAYNE Identified on sleep study 10/06/2020 at [facility]. . - Last Specialist Visit: : [facility] [...] help with control of her hypertension. The [employer] company was contacted, they confirmed a bill >$100 for CPAP supplies, while CPAP machine is covered by insurance, supplies (mask, hose, etc) is not. Discontinue CPAP as per patient's request. Follow up PRN 06/23/2022 S puldougie Leora: Obestiry negatively impacting her health in many [...] 10/06/2020: BLAYNE Identified on sleep study at [facility] 10/29/2020 (age 20yr): . Referred to sleep medicine at [facility] for CPAP. Renea is having headaches [...] help with control of her hypertension. The [employer] company was contacted, they confirmed a bill [...] BLAYNE Identified on sleep study 10/06/2020 at [facility]. Assessment & Plan (10/29/2020 6:12 AM EDT): 10/29/2020 (age 20yr): BLAYNE Identified on sleep study 10/06/2020 at [facility]. Referred to sleep medicine at [facility] for CPAP. Renea is having headaches [...] these allergies, mom would like to see acetylene torch operator for further testing and plans to schedule her own appointment. Already has UTD epipen (12/2019) 11/03/2021 (age 21yr): Per [facility], referral re requested. Referral placed and pt to make her own appt. Assessment & Plan (08/03/2020 9:52 PM EDT): Pt already has UTD epipen, aware of when to use this, and acetylene torch operator at [facility] requested for follow up, information was previously given, pt/mom to book. Assessment & Plan (07/23/2020 11:41 PM EDT): Referral to acetylene torch operator and pt/family to book appointment with adult acetylene torch operator for further evaluation and follow up. Epipen is already UTD from 12/2019 visit so did not refill today. Assessment & Plan (12/15/2018 10:33 AM EDT): Needs to go back to acetylene torch operator. Assessment & Plan (01/02/2018 12:29 PM EDT): School med auth formed filled out. Seasonal allergic rhinitis 08/05/2016 Overview (12/08/2021): 12/08/2021 (age 21yr): Uses On martita 180 daily and singulair 10 mg as needed. Will be seeing acetylene torch operator. . Detailed History and Chronology of care: 07/20/2019 No current symptoms, will refill martita today ahead of allergy season. 07/2020: refill on singulair requested and has used martita in the past, requesting refills. Referred to acetylene torch operator for allergies and snoring 10/30/2020 (age 20yr): did not follow through on allergy referral. Assessment & Plan (12/08/2021 11:56 AM EDT): 12/08/2021 (age 21yr): Uses On martita 180 daily and singulair 10 mg as needed. Will be seeing acetylene torch operator. . Assessment & Plan (08/03/2020 9:51 [...] :Followed in the past by Pulm at [facility]. Last visit 01/2018. Seems to be overdue for 4 month follow up, in the past has requested med refills and referral to pulm. Has appt with adult pulm 01/2022. (missed appt ) - Last Specialist Visit: 06/23/2022 [facility] pulm Dr. Loera: Obestiry negatively impacting her health in many ways. Plan: Start symbicort, referred to for pulmonary rehab to do asth;ma teaching, home polysomnogram, PFTs Detailed History and Chronology of care: Was on singulair 10 mg and QVAR or flovent 110. Had bad asthma with GERD as young child, followed by [facility].( mother mentions that there might have been some aspiration). Seemed to resolve as she hit puberty she was off all control meds. Had exacerbation in 07/2016 and back on Qvar. History of poor compliance. 01/04/2018 ACT score 7 02/06/2018: saw Pulm at [facility], recommend flovent 110 2 P BID and [...] :Followed in the past by Pulm at [facility]. Last visit 01/2018. Seems to be overdue for 4 month follow up, in the past has requested med refills and referral to pulm. Has appt with adult pulm 01/2022. (missed appt ) Assessment & Plan (08/03/2020 9:38 PM EDT): Plans to return to [place] Pulminology as already planned, family has information [...] of atypical pneumonia. Followed by Pulm at [facility]. Has follow up in May 2108. Assessment & Plan (01/06/2018 12:48 PM EDT): Patient in no obvious distress during this encounter and lung exam clear. Has subjective chest tightness. S/P treatment with 7 days of steroids. Low suspicion for pneumonia based on currently exam (including vitals). Patient has Pulm evaluation at [facility] next month. Note given for patient to [...] hours. Mom requesting referral to pulm at [facility] (mom says she was seen there when she was young, though I only see notes from [facility] pulm), so I will put referral in now. Mom wants us to make the appt for her. Class 3 severe obesity due t o excess calories with serious comorbidity in adult 03/25/2011 Overview (12/09/2021): 12/08/2021 (age 21yr): Working with integrated program teacher to lose weight ahead of bariatric surgery. Working with Dr. Gandara. 12/09/2021 (age 21yr): Hyperinsulinemia note, Hgb A1C 5.7 unchanged since last year. Cholesterol normal. Detailed History and Chronology of care: Went to [facility] in 2008 but no success. Sleep study in 2008 was normal. 02/05/2021:Visit with general surgery (Dr Gandara), planning for bariatric surgery (sleeve)) Assessment & Plan (12/08/2021 11:55 AM EDT): 12/08/2021 (age 21yr): Working with integrated program teacher to lose weight ahead of bariatric surgery. [...] not had a therapist for 1 year. [facility] to assist in finding new provider. 02/02/2022 (age 21yr): still doesn't have a provider. [facility] involved to assist. Also needs to move to adult medicine. Detailed History and Chronology of care: 2016. Partial hosp 02/2017 Inpatient hospitalization at [facility] 02/2018 Telepsych evaluation completed- dx with Bipolar 1 Disorder 12/15/2018: Seeing Dr. Wilson at [facility]. Gets meds through him. On Quetieapine (and adderall). D/C'd lexapro several month ago. Seeing Mckenzie Turner (therapist) for years. 07/2020: Continues with ongoing therapist (Mckenzie Turner) - has been seeing her for about 10 years, had a followup recently due to insurance issues and the soonest available was 07/2020 to recheck. Seen 07/[address] Newman at [facility] as a new consult/evaluation, Currently taking quetiapine and has hydroxyzine Assessment & Plan (02/02/2022 10:32 AM EDT): 02/02/2022 (age 21yr): still doesn't have a provider. [facility] involved to assist. Also needs to move to adult medicine. Assessment & Plan (12/08/2021 1:07 PM EDT): 12/08/2021 (age 21yr): psychiatrist just left, on escilatopram and trazadone. Has not had a therapist for 1 year. [facility] to assist in finding new provider Assessment & Plan (08/03/2020 9:50 PM EDT): Continue in therapy and work with med prescribers to get reestablished as transitions to adult provider Assessment & Plan (12/15/2018 10:31 AM EDT): Seeing Dr. Wilson at [facility]. Gets meds through him. On Quetieapine (and adderall). D/C'd lexapro several month ago. Doing well. Assessment & Plan (03/08/2018 3:59 PM EST): Advised to continue on this treatment regimen until in-person consult/follow up with psychiatrist at [facility]. Assessment & Plan (01/29/2018 4:40 PM EDT): Lexapro does not seem like it's helping according to mother and patient. Followed by Dr. Wilson at [facility] (interim), since previous psych provider no [...] not had a therapist for 1 year. [facility] to assist in finding new provider. 02/02/2022 (age 21yr): still doesn't have a provider. [facility] involved to assist. Also needs to move to adult medicine. Detailed History and Chronology of care: 12/15/2018: At [facility]. On Adderall xr [address] Wilson at [facility]. Gets meds through him. 07/2020: visit with Dr. Newman at [facility] as a new consult/evaluation, previously seen by [...] not had a therapist for 1 year. [facility] to assist in finding new provider. Assessment & Plan (12/15/2018 10:33 AM EDT): Classes just started. Seeing Dr. Wilson at [facility]. Gets meds through him. On adderall xr [...] a, Obesity, Migraines Other grandmother: Wiley dden /[place] under 55 Paternal Grandfather Paterna l grandfather: [...] Completed 06/19/2019, 12/15/2018 Procedures * Due to [place] [employer] law, this organization might not be sharing sensitive test results. Procedure Name Priority Date/Time Associated Diagnosis Comments CHLAMYDIA AND GONORRHEA, AMPLIFIED Routine 12/08/2021 12:15 PM EDT Screening for chlamydial disease from Last 3 Months or Most Recently Relevant to Health Maintenance Results * Due to [place] [employer] law, this organization might not be sharing sensitive test results. * Chlamydia and Gonorrhoea, Amplified (12/08/2021 12:15 PM EDT) Chlamydia Trachomatis, DNA Probe NEGATIVE (NEG) [facility] Comment: No Chlamydia Trachomatis RNA detected in this patient's sample (REFERENCE RANGE/NORMAL VALUE: NOT DETECTED) Note: This test uses equine dentist- mediated amplification method to detect rRNA from C. Trachomatis URINE GC AMP PROBE NEGATIVE (NEG) [facility] Comment: No Neisseria Gonorrhoeae RNA detected in this patient's sample (REFERENCE RANGE/NORMAL VALUE: NOT DETECTED) NOTE: This test uses equine dentist-mediated amplification method to detect rRNA from [...] without risk of sexual abuse. Consult the [facility] if needed. Contact phone number . Therapeutic failure or success cannot be determined with the Aptima Combo2 assay since nucleic acid may persist following appropriate antimicrobial therapy. The Centers for Disease Control and Prevention (CDC) recommends confirmatory retesting using culture or a different nucleic acid amplification test when positive results occur, if indicated. Testing performed or reported by [facility], a Service of [facility], [address] [place] [place] [address] Dylan Pratt MD, Dog Warden [facility]# [id number] Urine (Urine) 12/08/2021 12: 15 PM EDT 12/09/2021 1:10 AM EDT Angelica Heaton MD LAB MICROBIOLOGY - GENERAL OR DERABLES Final Result [facility] from Last 3 Months or Most Recently Relevant to Health Maintenance
--- OUTSIDE RECORDS SUMMARY | 2025-04-01 09:55 | XMS_ITS | Encounter Summary ---
Author Organization [facility] Address [address] [place] [phone] Phone Care Team Providers Care Capacity Management Specialist Name Role Phone Angelica Heaton MD Primary Care Provider [phone] Reason for Visit * Reason Comments Med Refill Encounter Details Date Type Department Care Team ([facility] Contact Info) Description 01/17/2018 Refill [facility] [address] [place] [address] Brooke Conklin MD [address] [place] [address] Menorrhagia with irregular cycle (Primary Dx) Social [...] Primary documented in this encounter Care Teams Capacity Management Specialist Relationship Specialty Start Date End Date Angelica Heaton MD [address] [place] [address] PCP - General Pediatrics 11/16/18 07/22/22 documented as of this encounter
--- OUTSIDE RECORDS SUMMARY | 2025-04-01 09:55 | XMS_ITS | Encounter Summary ---
Author Organization [facility] Address [address] [place] [address] Phone Care Team Providers Care Coremaking Machine Setter Name Role Phone Angelica Heaton MD Primary Care Provider [phone] Reason for Visit * Reason Comments Med Refill Encounter Details Date Type Department Care Team ([facility] Contact Info) Description 07/25/2021 Refill [facility] [address] [place] [address] Angelica Heaton MD [address] [place] [address] Menorrhagia with regular cycle (Primary Dx) Social [...] will be her last well visit at [facility]. * Telephone Encounter - Josselin Brunson LPN - 07/26/2021 12:56 PM EDT Pharm requesting refill OCP. EH documented in this encounter Plan of Treatment Not on file documented as of this encounter Visit Diagnoses Diagnosis Menorrhagia with regular cycle- Primary documented in this encounter Care Teams Coremaking Machine Setter Relationship Specialty Start Date End Date Angelica Heaton MD [address] [place] [address] PCP - General Pediatrics 11/16/18 07/22/22 documented as of this encounter
--- OUTSIDE RECORDS SUMMARY | 2025-04-01 09:55 | XMS_ITS | Encounter Summary ---
Author Organization [facility] Address [address] [place], [place] [id number] Phone Care Team Providers Care Crew Car Driver Name Role Phone Angelica Heaton MD Primary Care Provider [phone] Reason for Visit * Reason Onset Date Comments Med Refill 11/16/2019 Encounter Details Date Type Department Care Team ([facility] st Contact Info) Description 11/16/2019 Refill [facility] [address] [place] [address] Angelica Heaton MD [address] [place] [address] Moderate persistent asthma without complication; Seasonal allergic [...] trigger documented in this encounter Care Teams Crew Car Driver Relationship Specialty Start Date End Date Angelica Heaton MD [address] [place] [id number] PCP - General Pediatrics 11/16/18 07/22/22 documented as of this encounter
--- OUTSIDE RECORDS SUMMARY | 2025-04-01 09:55 | XMS_ITS | Encounter Summary ---
Author Organization [facility] Address [address] [place], [place] [id number] Phone Care Team Providers Care Field Artillery Officer Name Role Phone Angelica Heaton MD Primary Care Provider [phone] Reason for Visit * Reason Onset Date Comments Med Refill 05/09/2020 Encounter Details Date Type Department Care Team ([facility] Contact Info) Description 05/09/2020 Refill [facility] [place] [address] [place] [address] Angelica Heaton MD [address] [place] [address] Seasonal allergic rhinitis, unspecified trigger; Menorrhagia with [...] documented in this encounter Care Teams Field Artillery Officer Relationship Specialty Start Date End Date Angelica Heaton MD [address] [place] [address] PCP - General Pediatrics 11/16/18 07/22/22 documented as of this encounter
== END 2025-04-01 09:05 | disposition home or self-care (01) ==
LOC: HO.XRAY 09:04
PROVIDERS: PCP Internal Medicine; Visit Provider Internal Medicine
DX: R12 Heartburn (principal); R13.12 Dysphagia, oropharyngeal phase; E66.01 Morbid (severe) obesity due to excess calories
CPT/HCPCS: 74246

== ENCOUNTER → 2025-04-01 09:06 | Outpatient (BNV) | payer OTHER, SELFPAY | PROVIDERS: PCP Internal Medicine; Visit Provider Radiology Diagnostic Radiology | DX: R12 Heartburn (principal) | CPT/HCPCS: 74246 ==

== ENCOUNTER 2025-04-08 15:39 | Outpatient (AMB) | payer OTHER, SELFPAY ==
[2025-04-08 15:43] VITALS: BP 132/78; PULSE 77; O2SAT 98; BMI 72.2
--- NOTE | 2025-04-08 15:43 | MHC.PC.OV ---
Vital Signs 04/08/25 15:43 Height 5 ft 1 in Weight 382 lb BMI 72.2 BP 132/78 Blood Pressure Location Lt brachial Position Sitting Pulse 77 Pulse Source Pulse Oximeter Pulse Oximetry (%) 98 Intake Visit Reasons: Mental health and paperwork Allergies apple Allergy (Verified 04/08/25 15:50) Itching cantaloupe Allergy (Verified 04/08/25 15:50) Itching kiwi Allergy (Verified 04/08/25 15:50) Itching shellfish derived Allergy (Verified 04/08/25 15:50) Facial Swelling strawberry Allergy (Verified 04/08/25 15:50) Itching Medication List - Last Reconciled 04/08/25 by Cheryl Hutchison MD amlodipine 5 mg PO DAILY 3 months cholecalciferol (vitamin D3) 1,250 mcg PO TH escitalopram oxalate 20 mg PO DAILY famotidine 40 mg PO DAILY fexofenadine (Allergy Relief (fexofenadine)) 180 mg PO DAILY fluticasone propionate 50 mcg/actuation 1 spray intranasal DAILY losartan 50 mg PO DAILY 3 months omeprazole 20 mg PO DAILY PRN Tobacco use date assessed: 02/06/25 Dental Screening Dental Screen Date: 02/06/25 HPI Mental health and paperwork HPI Details The patient is a 24 year old female presenting with worsening anxiety and depression. She reports that her current medication, escitalopram (Lexapro), which initially helped, is no longer effective as her body has gotten used to it. Her symptoms include increased anxiety and depression, which cause her to sleep all day after returning from work. 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 The event was precipitated by an unmanageable class and an healthcare facility administrator who, in front of the students, told her to go home after she requested assistance. Subsequently, she was confronted by the head principal and had a full-blown panic attack during the meeting, for which she is now facing disciplinary action. This has led to a significant increase in her anxiety related to her job. The patient has a history of taking sertraline (Zoloft) when she was younger, which stopped being effective. She does not currently take any as-needed medication for panic attacks. She last saw a therapist in [phone], but the therapist left the practice, and she has been unsuccessful in finding a new one despite her efforts. Regarding her sleep, she reports alternating between sleeping all day and being unable to sleep at all. The patient was diagnosed with obstructive sleep apnea following a sleep study approximately 3-4 years ago but never received a CPAP machine because she was told she would have to pay [id number] and could not afford it. She currently reports excessive daytime sleepiness and snoring. [facility] Medical History (Updated 04/08/25 @ 16:12 by Cheryl Hutchison MD) Anxiety with depression History of obstructive sleep apnea Lesion of external ear Acute cholecystitis due to biliary calculus Abdominal pain Biliary colic Umbilical hernia Dysphagia Mild intermittent asthma Impaired concentration Sleep apnea Essential hypertension Morbid obesity Heartburn Asthma Surgical History No pertinent past surgical history Family History Father Substance use disorder Paternal Grandmother Mental health disorder Paternal Aunt Mental health disorder Maternal Grandmother Mental health disorder Mother Mental health disorder Sister Mental health disorder Social History Household Members: Family Housing: House Do you presently have visiting nurse or other home services: No Comment: post-op Patient Tobacco Use Status: Former Tobacco user e-Cigarette/Vaping Use: Never Used Substance Use Type: Marijuana service: No Current occupational status: employed Cognitive needs: No Hearing needs: No Vision needs: Yes Questionnaire PHQ-9 Over the last 2 weeks, how often have you been bothered by any of the following problems? 1. Little interest or pleasure in doing things: several days 2. Feeling down, depressed, or hopeless: several days 3. Trouble falling or staying asleep, or sleeping too much: more than half the days 4. Feeling tired or having little energy: more than half the days 5. Poor appetite or overeating: several days 6. Feeling bad about yourself - or that you are a failure or have let yourself or your family down: several days 7. Trouble concentrating on things, such as reading the newspaper or watching television: several days 8. Moving or speaking so slowly that other people could have noticed. Or the opposite - being so fidgety or restless that you have been moving around a lot more than usual: several days 9. Thoughts that you would be better off or of hurting yourself in some way: not at all Total score: 10 Depression Screening Interpretation: Positive Depression Screening Done: Yes 87470 - PHQ-9 Billing: Yes Source: Developed by Drs. Bart Bravo, Ya Momin, Natanael Verduzco and colleagues, with an educational cristi from [employer]. Thrive Questionnaire Date Thrive assessed: 11/03/24 I am a: Patient What is your living situation today?: I have a place to live, but I am worried about losing it in the future Within the past 12 months, did the food you bought not last and you didn't have the money to get more?: Often true Within the past 12 months, did you worry whether your food would run out before you got money to buy more?: Often true Do you have trouble paying for medicines?: No Do you have trouble getting transportation to medical appointments?: No Do you have trouble paying your heating and electricity bill?: Yes Do you have trouble taking care of your child, family member or friend?: No Do you have trouble with day-to-day activities such as bathing, preparing meals, shopping, managing finances, etc.?: Yes Are you currently unemployed and looking for a job?: No Are you interested in more education?: Yes Currently or been in a relationship where the following occur: No concerns reported THRIVE Score: 4 AUDIT C Alcohol Use Questionnaire (AUDIT-C) 1. How often do you have a drink containing alcohol?: Monthly or less 2. How many drinks containing alcohol do you have on a typical day when you are drinking?: 1 or 2 3. How often do you have six or more drinks on one occasion?: Never Total Score: 1 KATHIE-7 AMB Questionnaire KATHIE-7 Date KATHIE - 7 assessed: 04/08/25 Feeling nervous, anxious, or on edge: 2 = More than half the days Not being able to stop or control worryin = More than half the days Worrying too much about different things: 2 = More than half the days Trouble relaxin = Several days Being so restless that it is hard to sit still: 0 = Not at all Becoming easily annoyed or irritable: 1 = Several days Feeling afraid as if something awful might happen: 1 = Several days Total KATHIE-7 score (0-4 normal; 5-9 mild; 10-14 moderate; 15-21 severe): 9 Source: Developed by Drs. Bart Bravo, Ya Momin, Natanael Vedruzco and colleagues, with an educational cristi from [employer]. KATHIE-7 Assessment Billing KATHIE-7 Assessment Tool: KATHIE-7 Assessment 45874 Review of Systems Const All systems reviewed & are unremarkable except as noted in HPI and below Physical exam (Primary Care) Vital Signs: Last Vital Signs Pulse 77 04/08/25 15:43 BP 132/78 04/08/25 15:43 Pulse Ox 98 04/08/25 15:43 BMI result Body Mass Index 72.2 Tobacco/Smoking Status: Tobacco use Status Tobacco use date assessed 02/06/25 04/08/25 15:45 Patient Tobacco Use Status Former Tobacco user 04/08/25 15:45 e-Cigarette/Vaping Use Never Used 04/08/25 15:45 Depression Screening Interpretation: Positive Thrive Assessment: Date of Thrive Assessment Date Thrive assessed 11/03/24 04/08/25 15:45 Currently or been in a relationship where the following occur: No concerns reported Const General: no acute distress and alert Nutritional Appearance: obese morbidly obese Orientation/consciousness: patient oriented x3 HENMT Mouth: moist mucous membranes Eyes General: appearance normal, both eyes and all related structures Neck Neck: Yes full ROM, Yes no lymphadenopathy and Yes supple Resp Effort & Inspection: normal respiratory effort Auscultation: clear to auscultation bilaterally Cardio Rate: regular rate Rhythm: regular rhythm Heart sounds: S1 normal heart sound present and S2 normal heart sound present GI Inspection: Yes obesity Palpation (GI): Soft to palpation and nontender Auscultation: normal bowel sounds Neuro General: patient oriented x3, gait normal, tone normal, moves all extremities and no focal motor deficits Cognition (Neuro): normal cognition Extrem General: Yes full ROM, Yes no joint enlargement, Yes no clubbing, cyanosis or edema and Yes no calf tenderness Psych Appearance: grossly normal and well kempt Mental Status: mental status grossly normal Speech and movement: Normal speech and movement present Affect: normal affect Coding Level of Care Code Est Pt Level 4 (01978) Diagnoses Anxiety with depression F41.8 Excessive daytime sleepiness G47.19 Additional Codes PHQ-9 - 10135 - PHQ-9 Billing: Yes ([id number]) KATHIE-7 Assessment Billing - KATHIE-7 Assessment Tool: KATHIE-7 Assessment 15565 ([id number]) Assessment & Plan Assessment & Plan (1) Anxiety with depression: Code(s): F41.8 - Other specified anxiety disorders Category: Medical Plan: The patient's anxiety and depression are poorly controlled on her current dose of escitalopram, which she feels is no longer effective. Symptoms are exacerbated by significant work-related stress, which recently culminated in a panic attack. A referral to a psychiatrist is ordered increased escitalopram to 30 mg daily and prescribed clonazepam to be taken as needed for acute panic attacks. Referred to our mental health coordinator for assistance in scheduling appointments with a therapist and a psychiatrist. The patient to provide [place] paperwork for completion. A follow-up is scheduled in four weeks if a psychiatry appointment has not been established. (2) Excessive daytime sleepiness: Code(s): G47.19 - Other hypersomnia Plan: She has a history of obstructive sleep apnea diagnosed 3-4 years ago but remains untreated, reporting she could not afford the CPAP machine. She continues to have symptoms including excessive daytime sleepiness and disturbed sleep patterns. Untreated sleep apnea is likely a significant contributor to her fatigue and may be exacerbating her mood symptoms. A new sleep study will be ordered. Plan Patient was informed and verbally consented to the use of an ambient scribe for clinic note documentation during this visit. Orders: Referrals Psychiatry Referral F41.8 - Other specified anxiety disorders Sleep Medicine Referral G47.19 - Other hypersomnia, Z86.69 - Personal history of other diseases of the nervous system and sense organs Medications: New clonazepam (Klonopin) administer 30 minutes before bedtime 0.25 mg (1/2 x 0.5 mg) PO DAILY PRN 10 tabs 0RF acute anxiety attacks Changed From escitalopram oxalate 20 mg PO DAILY 30 tabs 5RF F41.8 - Other specified anxiety disorders To escitalopram oxalate 30 mg (1.5 x 20 mg) PO DAILY 45 tabs 5RF 30 days F41.8 - Other specified anxiety disorders
--- OUTSIDE RECORDS SUMMARY | 2025-04-08 17:40 | XMS_ITS | Encounter Summary ---
Author Organization [facility] Address [address] [place], [place] [phone] Phone Care Team Providers Care Mdm Sr Name Role Phone Angelica Heaton MD Primary Care Provider [phone] Reason for Visit * Reason Onset Date Comments Med Refill 05/09/2020 Encounter Details Date Type Department Care Team ([facility] Contact Info) Description 05/09/2020 Refill [facility] [place] [address] [place] [address] Angelica Heaton MD [address] [place] [address] Seasonal allergic rhinitis, unspecified trigger; Menorrhagia with [...] cycle documented in this encounter Care Teams Mdm Sr Relationship Specialty Start Date End Date Angelica Heaton MD [address] [place] [phone] PCP - General Pediatrics 11/16/18 07/22/22 documented as of this encounter
--- OUTSIDE RECORDS SUMMARY | 2025-04-08 17:40 | XMS_ITS | Encounter Summary ---
Author Organization [facility] Address [address] [place] [address] Phone Care Team Providers Care Warp Spinner Name Role Phone Angelica Heaton MD Primary Care Provider [phone] Encounter Details Date Type Department Care Team (Late st Contact Info) Description 09/04/2009 Documentation [facility] [address] [place] [address] Family Medicine, Physician [address] [place] [address] Social History Tobacco Use Types Packs/Day Years [...] on filedocumented in this encounter Care Teams Warp Spinner Relationship Specialty Start Date End Date Angelica Heaton MD [address] [place] [address] PCP - General Pediatrics 11/16/18 07/22/22 documented as of this encounter
--- OUTSIDE RECORDS SUMMARY | 2025-04-08 17:40 | XMS_ITS | Encounter Summary ---
Author Organization [facility] Address [address] [place] [address] Phone Care Team Providers Care Travel Counselor [employer]obile Club Name Role Phone Angelica Heaton MD Primary Care Provider [phone] Reason for Visit * Reason Comments Med Refill Encounter Details Date Type Department Care Team ([facility] Contact Info) Description 05/02/2022 Refill [facility] [address] [place] [address] Angelica Heaton MD [address] [place] [address] Menorrhagia with regular cycle Social History Tobacco [...] cycle documented in this encounter Care Teams Travel Counselor Automobile Club Relationship Specialty Start Date End Date Angelica Heaton MD [address] [place] [address] PCP - General Pediatrics 11/16/18 07/22/22 documented as of this encounter
--- OUTSIDE RECORDS SUMMARY | 2025-04-08 17:40 | XMS_ITS | Clinical Summary ---
Author Organization [facility] it Address [address] [place] [address] Care Team Providers Care Qi Specialist Name Role Phone Unavailable Primary Care Provider [...]
--- OUTSIDE RECORDS SUMMARY | 2025-04-08 17:40 | XMS_ITS | Encounter Summary ---
Author Organization [facility] Address [address] [place], [place] [phone] Phone Care Team Providers Care Cut Roll Machine Offbearer Name Role Phone Angelica Heaton MD Primary Care Provider Reason for Visit * Reason Onset Date Comments Med Refill 09/27/2019 Encounter Details Date Type Department Care Team ([facility] st Contact Info) Description 09/27/2019 Refill [facility] [place] [address] [place] [address] Angelica Heaton MD [address] [place] [address] Moderate persistent asthma without complication; Seasonal allergic [...] trigger documented in this encounter Care Teams Cut Roll Machine Offbearer Relationship Specialty Start Date End Date Angelica Heaton MD [address] [place] [address] PCP - General Pediatrics 11/16/18 07/22/22 documented as of this encounter
--- OUTSIDE RECORDS SUMMARY | 2025-04-08 17:40 | XMS_ITS | Encounter Summary ---
Author Organization [facility] Address [address] [place] [address] Phone Care Team Providers Care [employer] Glazer Name Role Phone Angelica Heaton MD Primary Care Provider [phone] Reason for Visit * Reason Comments Med Refill Encounter Details Date Type Department Care Team ([facility] Contact Info) Description 01/29/2022 Refill [facility] [address] [place] [address] Angelica Heaton MD [address] [place] [address] Menorrhagia with regular cycle Social History Tobacco [...] cycle documented in this encounter Care Teams [employer] Glazer Relationship Specialty Start Date End Date Angelica Heaton MD [address] [place] [address] PCP - General Pediatrics 11/16/18 07/22/22 documented as of this encounter
--- OUTSIDE RECORDS SUMMARY | 2025-04-08 17:40 | XMS_ITS | Clinical Summary ---
Author Organization [facility] Address [address] [place] [phone] Phone Care Team Providers Care Water Resources Engineer Name Role Phone Unavailable Primary Care Provider Unavailabl e Allergies Active Allergy Reactions Criticality Noted Date Comments Clam Shell 04/06/2017 Environmental 04/06/2017 Cat,dog, hamster Food 04/06/2017 [place], tomato,cantelope,apples , seafood Shellfish Protein-Containing Drug Products [...] a1c 5.7. Renea is working with a claim rep and is considering bariatric surgery. Continue to follow. Needs Adult MD. 02/02/2022 (age 21yr): Is continuing to work with claim rep. Assessment & Plan (02/02/2022 10:33 AM EDT): 02/02/2022 (age 21yr): Is continuing to work with claim rep. Lab test positive for detection of COVID-19 viru s 04/12/2021 Assessment & Plan (04/12/2021 11:37 AM EST): Pt positive for covid - testing done at 'Stop the spread . Other family members positive as well Pt with multiple significant risk factors Referred to [facility] infusion site - form for referral filled [...] from hydrochlorothiazide to amlodipine on 12/18/2019). [facility] involved. Urgent cardiology visit scheduled for 03/[address] Hickey at [facility] cardio [facility]. Ran out of OCPS 4 days ago. - I contacted Dr. Hutchinson who felt that OCP were still reasonable in [place]. I will continue to prescribe as long as she see the cardiology in March. - Follow up with adult cardiology - Last Specialist Visit: [facility] cardiology 02/12/2022, started on amlodipine and losartan. OCP refilled with 3 RF and message to [facility] to contact Renea to help her transition to adult medicine. 01/25/2022 Chart Review: [facility] - 03/22/2021 158/87 Wing ED - 12/08/2021 162/92 in the office - 12/09/2021 153/74,then 118/62 at [facility] ED - 01/05/2022: BP-150/104 at [facility], sent to ED. No note [...] from hydrochlorothiazide to amlodipine on 12/18/2019). [facility] involved as of 11/03/2021 Follow up with adult cardiology. 12/09/2021 (age 21yr): Sent to ED with elevated HR and chest pain. 12/29/2021 (age 21yr): Urgent cardiology visit scheduled for 03/17/[address] Hickey at [facility] Adult cardio [facility]. Assessment & Plan (12/08/2021 1:06 PM EDT): 12/08/2021 (age 21yr): BP high today, ran out of meds 04/2020 and has not had refills. Diagnosed by cardiology 07/2018. Last visit with Dr. Hutchinson was 12/18/2019. Now on losartan 50 mg and amlodipine 5mg. (switched from hydrochlorothiazide to amlodipine on 12/18/2019). [facility] involved as of 11/03/2021 Per [facility], Pt will call Dr. Hutchinson to see if he can follow up with her. Otherwise refer to adult cardiology at [facility]. Now, Renea state she would like [...] from Dr. Hutchinson ready for pt to grape picker from the pharmacy (amlodipine 5mg and [...] specialty appointments. Reintroduced to Davide Angeles our day care teacher today for supports with prioritizing booking specialist visits as well as working on transition to adult medicine given complex adult care needs. Assessment & Plan (02/02/2022 10:41 AM EDT): 02/02/2022 (age 21yr): Mother concerned that Renea is having a hard to keeping track of her appointments and medical issues. [facility] involved to assist. Assessment & [...] not had a therapist for 1 year. [facility] to assist in finding new provider. 02/02/2022 (age 21yr): still doesn't have a provider. [facility] involved to assist. Also needs to move to adult medicine. Detailed History and Chronology of care: Dx [address] Virgil Jang MD via Telepsych from [facility] - He recommends a lithium trial. Then followed by Dr. Wilson (interim) - Mother is willing to travel to [place] for regular in person psychiatric evaluations and supports. Will refer to psych at [facility]. [facility] will not accept the patient and advised that she be evaluated by a psychiatrist in [place] ([facility]) 07/2020: visit with Dr. Newman at [facility] as a new consult/evaluation, previously seen by Dr. Wilson and struggled to get in elsewhere, so were happy to have this evaluation - he is writing for medication for pt. 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 [facility] involved to assist. Also needs to move to adult medicine. Assessment & Plan (12/08/2021 1:07 PM EDT): 12/08/2021 (age 21yr): 12/08/2021 (age 21yr): psychiatrist just left, on escilatopram and trazadone. No meds for bipolar reported by pt. Has not had a therapist for 1 year. [facility] to assist in finding new [...] 9:38 AM EDT): Seeing Dr. Wilson at [facility]. Gets meds through him. On Quetieapine (and adderall). D/C'd lexapro several month ago. Assessment & Plan (05/08/2018 2:53 PM EST): [facility] will not accept the patient and advised that she be evaluated by a psychiatrist in [place] ( [facility]) Heavy periods 12/21/2017 Overview (05/03/2022): 02/02/2022 [...] OCPs. Renea also needs to see a DIRECTOR DIGITAL CATALOGUE. - start isibloom with next menses - I can continue to prescribe as long as Renea keeps her cardiology appointment in March. - Renea needs to transition to an adult provider before she is due for her next well visit. - Last Specialist Visit: [facility] cardiology 02/12/2022, started on amlodipine and losartan. OCP refilled with 3 RF and message to [facility] to contact Renea to help her transition to adult medicine. Detailed History and Chronology of care: 07/2020: pt taking the same OCPs with better menses management - refilled at [facility] 07/2020, discussed transition to adult provider/DIRECTOR DIGITAL CATALOGUE provider for ongoing care. 07/27/2021 (age 20yr): Will HTN and headaches, I wonder if progesterone only BC would be safer for Renea. OCP refilled for the Next month, will discuss this at well visit in August. Will suggest DIRECTOR DIGITAL CATALOGUE for BC care. 08/02/2021 (age 20yr): Started [...] HTN. Renea also needs to see a DIRECTOR DIGITAL CATALOGUE. 12/29/2021 (age 21yr): Urgent cardiology visit scheduled [...] OCPs. Renea also needs to see a DIRECTOR DIGITAL CATALOGUE. - start isibloom with next menses - [...] would like her to have a current hold worker to confirm this. Renea also needs to see a DIRECTOR DIGITAL CATALOGUE. Assessment & Plan (08/03/2020 9:57 PM EDT): OCPs refilled at - work on transitioning to adult PCP and DIRECTOR DIGITAL CATALOGUE provider if needed - information had previously [...] BLAYNE Identified on sleep study 10/06/2020 at [facility]. . - Last Specialist Visit: [...] help with control of her hypertension. [employer] was contacted, they confirmed a bill [...] 10/06/2020: BLAYNE Identified on sleep study at [facility] 10/29/2020 (age 20yr): . Referred to sleep medicine at [facility] for CPAP. Renea is having headaches [...] help with control of her hypertension. [employer] was contacted, they confirmed a bill [...] BLAYNE Identified on sleep study 10/06/2020 at [facility]. Assessment & Plan (10/29/2020 6:12 AM EDT): 10/29/2020 (age 20yr): BLAYNE Identified on sleep study 10/06/2020 at [facility]. Referred to sleep medicine at [facility] for CPAP. Renea is having headaches [...] these allergies, mom would like to see stroboscope operator for further testing and plans to schedule her own appointment. Already has UTD epipen (12/2019) 11/03/2021 (age 21yr): Per [facility], referral re requested. Referral placed and pt to make her own appt. Assessment & Plan (08/03/2020 9:52 PM EDT): Pt already has UTD epipen, aware of when to use this, and stroboscope operator at [facility] requested for follow up, information was previously given, pt/mom to book. Assessment & Plan (07/23/2020 11:41 PM EDT): Referral to stroboscope operator and pt/family to book appointment with adult stroboscope operator for further evaluation and follow up. Epipen is already UTD from 12/2019 visit so did not refill today. Assessment & Plan (12/15/2018 10:33 AM EDT): Needs to go back to stroboscope operator. Assessment & Plan (01/02/2018 12:29 PM EDT): School med auth formed filled out. Seasonal allergic rhinitis 08/05/2016 Overview (12/08/2021): 12/08/2021 (age 21yr): Uses On martita 180 daily and singulair 10 mg as needed. Will be seeing stroboscope operator. . Detailed History and Chronology of care: 07/20/2019 No current symptoms, will refill martita today ahead of allergy season. 07/2020: refill on singulair requested and has used martita in the past, requesting refills. Referred to stroboscope operator for allergies and snoring 10/30/2020 (age 20yr): did not follow through on allergy referral. Assessment & Plan (12/08/2021 11:56 AM EDT): 12/08/2021 (age 21yr): Uses On martita 180 daily and singulair 10 mg as needed. Will be seeing stroboscope operator. . Assessment & Plan (08/03/2020 9:51 [...] :Followed in the past by Pulm at [facility]. Last visit 01/2018. Seems to be overdue for 4 month follow up, in the past has requested med refills and referral to pulm. Has appt with adult pulm 01/2022. (missed appt ) - Last Specialist Visit: 06/23/2022 [facility] pulm Dr. Loera: Obestiry negatively impacting her health in many ways. Plan: Start symbicort, referred to for pulmonary rehab to do asth;ma teaching, home polysomnogram, PFTs Detailed History and Chronology of care: Was on singulair 10 mg and QVAR or flovent 110. Had bad asthma with GERD as young child, followed by [facility].( mother mentions that there might [...] :Followed in the past by Pulm at [facility]. Last visit 01/2018. Seems to be overdue for 4 month follow up, in the past has requested med refills and referral to pulm. Has appt with adult pulm 01/2022. (missed appt ) Assessment & Plan (08/03/2020 9:38 PM EDT): Plans to return to [place] [facility] as already planned, family has information [...] of atypical pneumonia. Followed by Pulm at [facility]. Has follow up in May 2108. [...] hours. Mom requesting referral to pulm at [facility] (mom says she was seen there when she was young, though I only see notes from [facility] pulm), so I will put referral in now. Mom wants us to make the appt for her. Class 3 severe obesity due t o excess calories with serious comorbidity in adult 03/25/2011 Overview (12/09/2021): 12/08/2021 (age 21yr): Working with claim rep to lose weight ahead of bariatric surgery. Working with Dr. Gandara. 12/09/2021 (age 21yr): Hyperinsulinemia note, Hgb A1C 5.7 unchanged since last year. Cholesterol normal. Detailed History and Chronology of care: Went to [facility] in 2008 but no success. Sleep study in 2008 was normal. 02/05/2021:Visit with general surgery (Dr Gandara), planning for bariatric surgery (sleeve)) Assessment & Plan (12/08/2021 11:55 AM EDT): 12/08/2021 (age 21yr): Working with claim rep to lose weight ahead of bariatric surgery. [...] not had a therapist for 1 year. [facility] to assist in finding new provider. 02/02/2022 (age 21yr): still doesn't have a provider. [facility] involved to assist. Also needs to move to adult medicine. Detailed History and Chronology of care: 2016. Partial hosp 02/2017 Inpatient hospitalization at [facility] 02/2018 Telepsych evaluation completed- dx with Bipolar 1 Disorder 12/15/2018: Seeing Dr. Wilson at [facility]. Gets meds through him. On Quetieapine (and adderall). D/C'd lexapro several month ago. Seeing Mckenzie Turner (therapist) for years. 07/2020: Continues with ongoing therapist (Mckenzie Turner) - has been seeing her for about 10 years, had a followup recently due to insurance issues and the soonest available was 07/2020 to recheck. Seen 07/[address] Newman at [facility] as a new consult/evaluation, Currently taking quetiapine and has hydroxyzine Assessment & Plan (02/02/2022 10:32 AM EDT): 02/02/2022 (age 21yr): still doesn't have a provider. [facility] involved to assist. Also needs to move to adult medicine. Assessment & Plan (12/08/2021 1:07 PM EDT): 12/08/2021 (age 21yr): psychiatrist just left, on escilatopram and trazadone. Has not had a therapist for 1 year. [facility] to assist in finding new provider Assessment & Plan (08/03/2020 9:50 PM EDT): Continue in therapy and work with med prescribers to get reestablished as transitions to adult provider Assessment & Plan (12/15/2018 10:31 AM EDT): Seeing Dr. Wilson at [facility]. Gets meds through him. On Quetieapine (and adderall). D/C'd lexapro several month ago. Doing well. Assessment & Plan (03/08/2018 3:59 PM EST): Advised to continue on this treatment regimen until in-person consult/follow up with psychiatrist at [facility]. Assessment & Plan (01/29/2018 4:40 PM EDT): Lexapro does not seem like it's helping according to mother and patient. Followed by Dr. Wilson at [facility] (interim), since previous psych provider [...] not had a therapist for 1 year. [facility] to assist in finding new provider. 02/02/2022 (age 21yr): still doesn't have a provider. [facility] involved to assist. Also needs to move to adult medicine. Detailed History and Chronology of care: 12/15/2018: At [facility]. On Adderall xr [address] Wilson at [facility]. Gets meds through him. 07/2020: visit with Dr. Newman at [facility] as a new consult/evaluation, previously seen by Dr. Wilson and struggled to get in elsewhere, so were happy to have this evaluation - he is writing for medication for pt. Still seeing Mckenzie Turner for therapy ([facility], for years) Assessment & Plan (02/02/2022 10:31 AM EDT): 02/02/2022 (age 21yr): still doesn't have a provider. [facility] involved to assist. Also needs to move to adult medicine. Assessment & Plan (12/08/2021 1:06 PM EDT): 12/08/2021 (age 21yr): psychiatrist just left, no longer on ADHD meds. ADHD symptoms are bothering her. Has not had a therapist for 1 year. [facility] to assist in finding new provider. Assessment & Plan (12/15/2018 10:33 AM EDT): Classes just started. Seeing Dr. Wilson at [facility]. Gets meds through him. On [...] a, Obesity, Migraines Other grandmother: Wiley dden /[place] under 55 Paternal Grandfather Paterna l grandfather: [...] 06/19/2019, 12/15/2018 Procedures * Due to [place] [employer] law, this organization might not be sharing sensitive test results. Procedure Name Priority Date/Time Associated Diagnosis Comments CHLAMYDIA AND GONORRHEA, AMPLIFIED Routine 12/08/2021 12:15 PM EDT Screening for chlamydial disease from Last 3 Months or Most Recently Relevant to Health Maintenance Results * Due to [place] [employer] law, this organization might not be sharing sensitive test results. * Chlamydia and Gonorrhoea, Amplified (12/08/2021 12:15 PM EDT) Chlamydia Trachomatis, DNA Probe NEGATIVE (NEG) [facility] Comment: No Chlamydia Trachomatis RNA detected in this patient's sample (REFERENCE RANGE/NORMAL VALUE: NOT DETECTED) Note: This test uses assessment nurse- mediated amplification method to detect rRNA from C. Trachomatis URINE GC AMP PROBE NEGATIVE (NEG) [facility] Comment: No Neisseria Gonorrhoeae RNA detected in this patient's sample (REFERENCE RANGE/NORMAL VALUE: NOT DETECTED) NOTE: This test uses assessment nurse-mediated amplification method to detect rRNA from N.Gonorrhoeae. [...] risk of sexual abuse. Consult the [facility] if needed. Contact phone number . Therapeutic failure or success cannot be determined with the Aptima Combo2 assay since nucleic acid may persist following appropriate antimicrobial therapy. The Centers for Disease Control and Prevention (CDC) recommends confirmatory retesting using culture or a different nucleic acid amplification test when positive results occur, if indicated. Testing performed or reported by [facility], a Service of [facility], [address] [place] [address] Dylan Pratt MD, [employer] [facility]# [id number] Urine (Urine) 12/08/2021 12: 15 PM EDT 12/09/2021 1:10 AM EDT Angelica Heaton MD LAB MICROBIOLOGY - GENERAL OR DERABLES Final Result [facility] from Last 3 Months or Most Recently Relevant to Health Maintenance
--- OUTSIDE RECORDS SUMMARY | 2025-04-08 17:40 | XMS_ITS | Encounter Summary ---
Author Organization [facility] Address [address] [place], [place] [id number] Phone Care Team Providers Care Operator Helper Name Role Phone Angelica Heaton MD Primary Care Provider [phone] Reason for Visit * Reason Onset Date Comments Med Refill 11/16/2019 Encounter Details Date Type Department Care Team ([facility] st Contact Info) Description 11/16/2019 Refill [facility] [address] [place] [address] Angelica Heaton MD [address] [place] [address] Moderate persistent asthma without complication; Seasonal allergic [...] trigger documented in this encounter Care Teams Operator Helper Relationship Specialty Start Date End Date Angelica Heaton MD [address] [place] [address] PCP - General Pediatrics 11/16/18 07/22/22 documented as of this encounter
--- OUTSIDE RECORDS SUMMARY | 2025-04-08 17:40 | XMS_ITS | Encounter Summary ---
Author Organization [facility] Address [address] [place], [place] [phone] Phone Care Team Providers Care Developmental Education Instructor Name Role Phone Angelica Heaton MD Primary Care Provider [phone] Reason for Visit * Reason Onset Date Comments Med Refill 02/15/2020 Encounter Details Date Type Department Care Team ([facility] st Contact Info) Description 02/15/2020 Refill [facility] [address] [place] [address] Angelica Heaton MD [address] [place] [address] Seasonal allergic rhinitis, unspecified trigger; Moderate persistent [...] complication documented in this encounter Care Teams Developmental Education Instructor Relationship Specialty Start Date End Date Angelica Heaton MD [address] [place] [phone] PCP - General Pediatrics 11/16/18 07/22/22 documented as of this encounter
--- OUTSIDE RECORDS SUMMARY | 2025-04-08 17:40 | XMS_ITS | Encounter Summary ---
Author Organization [facility] Address [address] [place] [phone] Phone Care Team Providers Care Behavioral Health Associate Name Role Phone Angelica Heaton MD Primary Care Provider [phone] Reason for Visit * Reason Comments Med Refill Encounter Details Date Type Department Care Team ([facility] Contact Info) Description 07/25/2021 Refill [facility] [address] [place] [address] Angelica Heaton MD [address] [place] [address] Menorrhagia with regular cycle (Primary Dx) Social [...] will be her last well visit at [facility]. * Telephone Encounter - Josselin Brunson LPN - 07/26/2021 12:56 PM EDT Pharm requesting refill OCP. EH documented in this encounter Plan of Treatment Not on file documented as of this encounter Visit Diagnoses Diagnosis Menorrhagia with regular cycle- Primary documented in this encounter Care Teams Behavioral Health Associate Relationship Specialty Start Date End Date Angelica Heaton MD [address] [place] [address] PCP - General Pediatrics 11/16/18 07/22/22 documented as of this encounter
--- OUTSIDE RECORDS SUMMARY | 2025-04-08 17:40 | XMS_ITS | Encounter Summary ---
Author Organization [facility] Address [address] [place] [address] Phone Care Team Providers Care Heel Nail Rasper Name Role Phone Angelica Heaton MD Primary Care Provider [phone] Encounter Details Date Type Department Care Team ([facility] Contact Info) Description 11/25/2016 Conversion Encounter [facility] [address] [place] [address] Social History Tobacco Use Types Packs/Day Years [...] on filedocumented in this encounter Care Teams Heel Nail Rasper Relationship Specialty Start Date End Date Angelica Heaton MD [address] [place] [address] PCP - General Pediatrics 11/16/18 07/22/22 documented as of this encounter
--- OUTSIDE RECORDS SUMMARY | 2025-04-08 17:41 | XMS_ITS | Encounter Summary ---
Author Organization [facility] Address [address] [place] [address] Phone Care Team Providers Care Paint Grinder Name Role Phone Angelica Heaton MD Primary Care Provider [phone] Encounter Details Date Type Department Care Team (Late st Contact Info) Description 07/12/2016 Documentation [facility] [address] [place] [address] Family Medicine, Physician [address] [place] [address] Social History Tobacco Use Types Packs/Day Years [...] on filedocumented in this encounter Care Teams Paint Grinder Relationship Specialty Start Date End Date Angelica Heaton MD [address] [place] [address] PCP - General Pediatrics 11/16/18 07/22/22 documented as of this encounter
--- OUTSIDE RECORDS SUMMARY | 2025-04-08 17:41 | XMS_ITS | Encounter Summary ---
Author Organization [facility] Address [address] [place] [phone] Phone Care Team Providers Care Labor Delivery Specialist Name Role Phone Angelica Heaton MD Primary Care Provider Reason for Visit * Reason Comments Med Refill Encounter Details Date Type Department Care Team ([facility] Contact Info) Description 11/22/2021 Refill [facility] [address] [place] [address] Angelcia Heaton MD [address] [place] [address] Menorrhagia with regular cycle Social History Tobacco [...] cycle documented in this encounter Care Teams Labor Delivery Specialist Relationship Specialty Start Date End Date Angelica Heaton MD [address] [place] [address] PCP - General Pediatrics 11/16/18 07/22/22 documented as of this encounter
--- OUTSIDE RECORDS SUMMARY | 2025-04-08 17:41 | XMS_ITS | Encounter Summary ---
Author Organization [facility] Address [address] [place] [id number] Phone Care Team Providers Care Physiatrist Name Role Phone Angelica Heaton MD Primary Care Provider [phone] Reason for Visit * Reason Comments Med Refill Encounter Details Date Type Department Care Team ([facility] Contact Info) Description 01/17/2018 Refill [facility] [place] [address] [place] [address] Brooke Conklin MD [address] [place] [address] Menorrhagia with irregular cycle (Primary Dx) Social [...] Miscellaneous Notes * Telephone Encounter - Nelida lFeming LPN - 01/18/2018 8:24 AM EDT Refill request for OCP's Last PE 10/14/17/MEGAN documented in this encounter Plan of Treatment Not on file documented as of this encounter Visit Diagnoses Diagnosis Menorrhagia with irregular cycle- Primary documented in this encounter Care Teams Physiatrist Relationship Specialty Start Date End Date Angelica Heaton MD [address] [place] [address] PCP - General Pediatrics 11/16/18 07/22/22 documented as of this encounter
== END 2025-04-08 16:19 | disposition home or self-care (01) ==
LOC: HO.HMCC 15:40
PROVIDERS: PCP Internal Medicine; Visit Provider Internal Medicine
DX: F41.8 Other specified anxiety disorders (principal); G47.19 Other hypersomnia

== ENCOUNTER → 2025-04-08 15:39 | Outpatient (BNVA) | payer OTHER, SELFPAY | PROVIDERS: PCP Internal Medicine; Visit Provider Internal Medicine | DX: F41.8 Other specified anxiety disorders (principal); G47.19 Other hypersomnia | CPT/HCPCS: 96127; 99212 ==